=== PATIENT | female | born 1965 | race Caucasian/White ===

== ENCOUNTER 2017-01-03 20:26 | Inpatient (IN) | payer MEDICAID ==
[~2017-01-03] VITALS: Ht 165.1 cm; Wt 106.0 kg
[~2017-01-03 20:26] MED LIST: ALBU6.7H INH; ALBU8I INH; ALPR1TAB3 PO; FURO20 PO; LEVEMIR SQ; NOVOLOGSS SQ; OXYC30TA PO; POTA10IN2 PO; PROM1SUP12 PR; TIOT18I INH; ZITH250T PO; ZOLP10TA3 PO
[2017-01-03 20:34] VITALS: BP 103/61; PULSE 110; RESP 18; TEMP 99.9; O2SAT 87
[2017-01-03] MEDS ORDERED: LEVEMIR SQ (20:53)
[2017-01-03] MEDS ORDERED: OXYC60TA8 PO (20:53)
[2017-01-03] MEDS ORDERED: VENTAER INH (20:53)
[2017-01-03] MEDS ORDERED: OXYC30TA PO (20:53)
[2017-01-03] MEDS ORDERED: NOVO7030P2 SQ (20:53)
[2017-01-03] MEDS ORDERED: SPIRCAP INH (20:53)
[2017-01-03] MEDS ORDERED: ALPR1TAB3 PO (20:53)
[2017-01-03] MEDS ORDERED: SODIUM CHLOR 0.9% 1000 ML INJ 1,000 ML IV ONE (21:00)
--- NOTE | 2017-01-03 21:22 | PD ---
HPI Chief Complaint: Respiratory Symptoms Time Seen by Provider: 20:55 Travel History International Travel<30 days: No Contact w/Intl Traveler<30days: No Traveled to known affect area: No History of Present Illness HPI 51-year-old female states over the past day or so she's been feeling short of breath. She states can multiple treatments at home without significant relief. In the ambulance they gave her another treatment and steroids. She states that she recently got diagnosed with head and neck cancer and is working on getting surgery in [place] early next week. She states she is not started chemotherapy yet. She states that she has been having a lot of mucus and general ill feeling. She denies other complaints other than pain to her back that she takes pain medications at home for. In the ambulance she had a fever of 101. Patient denies any sick contacts. She feels worse when she moves around. She denies other modifying factors. PFSH Past Medical History Arthritis: Yes (KNEES) Asthma: Yes Blood Disorders: No Bipolar Disorder: Yes Anxiety: Yes Depression: Yes Heart Rhythm Problems: No Cancer: Yes (MOLAR , OVARIAN, COMPLETE HYSTERECTOMY) Cardiovascular Problems: Yes High Cholesterol: Yes Chemotherapy: Yes Chest Pain: No Congestive Heart Failure: No COPD: Yes Cerebrovascular Accident: No Diabetes: Yes Patient Takes Glucophage: No Diminished Hearing: No Endocrine: Yes Fibromyalgia: Yes Genitourinary: No Headaches: Yes Hypertension: Yes Immune Disorder: No Implanted Vascular Access Dvce: No Musculoskeletal: Yes (degenerative disc disease) Neurologic: Yes (NEUROPATHY IN LEGS) Psychiatric: Yes (BIPOLAR) Reproductive: No Respiratory: Yes (sarcoidosis) Migraines: No Myocardial Infarction: Yes ("SMALL HEART ATTACK IN 2006") Radiation Therapy: Yes Seizures: No Sleep Apnea: Yes Influenza Vaccination: Yes ?: Not LMP: 2006 : 1 Para: 1 Miscarriage: 0 : 0 Past Surgical History Abdominal Surgery: Yes (MOLAR PREGNACY, EXP. LAP) Appendectomy: Yes Cardiac Surgery: No Ear Surgery: No Endocrine Surgery: No Eye Surgery: No Genitourinary Surgery: No Gynecologic Surgery: Yes (HYSTERECTOMY) Hysterectomy: Yes Oral Surgery: No Thoracic Surgery: No Other Surgery: Yes (LUNG BIOPSY 2007) Family History Family Hypercholesterolemia: Yes Social History Alcohol Use: No Tobacco Use: Yes (1/2 PPD) Substance Use: No Allergies-Medications (Allergen,Severity, Reaction): Coded Allergies: Morphine (Verified Allergy, Severe, CAN'T BREATH, 08/01/14) Toradol (Verified Allergy, Intermediate, HIVES, 08/01/14) *MDRO Multi-Drug Resistant Organism (Verified Allergy, Unknown, 03/31/14) MRSA Reported Meds & Prescriptions Reported Meds & Active Scripts Active Reported Oxycontin (Oxycodone HCl) 60 Mg Tab 60 Mg PO Q12HR Spiriva Handihaler (Tiotropium Inh) 18 Mcg Cap 18 Mcg INH DAILY 1 capsule = 18 mcg Oxycodone (Oxycodone HCl) 30 Mg Tab 30 Mg PO 5 TIMES A DAY PRN Levemir Inj (Insulin Detemir) 1,000 unit/ 10 ML Vial 10 Units SQ HS Do not mix with any other Insulin. Novolin 70-30 Inj (Insulin Human Isoph/Insulin Regular) 1,000 Unit/10 Ml Vial Unknown Dose SQ Alprazolam 1 Mg Tab 1 Mg PO Q8H PRN Ventolin Hfa 18 GM Inh (Albuterol Sulfate) 90 Mcg/Act Aer Unknown Dose INH Q4- 6H PRN Review of Systems Except as stated in HPI: all other systems reviewed are Neg Physical Exam Narrative GENERAL: Well-nourished, well-developed patient. SKIN: Warm and dry. HEAD: Normocephalic and atraumatic. EYES: No injection or drainage. ENT: No nasal drainage noted. Mass noted to neck NECK: Supple, trachea midline. CARDIOVASCULAR: Regular rate and rhythm RESPIRATORY: Coarse bilaterally. No accessory muscle use. GASTROINTESTINAL: Abdomen soft, non-tender, nondistended. NEUROLOGICAL: Awake and alert. Moves extremities. Normal speech. Data Data Last Documented VS Vital Signs Date Time Temp Pulse Resp B/P Pulse Ox O2 Delivery O2 Flow Rate FiO2 01/03/17 22:40 86 Nasal Cannula 4.5 01/03/17 20:56 24 01/03/17 20:34 99.9 110 103/61 increased oxygen to sat 91 range in room with copd history and updated hospitalist Orders Electrocardiogram (01/03/17 20:53) Complete Blood Count With Diff (01/03/17 20:53) Comprehensive Metabolic Panel (01/03/17 20:53) Prothrombin Time / Inr (Pt) (01/03/17 20:53) Act Partial Throm Time (Ptt) (01/03/17 20:53) Lactic Acid Sepsis Protocol (01/03/17 20:53) Magnesium (Mg) (01/03/17 20:53) Phosphorus (Po4) (01/03/17 20:53) Urinalysis - C+S If Indicated (01/03/17 20:53) Influenzae A/B Antigen (01/03/17 20:53) Blood Culture (01/03/17 20:53) Chest, Single Ap (01/03/17 20:53) Ecg Monitoring (01/03/17 20:53) Iv Access Insert/Monitor (01/03/17 20:53) Oximetry (01/03/17 20:53) Oxygen Administration (01/03/17 20:53) Sodium Chlor 0.9% 1000 Ml Inj (Ns 1000 M (01/03/17 21:00) B-Type Natriuretic Peptide (01/03/17 21:02) Ckmb (Isoenzyme) Profile (01/03/17 21:02) Troponin I (01/03/17 21:02) Albuterol-Ipratropium Neb (Duoneb Neb) (01/03/17 22:00) Ct Pulmonary Angiogram (01/03/17 22:01) Sodium Chloride 0.9% Flush (Ns Flush) (01/03/17 22:15) Ceftriaxone Inj (Rocephin Inj) (01/03/17 22:15) Azithromycin Inj (Zithromax Inj) (01/03/17 22:15) Sodium Chlorid 0.9% 500 Ml Inj (Ns 500 M (01/03/17 22:45) Albuterol-Ipratropium Neb (Duoneb Neb) (01/03/17 22:45) Iohexol 350 Inj (Omnipaque 350 Inj) (01/03/17 23:02) Admit Order (Ed Use Only) (01/03/17 23:38) Labs Laboratory Tests Test 01/03/17 01/03/17 21:00 22:15 White Blood Count 19.1 TH/MM3 Red Blood Count 3.94 MIL/MM3 Hemoglobin 10.9 GM/DL Hematocrit 32.7 % Mean Corpuscular Volume 83.0 FL Mean Corpuscular Hemoglobin 27.8 PG Mean Corpuscular Hemoglobin 33.5 % Concent Red Cell Distribution Width 14.1 % Platelet Count 325 TH/MM3 Mean Platelet Volume 8.6 FL Neutrophils (%) (Auto) 81.7 % Lymphocytes (%) (Auto) 10.0 % Monocytes (%) (Auto) 7.1 % Eosinophils (%) (Auto) 0.7 % Basophils (%) (Auto) 0.5 % Neutrophils # (Auto) 15.6 TH/MM3 Lymphocytes # (Auto) 1.9 TH/MM3 Monocytes # (Auto) 1.4 TH/MM3 Eosinophils # (Auto) 0.1 TH/MM3 Basophils # (Auto) 0.1 TH/MM3 CBC Comment DIFF FINAL Differential Comment Prothrombin Time 11.4 SEC Prothromb Time International 1.0 RATIO Ratio Activated Partial 30.8 SEC Thromboplast Time Sodium Level 130 MEQ/L Potassium Level 3.9 MEQ/L Chloride Level 93 MEQ/L Carbon Dioxide Level 30.7 MEQ/L Anion Gap 6 MEQ/L Blood Urea Nitrogen 5 MG/DL Creatinine 0.60 MG/DL Estimat Glomerular Filtration 106 ML/MIN Rate Random Glucose 280 MG/DL Lactic Acid Level 1.1 mmol/L Calcium Level 8.6 MG/DL Phosphorus Level 2.6 MG/DL Magnesium Level 1.7 MG/DL Total Bilirubin 0.6 MG/DL Aspartate Amino Transf 11 U/L (AST/SGOT) Alanine Aminotransferase 20 U/L (ALT/SGPT) Alkaline Phosphatase 139 U/L Total Creatine Kinase 98 U/L Troponin I LESS THAN 0.02 NG/ML B-Type Natriuretic Peptide 32 PG/ML Total Protein 7.2 GM/DL Albumin 3.0 GM/DL Urine Color YELLOW Urine Turbidity CLEAR Urine pH 6.0 Urine Specific [place] 1.007 Urine Protein NEG mg/dL Urine Glucose (UA) 300 mg/dL Urine Ketones NEG mg/dL Urine Occult Blood NEG Urine Nitrite NEG Urine Bilirubin NEG Urine Urobilinogen LESS THAN 2.0 MG/DL Urine Leukocyte Esterase NEG Urine WBC 1 /hpf Urine Squamous Epithelial <1 /hpf Cells Urine Mucus FEW /lpf Microscopic Urinalysis Comment CATH-CULT NOT IND MDM Medical Decision Making Medical Screen Exam Complete: Yes Emergency Medical Condition: Yes Medical Record Reviewed: Yes (past history confirmed) Interpretation(s) CBC & BMP Diagram 01/03/17 21:00 Last [address] Angiography 01/03/17 2201 Signed Impressions: Service Date/Time: Tuesday, January 03, 2017 22:57 - CONCLUSION: 1. Patchy areas of atelectasis and minimal infiltrate without definite evidence for pulmonary embolism however the study is limited secondary to timing of the contrast bolus and significant respiratory motion artifact. 2. Six-month followup CT chest recommended to reassess nodular foci. Chau Marino MD Chest X-Ray 01/03/172052 Signed Impressions: Service Date/Time: Tuesday, January 03, 2017 21:12 - CONCLUSION: Very mild bibasilar atelectasis/infiltrate. Galindo Isaac MD Differential Diagnosis COPD, anemia, MT, pneumonia, PE, effusion.... Narrative Course Will check blood work, chest x-ray and if no etiology found will proceed with CT of chest ED workup shows elevated white count with mild infiltrate on CAT scan and chest x-ray sole dose with antibiotics for pneumonia coverage. Patient is requiring a significant amount of oxygen so she will need to be closely monitored in the intermediate care setting. She'll need continued treatment of her COPD additionally. Her lactate is normal and her blood pressure is stable, patient was updated Sepsis Criteria SIRS Criteria (2 or more): Heart rate over 90, RR > 20 or PaCO2 < 32, WBC > 35575, < 4000 or > 10% bands Sepsis Criteria (SIRS+source): Infect source susp/known Criteria Outcome: Meets sepsis criteria Physician Communication Physician Communication dr mccormick agrees to admit Diagnosis Primary Impression: Community acquired pneumonia Additional Impressions: COPD (chronic obstructive pulmonary disease) Qualified Code: J44.1 - Chronic obstructive pulmonary disease with acute exacerbation Sepsis Qualified Code: A41.9 - Sepsis, due to unspecified organism Admitting Information Admitting Physician Requests: Admit Jesenia Cohen MD Jan 03, 2017 21:22 Jesenia Cohen MD Jan 03, 2017 21:22
--- NOTE | 2017-01-03 21:50 | RADRPT ---
EXAM DATE/TIME: 01/03/2017 21:12 [facility] COMPARISON: No previous studies available for comparison. INDICATIONS : Short of breath. MEDICAL HISTORY : Cardiovascular disease. Chronic obstructive pulmonary disease. Diabetes mellitus type II. Head an d neck cancer. SURGICAL HISTORY : Heart stents ENCOUNTER: Initial ACUITY: 1 day PAIN SCORE: 5/10 LOCATION: Bilateral chest FINDINGS: Trace bibasilar atelectasis/infiltrate. No pleural effusion seen. No pneumothorax. Heart size stable, within normal limits. CONCLUSION: Very mild bibasilar atelectasis/infiltrate. Galindo Isaac MD on January 03, 2017 at 21:48 Board Certified Radiologist. This report was verified electronically.
[2017-01-03 21:54] LABS: AUTOMATED NEUTROPHIL # 15.6 TH/MM3 (1.8-7.7); BASOPHIL # 0.1 TH/MM3 (0-0.2); BASOPHIL % 0.5 % (0.0-2.0); EOSINOPHIL # 0.1 TH/MM3 (0-0.4); EOSINOPHIL % 0.7 % (0.0-4.0); HEMATOCRIT 32.7 % (35.0-46.0); HEMO FLAGS DIFF FINAL; LYMPHOCYTE # 1.9 TH/MM3 (1.0-4.8); MEAN CORPUSCULAR HEMOGLOBIN 27.8 PG (27.0-34.0); MEAN CORPUSCULAR HGB CONC 33.5 % (32.0-36.0); MONO % 7.1 % (0.0-8.0); NEUT % 81.7 % (16.0-70.0); PLATELET COUNT 325 TH/MM3 (150-450); RED BLOOD COUNT 3.94 MIL/MM3 (4.00-5.30); RED CELL DISTRIBUTION WIDTH 14.1 % (11.6-17.2); WHITE BLOOD COUNT 19.1 TH/MM3 (4.0-11.0)
[2017-01-03 22:04] LABS: APTT (PATIENT) 30.8 SEC (24.3-30.1); PROTHROMBIN TIME - PATIENT 11.4 SEC (9.8-11.6)
[2017-01-03 22:10] LABS: ANION GAP 6 MEQ/L (5-15); AST (GOT) 11 U/L (15-37); BICARBONATE 30.7 MEQ/L (21.0-32.0); BLOOD UREA NITROGEN 5 MG/DL (7-18); CHLORIDE 93 MEQ/L (98-107); GLOMERULAR FILTRATION RATE 106 ML/MIN (>89); MAGNESIUM 1.7 MG/DL (1.5-2.5); POTASSIUM 3.9 MEQ/L (3.5-5.1); SODIUM (NA) 130 MEQ/L (136-145)
[2017-01-03 22:11] LABS: ALT (GPT) 20 U/L (10-53)
[2017-01-03 22:14] LABS: ALKALINE PHOSPHATASE 139 U/L (45-117); TOTAL BILIRUBIN ADULT 0.6 MG/DL (0.2-1.0)
[2017-01-03] MEDS ORDERED: cefTRIAXone INJ 1,000 MG in SODIUM CHLORIDE 0.9% INJ 100 ML IV ONE (22:15)
[2017-01-03] MEDS ORDERED: SODIUM CHLORIDE 0.9% FLUSH 10 ML FLUSH IVF PRN (22:15)
[2017-01-03] MEDS ORDERED: AZITHROMYCIN INJ 500 MG in SODIUM CHLOR 0.9% 250 ML INJ 250 ML IV ONE (22:15)
[2017-01-03] MEDS: RESP: ALBUTEROL 2.5 MG/IPRATROPIUM 0.5 MG NEB (SCH) INH (22:16)
[2017-01-03 22:17] LABS: CREATINE KINASE 98 U/L (26-192)
[2017-01-03] MEDS ORDERED: RESP: ALBUTEROL 2.5 MG/IPRATROPIUM 0.5 MG NEB (SCH) NEB ONE (22:45)
[2017-01-03] MEDS ORDERED: SODIUM CHLORID 0.9% 500 ML INJ 500 ML IV ONE (22:45)
[2017-01-03] MEDS ORDERED: IOHEXOL 350 MG/ML 10 ML VIAL (for RAD DIAG) IV ONE (23:02)
[2017-01-03 23:04] LABS: BLOOD, URINE NEG (NEG); GLUCOSE,URINE 300 mg/dL (NEG); KETONE, URINE NEG (NEG); MUCUS URINE FEW /lpf (OCC); NITRITE,URINE NEG (NEG); SQUAMOUS EPITHELIAL CELL URINE <1 /hpf (0-5); URINE COLOR YELLOW (YELLW/STRAW)
[2017-01-03 23:07] LABS: COMMENT (UR) CATH-CULT NOT IND; CULTURE IF INDICATED CATH CULTURE NOT IND
--- NOTE | 2017-01-03 23:13 | RADRPT ---
EXAM DATE/TIME: 01/03/2017 22:57 [facility] COMPARISON: CT PULMONARY ANGIOGRAM, March 05, 2014, 0:18. INDICATIONS : Short of breath, evaluate for pulmonary embolism. IV CONTRAST: 74 cc Omnipaque 350 (iohexol) IV RADIATION DOSE: 23.18 CTDIvol (mGy) MEDICAL HISTORY : Cardiovascular disease. Hypertension. Chronic obstructive pulmonary disease.Diabetes SURGICAL HISTORY : Hysterectomy. ENCOUNTER: Initial ACUITY: 2 days PAIN SCALE: 4/10 LOCATION: chest TECHNIQUE: Volumetric scanning of the chest was performed using a pulmonary embolism protocol MIP images were re constructed. Using automated exposure control and adjustment of the mA and/or kV according to patien t size, radiation dose was kept as low as reasonably achievable to obtain optimal diagnostic quality images. DICOM format image data is available electronically for review and comparison. Follow-up recommendations for incidentally detected pulmonary nodules are based at a minimum on nodul e size and patient risk factors according to Fleischner Society Guidelines. FINDINGS: There is atelectasis within the right middle lobe and lingula linear scarring again seen. In the left lung base posterior medially a focal area of density is noted felt to be pharmaceutical specialty representative of atelectas is. There is respiratory motion artifact. Superior segment left lower lobe 3.9 mm nodule and 8.7 mm n odular focus superior segment left lower lobe likely an area of minimal atelectasis or infiltrate. Th e study is significantly limited with respect to timing of the contrast bolus which limits evaluation of the subsegmental and segmental pulmonary arterial branches. There are no filling defects within t he main pulmonary arteries to suggest pulmonary embolism proximally. Stable mildly prominent lymph no fareed in the mediastinum. At the left lung apex a nodular focus is identified measuring 1.2 cm likely s table area of scarring. CONCLUSION: 1. Patchy areas of atelectasis and minimal infiltrate without definite evidence for pulmonary embolis m however the study is limited secondary to timing of the contrast bolus and significant respiratory motion artifact. 2. Six-month followup CT chest recommended to reassess nodular foci. Chau Marino MD on January 03, 2017 at 23:08 Board Certified Radiologist. This report was verified electronically.
[2017-01-03] MEDS ORDERED: SENNOSIDES 8.6 MG TAB PO PRN (23:45)
[2017-01-03] MEDS ORDERED: LACTULOSE SYRUP 20 GM/30 ML CUP PO PRN (23:45)
[2017-01-03] MEDS ORDERED: ACETAMINOPHEN/HYDROcodone 325 MG/5 MG TAB PO PRN (23:45)
[2017-01-03] MEDS ORDERED: MAGNESIUM HYDROXIDE SUSP 30 ML CUP PO PRN (23:45)
[2017-01-03] MEDS ORDERED: SODIUM CHLORIDE 0.9% FLUSH 10 ML FLUSH IV FLUSH PRN (23:45)
[2017-01-03] MEDS ORDERED: GLUCAGON 1 MG/ML VIAL OTHER PRN (23:45)
[2017-01-03] MEDS ORDERED: Vancomycin Consult Pharmacy 1 EA OTHER SCH (23:45)
[2017-01-03] MEDS ORDERED: ONDANSETRON HCL 4 MG/2 ML VIAL IVP PRN (23:45)
[2017-01-03] MEDS ORDERED: BISACODYL 10 MG SUPP RECTAL PRN (23:45)
[2017-01-03] MEDS ORDERED: DEXTROSE 50% IN WATER 50 ML VIAL(D50) IV PRN (23:45)
[2017-01-03] MEDS ORDERED: ACETAMINOPHEN 325 MG TAB PO PRN (23:45)
--- NOTE | 2017-01-03 23:48 | HHI.HP ---
HPI Service [facility] Primary Care Physician Efrem Casey MD Admission Diagnosis copd exacerbation Diagnoses: (1) Sepsis Diagnosis: Principal (2) PNA (pneumonia) Diagnosis: Principal (3) COPD (chronic obstructive pulmonary disease) Diagnosis: Principal (4) Hypoxia Diagnosis: Principal (5) Head and neck cancer Diagnosis: Principal (6) DM (diabetes mellitus) Diagnosis: Principal (7) Tobacco abuse Diagnosis: Principal Travel History International Travel<30 Days: No Contact w/Intl Traveler <30 Da: No Traveled to Known Affected Are: No History of Present Illness This is a 51-year-old female with a PMH of Anxiety, Depression, Bipolar Disorder , HTN, DM, COPD, Head and Neck CA and Tobacco Abuse who was brought to the ER by EMS secondary to c/o SOB x1 day. Has been using home MDI/Neb without much relief. Upon EMS arrival, O2 sat 90% on 2L NC, s/p Solu-Medrol/DuoNeb en route. On arrival, BP 103/61, HR 110, O2 sat 87% on 2L NC, Temp 99.9. WBC 19.1. Chemistry essentially unremarkable. Lactic Acid normal. INR 1.0. UA negative. CXR with mild bibasilar atelectasis/infiltrate. CTA Pulm with patchy areas of atelectasis and infiltrate, no evidence of PE. S/p Rocephin/ Zithro in ER. Pt reports recent diagnosis of Head/Neck CA, has upcoming left neck mass resection scheduled for this Friday at [facility] w/ Dr. Armas. Review of Systems Except as stated in HPI: all other systems reviewed are Neg ROS: 14 point review of systems otherwise negative. Past Family Social History Past Medical History PMH: Anxiety, Depression, Bipolar Disorder, HTN, DM, COPD, Head and Neck CA and Tobacco Abuse Past Surgical History PAST SURGICAL HISTORY: Molar , exploratory Laparotomy, Appendectomy, Hysterectomy Allergies: Coded Allergies: Morphine (Verified Allergy, Severe, CAN'T BREATH, 08/01/14) Toradol (Verified Allergy, Intermediate, HIVES, 08/01/14) *MDRO Multi-Drug Resistant Organism (Verified Allergy, Unknown, 03/31/14) MRSA Family History PAST FAMILY HISTORY: Reviewed, positive for CAD. Social History PAST SOCIAL HISTORY: Negative for alcohol or drugs. Positive for tobacco, smokes 1/2ppd. Physical Exam Vital Signs Vital Signs Date Time Temp Pulse Resp B/P Pulse Ox O2 Delivery O2 Flow Rate FiO2 01/03/17 22:40 86 Nasal Cannula 4.5 01/03/17 20:57 90 Nasal Cannula 2 01/03/17 20:56 24 92 Nasal Cannula 2 01/03/17 20:34 99.9 110 18 103/61 87 Physical Exam PE: GENERAL: Middle-aged white female in no acute distress. Smells of tobacco. On NC. HEENT: PERRLA, EOMI. No scleral icterus or conjunctival pallor. No lid lag or facial droop. CARDIOVASCULAR: Regular rate and rhythm. No obvious murmurs to auscultation. No chest tenderness to palpation. RESPIRATORY: No obvious rhonchi, occasional wheezing. Clear to auscultation. Breath sounds equal bilaterally. GASTROINTESTINAL: Abdomen soft, non-tender, nondistended. BS normal. MUSCULOSKELETAL: Extremities without clubbing, cyanosis, or edema. No obvious deformities. NEUROLOGICAL: Awake, alert and oriented x4. No focal neurologic deficits. Moving both upper and lower extremities spontaneously. Laboratory Laboratory Tests Test 01/03/17 01/03/17 21:00 22:15 White Blood Count 19.1 Red Blood Count 3.94 Hemoglobin 10.9 Hematocrit 32.7 Mean Corpuscular Volume 83.0 Mean Corpuscular Hemoglobin 27.8 Mean Corpuscular Hemoglobin 33.5 Concent Red Cell Distribution Width 14.1 Platelet Count 325 Mean Platelet Volume 8.6 Neutrophils (%) (Auto) 81.7 Lymphocytes (%) (Auto) 10.0 Monocytes (%) (Auto) 7.1 Eosinophils (%) (Auto) 0.7 Basophils (%) (Auto) 0.5 Neutrophils # (Auto) 15.6 Lymphocytes # (Auto) 1.9 Monocytes # (Auto) 1.4 Eosinophils # (Auto) 0.1 Basophils # (Auto) 0.1 CBC Comment DIFF FINAL Differential Comment Prothrombin Time 11.4 Prothromb Time International 1.0 Ratio Activated Partial 30.8 Thromboplast Time Sodium Level 130 Potassium Level 3.9 Chloride Level 93 Carbon Dioxide Level 30.7 Anion Gap 6 Blood Urea Nitrogen 5 Creatinine 0.60 Estimat Glomerular Filtration 106 Rate Random Glucose 280 Lactic Acid Level 1.1 Calcium Level 8.6 Phosphorus Level 2.6 Magnesium Level 1.7 Total Bilirubin 0.6 Aspartate Amino Transf 11 (AST/SGOT) Alanine Aminotransferase 20 (ALT/SGPT) Alkaline Phosphatase 139 Total Creatine Kinase 98 Troponin I LESS THAN 0.02 B-Type Natriuretic Peptide 32 Total Protein 7.2 Albumin 3.0 Urine Color YELLOW Urine Turbidity CLEAR Urine pH 6.0 Urine Specific [place] 1.007 Urine Protein NEG Urine Glucose (UA) 300 Urine Ketones NEG Urine Occult Blood NEG Urine Nitrite NEG Urine Bilirubin NEG Urine Urobilinogen LESS THAN 2.0 Urine Leukocyte Esterase NEG Urine WBC 1 Urine Squamous Epithelial <1 Cells Urine Mucus FEW Microscopic Urinalysis Comment CATH-CULT NOT IND Date/Time Procedure Status Source Growth 01/03/17 21:35 Influenza Types A,B Antigen (VERÓNICA) - Final Complete Nasal Aspirate NEGATIVE FOR FLU A AND B ANTIGEN.... 01/03/17 21:05 Aerobic Blood Culture Received Blood Peripheral Pending 01/03/17 21:05 Anaerobic Blood Culture Received Blood Peripheral Pending Result Diagram: 01/03/17 2100 01/03/17 2100 Assessment and Plan Problem List: (1) Sepsis ICD Code: A41.9 Status: Acute (2) PNA (pneumonia) ICD Code: J18.9 Status: Acute (3) COPD (chronic obstructive pulmonary disease) ICD Code: J44.9 Status: Acute (4) Hypoxia ICD Code: R09.02 Status: Acute (5) Head and neck cancer ICD Code: C76.0 Status: Acute (6) DM (diabetes mellitus) ICD Code: E11.9 Status: Acute (7) Tobacco abuse ICD Code: Z72.0 Status: Acute Assessment and Plan A/P: 1. Sepsis: Temp 99.9, HR 130's, WBC 19, Source-PNA. CXR w/ bibasilar atelectasis/infiltrate, CTA Pulm w/ patchy areas of infiltrate, no PE, images reviewed by me. S/p Blood Cultures, Rocephin/Zithro in ER. Follow up cultures , continue w/ IV Abx, IVF for hydration. 2. PNA: CXR w/ bibasilar infiltrate, CTA Pulm w/ patchy infiltrates as above, continue w/ IV Abx, will cover w/ Vanc/Cefepime. 3. COPD: Chronic Respiratory Failure w/ Acute Exacerbation. +wheezing. S/p Solu-Medrol and DuoNeb w/ some improvement. Continue w/ Solu-Medrol, DuoNeb, Symbicort. 4. Hypoxia: Multifactorial-secondary to PNA/COPD. O2 sat 90% on 2L NC, + desaturation w/ ambulation to 83%, monitor O2, continue w/ NC as needed. 5. Head and Neck CA: s/p recent diagnosis of Head/Neck CA, scheduled for upcoming left neck mass resection on Friday at [facility]. Follow up as planned. 6. DM: Sliding scale w/ Accu-Cheks. Resume home Levemir. 7. Tobacco Abuse: Counselled. NicoDerm prn if needed. 8. DVT Prophylaxis: SCD/Teds. 9. Social work for d/c planning as needed. 10. Case discussed w/ ER physician at length. Physician Certification 2 Midnight Certification Type: Admission for Inpatient Services Order for Inpatient Services The services are ordered in accordance with Medicare regulations or non- Medicare payer requirements, as applicable. In the case of services not specified as inpatient-only, they are appropriately provided as inpatient services in accordance with the 2-midnight benchmark. Estimated LOS (days): 2 days is the estimated time the patient will need to remain in the hospital, assuming treatment plan goals are met and no additional complications. Post-Hospital Plan: Not yet determined Problem Qualifiers (1) Sepsis: Qualified Code: A41.9 - Sepsis, due to unspecified organism (2) COPD (chronic obstructive pulmonary disease): Qualified Code: J44.1 - Chronic obstructive pulmonary disease with acute exacerbation Lali Camacho MD Jan 03, 2017 23:48
[2017-01-03 23:50] VITALS: BP 101/59; PULSE 96; RESP 22; O2SAT 86
[2017-01-04] VITALS (12 sets, daily range): BP systolic 102–137; BP diastolic 56–73; PULSE 69–87; RESP 16–27; TEMP 98.4; O2SAT 81–94
[2017-01-04] MEDS: SODIUM CHLOR 0.9% 1000 ML INJ 1,000 ML IV SCH ×3 (00:47→21:39)
[2017-01-04] MEDS: HYDROmorphone HCL PF 1 MG/ML VIAL IV PRN ×3 (00:53→11:25)
[2017-01-04] MEDS ORDERED: VANCOMYCIN INJ 2,500 MG in SODIUM CHLORID 0.9% 500 ML INJ 500 ML IV ONE (01:00)
[2017-01-04] MEDS ORDERED: ACETAMINOPHEN 325 MG TAB PO ONE (02:15)
[2017-01-04 07:58] LABS: AUTOMATED NEUTROPHIL # 17.3 TH/MM3 (1.8-7.7); BASOPHIL % 0.2 % (0.0-2.0); HEMATOCRIT 31.4 % (35.0-46.0); HEMO FLAGS DIFF FINAL; LYMPH % 4.1 % (9.0-44.0); LYMPHOCYTE # 0.7 TH/MM3 (1.0-4.8); MEAN CELL VOLUME 82.8 FL (80.0-100.0); MEAN CORPUSCULAR HEMOGLOBIN 28.2 PG (27.0-34.0); MEAN CORPUSCULAR HGB CONC 34.1 % (32.0-36.0); MONO % 1.2 % (0.0-8.0); NEUT % 94.5 % (16.0-70.0); PLATELET COUNT 319 TH/MM3 (150-450); RED BLOOD COUNT 3.79 MIL/MM3 (4.00-5.30); RED CELL DISTRIBUTION WIDTH 14.7 % (11.6-17.2); WHITE BLOOD COUNT 18.3 TH/MM3 (4.0-11.0)
[2017-01-04 08:25] LABS: ALT (GPT) 21 U/L (10-53); ANION GAP 8 MEQ/L (5-15); AST (GOT) 18 U/L (15-37); BICARBONATE 27.8 MEQ/L (21.0-32.0); BLOOD UREA NITROGEN 8 MG/DL (7-18); CHLORIDE 98 MEQ/L (98-107); GLOMERULAR FILTRATION RATE 117 ML/MIN (>89); POTASSIUM 4.3 MEQ/L (3.5-5.1); SODIUM (NA) 134 MEQ/L (136-145)
[2017-01-04 08:27] LABS: ALKALINE PHOSPHATASE 161 U/L (45-117); TOTAL BILIRUBIN ADULT 0.4 MG/DL (0.2-1.0)
[2017-01-04] MEDS: INSULIN ASPART SUPPLEMENTAL SCALE SQ SCH ×4 (08:39→21:15)
[2017-01-04] MEDS: SODIUM CHLORIDE 0.9% FLUSH 10 ML FLUSH IV FLUSH SCH ×2 (09:00→20:23)
[2017-01-04] MEDS: oxyCODONE HCL 20 MG CONTROLLED RELEASE TAB PO SCH ×2 (09:00→23:44)
[2017-01-04] MEDS: TIOTROPIUM BROMIDE 18 MCG INH INH SCH (10:25)
[2017-01-04] MEDS: DOCUSATE SODIUM 50 MG/SENNA 8.6 MG TAB PO SCH ×2 (10:25→20:24)
--- NOTE | 2017-01-04 13:41 | EKG ---
Date Performed: 01/03/2017 Time Performed: 20:41:45 PTAGE: 51 years EKG: SINUS TACHYCARDIA Compared to previous tracing, sinus rate has increased ABNORMAL RHYTHM EC G PREVIOUS TRACING : 10/18/2015 05.07 DOCTOR: Kishor Carlson Interpretating Date/Time 01/04/2017 13:40:08
--- NOTE | 2017-01-04 13:54 | HHI.PR ---
Subjective Remarks Follow-up for pneumonia Patient feeling better, less short of breath, however she is becoming anxious. She still coughing, producing yellowish sputum. Afebrile. No urinary symptoms. Objective Vitals Vital Signs Date Time Temp Pulse Resp B/P Pulse Ox O2 Delivery O2 Flow Rate FiO2 01/04/17 11:00 75 16 108/59 94 Nasal Cannula 5 01/04/17 07:00 78 16 129/71 93 Nasal Cannula 5 01/04/17 05:57 75 22 102/56 92 Nasal Cannula 4.5 01/04/17 03:07 90 4.5 01/03/17 23:50 96 22 101/59 86 Nasal Cannula 4.5 01/03/17 22:40 86 Nasal Cannula 4.5 01/03/17 20:57 90 Nasal Cannula 2 01/03/17 20:56 24 92 Nasal Cannula 2 01/03/17 20:34 99.9 110 18 103/61 87 Result Diagram: 01/04/17 0640 01/04/[address] Angiography 01/03/172200 Signed Impressions: Service Date/Time: Tuesday, January 03, 2017 22:57 - CONCLUSION: 1. Patchy areas of atelectasis and minimal infiltrate without definite evidence for pulmonary embolism however the study is limited secondary to timing of the contrast bolus and significant respiratory motion artifact. 2. Six-month followup CT chest recommended to reassess nodular foci. Chau Marino MD Chest X-Ray 01/03/172052 Signed Impressions: Service Date/Time: Tuesday, January 03, 2017 21:12 - CONCLUSION: Very mild bibasilar atelectasis/infiltrate. Galindo Isaac MD Objective Remarks GENERAL: Middle-aged white female in no acute distress. Smells of tobacco. On NC. HEENT: PERRLA, EOMI. No scleral icterus or conjunctival pallor. No lid lag or facial droop. CARDIOVASCULAR: Regular rate and rhythm. No obvious murmurs to auscultation. No chest tenderness to palpation. RESPIRATORY: Diffuse mild wheezing. GASTROINTESTINAL: Abdomen soft, non-tender, nondistended. BS normal. MUSCULOSKELETAL: Extremities without clubbing, cyanosis, or edema. No obvious deformities. NEUROLOGICAL: Awake, alert and oriented x4. No focal neurologic deficits. A/P Problem List: (1) Sepsis ICD Code: A41.9 Status: Acute (2) PNA (pneumonia) ICD Code: J18.9 Status: Acute (3) COPD (chronic obstructive pulmonary disease) ICD Code: J44.9 Status: Acute (4) Hypoxia ICD Code: R09.02 Status: Acute (5) Head and neck cancer ICD Code: C76.0 Status: Acute (6) DM (diabetes mellitus) ICD Code: E11.9 Status: Acute (7) Tobacco abuse ICD Code: Z72.0 Status: Acute Assessment and Plan This is a 51-year-old female with history of COPD who presented to the hospital with shortness of breath Sepsis secondary to pneumonia-chest x-ray CT scan of the chest showed pneumonia , no PE. Status post blood cultures, continue azithromycin , vancomycin IV and ceftriaxone. Continue IVF. Check sputum culture Pulmonary nodule-would need a repeat CT scan of the chest in 6 months. Hypoxic respiratory failure secondary to COPD exacerbation-chronic respiratory failure, continue steroids and DuoNeb's. Continue Symbicort and oxygen support Head and neck cancer- s/p recent diagnosis of Head/Neck CA, scheduled for upcoming left neck mass resection on Friday at [place]. Follow up as planned. Try to discharge Friday. DM: Sliding scale w/ Accu-Cheks. Resume home Levemir. Tobacco Abuse: Counselled. NicoDerm prn if needed. DVT Prophylaxis: SCD/Teds. Discharge Planning Discharge Friday or earlier. She needs to follow-up on Friday in [place] for resection for head and neck cancer. Problem Qualifiers (1) Sepsis: Qualified Code: A41.9 - Sepsis, due to unspecified organism (2) COPD (chronic obstructive pulmonary disease): Qualified Code: J44.1 - Chronic obstructive pulmonary disease with acute exacerbation Ronn Lisa MD Jan 04, 2017 13:54
[2017-01-04] MEDS: methylPREDNISolone SOD SUCC 40 MG/1 ML VIAL IV PUSH SCH ×2 (14:15→20:23)
[2017-01-04] MEDS: ALPRAZolam 1 MG TAB PO PRN (14:15)
[2017-01-04] MEDS ORDERED: CHLORHEXIDINE GLUCONATE 2 % 1 PACK (2 CLOTHS)(extra cloths) TOPICAL PRN (18:15)
[2017-01-04] MEDS: VANCOMYCIN INJ 1,800 MG in SODIUM CHLORID 0.9% 500 ML INJ 500 ML IV SCH (20:23)
[2017-01-04] MEDS ORDERED: HYDROmorphone HCL PF 1 MG/ML VIAL IV PUSH ONE (21:00)
[2017-01-04] MEDS ORDERED: INSULIN DETEMIR 100 UNITS/ML VIAL SQ SCH (21:00)
[2017-01-05] VITALS (7 sets, daily range): BP systolic 108–113; BP diastolic 66–75; PULSE 61–91; RESP 15–35; TEMP 97.8–98.2; O2SAT 85–95
[2017-01-05] MEDS: RESP: ALBUTEROL 2.5 MG/IPRATROPIUM 0.5 MG NEB (PRN) NEB ×2 (00:02→05:05)
[2017-01-05] MEDS ORDERED: CHLORHEXIDINE GLUCONATE 2 % 1 PACK (2 CLOTHS)(taper/protocol) TOPICAL SCH (04:00)
[2017-01-05] MEDS: INSULIN ASPART SUPPLEMENTAL SCALE SQ SCH (06:22)
[2017-01-05] MEDS: ALPRAZolam 1 MG TAB PO PRN (07:52)
[2017-01-05] MEDS: VANCOMYCIN INJ 1,800 MG in SODIUM CHLORID 0.9% 500 ML INJ 500 ML IV SCH (07:52)
[2017-01-05] MEDS: TIOTROPIUM BROMIDE 18 MCG INH INH SCH (07:53)
[2017-01-05] MEDS: SODIUM CHLORIDE 0.9% FLUSH 10 ML FLUSH IV FLUSH SCH (07:53)
[2017-01-05] MEDS: methylPREDNISolone SOD SUCC 40 MG/1 ML VIAL IV PUSH SCH (07:53)
[2017-01-05] MEDS: oxyCODONE HCL 20 MG CONTROLLED RELEASE TAB PO SCH (08:05)
[2017-01-05] MEDS: DOCUSATE SODIUM 50 MG/SENNA 8.6 MG TAB PO SCH (08:05)
--- NOTE | 2017-01-05 12:57 | PD.AMA ---
Against Medical Advice Note Discharge Disposition: Against Medical Advice Pt Condition on Discharge: Fair AMA Statement Patient Suzanna Boyce has decided to leave the hospital against medical advice. This patient has the capacity to refuse care and understands the risks of leaving, including permanent disability and/or , and has had an opportunity to ask questions about her condition. She said she is happy with how she is being treated here in the hospital and believes that she is better but her mother wants her to leave AMA and go to [facility] and she would like to sandrita to her mother. The patient has been informed that she may return for care at any time, and follow up has been arranged/advised. Ronn Lisa MD Jan 05, 2017 12:57
[2017-01-05] MEDS ORDERED: RESP: ALBUTEROL 2.5 MG/IPRATROPIUM 0.5 MG NEB (SCH) NEB (14:00)
[2017-01-05] MEDS ORDERED: methylPREDNISolone SOD SUCC 40 MG/1 ML VIAL IV PUSH SCH (14:00)
--- NOTE | 2017-01-05 14:08 | HHI.PR ---
Subjective Remarks Follow-up for shortness of breath Shortness of breath is worsened, on 6 L of oxygen today, also anxious. Breath sounds are better though. Still coughing. Seen earlier today. Objective Vitals Vital Signs Date Time Temp Pulse Resp B/P Pulse Ox O2 Delivery O2 Flow Rate FiO2 01/05/17 09:05 20 01/05/17 07:46 90 Nasal Cannula 6.00 01/05/17 06:00 67 01/05/17 04:00 98.2 61 15 108/66 94 01/05/17 04:00 61 01/05/17 02:00 69 01/05/17 00:03 95 Simple Mask 6.00 01/05/17 00:00 97.8 91 35 113/75 85 01/05/17 00:00 91 01/04/17 22:00 69 01/04/17 21:51 20 01/04/17 20:00 80 01/04/17 20:00 98.4 80 25 118/73 93 01/04/17 19:00 79 23 114/62 92 01/04/17 18:00 87 24 137/68 90 01/04/17 17:00 75 22 113/68 81 01/04/17 16:00 69 18 111/62 93 01/04/17 15:08 78 24 116/62 93 I/O 01/04/17 01/04/17 01/04/17 01/05/17 01/05/17 01/05/17 07:00 15:00 23:00 07:00 15:00 23:00 Intake Total 1363 ml 720 ml Output Total 1000 ml 800 ml Balance 363 ml -80 ml Intake Oral 960 ml 360 ml IV Total 403 ml 360 ml Output Urine Total 1000 ml 800 ml # Voids 3 3 Result Diagram: 01/04/17 0640 01/05/17 0414 Objective Remarks GENERAL: Middle-aged white female in no acute distress. Smells of tobacco. On NC. HEENT: PERRLA, EOMI. No scleral icterus or conjunctival pallor. No lid lag or facial droop. CARDIOVASCULAR: Regular rate and rhythm. No obvious murmurs to auscultation. No chest tenderness to palpation. RESPIRATORY: Diffuse mild wheezing, similar as yesterday, no rhonchi, no crackles. GASTROINTESTINAL: Abdomen soft, non-tender, nondistended. BS normal. MUSCULOSKELETAL: Extremities without clubbing, cyanosis, or edema. No obvious deformities. NEUROLOGICAL: Awake, alert and oriented x4. No focal neurologic deficits. A/P Problem List: (1) Sepsis ICD Code: A41.9 Status: Acute (2) PNA (pneumonia) ICD Code: J18.9 Status: Acute (3) COPD (chronic obstructive pulmonary disease) ICD Code: J44.9 Status: Acute (4) Hypoxia ICD Code: R09.02 Status: Acute (5) Head and neck cancer ICD Code: C76.0 Status: Acute (6) DM (diabetes mellitus) ICD Code: E11.9 Status: Acute (7) Tobacco abuse ICD Code: Z72.0 Status: Acute Assessment and Plan This is a 51-year-old female with history of COPD who presented to the hospital with shortness of breath Sepsis secondary to pneumonia-chest x-ray CT scan of the chest showed pneumonia , no PE. Status post blood cultures, continue azithromycin , vancomycin IV and ceftriaxone. Stop IVF. Sputum culture pending. Check ABG. Start DuoNeb's [id number]. Pulmonary nodule-would need a repeat CT scan of the chest in 6 months. Hypoxic respiratory failure secondary to COPD exacerbation-chronic respiratory failure, increase steroids. Continue Symbicort and oxygen support Head and neck cancer- s/p recent diagnosis of Head/Neck CA, scheduled for upcoming left neck mass resection on Friday at [place]. Follow up as planned. Try to discharge Friday DM: Sliding scale w/ Accu-Cheks. Resume home Levemir. Tobacco Abuse: Counselled. NicoDerm prn if needed. Anxiety-increase Xanax. DVT Prophylaxis: SCD/Teds. Discharge Planning Discharge Fri/. She needs to follow-up on Friday in [place] for resection for head and neck cancer. Problem Qualifiers (1) Sepsis: Qualified Code: A41.9 - Sepsis, due to unspecified organism (2) COPD (chronic obstructive pulmonary disease): Qualified Code: J44.1 - Chronic obstructive pulmonary disease with acute exacerbation Ronn iLsa MD Jan 05, 2017 14:08
[2017-01-05] MEDS ORDERED: ALPRAZolam 1 MG TAB PO PRN (19:45)
[2017-01-05] MEDS ORDERED: PHARMACY ORDERED LAB ONE (19:45)
[2017-01-11] MEDS ORDERED: CEFEPIME INJ 1,000 MG in SODIUM CHLORIDE 0.9% INJ 100 ML IV SCH (09:00)
== END 2017-01-05 13:45 | disposition left against medical advice (07) | DRG 871 ==
LOC: NEPC 20:26 → NEDA 23:41 → NEDH 01-04 03:01 → HIME 01-04 13:30
PROVIDERS: ADMIT Family Medicine; ATTEND Family Medicine
DX: A41.9 Sepsis, unspecified organism (principal); J44.0 Chronic obstructive pulmonary disease with (acute) lower respiratory infection; J18.9 Pneumonia, unspecified organism; J96.21 Acute and chronic respiratory failure with hypoxia; J44.1 Chronic obstructive pulmonary disease with (acute) exacerbation; C76.0 Malignant neoplasm of head, face and neck; E11.9 Type 2 diabetes mellitus without complications; F17.210 Nicotine dependence, cigarettes, uncomplicated; F41.9 Anxiety disorder, unspecified; I10 Essential (primary) hypertension; F31.9 Bipolar disorder, unspecified; R91.1 Solitary pulmonary nodule
CPT/HCPCS: 71010; 71275; 80053; 81001; 82550; 82565; 82947; 82948; 83605; 83735; 83880; 84100; 84484; 85025; 85610; 85730; 87040; 87070; 87205; 87641; 87804; 93005; 94640; 94664; 96361; 96365; J0456; J0696; J1170; J1815; J2920; J3370; J7030; J7040; J7050; Q9967

== ENCOUNTER 2017-04-16 01:40 | Observation (INO) | payer MEDICAID ==
[2017-04-16] VITALS (8 sets, daily range): BP systolic 114–167; BP diastolic 66–90; PULSE 68–105; RESP 18–24; TEMP 98–98.7; O2SAT 91–98
[~2017-04-16] VITALS: Ht 160 cm; Wt 90.0 kg
[~2017-04-16 01:40] MED LIST changes: -ALBU6.7H INH; -ALBU8I INH; -FURO20 PO; +NOVO7030P2 SQ; -NOVOLOGSS SQ; +OXYC60TA8 PO; -POTA10IN2 PO; -PROM1SUP12 PR; +SPIRCAP INH; -TIOT18I INH; +VENTAER INH; -ZITH250T PO; -ZOLP10TA3 PO
--- NOTE | 2017-04-16 02:12 | PD ---
HPI Chief Complaint: Pain: Acute or Chronic Time Seen by Provider: 01:59 Travel History International Travel<30 days: No Contact w/Intl Traveler<30days: No Traveled to known affect area: No History of Present Illness HPI The patient is 52 year old female who presents to [facility] emergency department with a history of stage IV head and neck cancer status post neck dissection on January 29, 2017 who presents with a history of 2 days of left- sided headache, ear pain, jaw pain. She reports the pain as a throbbing sensation. She reports that on April 07 she had 18 teeth pulled. She denies having any increased swelling of her gums. The patient denies having any drainage in her mouth or nasal drainage. She reports that she is currently on amoxicillin for prevention of infection. She reports that she still has sutures in place. She has not had a follow-up appointment with the dentist who did the procedure. She reports that she is followed by [facility]. The patient reports that she had her teeth pulled in preparation for radiation therapy. Her oncologist is Dr. Welch . She reports that she is not a candidate for chemotherapy. She reports that yesterday she had fever with a MAXIMUM TEMPERATURE of 100.3. On review of systems otherwise, she denies having any worsening cough or congestion. She reports that she does have a baseline cough related to COPD. the patient reports having generalized weakness with fatigue and difficulty walking. She reports that she has not been able to eat any solids. She denies having any chest pain, worsening shortness of breath , abdominal pain, vomiting, urinary symptoms, or other neurologic symptoms. The patient reports that she has had diarrhea that began yesterday. She reports that she's had diarrhea proximate 6 times. She reports that the stool is orange to yellow in color. She denies having any blood or mucus in her stool. The patient reports having nausea. [facility] Past Medical History Narrative Medical The patient's past medical history is significant for stage IV head and neck cancer, bipolar disorder, hypertension, diabetes mellitus, COPD. Arthritis: Yes (KNEES) Asthma: Yes Blood Disorders: No Bipolar Disorder: Yes Anxiety: Yes Depression: Yes Heart Rhythm Problems: No Cancer: Yes (OVARIAN, HEAD, NECK) Cardiovascular Problems: Yes High Cholesterol: Yes Chemotherapy: Yes Chest Pain: No Congestive Heart Failure: No COPD: Yes Cerebrovascular Accident: No Diabetes: Yes Patient Takes Glucophage: No Diminished Hearing: No Endocrine: Yes Fibromyalgia: Yes Genitourinary: No Headaches: Yes Hypertension: Yes Immune Disorder: No Implanted Vascular Access Dvce: No Musculoskeletal: Yes (degenerative disc disease) Neurologic: Yes (NEUROPATHY IN LEGS) Psychiatric: Yes Reproductive: No Respiratory: Yes (sarcoidosis) Migraines: No Myocardial Infarction: Yes (90% BLOCKAGE LAD) Radiation Therapy: Yes Seizures: No Sleep Apnea: Yes ?: Not : 1 Para: 1 Miscarriage: 0 : 0 Past Surgical History Narrative Surgical The patient's past surgical history is significant for molar excision , exploratory laparotomy, appendectomy, hysterectomy, and exploratory resection and excision of head and neck cancer. Abdominal Surgery: Yes (MOLAR PREGNACY, EXP. LAP) Appendectomy: Yes Cardiac Surgery: No Coronary Stent: Yes (2014) Ear Surgery: No Endocrine Surgery: No Eye Surgery: No Genitourinary Surgery: No Gynecologic Surgery: Yes (HYSTERECTOMY) Hysterectomy: Yes Oral Surgery: No Thoracic Surgery: No Other Surgery: Yes (LUNG BIOPSY 2007, COMPLETE NECK DISSECTION 02/06) Family History Family Hypercholesterolemia: Yes Social History Alcohol Use: No Tobacco Use: Yes Substance Use: No Allergies-Medications (Allergen,Severity, Reaction): Coded Allergies: morphine (Unverified Allergy, Severe, CAN'T BREATH, 04/16/17) ketorolac (Unverified Allergy, Intermediate, HIVES, 04/16/17) *MDRO Multi-Drug Resistant Organism (Verified Adverse Reaction, Unknown, 04/16/17) MRSA Wound 01/05/17 Reported Meds & Prescriptions Reported Meds & Active Scripts Active Reported Plavix (Clopidogrel Bisulfate) 75 Mg Tab 75 Mg PO DAILY Potassium Chloride ER (Potassium Chloride) 10 Meq Cap 10 Meq PO DAILY Lasix (Furosemide) 20 Mg Tab 20 Mg PO DAILY Oxycontin (Oxycodone HCl) 60 Mg Tab 60 Mg PO Q12HR Spiriva Handihaler (Tiotropium Inh) 18 Mcg Cap 18 Mcg INH DAILY 1 capsule = 18 mcg Oxycodone (Oxycodone HCl) 30 Mg Tab 30 Mg PO 5 TIMES A DAY PRN Levemir Inj (Insulin Detemir) 1,000 unit/ 10 ML Vial 10 Units SQ HS Do not mix with any other Insulin. Novolin 70-30 Inj (Insulin Human Isoph/Insulin Regular) 1,000 Unit/10 Ml Vial Unknown Dose SQ Alprazolam 1 Mg Tab 1 Mg PO Q8H PRN Ventolin Hfa 18 GM Inh (Albuterol Sulfate) 90 Mcg/Act Aer Unknown Dose INH Q4- 6H PRN Review of Systems Except as stated in HPI: all other systems reviewed are Neg General / Constitutional: Positive: Fever Eyes: No: Visual changes HENT: Positive: Headaches, Neck Pain, No: Rhinorrhea, Neck Stiffness Cardiovascular: Positive: Dyspnea on exertion, No: Chest Pain or Discomfort Respiratory: Positive: Cough, Shortness of Breath, Wheezing Gastrointestinal: Positive: Nausea, Diarrhea, Changes in Bowel Habits, Loss of Appetite, No: Vomiting, Abdominal Pain, Indigestion Genitourinary: No: Dysuria Musculoskeletal: No: Pain Skin: No Rash Neurologic: Positive: Weakness, No: Focal Abnormalities, Change in Mentation, Slurred Speech, Sensory Disturbance Psychiatric: No: Depression Endocrine: No: Polydipsia Hematologic/Lymphatic: No: Easy Bruising Physical Exam Narrative General: The patient is a well-developed well-nourished female, uncomfortable appearing on examination related to her dental extractions. Head and Neck exam: Head is normocephalic atraumatic. Eyes: EOMI, pupils are equal round and reactive to light. Nose: Midline septum with pink mucous membranes Mouth: On examination of the patient's mouth she is noted to have along the mandible sutures from recent extractions. There is some swelling of the gums, however no abscess formation, no drainage noted. Moist mucus membranes. Posterior oropharynx is not erythematous. No tonsillar hypertrophy. Uvula midline. Airway patent. Neck: No palpable lymphadenopathy. No nuchal rigidity. No thyromegaly. Cardiovascular: Sinus tachycardia in the low 100 without murmurs, gallops, or rubs. No pulse deficits to the extremities and simultaneous auscultation and palpation of her radial artery Lungs: Clear to auscultation bilaterally. No wheezes, rhonchi, or rales. Abdomen: Soft, without tenderness to palpation in all 4 quadrants of the abdomen. No guarding, rebound, or rigidity. Normal bowel sounds are audible. No tenderness on palpation of McBurney's point. Extremities: No clubbing or cyanosis. The patient has 1+ nonpitting edema bilateral lower extremities. She reports that this is actually improved compared to previously. She reports that she does have a history of lymphedema. 2+ pulses in all 4 extremities. Back: No spinous process tenderness to palpation. Left-sided CVA tenderness on palpation. Neurologic Exam: Grossly nonfocal. Skin Exam: No rash noted. Intact skin that is warm and dry. Data Data Last Documented VS Vital Signs Date Time Temp Pulse Resp B/P (MAP) Pulse Ox O2 Delivery O2 Flow Rate FiO2 04/16/17 02:22 104 04/16/17 01:43 98.7 18 167/90 (115) 91 Orders Orders Electrocardiogram (04/16/17 02:00) Complete Blood Count With Diff (04/16/17 02:00) Comprehensive Metabolic Panel (04/16/17 02:00) Creatine Kinase (Cpk) (04/16/17 02:00) Ckmb (Isoenzyme) Profile (04/16/17 02:00) Troponin I (04/16/17 02:00) B-Type Natriuretic Peptide (04/16/17 02:00) Prothrombin Time / Inr (Pt) (04/16/17 02:00) Act Partial Throm Time (Ptt) (04/16/17 02:00) Blood Culture (04/16/17 02:00) Lipase (04/16/17 02:00) Urinalysis - C+S If Indicated (04/16/17 02:00) Magnesium (Mg) (04/16/17 02:00) Chest, Single Ap (04/16/17 02:00) Iv Access Insert/Monitor (04/16/17 02:00) Ecg Monitoring (04/16/17 02:00) Oximetry (04/16/17 02:00) Ed Urine Pregnancytest Poc (04/16/17 02:00) Lactic Acid Sepsis Protocol (04/16/17 02:00) Ct Brain W/O Iv Contrast(Rout) (04/16/17 02:49) Ct Facial Bones W Iv Contrast (04/16/17 ) Lorazepam Inj (Ativan Inj) (04/16/17 04:00) Iohexol 350 Inj (Omnipaque 350 Inj) (04/16/17 04:12) Admit Order (Ed Use Only) (04/16/17 04:32) Labs Laboratory Tests Test 04/16/17 02:30 White Blood Count 10.7 TH/MM3 Red Blood Count 5.02 MIL/MM3 Hemoglobin 13.2 GM/DL Hematocrit 39.8 % Mean Corpuscular Volume 79.2 FL Mean Corpuscular Hemoglobin 26.3 PG Mean Corpuscular Hemoglobin Concent 33.2 % Red Cell Distribution Width 15.0 % Platelet Count 367 TH/MM3 Mean Platelet Volume 8.1 FL Neutrophils (%) (Auto) 64.5 % Lymphocytes (%) (Auto) 24.4 % Monocytes (%) (Auto) 7.1 % Eosinophils (%) (Auto) 2.8 % Basophils (%) (Auto) 1.2 % Neutrophils # (Auto) 6.9 TH/MM3 Lymphocytes # (Auto) 2.6 TH/MM3 Monocytes # (Auto) 0.8 TH/MM3 Eosinophils # (Auto) 0.3 TH/MM3 Basophils # (Auto) 0.1 TH/MM3 CBC Comment DIFF FINAL Differential Comment Prothrombin Time 11.4 SEC Prothromb Time International Ratio 1.0 RATIO Activated Partial Thromboplast Time 27.5 SEC Blood Urea Nitrogen 7 MG/DL Creatinine 0.58 MG/DL Random Glucose 265 MG/DL Total Protein 7.1 GM/DL Albumin 3.4 GM/DL Calcium Level 8.4 MG/DL Magnesium Level 1.7 MG/DL Alkaline Phosphatase 112 U/L Aspartate Amino Transf (AST/SGOT) 8 U/L Alanine Aminotransferase (ALT/SGPT) 22 U/L Total Bilirubin 0.5 MG/DL Sodium Level 136 MEQ/L Potassium Level 3.7 MEQ/L Chloride Level 103 MEQ/L Carbon Dioxide Level 26.7 MEQ/L Anion Gap 6 MEQ/L Estimat Glomerular Filtration Rate 110 ML/MIN Lactic Acid Level 1.3 mmol/L Total Creatine Kinase 38 U/L Troponin I LESS THAN 0.02 NG/ML B-Type Natriuretic Peptide 12 PG/ML Lipase 72 U/L [facility] Medical Decision Making Medical Screen Exam Complete: Yes Emergency Medical Condition: Yes Medical Record Reviewed: Yes Interpretation(s) Last Impressions Head CT 04/16/17248 Signed Impressions: Service Date/Time: Sunday, April 16, 2017 04:05 - CONCLUSION: No acute intracranial disease. Judd Thomas MD Chest X-Ray 04/16/17 020 Signed Impressions: Service Date/Time: Sunday, April 16, 2017 02:05 - CONCLUSION: No acute disease. Judd Thomas MD Maxillofacial CT 04/16/17 0000 Signed Impressions: Service Date/Time: Sunday, April 16, 2017 04:05 - CONCLUSION: 1. No abscess or fluid collection. 2. Although teeth have been extracted most recently involving the right posterior mandible. No abscess or fluid collection. Judd Thomas MD Differential Diagnosis Dental abscess, versus gingival inflammation/infection status post dental extractions, versus sinusitis, versus osteomyelitis of the jaw, versus dehydration due to poor by mouth intake, versus C. difficile colitis, versus pyelonephritis Narrative Course During the course of the patients emergency department visit, the patients history, examination, and differential diagnosis were reviewed with the patient. The patient was placed on a quality assurance monitor body with oximetry and frequent blood pressure monitoring. The patient had IV access obtained and blood work sent for analysis. A chest x-ray was ordered. A CT scan of the head was ordered. A CT scan of the facial bones with IV contrast was ordered. The patient was initially provided normal saline 1 L IV fluid bolus, hydromorphone 0.5 mg IV, Zofran 4 mg IV. The patient reported having an anxiety and reports that she is on Xanax. She was agreeable to IV administration of Ativan 0.5 mg IV. The patients laboratory studies were reviewed and remarkable for a white count of 10.7, hemoglobin 13.2, platelets 367 with a normal differential, CMP remarkable for a glucose of 265, calcium 8.4, AST 8, CPK 38, troponin I less than 0.02, BNP 12, lipase 72, lactic acid 1.3, PT PTT within normal limits. Radiology studies were reviewed and remarkable for a chest x-ray that shows no acute cardiopulmonary disease, CT scan of the brain shows no acute intracranial abnormality, a CT scan of the facial bones that shows no abscess or fluid collection. The patients results were discussed with the patient, including the plan of care. I explained that further testing and/ or monitoring is indicated based on the patients history, examination, and/ or laboratory findings. Therefore, I recommended admission for additional evaluation. The patient expressed understanding and was agreeable with this plan. The patient was admitted to the hospital in stable condition and sent to a bed under the care of the [facility]. Sepsis Criteria SIRS Criteria (2 or more): Heart rate over 90 Physician Communication Physician Communication The patient's case was discussed with Dr. Driscoll who did agree to admit the patient for further evaluation and treatment at this time. Diagnosis Primary Impression: Generalized weakness Additional Impression: Dehydration Admitting Information Admitting Physician Requests: Observation Oksana Greenberg MD Apr 16, 2017 02:12
--- NOTE | 2017-04-16 02:23 | RADRPT ---
EXAM DATE/TIME: 04/16/2017 02:05 [facility] COMPARISON: CHEST SINGLE AP, January 03, 2017, 21:12. INDICATIONS : Shortness of breath. MEDICAL HISTORY : Diabetes mellitus type II. Cardiovascular disease. Chronic obstructive pulmonary disease. SURGICAL HISTORY : Heart stents. ENCOUNTER: Initial ACUITY: 1 day PAIN SCORE: 0/10 LOCATION: Bilateral chest FINDINGS: A single view of the chest demonstrates the lungs to be symmetrically aerated without evidence of mas s, infiltrate or effusion. The cardiomediastinal contours are unremarkable. Osseous structures are intact. CONCLUSION: No acute disease. Judd Thomas MD on April 16, 2017 at 2:22 Board Certified Radiologist. This report was verified electronically.
[2017-04-16] MEDS ORDERED: POTA10CA PO (02:26)
[2017-04-16] MEDS ORDERED: PLAV75TA29 PO (02:26)
[2017-04-16] MEDS ORDERED: FURO1TAB62 PO (02:26)
[2017-04-16 02:50] LABS: AUTOMATED NEUTROPHIL # 6.9 TH/MM3 (1.8-7.7); BASOPHIL # 0.1 TH/MM3 (0-0.2); BASOPHIL % 1.2 % (0.0-2.0); EOSINOPHIL # 0.3 TH/MM3 (0-0.4); EOSINOPHIL % 2.8 % (0.0-4.0); HEMATOCRIT 39.8 % (35.0-46.0); HEMOGLOBIN 13.2 GM/DL (11.6-15.3); LYMPH % 24.4 % (9.0-44.0); LYMPHOCYTE # 2.6 TH/MM3 (1.0-4.8); MEAN CELL VOLUME 79.2 FL (80.0-100.0); MEAN CORPUSCULAR HEMOGLOBIN 26.3 PG (27.0-34.0); MEAN CORPUSCULAR HGB CONC 33.2 % (32.0-36.0); MEAN PLATELET VOLUME 8.1 FL (7.0-11.0); MONO % 7.1 % (0.0-8.0); MONOCYTE # 0.8 TH/MM3 (0-0.9); NEUT % 64.5 % (16.0-70.0); PLATELET COUNT 367 TH/MM3 (150-450); RED BLOOD COUNT 5.02 MIL/MM3 (4.00-5.30); WHITE BLOOD COUNT 10.7 TH/MM3 (4.0-11.0)
[2017-04-16 02:59] LABS: PROTHROMBIN TIME - PATIENT 11.4 SEC (9.8-11.6)
[2017-04-16 03:05] LABS: ALBUMIN 3.4 GM/DL (3.4-5.0); AST (GOT) 8 U/L (15-37); BICARBONATE 26.7 MEQ/L (21.0-32.0); BLOOD UREA NITROGEN 7 MG/DL (7-18); CALCIUM 8.4 MG/DL (8.5-10.1); CHLORIDE 103 MEQ/L (98-107); CREATININE 0.58 MG/DL (0.50-1.00); GLOMERULAR FILTRATION RATE 110 ML/MIN (>89); GLUCOSE,RANDOM 265 MG/DL (74-106); LIPASE 72 U/L (73-393); MAGNESIUM 1.7 MG/DL (1.5-2.5); SODIUM (NA) 136 MEQ/L (136-145)
[2017-04-16 03:12] LABS: ALKALINE PHOSPHATASE 112 U/L (45-117); ALT (GPT) 22 U/L (10-53); TOTAL BILIRUBIN ADULT 0.5 MG/DL (0.2-1.0); TOTAL PROTEIN 7.1 GM/DL (6.4-8.2); TROPONIN I LESS THAN 0.02 NG/ML (0.02-0.05)
[2017-04-16] MEDS ORDERED: LORazepam 2 MG/ML VIAL IV PUSH ONE ×2 (04:00→23:30)
[2017-04-16] MEDS ORDERED: IOHEXOL 350 MG/ML 10 ML VIAL (for RAD DIAG) IVCONTRAST ONE (04:12)
--- NOTE | 2017-04-16 04:29 | RADRPT ---
EXAM DATE/TIME: 04/16/2017 04:05 [facility] COMPARISON: No previous studies available for comparison. INDICATIONS : Cephalgia. RADIATION DOSE: 36.70 CTDIvol (mGy) MEDICAL HISTORY : Hypertension. Chronic obstructive pulmonary disease. Carcinoma, ovarian.Diabetes. Carconima, neck. SURGICAL HISTORY : Hysterectomy. Neck dissection. ENCOUNTER: Initial ACUITY: 1 day PAIN SCALE: 0/10 LOCATION: cranial TECHNIQUE: Multiple contiguous axial images were obtained of the head. Using automated exposure control and adj ustment of the mA and/or kV according to patient size, radiation dose was kept as low as reasonably a chievable to obtain optimal diagnostic quality images. DICOM format image data is available electro nically for review and comparison. FINDINGS: CEREBRUM: The ventricles are normal for age. No evidence of midline shift, mass lesion, hemorrhage or acute in farction. No extra-axial fluid collections are seen. POSTERIOR FOSSA: The cerebellum and brainstem are intact. The 4th ventricle is midline. The cerebellopontine angle i s unremarkable. EXTRACRANIAL: The visualized portion of the orbits is intact. SKULL: The calvaria is intact. No evidence of skull fracture. CONCLUSION: No acute intracranial disease. Judd Thomas MD on April 16, 2017 at 4:27 Board Certified Radiologist. This report was verified electronically.
--- NOTE | 2017-04-16 04:32 | RADRPT ---
EXAM DATE/TIME: 04/16/2017 04:05 [facility] COMPARISON: No previous studies available for comparison. INDICATIONS : Jaw pain post tooth extractions. IV CONTRAST: 90 cc Omnipaque 350 (iohexol) IV RADIATION DOSE: 42.91 CTDIvol (mGy) MEDICAL HISTORY : Cardiovascular disease. Chronic obstructive pulmonary disease. Hypertension.Diabetes. Neck cancer. Ov elizabeth cancer. SURGICAL HISTORY : Neck dissection. Hysterectomy. Appendectomy. ENCOUNTER: Initial ACUITY: 1 day PAIN SCALE: 10/10 LOCATION: Facial. TECHNIQUE: Volumetric scanning of the facial bones was performed. Using automated exposure control and adjustme nt of the mA and/or kV according to patient size, radiation dose was kept as low as reasonably achiev able to obtain optimal diagnostic quality images. DICOM format image data is available electronicall y for review and comparison. FINDINGS: ORBITS: The orbital and infraorbital osseous structures are intact. The retroconal structures have a normal configuration. No radiopaque foreign bodies are seen. NASAL BONE: The nasal bone and maxillary spine are intact ZYGOMATIC ARCHES: Symmetric without evidence of fracture. SINUSES: The ethmoid and frontal sinuses are intact. Mucoperiosteal thickening of the maxillary sinuses and sc attered secretions within the ethmoid sinuses greater than the left. Mucous retention cyst within the floor the right maxillary sinus. NASAL CAVITY: The nasal septum is intact and midline. The lacrimal ducts are intact. SOFT TISSUES: No radiopaque foreign bodies seen. No soft-tissue swelling is seen. INTRACRANIAL: No intracranial air seen. CRIBIFORM PLATE: Grossly intact. All the teeth have been extracted most recently involving the right posterior mandible. No abscess or fluid collection. CONCLUSION: 1. No abscess or fluid collection. 2. Although teeth have been extracted most recently involving the right posterior mandible. No absces s or fluid collection. Judd Thomas MD on April 16, 2017 at 4:27 Board Certified Radiologist. This report was verified electronically.
[2017-04-16] MEDS ORDERED: HYDROmorphone HCL PF 0.5 MG/0.5 ML SYRINGE IV PUSH ONE (04:45)
[2017-04-16] MEDS ORDERED: SODIUM CHLOR 0.9% 1000 ML INJ 1,000 ML IV ONE (04:45)
[2017-04-16] MEDS ORDERED: ONDANSETRON HCL 4 MG/2 ML VIAL IV ONE (04:45)
[2017-04-16] MEDS ORDERED: SODIUM CHLORIDE 0.9% FLUSH 10 ML FLUSH IV FLUSH PRN (05:00)
[2017-04-16] MEDS ORDERED: NALOXONE HCL 0.4 MG/ML AMP IV PUSH PRN (05:00)
[2017-04-16] MEDS: SODIUM CHLOR 0.9% 1000 ML INJ 1,000 ML IV SCH ×3 (06:41→23:39)
[2017-04-16] MEDS ORDERED: HYDROmorphone HCL PF 0.5 MG/0.5 ML SYRINGE IV PUSH PRN ×2 (06:45→08:30)
[2017-04-16] MEDS: SODIUM CHLORIDE 0.9% FLUSH 10 ML FLUSH IV FLUSH SCH ×2 (07:58→21:14)
--- NOTE | 2017-04-16 08:24 | HHI.HP ---
HPI Service [facility] Primary Care Physician Non-Staff Admission Diagnosis generalized weakness, dehydration, h/o stage 4 head and neck CA Diagnoses: Chief Complaint: generalized weakness, jaw pain Travel History International Travel<30 Days: No Contact w/Intl Traveler <30 Da: No Traveled to Known Affected Are: No History of Present Illness 52 year-old female with a PMH of stage IV head and neck cancer status post neck dissection on January 29, 2017, Anxiety, Depression, Bipolar Disorder, HTN, DM2, CAD, COPD, and Tobacco Abuse who presents with a history of 2 days of left- sided headache, ear pain, jaw pain. She reports the pain as a throbbing sensation. She reports that on April 07 she had 18 teeth pulled. She denies having any increased swelling of her gums. The patient denies having any drainage in her mouth or nasal drainage. She reports that she is currently on amoxicillin for prevention of infection. She reports that she still has sutures in place. She has not had a follow-up appointment with the dentist who did the procedure. She reports that she is followed by [facility]. The patient reports that she had her teeth pulled in preparation for radiation therapy. Her oncologist is Dr. Welch . She reports that she is not a candidate for chemotherapy and she is on palliative care as well. She reports that yesterday she had fever with a MAXIMUM TEMPERATURE of 100.3. On review of systems otherwise, she denies having any worsening cough or congestion. She reports that she does have a baseline cough related to COPD. the patient reports having generalized weakness with fatigue and difficulty walking. She reports that she has not been able to eat any solids. She denies having any chest pain, worsening shortness of breath, abdominal pain, vomiting, urinary symptoms, or other neurologic symptoms. The patient reports that she has had diarrhea that began yesterday. She reports that she's had diarrhea proximate 6 times. She reports that the stool is orange to yellow in color. She denies having any blood or mucus in her stool. The patient reports having nausea. Review of Systems Except as stated in HPI: all other systems reviewed are Neg Past Family Social History Past Medical History Anxiety, Depression, Bipolar Disorder, HTN, DM, COPD, Head and Neck CA and Tobacco Abuse Past Surgical History Molar , exploratory Laparotomy, Appendectomy, Hysterectomy, head and neck surgery Reported Medications Reported Meds & Active Scripts Active Reported Plavix (Clopidogrel Bisulfate) 75 Mg Tab 75 Mg PO DAILY Potassium Chloride ER (Potassium Chloride) 10 Meq Cap 10 Meq PO DAILY Lasix (Furosemide) 20 Mg Tab 20 Mg PO DAILY Oxycontin (Oxycodone HCl) 60 Mg Tab 60 Mg PO Q12HR Spiriva Handihaler (Tiotropium Inh) 18 Mcg Cap 18 Mcg INH DAILY 1 capsule = 18 mcg Oxycodone (Oxycodone HCl) 30 Mg Tab 30 Mg PO 5 TIMES A DAY PRN Levemir Inj (Insulin Detemir) 1,000 unit/ 10 ML Vial 10 Units SQ HS Do not mix with any other Insulin. Novolin 70-30 Inj (Insulin Human Isoph/Insulin Regular) 1,000 Unit/10 Ml Vial Unknown Dose SQ Alprazolam 1 Mg Tab 1 Mg PO Q8H PRN Ventolin Hfa 18 GM Inh (Albuterol Sulfate) 90 Mcg/Act Aer Unknown Dose INH Q4- 6H PRN Allergies: Coded Allergies: morphine (Unverified Allergy, Severe, CAN'T BREATH, 04/16/17) ketorolac (Unverified Allergy, Intermediate, HIVES, 04/16/17) *MDRO Multi-Drug Resistant Organism (Verified Adverse Reaction, Unknown, 04/16/17) MRSA Wound 01/05/17 Family History CAD Social History Denies alcohol or drugs. Tobacco, smokes 1/2ppd. Physical Exam Vital Signs Vital Signs Date Time Temp Pulse Resp B/P (MAP) Pulse Ox O2 Delivery O2 Flow Rate FiO2 04/16/17 07:13 98.5 86 20 141/85 (103) 94 04/16/17 06:58 04/16/17 06:41 68 18 146/78 (100) 98 Nasal Cannula 2.00 04/16/17 02:22 104 04/16/17 01:43 98.7 105 18 167/90 (115) 91 Physical Exam GENERAL: This is a well-nourished, well-developed patient, in no apparent distress. SKIN: No rashes, ecchymoses or lesions. Cool and dry. HEAD: Atraumatic. Normocephalic. No temporal or scalp tenderness. EYES: Pupils equal round and reactive. Extraocular motions intact. No scleral icterus. No injection or drainage. ENT: Nose without bleeding, purulent drainage or septal hematoma. Throat without erythema, tonsillar hypertrophy or exudate. Uvula midline. Airway patent. NECK: POst surgical scar of the neck left side, healing well. Some edema and tenderness over the left mandibula. CARDIOVASCULAR: Regular rate and rhythm without murmurs, gallops, or rubs. RESPIRATORY: Decreased breath sounds, scattered expiratory wheezing. No rales or rhonchi. GASTROINTESTINAL: Abdomen soft, non-tender, nondistended. No hepato-splenomegaly , or palpable masses. No guarding. MUSCULOSKELETAL: Extremities without clubbing, cyanosis, or edema. No joint tenderness, effusion, or edema noted. No calf tenderness. Negative Homans sign bilaterally. NEUROLOGICAL: Awake and alert. Cranial nerves II through XII intact. Motor and sensory grossly within normal limits. Five out of 5 muscle strength in all muscle groups. Normal speech. Laboratory Laboratory Tests Test 04/16/17 02:30 White Blood Count 10.7 Red Blood Count 5.02 Hemoglobin 13.2 Hematocrit 39.8 Mean Corpuscular Volume 79.2 Mean Corpuscular Hemoglobin 26.3 Mean Corpuscular Hemoglobin Concent 33.2 Red Cell Distribution Width 15.0 Platelet Count 367 Mean Platelet Volume 8.1 Neutrophils (%) (Auto) 64.5 Lymphocytes (%) (Auto) 24.4 Monocytes (%) (Auto) 7.1 Eosinophils (%) (Auto) 2.8 Basophils (%) (Auto) 1.2 Neutrophils # (Auto) 6.9 Lymphocytes # (Auto) 2.6 Monocytes # (Auto) 0.8 Eosinophils # (Auto) 0.3 Basophils # (Auto) 0.1 CBC Comment DIFF FINAL Differential Comment Prothrombin Time 11.4 Prothromb Time International Ratio 1.0 Activated Partial Thromboplast Time 27.5 Blood Urea Nitrogen 7 Creatinine 0.58 Random Glucose 265 Total Protein 7.1 Albumin 3.4 Calcium Level 8.4 Magnesium Level 1.7 Alkaline Phosphatase 112 Aspartate Amino Transf (AST/SGOT) 8 Alanine Aminotransferase (ALT/SGPT) 22 Total Bilirubin 0.5 Sodium Level 136 Potassium Level 3.7 Chloride Level 103 Carbon Dioxide Level 26.7 Anion Gap 6 Estimat Glomerular Filtration Rate 110 Lactic Acid Level 1.3 Total Creatine Kinase 38 Troponin I LESS THAN 0.02 B-Type Natriuretic Peptide 12 Lipase 72 Date/Time Source Procedure Growth Status 04/16/17 02:35 Blood Peripheral Aerobic Blood Culture Pending Received 04/16/17 02:35 Blood Peripheral Anaerobic Blood Culture Pending Received Result Diagram: 04/16/17 0230 04/16/17 0230 Imaging Last Impressions Head CT 04/16/17 0249 Signed Impressions: Service Date/Time: Sunday, April 16, 2017 04:05 - CONCLUSION: No acute intracranial disease. Judd Thomas MD Chest X-Ray 04/16/17 0200 Signed Impressions: Service Date/Time: Sunday, April 16, 2017 02:05 - CONCLUSION: No acute disease. Judd Thomas MD Maxillofacial CT 04/16/17 0000 Signed Impressions: Service Date/Time: Sunday, April 16, 2017 04:05 - CONCLUSION: 1. No abscess or fluid collection. 2. Although teeth have been extracted most recently involving the right posterior mandible. No abscess or fluid collection. MD Ronald Gill VTE Risk Assessment Caprini VTE Risk Assessment: Mod/High Risk (score >= 2) Caprini Risk Assessment Model Point Value = 1 Point Value = 2 Point Value = 3 Point Value = 5 Age 41-60 Minor surgery BMI > 25 kg/m2 Swollen legs Varicose veins or History of unexplained or recurrent spontaneous Oral contraceptives or hormone replacement Sepsis (< 1 month) Serious lung disease, including pneumonia (< 1 month) Abnormal pulmonary function Acute myocardial infarction Congestive heart failure (< 1 month) History of inflammatory bowel disease Medical patient at bed rest Age 61-74 Arthroscopic surgery Major open surgery (> 45 min) Laparoscopic surgery (> 45 min) Malignancy Confined to bed (> 72 hours) Immobilizing plaster cast Central venous access Age >= 75 History of VTE Family history of VTE Factor V Leiden Prothrombin [id number] Lupus anticoagulant Anticardiolipin antibodies Elevated serum homocysteine Heparin-induced thrombocytopenia Other congenital or acquired thrombophilia Stroke (< 1 month) Elective arthroplasty Hip, pelvis, or leg fracture Acute spinal cord injury (< 1 month) Prophylaxis Regimen Total Risk Factor Score Risk Level Prophylaxis Regimen 0-1 Low Early ambulation 2 Moderate Order ONE of the following: *Sequential Compression Device (SCD) *Heparin 5000 units SQ BID 3-4 Higher Order ONE of the following medications: *Heparin 5000 units SQ TID *Enoxaparin/Lovenox 40 mg SQ daily (WT < 150 kg, CrCl > 30 mL/min) *Enoxaparin/Lovenox 30 mg SQ daily (WT < 150 kg, CrCl > 10-29 mL/min) *Enoxaparin/Lovenox 30 mg SQ BID (WT < 150 kg, CrCl > 30 mL/min) AND/OR *Sequential Compression Device (SCD) 5 or more Highest Order ONE of the following medications: *Heparin 5000 units SQ TID (Preferred with Epidurals) *Enoxaparin/Lovenox 40 mg SQ daily (WT < 150 kg, CrCl > 30 mL/min) *Enoxaparin/Lovenox 30 mg SQ daily (WT < 150 kg, CrCl > 10-29 mL/min) *Enoxaparin/Lovenox 30 mg SQ BID (WT < 150 kg, CrCl > 30 mL/min) AND *Sequential Compression Device (SCD) Assessment and Plan Assessment and Plan Generalized weakness. Left mandibular pain after recent tooth extraction. H/o neck Ca with resection . Pain meds per pain scale. Consult PT for eval COPD with exacerbation: Chronic Respiratory Failure w/ Acute Exacerbation. + wheezing. Start Solu-Medrol, DuoNeb, Symbicort. H/o Head and Neck CA: had left neck mass resection. Follow up as planned. Will have palliative radiation with Dr Burciaga, plan for Apr 23. Also follows with Dr Welch hem/onc as OP DM2: Sliding scale w/ Accu-Cheks. Resume home Levemir. Tobacco Abuse: Counselled. NicoDerm prn if needed. CAD s/p stent continue home meds. No chest pain DVT Prophylaxis: SCD/Teds. Case management for d/c planning as needed. Discussed Condition With patient, nurse Tiffanie Richards MD Apr 16, 2017 08:24
[2017-04-16] MEDS ORDERED: GLUCAGON 1 MG/ML VIAL OTHER PRN (08:45)
[2017-04-16] MEDS ORDERED: DEXTROSE 50% IN WATER 50 ML VIAL(D50) IV PUSH PRN (08:45)
[2017-04-16] MEDS: FUROSEMIDE 20 MG TAB PO SCH (10:04)
[2017-04-16] MEDS: CLOPIDOGREL 75 MG TAB PO SCH (10:04)
[2017-04-16] MEDS: POTASSIUM CHLORIDE 10 MEQ CAP PO SCH (10:04)
[2017-04-16] MEDS: HYDROmorphone HCL PF 0.5 MG/0.5 ML SYRINGE IV PUSH PRN ×3 (10:06→21:16)
[2017-04-16] MEDS: ALPRAZolam 1 MG TAB PO PRN ×2 (10:10→18:25)
[2017-04-16] MEDS: TIOTROPIUM BROMIDE 18 MCG INH INH SCH (10:34)
[2017-04-16] MEDS: INSULIN ASPART SUPPLEMENTAL SCALE SQ SCH ×3 (12:20→21:00)
[2017-04-16] MEDS ORDERED: INSULIN DETEMIR 100 UNITS/ML VIAL SQ SCH (21:00)
[2017-04-16] MEDS: oxyCODONE HCL 20 MG CONTROLLED RELEASE TAB PO SCH (21:14)
--- NOTE | 2017-04-16 21:20 | EKG ---
Date Performed: 04/16/2017 Time Performed: 02:19:11 PTAGE: 52 years EKG: Sinus rhythm POSSIBLE RIGHT VENTRICULAR CONDUCTION DELAY BORDERLINE ECG PREVIOUS TRACING : 01/03/2017 20.41 Compared to the previous tracing rate slower DOCTOR: Gulshan Peña Interpretating Date/Time 04/16/2017 21:19:01
[2017-04-17] VITALS: PULSE 71
[2017-04-17] MEDS: ALPRAZolam 1 MG TAB PO PRN ×2 (02:01→08:35)
[2017-04-17 03:46] VITALS: BP 107/74; PULSE 88; RESP 20; TEMP 98.1; O2SAT 96
[2017-04-17 04:00] VITALS: PULSE 83
[2017-04-17] MEDS: HYDROmorphone HCL PF 0.5 MG/0.5 ML SYRINGE IV PUSH PRN ×4 (05:33→16:50)
[2017-04-17 07:23] LABS: BASOPHIL # 0.1 TH/MM3 (0-0.2); BASOPHIL % 1.4 % (0.0-2.0); EOSINOPHIL # 0.4 TH/MM3 (0-0.4); EOSINOPHIL % 4.8 % (0.0-4.0); HEMATOCRIT 37.6 % (35.0-46.0); HEMOGLOBIN 12.4 GM/DL (11.6-15.3); LYMPH % 30.3 % (9.0-44.0); LYMPHOCYTE # 2.8 TH/MM3 (1.0-4.8); MEAN CELL VOLUME 80.9 FL (80.0-100.0); MEAN CORPUSCULAR HEMOGLOBIN 26.8 PG (27.0-34.0); MEAN CORPUSCULAR HGB CONC 33.1 % (32.0-36.0); MEAN PLATELET VOLUME 8.4 FL (7.0-11.0); MONO % 8.9 % (0.0-8.0); MONOCYTE # 0.8 TH/MM3 (0-0.9); NEUT % 54.6 % (16.0-70.0); PLATELET COUNT 303 TH/MM3 (150-450); RED BLOOD COUNT 4.64 MIL/MM3 (4.00-5.30); RED CELL DISTRIBUTION WIDTH 15.4 % (11.6-17.2); WHITE BLOOD COUNT 9.2 TH/MM3 (4.0-11.0)
[2017-04-17 07:43] LABS: BICARBONATE 27.2 MEQ/L (21.0-32.0); CALCIUM 8.6 MG/DL (8.5-10.1); CREATININE 0.53 MG/DL (0.50-1.00)
[2017-04-17] MEDS: INSULIN ASPART SUPPLEMENTAL SCALE SQ SCH ×3 (08:00→18:05)
[2017-04-17] MEDS: TIOTROPIUM BROMIDE 18 MCG INH INH SCH (08:13)
[2017-04-17] MEDS: SODIUM CHLORIDE 0.9% FLUSH 10 ML FLUSH IV FLUSH SCH (08:14)
[2017-04-17] MEDS: POTASSIUM CHLORIDE 10 MEQ CAP PO SCH (08:15)
[2017-04-17] MEDS: FUROSEMIDE 20 MG TAB PO SCH (08:15)
--- NOTE | 2017-04-17 08:15 | HHI.PR ---
Subjective Remarks Follow up for COPD exacerbation in a patient with a history of head and neck cancer. No fever, chills. Feels overall lethargic. Objective Vitals Vital Signs Date Time Temp Pulse Resp B/P (MAP) Pulse Ox O2 Delivery O2 Flow Rate FiO2 04/17/17 04:00 83 04/17/17 03:46 98.1 88 20 107/74 (85) 96 04/17/17 00:00 71 04/16/17 23:52 98.0 84 20 114/66 (82) 96 04/16/17 20:00 84 04/16/17 19:42 98.4 83 18 132/68 (89) 97 04/16/17 14:22 98.5 90 24 128/83 (98) 96 04/16/17 12:01 18 04/16/17 11:23 98.0 85 22 117/66 (83) 94 04/16/17 10:45 20 I/O 04/16/17 04/16/17 04/16/17 04/17/17 04/17/17 04/17/17 07:00 15:00 23:00 07:00 15:00 23:00 Intake Total 1000 ml 1000 ml 2131 ml Output Total 3 ml Balance 1000 ml 1000 ml 2128 ml Intake IV Total 1000 ml 1000 ml 2131 ml Output Urine Total 3 ml Result Diagram: 04/17/17 0630 04/17/17 0630 Imaging Last Impressions Head CT 04/16/17 0249 Signed Impressions: Service Date/Time: Sunday, April 16, 2017 04:05 - CONCLUSION: No acute intracranial disease. Judd Thomas MD Chest X-Ray 04/16/17 0200 Signed Impressions: Service Date/Time: Sunday, April 16, 2017 02:05 - CONCLUSION: No acute disease. Judd Thomas MD Maxillofacial CT 04/16/17 0000 Signed Impressions: Service Date/Time: Sunday, April 16, 2017 04:05 - CONCLUSION: 1. No abscess or fluid collection. 2. Although teeth have been extracted most recently involving the right posterior mandible. No abscess or fluid collection. Judd Thomas MD Objective Remarks GENERAL: AOX3, NAD. SKIN: Warm and dry. HEAD: Normocephalic. Left side of the face s/p head and neck surgery. No erythema, swelling. EYES: No scleral icterus. No injection or drainage. NECK: Supple, trachea midline. No JVD or lymphadenopathy. CARDIOVASCULAR: Regular rate and rhythm without murmurs, gallops, or rubs. RESPIRATORY: Moderate air entry, Minor wheezes. No accessory muscle use. GASTROINTESTINAL: Abdomen soft, non-tender, nondistended. MUSCULOSKELETAL: No cyanosis, or edema. BACK: Nontender without obvious deformity. No CVA tenderness. Procedures None. A/P Problem List: (1) COPD exacerbation ICD Code: J44.1 - Chronic obstructive pulmonary disease with (acute) exacerbation (2) Head and neck cancer ICD Code: C76.0 - Malignant neoplasm of head, face and neck Status: Acute Assessment and Plan Ms. Boyce is a 52-year-old female with a history of stage IV head and neck cancer who presented to the emergency department due to generalized weakness, shortness of breath, left-sided headache, ear pain and jaw pain. On April 07 she had 18 teeth pulled and since then she has been having pain. She continues to smoke and reports some cough as well as fever off 100.3. - Generalized weakness - History of head and neck cancer stage IV - Patient is being prepared for radiation therapy. She had 18 teeth pulled recently. - Patient is on a lot of opioid pain medications. We'll DC her home pain medications. - We'll continue acetaminophen when necessary, Percocet 10-325 every 6 hours when necessary, Dilaudid for breakthrough. - She appears to be somewhat lethargic and too much pain medication will only compound this problem. - Per patient's request we'll consult medical oncology. - COPD exacerbation - Patient is strongly advised to quit smoking. - We'll start DuoNeb treatments, supplemental oxygen as needed to keep O2 saturation above 90% - Start Symbicort - Start Levaquin 750 by mouth daily - Start Solu Medrol 40 mg IV every 6 hours - Diabetes mellitus - Continue Levemir 10 units daily at bedtime, sliding scale insulin. - We'll start pre-meal insulin with 5 units 3 times a day before meals. Full code. Gamaliel Lang DO Apr 17, 2017 8:15 am
[2017-04-17] MEDS: CLOPIDOGREL 75 MG TAB PO SCH (08:17)
[2017-04-17] MEDS: oxyCODONE HCL 20 MG CONTROLLED RELEASE TAB PO SCH (08:17)
[2017-04-17 08:19] VITALS: BP 129/84; PULSE 81; RESP 18; TEMP 98.5; O2SAT 95
[2017-04-17] MEDS ORDERED: INFLUENZA VIRUS VACCINE (QUADRIVALENT) 0.5 ML SYR IM ONE (10:00)
[2017-04-17] MEDS ORDERED: PNEUMOCOCCAL POLYVALENT INJ 25 MCG/0.5 ML SYR IM ONE (10:00)
[2017-04-17] MEDS ORDERED: oxyCODONE/ACETAMINOPHEN 10 MG/325 MG TAB PO PRN (12:30)
[2017-04-17] MEDS ORDERED: ACETAMINOPHEN 500 MG CPLT PO PRN (12:30)
[2017-04-17] MEDS: RESP: ALBUTEROL 2.5 MG/IPRATROPIUM 0.5 MG NEB (SCH) NEB ×2 (12:40→19:46)
[2017-04-17] MEDS: methylPREDNISolone SOD SUCC 40 MG/1 ML VIAL IV PUSH SCH ×2 (12:43→16:50)
[2017-04-17] MEDS ORDERED: LEVOFLOXACIN 750 MG TAB PO SCH (13:00)
[2017-04-17] MEDS ORDERED: ENOXAPARIN SODIUM 40 MG/0.4 ML SYRINGE SQ SCH (14:00)
[2017-04-17 16:45] VITALS: BP 154/69; PULSE 83; RESP 21; TEMP 98.8; O2SAT 92
[2017-04-17] MEDS ORDERED: INSULIN ASPART 1,000 UNITS/10 ML VIAL SQ SCH (17:00)
[2017-04-17 19:40] VITALS: O2SAT 92
[2017-04-17] MEDS ORDERED: BUDESONIDE-FORMOTEROL 160/4.5 MCG INHALER INH SCH (21:00)
--- NOTE | 2017-04-17 22:14 | PD.AMA ---
Against Medical Advice Note Discharge Disposition: Against Medical Advice Pt Condition on Discharge: Fair AMA Statement Patient Suzanna Boyce has decided to leave the hospital against medical advice. This patient has the capacity to refuse care and understands the risks of leaving, including permanent disability and/or , and has had an opportunity to ask questions about her condition. The patient has been informed that she may return for care at any time, and follow up has been arranged/ advised. Lore Osullivan Apr 17, 2017 22:14
== END 2017-04-17 20:36 | disposition left against medical advice (07) ==
LOC: NEPC 01:40 → NEDA 04:34 → NEPFCDU 07:09
PROVIDERS: ADMIT Hospitalist; ATTEND Hospitalist
DX: J44.1 Chronic obstructive pulmonary disease with (acute) exacerbation (principal); E86.0 Dehydration; R53.1 Weakness; E11.9 Type 2 diabetes mellitus without complications; C76.0 Malignant neoplasm of head, face and neck; E78.00 Pure hypercholesterolemia, unspecified; F31.9 Bipolar disorder, unspecified; F41.9 Anxiety disorder, unspecified; G47.30 Sleep apnea, unspecified; I10 Essential (primary) hypertension; D86.9 Sarcoidosis, unspecified; I25.10 Atherosclerotic heart disease of native coronary artery without angina pectoris; M79.7 Fibromyalgia; J96.20 Acute and chronic respiratory failure, unspecified whether with hypoxia or hypercapnia; Z95.5 Presence of coronary angioplasty implant and graft; Z79.4 Long term (current) use of insulin; F17.200 Nicotine dependence, unspecified, uncomplicated; Z79.899 Other long term (current) drug therapy; Z71.6 Tobacco abuse counseling; Z53.20 Procedure and treatment not carried out because of patient's decision for unspecified reasons; Z23 Encounter for immunization
CPT/HCPCS: 70450; 70487; 71010; 80048; 80053; 82550; 82948; 83605; 83690; 83735; 83880; 84484; 85025; 85610; 85730; 87040; 90686; 90732; 93005; 94664; 96361; 96372; 96374; 96375; 96376; 97161; 99285; G0378; G8987; G8988; J1170; J1650; J1815; J2060; J2405; J2920; J7030; Q9967; Q2038

== ENCOUNTER 2017-11-17 01:55 | Inpatient (IN) | payer MEDICAID ==
[2017-11-17] VITALS (33 sets, daily range): BP systolic 105–180; BP diastolic 72–124; PULSE 87–133; RESP 14–27; TEMP 98.1–103.1; O2SAT 94–100
[~2017-11-17] VITALS: Ht 160 cm; Wt 97.5 kg
[~2017-11-17 01:55] MED LIST changes: +FURO1TAB62 PO; +PLAV75TA29 PO; +POTA10CA PO
[2017-11-17] MEDS ORDERED: PROPOFOL 500 MG/50 ML INJ 50 ML ONE (01:59)
[2017-11-17] MEDS ORDERED: RESP: ALBUTEROL 2.5 MG/IPRATROPIUM 0.5 MG NEB (SCH) ONE ×2 (02:11→02:28)
[2017-11-17] MEDS ORDERED: SODIUM CHLOR 0.9% 1000 ML INJ 1,000 ML IV SCH (02:38)
[2017-11-17] MEDS ORDERED: SODIUM CHLORIDE 0.9% FLUSH 10 ML FLUSH IV FLUSH PRN ×5 (02:45→06:45)
[2017-11-17] MEDS ORDERED: PROPOFOL 1000 MG/100 ML INJ 100 ML IV PRN ×2 (03:00→03:45)
--- NOTE | 2017-11-17 03:04 | RADRPT ---
EXAM DATE: 11/17/2017 2:59 AM EDT AGE/SEX: 52 years / Female INDICATIONS: Intubation and orogastric tube placement on a unresponsive patient post cardiac arrest. CLINICAL DATA: This is the patient's initial encounter. Patient reports that signs and symptoms have been present for 1 day and indicates a pain score of Nonresponsive. MEDICAL/SURGICAL HISTORY: Diabetes mellitus type II. Cardiovascular disease. Chronic obstruct elle pulmonary disease. Coronary artery stent. COMPARISON: [facility] [place], CHEST SINGLE AP, 04/16/2017. . FINDINGS: Right middle lobe opacity is present possible consolidation not adequately characterized. NG tube is present with tip in the stomach. ET tube is present within approximately 2 to 3 cm above the lily. Heart and mediastinum have not changed. CONCLUSION: Possible right middle lobe consolidation. Electronically signed by: Brandee Joshua MD 11/17/2017 3:03 AM EDT
[2017-11-17 03:12] LABS: BASOPHIL # 0.1 TH/MM3 (0-0.2); BASOPHIL % 0.5 % (0.0-2.0); EOSINOPHIL # 0.6 TH/MM3 (0-0.4); EOSINOPHIL % 3.8 % (0.0-4.0); HEMATOCRIT 41.1 % (35.0-46.0); HEMOGLOBIN 13.2 GM/DL (11.6-15.3); LYMPH % 14.2 % (9.0-44.0); LYMPHOCYTE # 2.3 TH/MM3 (1.0-4.8); MEAN CELL VOLUME 84.1 FL (80.0-100.0); MEAN CORPUSCULAR HEMOGLOBIN 27.1 PG (27.0-34.0); MEAN CORPUSCULAR HGB CONC 32.2 % (32.0-36.0); MONO % 2.4 % (0.0-8.0); MONOCYTE # 0.4 TH/MM3 (0-0.9); NEUT % 79.1 % (16.0-70.0); PLATELET COUNT 418 TH/MM3 (150-450); RED BLOOD COUNT 4.89 MIL/MM3 (4.00-5.30); RED CELL DISTRIBUTION WIDTH 16.4 % (11.6-17.2); WHITE BLOOD COUNT 16.5 TH/MM3 (4.0-11.0)
[2017-11-17 03:16] LABS: BACTERIA, URINE RARE /hpf; BILIRUBIN, URINE NEG (NEG); BLOOD, URINE SMALL (NEG); GLUCOSE,URINE 300 mg/dL (NEG); HYALINE CAST, URINE 2 /lpf (RARE); KETONE, URINE NEG (NEG); NITRITE,URINE NEG (NEG); SQUAMOUS EPITHELIAL CELL URINE 4 /hpf (0-5); URINE COLOR LIGHT-YELLOW (YELLW/STRAW); URINE LEUKOCYTE ESTERASE NEG (NEG)
[2017-11-17 03:24] LABS: PROTHROMBIN TIME - PATIENT 10.6 SEC (9.8-11.6)
[2017-11-17] MEDS ORDERED: ALPRAZolam 1 MG TAB PO PRN (03:30)
[2017-11-17 03:34] LABS: ALBUMIN 2.9 GM/DL (3.4-5.0); ALT (GPT) 163 U/L (10-53); AST (GOT) 298 U/L (15-37); BICARBONATE 29.7 MEQ/L (21.0-32.0); BLOOD UREA NITROGEN 11 MG/DL (7-18); CALCIUM 7.7 MG/DL (8.5-10.1); CHLORIDE 96 MEQ/L (98-107); CREATININE 1.01 MG/DL (0.50-1.00); GLOMERULAR FILTRATION RATE 58 ML/MIN (>89); GLUCOSE,RANDOM 286 MG/DL (74-106); SODIUM (NA) 137 MEQ/L (136-145)
[2017-11-17 03:38] LABS: ALKALINE PHOSPHATASE 167 U/L (45-117); TOTAL BILIRUBIN ADULT 0.3 MG/DL (0.2-1.0); TOTAL PROTEIN 6.9 GM/DL (6.4-8.2); TROPONIN I 0.03 NG/ML (0.02-0.05)
[2017-11-17 03:40] LABS: ACETAMINOPHEN LESS THAN 2.0 MCG/ML (10.0-30.0); LACTIC ACID SEPSIS PROTOCOL 4.8 mmol/L (0.4-2.0)
[2017-11-17] MEDS ORDERED: LACTULOSE SYRUP 20 GM/30 ML CUP PO PRN (03:45)
[2017-11-17] MEDS ORDERED: MAGNESIUM HYDROXIDE SUSP 30 ML CUP PO PRN (03:45)
[2017-11-17] MEDS ORDERED: POTASSIUM CHLOR 20 MEQ PREMIX 100 ML IV PRN ×2 (03:45)
[2017-11-17] MEDS ORDERED: POTASSIUM CHLORIDE 25 MEQ EFFERVESCENT TAB PO PRN ×2 (03:45→18:00)
[2017-11-17] MEDS ORDERED: MAGNESIUM SULFATE INJ 2 GM in SODIUM CHLORIDE 0.9% INJ 96 ML IV PRN (03:45)
[2017-11-17] MEDS ORDERED: SENNOSIDES 8.6 MG TAB PO PRN (03:45)
[2017-11-17] MEDS ORDERED: POTASSIUM PHOSPHATE INJ 30 MMOL in SODIUM CHLOR 0.9% 250 ML INJ 250 ML IV PRN (03:45)
[2017-11-17] MEDS ORDERED: NITROGLYCERIN IV PRN (03:45)
[2017-11-17] MEDS ORDERED: MEPERIDINE HCL 25 MG/ML VIAL IV PUSH PRN (03:45)
[2017-11-17] MEDS ORDERED: POTASSIUM PHOSPHATE MONOBASIC 500 MG TAB PO PRN (03:45)
[2017-11-17] MEDS ORDERED: LORazepam 2 MG/ML VIAL IV PUSH PRN ×3 (03:45→06:45)
[2017-11-17] MEDS ORDERED: POTASSIUM CHLOR 40 MEQ PREMIX 100 ML IV PRN (03:45)
[2017-11-17] MEDS ORDERED: MAGNESIUM SULFATE INJ 4 GM in SODIUM CHLOR 0.9% 250 ML INJ 242 ML IV PRN (03:45)
[2017-11-17] MEDS ORDERED: ARTIFICIAL TEARS OPTH OINT 3.5 APPLIC/3.5 GM TUBO EACH EYE PRN (03:45)
[2017-11-17] MEDS ORDERED: SODIUM CHLOR 0.9% IV PRN (03:45)
[2017-11-17] MEDS ORDERED: ACETAMINOPHEN 325 MG TAB PO PRN (03:45)
[2017-11-17] MEDS ORDERED: MAGNESIUM SULFATE INJ 4 GM in SODIUM CHLORIDE 0.9% INJ 92 ML IV PRN (03:45)
[2017-11-17] MEDS ORDERED: BISACODYL 10 MG SUPP RECTAL PRN ×2 (03:45→07:00)
[2017-11-17] MEDS ORDERED: CHLORHEXIDINE GLUCONATE 2 % 1 PACK (2 CLOTHS) TOP PRN ×2 (03:45)
[2017-11-17] MEDS ORDERED: SODIUM PHOSPHATE INJ 30 MMOL in SODIUM CHLOR 0.9% 250 ML INJ 240 ML IV PRN (03:45)
[2017-11-17] MEDS ORDERED: NURSING INFORMATION XX SCH ×2 (03:45)
[2017-11-17] MEDS ORDERED: RESP: ALBUTEROL 2.5 MG/IPRATROPIUM 0.5 MG NEB (PRN) INH (03:45)
[2017-11-17] MEDS ORDERED: busPIRone HCL 5 MG TAB NG PRN (03:45)
[2017-11-17] MEDS ORDERED: POTASSIUM PHOSPHATE MONOBASIC 500 MG TAB PO/TUBE PRN (03:45)
[2017-11-17] MEDS ORDERED: MAGNESIUM OXIDE 400 MG TAB PO PRN (03:45)
[2017-11-17] MEDS ORDERED: CHLORHEXIDINE GLUCONATE 2 % 1 PACK (2 CLOTHS) TOP SCH (04:00)
[2017-11-17] MEDS ORDERED: DEXTROSE 50% IN WATER 50 ML VIAL(D50) IV PUSH PRN ×2 (04:00→10:45)
[2017-11-17] MEDS ORDERED: GLUCAGON 1 MG/ML VIAL OTHER PRN (04:00)
[2017-11-17] MEDS ORDERED: RESP: ALBUTEROL 2.5 MG/IPRATROPIUM 0.5 MG NEB (SCH) INH (04:00)
--- NOTE | 2017-11-17 04:01 | HHI.HP ---
HPI Service Critical Care Medicine Primary Care Physician Unknown Admission Diagnosis post cardiac arrest w/ rosc; neck ca; copd Diagnosis: Travel History International Travel<30 Days: No Contact w/Intl Traveler <30 Da: No Traveled to Known Affected Are: No History of Present Illness 52-year-old unfortunate female with past medical history of head and neck cancer recently treated with radiation awaiting some surgical procedure, was found by family in prone position on the floor cyanotic. She was last seen normal 30 minutes prior to the event. When the EMS arrived no CPR was in progress, the patient was cyanotic and pulseless. They have intubated the patient and after 3 cycles of CPR, epinephrine injections, sodium bicarbonate, she regained spontaneous circulation. No other information is obtainable due to patient's medical condition. Review of Systems ROS Unable to obtain patient is comatose and intubated Past Family Social History Allergies: Coded Allergies: morphine (Unverified Allergy, Severe, CAN'T BREATH, 11/17/17) ketorolac (Unverified Allergy, Intermediate, HIVES, 11/17/17) Past Medical History Anxiety, Depression, Bipolar Disorder, HTN, DM, COPD, Head and Neck CA and Tobacco Abuse Past Surgical History Molar , exploratory Laparotomy, Appendectomy, Hysterectomy, head and neck surgery Reported Medications Reported Meds & Active Scripts Active Reported Plavix (Clopidogrel Bisulfate) 75 Mg Tab 75 Mg PO DAILY Potassium Chloride ER (Potassium Chloride) 10 Meq Cap 10 Meq PO DAILY Lasix (Furosemide) 20 Mg Tab 20 Mg PO DAILY Oxycontin (Oxycodone HCl) 60 Mg Tab 60 Mg PO Q12HR Spiriva Handihaler (Tiotropium Inh) 18 Mcg Cap 18 Mcg INH DAILY 1 capsule = 18 mcg Oxycodone (Oxycodone HCl) 30 Mg Tab 30 Mg PO 5 TIMES A DAY PRN Levemir Inj (Insulin Detemir) 1,000 unit/ 10 ML Vial 10 Units SQ HS Do not mix with any other Insulin. Novolin 70-30 Inj (Insulin Human Isoph/Insulin Regular) 1,000 Unit/10 Ml Vial Unknown Dose SQ Alprazolam 1 Mg Tab 1 Mg PO Q8H PRN Ventolin Hfa 18 GM Inh (Albuterol Sulfate) 90 Mcg/Act Aer Unknown Dose INH Q4- 6H PRN Active Ordered Medications Current Medications Medications (Trade) Dose Ordered Sig/Suzanna Route PRN Reason Start Time Stop Time Status Last Admin Dose Admin Sodium Chloride (NS Flush) 2 ml UNSCH PRN IV FLUSH FLUSH AFTER USING IV ACCESS 11/17/17 02:45 Propofol 100 ml @ 0 mls/hr TITRATE PRN IV SEDATION 11/17/17 03:00 Alprazolam (Xanax) 1 mg Q8H PRN PO ANXIETY 11/17/17 03:30 Clopidogrel Bisulfate (Plavix) 75 mg DAILY PO 11/17/17 09:00 Tiotropium [place] (Spiriva Inh) 18 mcg DAILY INH 11/17/17 09:00 Family History CAD Social History No history of previous alcohol or drugs. Tobacco, smokes 1/2ppd. Physical Exam Vital Signs Vital Signs Date Time Temp Pulse Resp B/P (MAP) Pulse Ox O2 Delivery O2 Flow Rate FiO2 11/17/17 03:07 89 14 158/84 (108) 100 Ventilator 100 11/17/17 02:28 106 14 155/77 (103) 100 Ventilator 100 11/17/17 02:25 100 100 11/17/17 02:23 109 14 180/89 (119) 100 Ventilator 100 11/17/17 02:22 100 11/17/17 02:11 87 14 100 Ventilator 100 11/17/17 02:08 98.1 87 18 161/124 (136) 100 11/17/17 02:05 100 100 Physical Exam GENERAL: Well-nourished, well-developed patient. Unresponsive and intubated SKIN: Warm and dry. HEAD: Normocephalic. Pupils 6 mm fixed bilaterally EYES: No scleral icterus. No injection or drainage. NECK: Supple, trachea midline. No JVD or lymphadenopathy. CARDIOVASCULAR: Regular rate and rhythm without murmurs, gallops, or rubs. RESPIRATORY: Breath sounds equal bilaterally. No accessory muscle use. GASTROINTESTINAL: Abdomen soft, non-tender, nondistended. MUSCULOSKELETAL: No cyanosis, or edema. BACK: Nontender without obvious deformity. NEURO EXAM: GCS: 3T, pupils fixed unresponsive 6 mm bilaterally, strong cough and gag reflexes. No motor response in all 4 extremities to pain stimuli. Laboratory Laboratory Tests Test 11/17/17 02:00 11/17/17 02:55 11/17/17 03:40 Blood Gas Puncture Site RT FEMORAL LT RADIAL Blood Gas Patient Temperature 98.6 98.6 Blood Gas HCO3 28 27 Blood Gas Base Excess -2.7 0.3 Blood Gas Oxygen Saturation 90 96 Arterial Blood pH 7.01 7.24 Arterial Blood Partial Pressure CO2 116 65 Arterial Blood Partial Pressure O2 109 374 Arterial Blood Oxygen Content 16.0 20.2 Arterial Blood Carboxyhemoglobin 4.4 2.7 Arterial Blood Methemoglobin 0.6 0.8 Blood Gas Hemoglobin 12.6 14.3 Oxygen Delivery Device AMBU VENTILATOR Blood Gas Liter Flow 15 Blood Gas Inspired Oxygen 100 100 White Blood Count 16.5 Red Blood Count 4.89 Hemoglobin 13.2 Hematocrit 41.1 Mean Corpuscular Volume 84.1 Mean Corpuscular Hemoglobin 27.1 Mean Corpuscular Hemoglobin Concent 32.2 Red Cell Distribution Width 16.4 Platelet Count 418 Mean Platelet Volume 8.0 Neutrophils (%) (Auto) 79.1 Lymphocytes (%) (Auto) 14.2 Monocytes (%) (Auto) 2.4 Eosinophils (%) (Auto) 3.8 Basophils (%) (Auto) 0.5 Neutrophils # (Auto) 13.0 Lymphocytes # (Auto) 2.3 Monocytes # (Auto) 0.4 Eosinophils # (Auto) 0.6 Basophils # (Auto) 0.1 CBC Comment DIFF FINAL Differential Comment Prothrombin Time 10.6 Prothromb Time International Ratio 1.0 Activated Partial Thromboplast Time 25.1 Urine Color LIGHT-YELLOW Urine Turbidity HAZY Urine pH 7.[address] 1.009 Urine Protein 300 Urine Glucose (UA) 300 Urine Ketones NEG Urine Occult Blood SMALL Urine Nitrite NEG Urine Bilirubin NEG Urine Urobilinogen LESS THAN 2.0 Urine Leukocyte Esterase NEG Urine RBC 4 Urine WBC 4 Urine Squamous Epithelial Cells 4 Urine Bacteria RARE Urine Hyaline Casts 2 Microscopic Urinalysis Comment CATH-CULTURE IND Blood Urea Nitrogen 11 Creatinine 1.01 Random Glucose 286 Total Protein 6.9 Albumin 2.9 Calcium Level 7.7 Alkaline Phosphatase 167 Aspartate Amino Transf (AST/SGOT) 298 Alanine Aminotransferase (ALT/SGPT) 163 Total Bilirubin 0.3 Sodium Level 137 Potassium Level 5.7 Chloride Level 96 Carbon Dioxide Level 29.7 Anion Gap 11 Estimat Glomerular Filtration Rate 58 Lactic Acid Level 4.8 Total Creatine Kinase 131 Troponin I 0.03 Salicylates Level 2.0 Urine Opiates Screen NEG Acetaminophen Level LESS THAN 2.0 Urine Barbiturates Screen NEG Urine Amphetamines Screen NEG Urine Benzodiazepines Screen POS Urine Cocaine Screen NEG Urine Cannabinoids Screen NEG Ethyl Alcohol Level LESS THAN 3 Blood Gas Ventilator Setting PC/AC Date/Time Source Procedure Growth Status 11/17/17 02:55 Blood Peripheral Aerobic Blood Culture Pending Received 11/17/17 02:55 Blood Peripheral Anaerobic Blood Culture Pending Received 11/17/17 02:55 Urine Catheterized Urine Urine Culture Pending Received Result Diagram: 11/17/17 0255 11/17/17 0255 Imaging Last 24 hours Impressions Chest X-Ray 11/17/17 0238 Signed Impressions: CONCLUSION: Possible right middle lobe consolidation. Caprini VTE Risk Assessment Caprini VTE Risk Assessment: Mod/High Risk (score >= 2) Caprini Risk Assessment Model Point Value = 1 Point Value = 2 Point Value = 3 Point Value = 5 Age 41-60 Minor surgery BMI > 25 kg/m2 Swollen legs Varicose veins or History of unexplained or recurrent spontaneous Oral contraceptives or hormone replacement Sepsis (< 1 month) Serious lung disease, including pneumonia (< 1 month) Abnormal pulmonary function Acute myocardial infarction Congestive heart failure (< 1 month) History of inflammatory bowel disease Medical patient at bed rest Age 61-74 Arthroscopic surgery Major open surgery (> 45 min) Laparoscopic surgery (> 45 min) Malignancy Confined to bed (> 72 hours) Immobilizing plaster cast Central venous access Age >= 75 History of VTE Family history of VTE Factor V Leiden Prothrombin [id number] Lupus anticoagulant Anticardiolipin antibodies Elevated serum homocysteine Heparin-induced thrombocytopenia Other congenital or acquired thrombophilia Stroke (< 1 month) Elective arthroplasty Hip, pelvis, or leg fracture Acute spinal cord injury (< 1 month) Prophylaxis Regimen Total Risk Factor Score Risk Level Prophylaxis Regimen 0-1 Low Early ambulation 2 Moderate Order ONE of the following: *Sequential Compression Device (SCD) *Heparin 5000 units SQ BID 3-4 Higher Order ONE of the following medications: *Heparin 5000 units SQ TID *Enoxaparin/Lovenox 40 mg SQ daily (WT < 150 kg, CrCl > 30 mL/min) *Enoxaparin/Lovenox 30 mg SQ daily (WT < 150 kg, CrCl > 10-29 mL/min) *Enoxaparin/Lovenox 30 mg SQ BID (WT < 150 kg, CrCl > 30 mL/min) AND/OR *Sequential Compression Device (SCD) 5 or more Highest Order ONE of the following medications: *Heparin 5000 units SQ TID (Preferred with Epidurals) *Enoxaparin/Lovenox 40 mg SQ daily (WT < 150 kg, CrCl > 30 mL/min) *Enoxaparin/Lovenox 30 mg SQ daily (WT < 150 kg, CrCl > 10-29 mL/min) *Enoxaparin/Lovenox 30 mg SQ BID (WT < 150 kg, CrCl > 30 mL/min) AND *Sequential Compression Device (SCD) Assessment and Plan Assessment and Plan Respiratory failure -Intubated for airway protection -No weaning until neurologically improve -Underlying COPD -Tobacco use disorder -DuoNeb scheduled and as needed -IV steroid Cardiac arrest -Postarrest hypothermia protocol -CT pulmonary angiogram to rule out pulmonary embolism -Series of troponins and EKGs to rule out acute coronary syndrome -2D echo Encephalopathy -Due to above -Hypothermia protocol -CT head pending -EEG Anxiety/ Depression -Lorazepam as needed History of head and neck cancer -Oncology consultation if neurologically improving Diabetes mellitus -Insulin sliding scale DVT GI prophylaxis -Tim's and SCDs -Subcu heparin -Pepcid Critical Care: The total critical care time was 35 minutes. Time to perform other separately billable procedures was not included in the critical care time. Freddie Contreras MD November 17, 2017 4:01 am
[2017-11-17 05:40] LABS: TROPONIN I 0.11 NG/ML (0.02-0.05)
[2017-11-17] MEDS: SODIUM CHLOR 0.9% 1000 ML INJ 1,000 ML IV SCH ×3 (05:44→22:30)
[2017-11-17] MEDS: HEPARIN SODIUM - SQ 10,000 UNITS/ML VIAL SQ SCH ×3 (05:46→20:53)
[2017-11-17 05:50] LABS: MAGNESIUM 2.1 MG/DL (1.5-2.5); PHOSPHORUS 8.7 MG/DL (2.5-4.9)
--- NOTE | 2017-11-17 06:15 | RADRPT ---
EXAM DATE: 11/17/2017 6:09 AM EDT AGE/SEX: 52 years / Female INDICATIONS: Found unresponsive. CLINICAL DATA: This is the patient's initial encounter. Patient reports that signs and symptoms have been present for 1 day and indicates a pain score of Nonresponsive. MEDICAL/SURGICAL HISTORY: Cardiovascular disease. Diabetes mellitus type II. Chronic obstructive pulmonary disease. Ovarian cancer Neck cancer Coronary artery stent. Appendectomy. Hysterectomy. RADIATION DOSE: 60.34 CTDI (mGy) COMPARISON: [facility] [place] BRAIN [place]/O CONTRAST, 04/16/2017. . TECHNIQUE: CT of the head without contrast. Using automated exposure control and adjustment of the mA and/or kV according to patient size, radiation dose was kept as low as reasonably achievable to ob tain optimal diagnostic quality images. FINDINGS: There is no evidence for intracranial hemorrhage, mass effect, mass lesions, edema, or extra-axial fl uid collections. The visualized bony structures appear intact. The ventricles are normal size for t he patient's age. There are no signs of acute infarction for technique. There is opacification of t he right maxillary sinus chronic in nature. CONCLUSION: Unremarkable study except for right maxillary sinus chronic sinusitis. Electronically signed by: Brandee Joshua MD 11/17/2017 6:14 AM EDT
[2017-11-17] MEDS ORDERED: IOHEXOL 350 MG/ML 10 ML VIAL (for RAD DIAG) IVCONTRAST ONE (06:17)
--- NOTE | 2017-11-17 06:21 | RADRPT ---
EXAM DATE: 11/17/2017 6:10 AM EDT AGE/SEX: 52 years / Female INDICATIONS: Found unresponsive. CLINICAL DATA: This is the patient's initial encounter. Patient reports that signs and symptoms have been present for 1 day and indicates a pain score of Nonresponsive. MEDICAL/SURGICAL HISTORY: Cardiovascular disease. Chronic obstructive pulmonary disease. Diabetes mellitus type II. Ovarian cancer Neck cancer Coronary artery stent. Appendectomy. Hysterectomy. RADIATION DOSE: 23.38 CTDI (mGy) COMPARISON: [facility] – [place], [place] PULMONARY ANGIOGRAM, 01/03/2017. . TECHNIQUE: Volumetric scanning was performed using a multi-row detector CT scanner during bolus infu baldo of 80 ml Omnipaque 350 (iohexol) nonionic water-soluble contrast as a single exam dose. The lee a was post processed with a variety of visualization algorithms including full volume maximum intensi ty projection and sliding thin slab reformation. Using automated exposure control and adjustment of the mA and/or kV according to patient size, radiation dose was kept as low as reasonably achievable t o obtain optimal diagnostic quality images. FINDINGS: There is no evidence for PE. Dense airspace consolidation is present in right middle lobe worse since the prior examination and there are bilateral parenchymal process in both lungs some of which appear nodular in bilateral upper lobes and lower lobes as well. The appearance has progressed since the prior examination. There are small lymph nodes within the med iastinum not significantly changed. CONCLUSION: 1. Worsening parenchymal changes in the lungs may represent inflammatory change and possibly pneumon ia without evidence for PE. The appearance is however nonspecific. Electronically signed by: Brandee Joshua MD 11/17/2017 6:19 AM EDT
[2017-11-17] MEDS ORDERED: MIDAZOLAM HCL 5 MG/ML VIAL (1 ML) ONE (06:32)
--- NOTE | 2017-11-17 06:32 | RADRPT ---
EXAM DATE: 11/17/2017 6:16 AM EDT AGE/SEX: 52 years / Female INDICATIONS: Found unresponsive. CLINICAL DATA: This is the patient's initial encounter. Patient reports that signs and symptoms have been present for 1 day and indicates a pain score of Nonresponsive. MEDICAL/SURGICAL HISTORY: Cardiovascular disease. Diabetes mellitus type II. Chronic obstruct elle pulmonary disease. Ovarian cancer Neck cancer Coronary artery stent. Appendectomy. Hysterect racheal. RADIATION DOSE: 21.67 CTDI (mGy) COMPARISON: No prior exams available for comparison. TECHNIQUE: Contiguous axial images were obtained using helical multirow detector technique. The vol umetric data was post-processed with multiplanar reconstruction in oblique axial, sagittal, and coron al planes. Using automated exposure control and adjustment of the mA and/or kV according to patient s ize, radiation dose was kept as low as reasonably achievable to obtain optimal diagnostic quality cathryn ges. FINDINGS: No significant subluxation or soft tissue swelling is seen. No definite fracture is identified for t echnique. C2-C3: No appreciable compromise to the thecal sac, exiting nerve roots are seen. The neural foramin a are patent bilaterally. No appreciable thecal sac stenosis is seen. C3-C4: No appreciable compromise to the thecal sac, exiting nerve roots are seen. The neural foramin a are patent bilaterally. No appreciable thecal sac stenosis is seen. C4-C5: No appreciable compromise to the thecal sac, exiting nerve roots are seen. The neural foramin a are patent bilaterally. No appreciable thecal sac stenosis is seen. C5-C6: No appreciable compromise to the thecal sac, exiting nerve roots are seen. The neural foramin a are patent bilaterally. No appreciable thecal sac stenosis is seen. C6-C7: No appreciable compromise to the thecal sac, exiting nerve roots are seen. The neural foramin a are patent bilaterally. No appreciable thecal sac stenosis is seen. C7-T1: No appreciable compromise to the thecal sac, exiting nerve roots are seen. The neural foramin a are patent bilaterally. No appreciable thecal sac stenosis is seen. CONCLUSION: Unremarkable study. Electronically signed by: Brandee Joshua MD 11/17/2017 6:31 AM EDT
[2017-11-17] MEDS ORDERED: Mix all IV Meds in NS IV SCH (06:45)
[2017-11-17] MEDS ORDERED: MIDAZOLAM 100 MG/100 ML INJ 100 ML IV PRN (06:45)
[2017-11-17 06:58] LABS: AUTOMATED NEUTROPHIL # 22.2 TH/MM3 (1.8-7.7); BASOPHIL % 0.1 % (0.0-2.0); EOSINOPHIL # 0.2 TH/MM3 (0-0.4); EOSINOPHIL % 0.7 % (0.0-4.0); HEMATOCRIT 42.3 % (35.0-46.0); HEMOGLOBIN 13.2 GM/DL (11.6-15.3); LYMPH % 2.3 % (9.0-44.0); LYMPHOCYTE # 0.6 TH/MM3 (1.0-4.8); MEAN CELL VOLUME 84.2 FL (80.0-100.0); MEAN CORPUSCULAR HEMOGLOBIN 26.4 PG (27.0-34.0); MEAN CORPUSCULAR HGB CONC 31.3 % (32.0-36.0); MEAN PLATELET VOLUME 8.4 FL (7.0-11.0); MONO % 5.9 % (0.0-8.0); MONOCYTE # 1.4 TH/MM3 (0-0.9); PLATELET COUNT 477 TH/MM3 (150-450); RED BLOOD COUNT 5.03 MIL/MM3 (4.00-5.30); RED CELL DISTRIBUTION WIDTH 16.5 % (11.6-17.2); WHITE BLOOD COUNT 24.3 TH/MM3 (4.0-11.0)
[2017-11-17] MEDS: CISATRACURIUM 100 MG/NS 250 ML IV PRN ×6 (06:58→21:59)
[2017-11-17] MEDS ORDERED: ONDANSETRON ODT 4 MG TAB PRN (07:00)
[2017-11-17] MEDS ORDERED: HYDROmorphone HCL PF 2 MG/ML VIAL IV PUSH PRN (07:00)
[2017-11-17] MEDS ORDERED: MIDAZOLAM HCL 2 MG/2 ML VIAL IV PUSH PRN (07:00)
[2017-11-17] MEDS ORDERED: RESP: ALBUTEROL 2.5 MG/IPRATROPIUM 0.5 MG NEB (PRN) NEB (07:00)
[2017-11-17] MEDS ORDERED: SENNOSIDES SYRUP 8.8 MG/5 ML CUP PRN (07:00)
[2017-11-17 07:10] LABS: INTERNATIONAL NORMALIZED RATIO 1.1 RATIO; PROTHROMBIN TIME - PATIENT 11.2 SEC (9.8-11.6)
[2017-11-17] MEDS: NS 1000 ML IV SCH ×2 (07:15→08:40)
--- NOTE | 2017-11-17 07:20 | PD ---
HPI Chief Complaint: Cardiac Complaint Time Seen by Provider: 02:38 Travel History International Travel<30 days: No Contact w/Intl Traveler<30days: No Traveled to known affect area: No History of Present Illness HPI 52-year-old female presents to the emergency department from home by EMS transport after cardiac arrest. Patient reportedly was found prone and cyanotic. Patient was found approximately 30 minutes from last known normal. Patient had no bystander CPR or resuscitative measures in progress upon EMS arrival. Patient was found to be in asystole. Resuscitative measures were immediately initiated ACLS protocol followed patient was resuscitated with CPR advanced airway intubation received epinephrine 3 rounds and 1 amp of bicarb for management of asystole. According to paramedics upon their arrival to the emergency department bay they managed to administer 2 mg of Narcan and patient demonstrated return of spontaneous circulation. Patient arrives to the emergency department with palpable pulse no spontaneous respirations and hypertensive blood pressure. Patient has endotracheal tube in place and prior to transfer from EMS stretcher to ED stretcher breath sounds were confirmed bilaterally. Patient was transferred from EMS stretcher to ED stretcher and ongoing Ross procedure and interventions initiated. Patient with history of COPD. No other history available per paramedics. Patient's blood sugar was 140. Patient was found to be in sinus rhythm. No known prior illness. Family members not present. Paramedics report the was at home with patient. PFSH Past Medical History Narrative Medical Review of medical record patient unresponsive:: arthritis asthma bipolar disorder dyslipidemia head neck cancer chemotherapy radiation therapy surgical interventions COPD diabetes fibromyalgia hypertension peripheral neuropathy [place] cardiac stent tobacco use; nursing notes reviewed Medical History: Unable to Obtain Arthritis: Yes (KNEES) Asthma: Yes Blood Disorders: No Bipolar Disorder: Yes Anxiety: Yes Depression: Yes Heart Rhythm Problems: No Cancer: Yes (OVARIAN, HEAD, NECK) Cardiovascular Problems: Yes (LAD 90% BLOCKED, STENT PLACED) High Cholesterol: Yes Chemotherapy: Yes Chest Pain: No Congestive Heart Failure: No COPD: Yes Cerebrovascular Accident: No Diabetes: Yes Patient Takes Glucophage: No (unknown) Diminished Hearing: No Endocrine: Yes Fibromyalgia: Yes Genitourinary: No Headaches: Yes Hypertension: Yes Immune Disorder: No Implanted Vascular Access Dvce: No Musculoskeletal: Yes (degenerative disc disease) Neurologic: Yes (NEUROPATHY IN LEGS) Psychiatric: Yes Reproductive: No Respiratory: Yes (sarcoidosis) Migraines: No Myocardial Infarction: Yes (90% BLOCKAGE LAD) Radiation Therapy: Yes Seizures: No Sleep Apnea: Yes Thyroid Disease: No Tetanus Vaccination: Unknown Influenza Vaccination: No ?: Unknown : 1 Para: 1 Miscarriage: 0 : 0 Past Surgical History Surgical History: Unable to Obtain Abdominal Surgery: Yes (MOLAR PREGNACY, EXP. LAP) Appendectomy: Yes Cardiac Surgery: No Coronary Stent: Yes (2014) Ear Surgery: No Endocrine Surgery: No Eye Surgery: No Genitourinary Surgery: No Gynecologic Surgery: Yes (HYSTERECTOMY) Hysterectomy: Yes Oral Surgery: No Thoracic Surgery: No Other Surgery: Yes (LUNG BIOPSY 2007, COMPLETE NECK DISSECTION 02/06) Family History Family Hypercholesterolemia: Yes Social History Alcohol Use: No Tobacco Use: Yes Substance Use: No Allergies-Medications (Allergen,Severity, Reaction): Coded Allergies: morphine (Unverified Allergy, Severe, CAN'T BREATH, 11/17/17) ketorolac (Unverified Allergy, Intermediate, HIVES, 11/17/17) Reported Meds & Prescriptions Reported Meds & Active Scripts Active Reported Plavix (Clopidogrel Bisulfate) 75 Mg Tab 75 Mg PO DAILY Potassium Chloride ER (Potassium Chloride) 10 Meq Cap 10 Meq PO DAILY Lasix (Furosemide) 20 Mg Tab 20 Mg PO DAILY Oxycontin (Oxycodone HCl) 60 Mg Tab 60 Mg PO Q12HR Spiriva Handihaler (Tiotropium Inh) 18 Mcg Cap 18 Mcg INH DAILY 1 capsule = 18 mcg Oxycodone (Oxycodone HCl) 30 Mg Tab 30 Mg PO 5 TIMES A DAY PRN Levemir Inj (Insulin Detemir) 1,000 unit/ 10 ML Vial 10 Units SQ HS Do not mix with any other Insulin. Novolin 70-30 Inj (Insulin Human Isoph/Insulin Regular) 1,000 Unit/10 Ml Vial Unknown Dose SQ Alprazolam 1 Mg Tab 1 Mg PO Q8H PRN Ventolin Hfa 18 GM Inh (Albuterol Sulfate) 90 Mcg/Act Aer Unknown Dose INH Q4- 6H PRN Review of Systems ROS Limitations: Clinical Condition, Intubated, Unresponsive Physical Exam Narrative GENERAL: Well-developed obese female GCS 3 intubated with ambu assisted ventilation SKIN: Warm and dry. HEAD: Normocephalic. Atraumatic. EYES: No scleral icterus. No injection or drainage. Bilateral pupils round and equal dilated fixed not responsive to light. NECK: Supple, trachea midline. No JVD or lymphadenopathy. Left jaw and neck well healed scar noted CARDIOVASCULAR: Increased regular rate and rhythm without murmurs, gallops, or rubs. RESPIRATORY: Breath sounds equal bilaterally with ambu assisted ventilations. No accessory muscle use. GASTROINTESTINAL: Abdomen soft, non-tender, nondistended. MUSCULOSKELETAL: No cyanosis, or edema. Data Data Last Documented VS Vital Signs Date Time Temp Pulse Resp B/P (MAP) Pulse Ox O2 Delivery O2 Flow Rate FiO2 11/17/17 02:28 106 14 155/77 (103) 100 Ventilator 100 11/17/17 02:08 98.1 Orders Orders Propofol 500 Mg/50 Ml Inj (Diprivan 500 (11/17/17 01:59) Albuterol-Ipratropium Neb (Duoneb Neb) (11/17/17 02:11) Albuterol-Ipratropium Neb (Duoneb Neb) (11/17/17 02:28) Electrocardiogram (11/17/17 02:38) Complete Blood Count With Diff (11/17/17 02:38) Comprehensive Metabolic Panel (11/17/17 02:38) Creatine Kinase (Cpk) (11/17/17 02:38) Prothrombin Time / Inr (Pt) (11/17/17 02:38) Act Partial Throm Time (Ptt) (11/17/17 02:38) Troponin I (11/17/17 02:38) Urinalysis - C+S If Indicated (11/17/17 02:38) Lactic Acid Sepsis Protocol (11/17/17 02:38) Arterial Blood Gas (Abg) (11/17/17 02:38) Blood Culture (11/17/17 02:38) Chest, Single Ap (11/17/17 02:38) Blood Glucose (11/17/17 02:38) Ecg Monitoring (11/17/17 02:38) Iv Access Insert/Monitor (11/17/17 02:38) Oximetry (11/17/17 02:38) Sodium Chloride 0.9% Flush (Ns Flush) (11/17/17 02:45) Sodium Chlor 0.9% 1000 Ml Inj (Ns 1000 M (11/17/17 02:38) Drug Screen, Random Urine (11/17/17 02:38) Alcohol (Ethanol) (11/17/17 02:38) Tylenol (Acetaminophen) (11/17/17 02:38) Salicylates (Aspirin) (11/17/17 02:38) Resp Ventilation- Volume (11/17/17 ) Propofol 1000 Mg/100 Ml Inj (Diprivan 10 (11/17/17 03:00) Admit Order (Ed Use Only) (11/17/17 ) [employer] Attendant / Telemetry MADELINE.Q8H (11/17/17 02:59) Diet Npo (11/17/17 Breakfast) Activity Oob With Assistance (11/17/17 02:59) Notify Dr: Other (11/17/17 02:59) Labs Laboratory Tests Test 11/17/17 02:00 11/17/17 02:55 Blood Gas Puncture Site RT FEMORAL Blood Gas Patient Temperature 98.6 Blood Gas HCO3 28 mmol/L Blood Gas Base Excess -2.7 mmol/L Blood Gas Oxygen Saturation 90 % Arterial Blood pH 7.01 Arterial Blood Partial Pressure CO2 116 mmHg Arterial Blood Partial Pressure O2 109 mmHG Arterial Blood Oxygen Content 16.0 Vol % Arterial Blood Carboxyhemoglobin 4.4 % Arterial Blood Methemoglobin 0.6 % Blood Gas Hemoglobin 12.6 G/DL Oxygen Delivery Device AMBU Blood Gas Liter Flow 15 L/M Blood Gas Inspired Oxygen 100 % White Blood Count 16.5 TH/MM3 Red Blood Count 4.89 MIL/MM3 Hemoglobin 13.2 GM/DL Hematocrit 41.1 % Mean Corpuscular Volume 84.1 FL Mean Corpuscular Hemoglobin 27.1 PG Mean Corpuscular Hemoglobin Concent 32.2 % Red Cell Distribution Width 16.4 % Platelet Count 418 TH/MM3 Mean Platelet Volume 8.0 FL Neutrophils (%) (Auto) 79.1 % Lymphocytes (%) (Auto) 14.2 % Monocytes (%) (Auto) 2.4 % Eosinophils (%) (Auto) 3.8 % Basophils (%) (Auto) 0.5 % Neutrophils # (Auto) 13.0 TH/MM3 Lymphocytes # (Auto) 2.3 TH/MM3 Monocytes # (Auto) 0.4 TH/MM3 Eosinophils # (Auto) 0.6 TH/MM3 Basophils # (Auto) 0.1 TH/MM3 CBC Comment DIFF FINAL Differential Comment Prothrombin Time 10.6 SEC Prothromb Time International Ratio 1.0 RATIO Activated Partial Thromboplast Time 25.1 SEC Urine Color LIGHT-YELLOW Urine Turbidity HAZY Urine pH 7.0 Urine Specific [place] 1.009 Urine Protein 300 mg/dL Urine Glucose (UA) 300 mg/dL Urine Ketones NEG mg/dL Urine Occult Blood SMALL Urine Nitrite NEG Urine Bilirubin NEG Urine Urobilinogen LESS THAN 2.0 MG/DL Urine Leukocyte Esterase NEG Urine RBC 4 /hpf Urine WBC 4 /hpf Urine Squamous Epithelial Cells 4 /hpf Urine Bacteria RARE /hpf Urine Hyaline Casts 2 /lpf Microscopic Urinalysis Comment CATH-CULTURE IND Blood Urea Nitrogen 11 MG/DL Creatinine 1.01 MG/DL Random Glucose 286 MG/DL Total Protein 6.9 GM/DL Albumin 2.9 GM/DL Calcium Level 7.7 MG/DL Alkaline Phosphatase 167 U/L Aspartate Amino Transf (AST/SGOT) 298 U/L Alanine Aminotransferase (ALT/SGPT) 163 U/L Total Bilirubin 0.3 MG/DL Sodium Level 137 MEQ/L Potassium Level 5.7 MEQ/L Chloride Level 96 MEQ/L Carbon Dioxide Level 29.7 MEQ/L Anion Gap 11 MEQ/L Estimat Glomerular Filtration Rate 58 ML/MIN Lactic Acid Level 4.8 mmol/L Total Creatine Kinase 131 U/L Troponin I 0.03 NG/ML Salicylates Level 2.0 MG/DL Urine Opiates Screen NEG Acetaminophen Level LESS THAN 2.0 MCG/ML Urine Barbiturates Screen NEG Urine Amphetamines Screen NEG Urine Benzodiazepines Screen POS Urine Cocaine Screen NEG Urine Cannabinoids Screen NEG Ethyl Alcohol Level LESS THAN 3 MG/DL MDM Medical Decision Making Medical Screen Exam Complete: Yes Emergency Medical Condition: Yes Medical Record Reviewed: Yes Interpretation(s) EKG sinus rhythm no acute ST elevation or injury pattern change noted Last Impressions Chest X-Ray 11/17/17 0238 Signed Impressions: CONCLUSION: Possible right middle lobe consolidation. Head CT 11/17/17 0000 Signed Impressions: CONCLUSION: Unremarkable study except for right maxillary sinus chronic sinusi tis. Cervical Spine CT 11/17/17 0000 Signed Impressions: CONCLUSION: Unremarkable study. CT Angiography 11/17/17 0000 Signed Impressions: CONCLUSION: 1. Worsening parenchymal changes in the lungs may represent inflammatory simmons e and possibly pneumonia without evidence for PE. The appearance is however non specific. CBC & BMP Diagram 11/17/17 02:55 Total Protein 6.9, Albumin 2.9 L, Calcium Level 7.7 L, Alkaline Phosphatase 167 H, Aspartate Amino Transf (AST/SGOT) 298 H, Alanine Aminotransferase (ALT/SGPT) 163 H, Total Bilirubin 0.3 Vital Signs Date Time Temp Pulse Resp B/P (MAP) Pulse Ox O2 Delivery O2 Flow Rate FiO2 11/17/17 02:28 106 14 155/77 (103) 100 Ventilator 100 11/17/17 02:25 100 100 11/17/17 02:23 109 14 180/89 (119) 100 Ventilator 100 11/17/17 02:22 100 11/17/17 02:11 87 14 100 Ventilator 100 11/17/17 02:08 98.1 87 18 161/124 (136) 100 11/17/17 02:05 100 100 Differential Diagnosis Cardiopulmonary arrest, accidental versus intentional overdose, respiratory failure respiratory arrest/exacerbation COPD, PE, myocardial infarction, arrhythmia, sepsis Narrative Course Patient was accepted from EMS transferred from EMS stretcher to ED stretcher with ongoing resuscitative measures; patient given right external jugular performed by me and right femoral central line placed by me. Patient had brief period of hypotension and again lost pulse was treated for PEA with compressions and 1 amp of epinephrine with successful resuscitation and return of spontaneous circulation. Patient case was discussed with physicians and surgeons for admission. Patient had a cervical collar applied and she was found prone. Unknown for cervical spine injury. Review of medical records identifies patient has had neck cancer with excision chemotherapy and radiation therapy has refused further radiation therapy per medical record Patient has prior history of pulmonary embolism and unknown ongoing anticoagulation Patient discussed with physicians and surgeons and is aware of recommendation for CT brain noncontrast, CT cervical spine noncontrast and CT pulmonary angiogram. These imaging studies have been entered by physicians and surgeons who is here to see the patient. ABG shows respiratory acidosis patient did receive 2 amps of bicarb 1 dose during initial resuscitative process and hyperventilated briefly postresuscitation in the emergency department. PH 7.1 PCO2 115 PO2 109 Chest x-ray shows evidence of good placement of the endotracheal tube and possible right middle lobe infiltrate blood cultures and lactic acid collected Lactic acid 4.8 post cardiac arrest; troponin I 0.03, not elevated EKG sinus rhythm with no acute ST elevation or injury pattern change noted Patient's care assumed by physicians and surgeons at bedside; plans to initiate cold cool on this patient as she is found to have of a good gag reflex Patient's has arrived and reports patient has cancer is scheduled to have some type of surgical procedure in November is not receiving any further radiation therapy does not know if she is on chemotherapy he reports she takes multiple medications he does not know the names of these medications and does not have them with him. He said that she has been using her inhaler excessively recently and went to her doctor complaining of shortness of breath. He denies knowing any other available medical history other than as far as he knows she does not have an advanced directive. Critical Care Narrative Aggregate critical care time was 35 minutes. Time to perform other separately billable procedures was not included in the critical care time. My time did not include minutes spent treating any other patients simultaneously or on activities that did not directly contribute to the patient's treatment. The services I provided to this patient were to treat and/or prevent clinically significant deterioration that could result in: Myocardial infarction pulmonary embolism central cord syndrome I provided critical care services requiring my management, as noted below: Chart data review, documentation time, medication orders and management, vital sign assessments/reviewing monitor data, ordering and reviewing lab tests, ordering and interpreting/reviewing x-rays and diagnostic studies, care of the patient and discussion of the patient with the admitting physicians. Procedures Procedure Narrative CENTRAL VENOUS LINE: The site was prepped with Betadine and sterilely draped. It was infiltrated with 1% lidocaine plain. The deep vein was cannulated using normal Seldinger technique. A triple lumen central line was placed in the right femoral vein site and secured with simple interrupted suture. The site was sterilely dressed. The patient tolerated the procedure well. Physician Communication Physician Communication discussed with DR Contreras --will admit Diagnosis Primary Impression: Cardiopulmonary arrest with successful resuscitation Additional Impressions: COPD (chronic obstructive pulmonary disease) Head and neck cancer Admitting Information Admitting Physician Requests: Admit Ignacia Hong MD November 17, 2017 07:20
--- NOTE | 2017-11-17 07:33 | HHI.CCPN ---
Subjective Remarks/Hospital Course 52-year-old unfortunate female with past medical history of head and neck cancer recently treated with radiation awaiting some surgical procedure, was found by family in prone position on the floor cyanotic. She was last seen normal 30 minutes prior to the event. When the EMS arrived no CPR was in progress, the patient was cyanotic and pulseless. They have intubated the patient and after 3 cycles of CPR, epinephrine injections, sodium bicarbonate, she regained spontaneous circulation. No other information is obtainable due to patient's medical condition. Subjective: 11/17: [place] 06[place] [facility] [place] pupils fixed and dilated , overbreathing the vent currently patient has positive gag reflex. Hypothermic protocol instituted. Currently hemodynamically stable no vasopressors required. Objective Vital Signs Date Time Temp Pulse Resp B/P (MAP) Pulse Ox O2 Delivery O2 Flow Rate FiO2 11/17/17 05:47 11/17/17 05:30 100 100 11/17/17 05:05 130 26 Ventilator 11/17/17 02:08 98.1 Result Diagram: 11/17/17 0255 11/17/17 0255 Other Results Laboratory Tests Test 11/17/17 02:00 11/17/17 03:40 Blood Gas Puncture Site RT FEMORAL LT RADIAL Blood Gas Patient Temperature 98.6 98.6 Blood Gas HCO3 28 mmol/L (22-26) 27 mmol/L (22-26) Blood Gas Base Excess -2.7 mmol/L (-2-2) 0.3 mmol/L (-2-2) Blood Gas Oxygen Saturation 90 % (90-100) 96 % (90-100) Arterial Blood pH 7.01 (7.380-7.420) 7.24 (7.380-7.420) Arterial Blood Partial Pressure CO2 116 mmHg (38-42) 65 mmHg (38-42) Arterial Blood Partial Pressure O2 109 mmHG (61-120) 374 mmHG (61-120) Arterial Blood Oxygen Content 16.0 Vol % (12.0-20.0) 20.2 Vol % (12.0-20.0) Arterial Blood Carboxyhemoglobin 4.4 % (0-4) 2.7 % (0-4) Arterial Blood Methemoglobin 0.6 % (0-2) 0.8 % (0-2) Blood Gas Hemoglobin 12.6 G/DL (12.0-16.0) 14.3 G/DL (12.0-16.0) Oxygen Delivery Device AMBU VENTILATOR Blood Gas Liter Flow 15 L/M Blood Gas Inspired Oxygen 100 % 100 % Blood Gas Ventilator Setting PC/AC Imaging Last 24 hours Impressions Chest X-Ray 11/17/17 0236 Signed Impressions: CONCLUSION: Possible right middle lobe consolidation. Objective Remarks GENERAL: This is a well-nourished, well-developed obese . Unresponsive and intubated SKIN: Warm and dry. HEAD: Normocephalic. Pupils 6 mm fixed bilaterally. No pupillary reactivity EYES: No scleral icterus. No injection or drainage. NECK: Supple, trachea midline. No JVD or lymphadenopathy. CARDIOVASCULAR: Regular rate and rhythm without murmurs, gallops, or rubs. RESPIRATORY: Breath sounds equal bilaterally. No accessory muscle use. Clear to auscultation bilaterally GASTROINTESTINAL: Abdomen soft, non-tender, nondistended, obese. MUSCULOSKELETAL: No cyanosis, or edema. BACK: Nontender without obvious deformity. NEURO EXAM: GCS: 3T, pupils fixed unresponsive 6 mm bilaterally, strong cough and gag reflexes. No motor response in all 4 extremities to pain stimuli. A/P Problem List: (1) Cardiac arrest ICD Code: I46.9 - Cardiac arrest, cause unspecified (2) Tobacco dependence ICD Code: F17.200 - Tobacco dependence Status: Acute (3) Hypoxia ICD Code: R09.02 - Hypoxemia Status: Acute Assessment and Plan Plan by systems: Neurologic: Metabolic encephalopathy Possible anoxic encephalopathy Anxiety/ Depression H/O head and neck cancer Lorazepam as needed -11/17 hypothermia protocol -11/17 CT head -negative -11/17 CT cervical spine-no cord compression. [place] collar intact. -EEG post rewarming -Neurological consult post rewarming -Versed and fentanyl infusions for ventilator synchrony along with Nimbex infusion - consider Lorazepam as needed , post rewarming -Consult oncology, if neurologically improving -Obtain cortisol level Respiratory: Acute hypoxemic respiratory arrest COPD Tobacco use disorder Probable pneumonia right middle lobe -Maintain O2 sat greater than 92% -Currently on pressure control ventilation, FiO2 60% -Repeat ABG - 11/17 Intubated for airway protection -No weaning until neurologically improve -DuoNeb scheduled and as needed -IV steroid -Antibiotics see below Cardiovascular: Cardiac arrest -Postarrest hypothermia protocol -CT pulmonary angiogram to rule out pulmonary embolism -Series of troponins and EKGs to rule out acute coronary syndrome -Obtain 2D echo Renal: Maintain temp sensing [place] -- Strict I/Os FEN/GI: -Maintain n.p.o. -NG tube to LIWS -Bowel regimen -Famotidine GI prophylaxis -Zofran for nausea Heme/ID: -Obtain blood urine sputum culture -Begin empiric antibiotic -Monitor CBC Endocrine: Diabetes mellitus -Glucose monitoring per ICU protocol -Sliding-scale insulin low dose regimen -Obtain TSH -- SSI Prophylaxis: GI Prophylaxis Famotidine BID DVT Prophylaxis -- SCDs -- Heparin BID Lines: Central line right femoral( 11/17), cooling catheter left femoral (11/17), peripheral IVs 2 Dispo: Obtain palliative care consult to define goals of care my billing statement This patient remains critically ill with one or more organ systems which are or may become a threat to life. I have spent in excess of 39 minutes discontinuously in the care and management of this patient. This time is exclusive of procedures, and includes, but is not limited to, evaluation of the patient, review of the medical record, discussions with family, consultants, nursing staff, or respiratory therapy, and documentation in the medical record. Physician Daisy Verdugo MD November 17, 2017 07:33
[2017-11-17] MEDS: CHLORHEXIDINE 0.12% (ORAL KIT) 15 ML CUP SCH ×2 (08:00→20:55)
[2017-11-17] MEDS ORDERED: INSULIN NovoLIN REGULAR SUPPLEMENTAL SCALE SQ SCH (08:00)
[2017-11-17] MEDS ORDERED: CHLORHEXIDINE 0.12% (ORAL KIT) 15 ML CUP MT SCH (08:00)
--- NOTE | 2017-11-17 08:01 | EKG ---
Date Performed: 11/17/2017 Time Performed: 01:57:53 PTAGE: 52 years EKG: SINUS TACHYCARDIA POSSIBLE RIGHT VENTRICULAR CONDUCTION DELAY ABNORMAL RHYTHM ECG PREVIOUS TRACING : 04/16/2017 02.19 Compared to previous tracing, heart rate has increased. DOCTOR: Lonny Coleman Interpretating Date/Time 11/17/2017 07:59:32
[2017-11-17 08:24] LABS: BICARBONATE 31.6 MEQ/L (21.0-32.0); CALCIUM 8.3 MG/DL (8.5-10.1); CREATININE 1.25 MG/DL (0.50-1.00); TROPONIN I 0.29 NG/ML (0.02-0.05)
[2017-11-17] MEDS: PIPERACIL-TAZO 4.5 GM PREMIX 100 ML IV SCH ×3 (08:33→20:53)
[2017-11-17] MEDS: AZITHROMYCIN INJ 500 MG in SODIUM CHLOR 0.9% 250 ML INJ 250 ML IV SCH (08:34)
[2017-11-17] MEDS: FAMOTIDINE 20 MG/2 ML VIAL IV PUSH SCH ×2 (08:35→20:53)
[2017-11-17] MEDS: PANTOPRAZOLE SODIUM 40 MG VIAL IV PUSH SCH (08:36)
[2017-11-17] MEDS: CLOPIDOGREL 75 MG TAB PO SCH (08:36)
[2017-11-17] MEDS: DOCUSATE SODIUM 50 MG/SENNA 8.6 MG TAB PO SCH ×2 (08:36→22:16)
[2017-11-17] MEDS: TIOTROPIUM BROMIDE 18 MCG INH INH SCH (08:37)
[2017-11-17] MEDS: SODIUM CHLORIDE 0.9% FLUSH 10 ML FLUSH IV FLUSH SCH ×2 (08:37→20:56)
[2017-11-17] MEDS: DOCUSATE SODIUM 100 MG CAP SCH ×2 (08:43→21:25)
[2017-11-17] MEDS: FENTANYL DRIP IV PRN (08:56)
[2017-11-17] MEDS ORDERED: SODIUM CHLORIDE 0.9% FLUSH 10 ML FLUSH IV FLUSH SCH (09:00)
[2017-11-17] MEDS: MIDAZOLAM 50 MG/NS 50 ML DRIP Premix IV PRN (09:16)
[2017-11-17] MEDS: RESP: ALBUTEROL 2.5 MG/IPRATROPIUM 0.5 MG NEB (SCH) NEB ×3 (10:00→19:43)
[2017-11-17] MEDS ORDERED: MISC INFORMATION OTHER ONE (10:45)
[2017-11-17] MEDS ORDERED: INSULIN REGULAR (IV INFUSION) 100 UNITS in SODIUM CHLORIDE 0.9% INJ 99 ML IV PRN (10:45)
--- NOTE | 2017-11-17 11:13 | EKG ---
Date Performed: 11/17/2017 Time Performed: 09:26:02 PTAGE: 52 years EKG: SINUS TACHYCARDIA LOW QRS VOLTAGE IN PRECORDIAL LEADS ABNORMAL RHYTHM ECG PREVIOUS TRACING : 11/17/2017 01.57 No significant change from previous tracing noted. DOCTOR: Lonny Coleman Interpretating Date/Time 11/17/2017 11:13:10
[2017-11-17] MEDS: methylPREDNISolone SOD SUCC 40 MG/1 ML VIAL IV PUSH SCH ×2 (12:43→18:36)
[2017-11-17 13:57] LABS: ALBUMIN 2.6 GM/DL (3.4-5.0); ALKALINE PHOSPHATASE 149 U/L (45-117); ALT (GPT) 142 U/L (10-53); AST (GOT) 186 U/L (15-37); BICARBONATE 25.4 MEQ/L (21.0-32.0); BLOOD UREA NITROGEN 24 MG/DL (7-18); CALCIUM 7.6 MG/DL (8.5-10.1); CHLORIDE 100 MEQ/L (98-107); CREATININE 1.76 MG/DL (0.50-1.00); GLOMERULAR FILTRATION RATE 31 ML/MIN (>89); GLUCOSE,RANDOM 390 MG/DL (74-106); MAGNESIUM 1.9 MG/DL (1.5-2.5); SODIUM (NA) 138 MEQ/L (136-145); TOTAL BILIRUBIN ADULT 0.5 MG/DL (0.2-1.0); TOTAL PROTEIN 6.4 GM/DL (6.4-8.2)
[2017-11-17 14:00] LABS: TROPONIN I 0.62 NG/ML (0.02-0.05)
[2017-11-17] MEDS ORDERED: GELATIN 12 MM/7 MM FOAM ONE (16:00)
[2017-11-17] MEDS ORDERED: INSULIN REGULAR 100 UNITS/100 ML NS ALGORITHM 2 IV PRN ×2 (16:00)
--- NOTE | 2017-11-17 17:02 | PD.CONS ---
Consult Service Palliative Care . Consult Requested By Dr. Connelly . Primary Care Physician Unknown . Reason for Consultation a. To assist with evaluation and management of symptoms including: dyspnea, pain, encephalopathy. b. To assist medical decision maker(s) with: better understanding of current medical conditions; weighing benefits/burdens of medical treatment options; making medical treatment decisions. . HPI History of Present Illness Ms. Boyce is a 52 year old female with past medical history of severe anxiety disorder, HTN, COPD, pulmonary emboli, CAD with stenting, type II diabetes, sarcoidosis and arthritis. No history of ovarian cancer, pathology was benign. Patient was diagnosed with left submandibular cancer status surgical resection by Dr. Yang on 01/29/17 with 11 of 51 lymph nodes positive with recommendation for radiation within 6 weeks of surgery, she did not follow up until 3 months later. However, patient only completed 8 of 35 planned radiation treatments due to high anxiety levels and declined completion of therapy. She was lost to follow up until August 2017, when she was found to have a nodule in the submandibular area concerning for recurrent disease. PET/CT, with questionable recurrence. I see no additional oncology follow up since September 2017. Patient presented to [facility] on 11/17/17 after she was found by family prone and cyanotic, was reportedly seen normal 30 minutes prior. Upon EMS arrival no CPR was in progress, the patient was cyanotic and pulseless. EMS initiated CPR and intubated patient. After 3 cycles of CPR, epinephrine and sodium bicarb she regained spontaneous circulation. Patient remains in ICU. Hypothermia protocol initiated. On Versed, Nimbex and Fentanyl. Patient with fixed and dilated pupils, positive gag reflex and breathing over the vent. Hemodynamically stable, not requiring pressor support. Palliative care was consulted to assist with clarification of treatment goals. . Function/Cognitive Trajectory Uncertain. Awaiting family meeting for further clarification. . Review of Systems ROS Limitations: Intubated, Unresponsive (sedated and parlyzed on vent. Unable to obtain ROS. No family present. ) Past Family Social History Coded Allergies: morphine (Unverified Allergy, Severe, CAN'T BREATH, 11/17/17) ketorolac (Unverified Allergy, Intermediate, HIVES, 11/17/17) Past Medical History Anxiety Depression Bipolar Disorder Hypertension Type II diabetes COPD Pulmonary embolus Head and Neck CA s/p surgery and radiation treatments Sarcoidosis (02/2008 [facility]) Asthma CAD s/p LAD stent No history of Ovarian Cancer - pathology was benign Tobacco Abuse . Past Surgical History Appendectomy Lung Biopsy - sarcoidosis Colonoscopy Total abdominal hysterectomy/ bilateral salpingo oophorectomy Molar Hernia repair Resection left submandibular cancer . Reported Medications Reported Meds & Active Scripts Active Reported Plavix (Clopidogrel Bisulfate) 75 Mg Tab 75 Mg PO DAILY Potassium Chloride ER (Potassium Chloride) 10 Meq Cap 10 Meq PO DAILY Lasix (Furosemide) 20 Mg Tab 20 Mg PO DAILY Oxycontin (Oxycodone HCl) 60 Mg Tab 60 Mg PO Q12HR Spiriva Handihaler (Tiotropium Inh) 18 Mcg Cap 18 Mcg INH DAILY 1 capsule = 18 mcg Oxycodone (Oxycodone HCl) 30 Mg Tab 30 Mg PO 5 TIMES A DAY PRN Levemir Inj (Insulin Detemir) 1,000 unit/ 10 ML Vial 10 Units SQ HS Do not mix with any other Insulin. Novolin 70-30 Inj (Insulin Human Isoph/Insulin Regular) 1,000 Unit/10 Ml Vial Unknown Dose SQ Alprazolam 1 Mg Tab 1 Mg PO Q8H PRN Ventolin Hfa 18 GM Inh (Albuterol Sulfate) 90 Mcg/Act Aer Unknown Dose INH Q4- 6H PRN . Current Medications Medications (Trade) Dose Ordered Sig/Suzanna Route Start Time Stop Time Status Last Admin (Xanax) 1 mg Q8H PRN PO 11/17/17 03:30 (Plavix) 75 mg DAILY PO 11/17/17 09:00 11/17/17 08:36 (Spiriva Inh) 18 mcg DAILY INH 11/17/17 09:00 Sodium Chloride 1,000 ml @ 84 mls/hr [id number] IV 11/17/17 03:43 11/17/17 08:40 (Tylenol) 650 mg Q6H PRN PO 11/17/17 03:45 (Pepcid Inj) 20 mg Q12HR IV PUSH 11/17/17 09:00 11/17/17 08:35 (Heparin Inj) 5,000 units Q8H SQ 11/17/17 05:00 11/17/17 12:43 (Renetta-Colace) 1 tab BID PO 11/17/17 09:00 11/17/17 08:36 (Milk Of Magnesia Liq) 30 ml Q12H PRN PO 11/17/17 03:45 (Lactulose Liq) 30 ml DAILY PRN PO 11/17/17 03:45 (Demerol Inj) 25 mg Q2H PRN IV PUSH 11/17/17 03:45 Magnesium Sulfate 4 gm/Sodium Chloride 250 ml @ 62.5 mls/hr Q4H PRN IV 11/17/17 03:45 (Buspar) 15 mg BID PRN NG 11/17/17 03:45 (NS Flush) 2 ml BID IV FLUSH 11/17/17 09:00 11/17/17 08:37 Miscellaneous Information 0 ml @ 0 mls/hr UNSCH IV 11/17/17 03:45 Nitroglycerin 50 mg/Sodium Chloride 250 ml @ 1.5 mls/hr TITRATE PRN IV 11/17/17 03:45 ([facility] Nursing Information) 1 [id number] XX 11/17/17 03:45 (Chlorhexidine 2% Cloth) 3 pack Taper DAILY@04 TOP 11/17/17 04:00 11/13/18 03:59 (Chlorhexidine 2% Cloth) 3 pack UNSCH PRN TOP 11/17/17 03:45 Potassium Chloride 100 ml @ 50 mls/hr Q2H PRN IV 11/17/17 03:45 Potassium Chloride 100 ml @ 50 mls/hr Q2H PRN IV 11/17/17 03:45 (K-Lyte Cl Eff) 50 meq UNSCH PRN PO 11/17/17 03:45 Potassium Chloride 100 ml @ 25 mls/hr UNSCH PRN IV 11/17/17 03:45 Potassium Chloride 100 ml @ 50 mls/hr Q2H PRN IV 11/17/17 03:45 Magnesium Sulfate 4 gm/Sodium Chloride 100 ml @ 50 mls/hr UNSCH PRN IV 11/17/17 03:45 (Mag-Ox) 800 mg UNSCH PRN PO 11/17/17 03:45 Magnesium Sulfate 2 gm/Sodium Chloride 100 ml @ 50 mls/hr UNSCH PRN IV 11/17/17 03:45 (K-Phos) 2,000 mg Q4H PRN PO 11/17/17 03:45 Sodium Phosphate 30 mmol/Sodium Chloride 250 ml @ 42 mls/hr UNSCH PRN IV 11/17/17 03:45 (K-Phos) 2,000 mg UNSCH PRN PO/TUBE 11/17/17 03:45 Potassium Phosphate 30 mmol/ Sodium Chloride 260 ml @ 42 mls/hr UNSCH PRN IV 11/17/17 03:45 (Glucagon Inj) 1 mg UNSCH PRN OTHER 11/17/17 04:00 (SoluMEDROL INJ) 40 mg Q6HR IV PUSH 11/17/17 06:00 11/17/17 12:43 (Ativan Inj) 1 mg Q1H PRN IV PUSH 11/17/17 06:45 Fentanyl Citrate 250 ml @ 5 mls/hr TITRATE PRN IV 11/17/17 06:45 11/17/17 08:56 Miscellaneous Information ml @ 0 mls/hr UNSCH IV 11/17/17 06:45 (NS Flush) 2 ml UNSCH PRN IV FLUSH 11/17/17 06:45 (NS Flush) 2 ml UNSCH PRN IV FLUSH 11/17/17 06:45 (Lacrilube Opht Oint) 1 applic Q4H PRN EACH EYE 11/17/17 06:45 Cisatracurium Besylate 100 mg/ Sodium Chloride 250 ml @ 49.5 mls/hr TITRATE PRN IV 11/17/17 06:45 11/17/17 14:10 Norepinephrine Bitartrate 4 mg/ Sodium Chloride 250 ml @ 7.5 mls/hr Q24H PRN IV 11/17/17 06:45 (Dilaudid Pf Inj) 1 mg Q4H PRN IV PUSH 11/17/17 07:00 (Protonix Inj) 40 mg DAILY IV PUSH 11/17/17 09:00 11/17/17 08:36 (Versed Inj) 2 mg Q1H PRN IV PUSH 11/17/17 07:00 (Colace) 100 mg BID .XX 11/17/17 09:00 11/17/17 08:43 (Senna Liq) 17.6 mg DAILY PRN .XX 11/17/17 07:00 (Dulcolax Supp) 10 mg DAILY PRN RECTAL 11/17/17 07:00 (Peridex 0.12% Liq) 15 ml BID@08,20 .XX 11/17/17 08:00 11/17/17 08:00 (Zofran Odt) 4 mg Q6H PRN .XX 11/17/17 07:00 (Duoneb Neb) 1 ampule Q6HR NEB NEB 11/17/17 10:00 11/17/17 15:13 (Duoneb Neb) 1 ampule Q4HR NEB PRN NEB 11/17/17 07:00 Piperacillin Sod/ Tazobactam Sod 100 ml @ 200 mls/hr Q6H IV 11/17/17 08:00 11/17/17 13:21 Azithromycin 500 mg/Sodium Chloride 250 ml @ 250 mls/hr Q24H IV 11/17/17 09:00 11/17/17 08:34 Midazolam HCl 50 ml @ 2 mls/hr TITRATE PRN IV 11/17/17 09:00 11/17/17 09:16 (D50w (Vial) Inj) 50 ml UNSCH PRN IV PUSH 11/17/17 10:45 Insulin Human Regular 100 units/ Sodium Chloride 100 ml @ 1 mls/hr TITRATE PRN IV 11/17/17 16:00 Family History Father , had hepatitis. Mother alive. 2 brothers, 2 sisters and 1 son, alive and well. . Substance Use Tobacco: Smoked 1 PPD for > 32 years. Alcohol: None. Prescription med abuse: Had prescribed Oxycontin/ oxycodone and alprazolam, no abuse known. Illicits: None known. . Psychosocial History . 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 Has 1 son, Emmanuel Boyce. Mother alive. Has 2 brothers and 2 sisters. . Spiritual/Cultural Factors None. . Living Will: Never completed Health Care Surrogate: Never completed Durable Power of [employer] Fabric[employer] Technician: Never completed Health Care Surrogate(s): Patient is not capacitated to make her own healthcare decisions, will not likely regain capacity. No known written advanced directives. , 1 adult son. Mother alive. 2 brother and 2 sisters. according to [place] statutes , healthcare proxy decision making falls to her only son, Emmanuel Boyce - he is considering whether or not he wants to serve in this role. Will speak again 11/18. . Documented care wishes: No known written advanced directives. . Today's verbally stated goals: Patient is not capacitated to make her own healthcare decisions, will not likely regain capacity. . Family/friends goals: Attempting to clarify legal health care proxy decision maker, family would like speak more about this after I reviewed [place] statutes. . Ethical and Legal Issues Patient is not capacitated to make her own healthcare decisions, will not likely regain capacity. No known written advanced directives. , 1 adult son. Mother alive. 2 brother and 2 sisters. according to [place] statutes , healthcare proxy decision making falls to her only son, Emmanuel Boyce - he is considering whether or not he wants to serve in this role. Will speak again 11/18. . Physical Exam Vital Signs Date Time Temp Pulse Resp B/P (MAP) Pulse Ox O2 Delivery O2 Flow Rate FiO2 11/17/17 15:13 100 60 11/17/17 13:00 91.8 95 25 100 143/85 (104) 11/17/17 12:00 91.8 96 25 143/95 (111) 100 139/92 (108) 11/17/17 11:00 91.8 96 25 100 137/84 (101) 11/17/17 10:30 18 11/17/17 10:20 100 60 11/17/17 10:00 93.9 96 25 124/84 (97) 100 122/78 (93) 11/17/17 09:58 94.1 97 25 125/87 (100) 100 122/76 (91) 11/17/17 09:00 98.4 109 25 98 121/77 (92) 11/17/17 08:00 102.6 120 25 98 122/77 (92) 11/17/17 07:37 95 60 11/17/17 07:32 103.5 128 25 133/81 (98) 94 11/17/17 06:30 133 11/17/17 06:30 103.1 133 27 143/96 (112) 94 11/17/17 05:47 11/17/17 05:30 100 100 11/17/17 05:05 130 26 144/73 (96) 100 Ventilator 60 11/17/17 04:15 100 60 11/17/17 03:07 89 14 158/84 (108) 100 Ventilator 100 11/17/17 02:28 106 14 155/77 (103) 100 Ventilator 100 11/17/17 02:25 100 100 11/17/17 02:23 109 14 180/89 (119) 100 Ventilator 100 11/17/17 02:22 100 11/17/17 02:11 87 14 100 Ventilator 100 11/17/17 02:08 98.1 87 18 161/124 (136) 100 11/17/17 02:05 100 100 11/17/17 11/18/17 19:00 07:00 Intake Total 1808 ml Output Total 1100 ml Balance 708 ml Intake IV Total 1808 ml Output Urine Total 1100 ml Exam CONSTITUTIONAL/GENERAL: This is an adequately nourished patient, appears older than reported. Unresponsive. TUBES/LINES/DRAINS: ETT, OG, Delta collar, bilateral soft wrist restraints, Zapata catheter, left femoral hypothermia catheter, right femoral central line, PIVs. SKIN: No jaundice, rashes, or lesions. Ecchymoses on upper extremities. No wounds seen anteriorly. Skin cool. HEAD: Atraumatic. Normocephalic. EYES: Pupils fixed and dilated 6 mm. ENT: Unable to assess hearing. Nose without bleeding or purulent drainage. Difficult to visualize oral cavity due to ETT/OG tubes. NECK: Delta collar in place CARDIOVASCULAR: Regular rate and rhythm without murmurs, gallops, or rubs. RESPIRATORY/CHEST: Symmetric, unlabored respirations. Diminished breath sounds bilaterally. GASTROINTESTINAL: Old well-healed midline abdominal incision noted. Abdomen soft, nondistended. Protuberant. GENITOURINARY: Without palpable bladder distension. Zapata catheter in place. MUSCULOSKELETAL: Extremities without clubbing, cyanosis, or edema. No mottling or clubbing. LYMPHATICS: Not examined. NEUROLOGICAL: Sedated and paralyzed. PSYCHIATRIC: Sedated. . Diagnostic Tests Laboratory Laboratory Tests Test 11/17/17 02:00 11/17/17 02:55 11/17/17 03:40 11/17/17 04:25 Blood Gas Puncture Site RT FEMORAL LT RADIAL Blood Gas Patient Temperature 98.6 98.6 Blood Gas HCO3 28 mmol/L (22-26) 27 mmol/L (22-26) Blood Gas Base Excess -2.7 mmol/L (-2-2) 0.3 mmol/L (-2-2) Blood Gas Oxygen Saturation 90 % (90-100) 96 % (90-100) Arterial Blood pH 7.01 (7.380-7.420) 7.24 (7.380-7.420) Arterial Blood Partial Pressure CO2 116 mmHg (38-42) 65 mmHg (38-42) Arterial Blood Partial Pressure O2 109 mmHG (61-120) 374 mmHG (61-120) Arterial Blood Oxygen Content 16.0 Vol % (12.0-20.0) 20.2 Vol % (12.0-20.0) Arterial Blood Carboxyhemoglobin 4.4 % (0-4) 2.7 % (0-4) Arterial Blood Methemoglobin 0.6 % (0-2) 0.8 % (0-2) Blood Gas Hemoglobin 12.6 G/DL (12.0-16.0) 14.3 G/DL (12.0-16.0) Oxygen Delivery Device AMBU VENTILATOR Blood Gas Liter Flow 15 L/M Blood Gas Inspired Oxygen 100 % 100 % White Blood Count 16.5 TH/MM3 (4.0-11.0) Red Blood Count 4.89 MIL/MM3 (4.00-5.30) Hemoglobin 13.2 GM/DL (11.6-15.3) Hematocrit 41.1 % (35.0-46.0) Mean Corpuscular Volume 84.1 FL (80.0-100.0) Mean Corpuscular Hemoglobin 27.1 PG (27.0-34.0) Mean Corpuscular Hemoglobin Concent 32.2 % (32.0-36.0) Red Cell Distribution Width 16.4 % (11.6-17.2) Platelet Count 418 TH/MM3 (150-450) Mean Platelet Volume 8.0 FL (7.0-11.0) Neutrophils (%) (Auto) 79.1 % (16.0-70.0) Lymphocytes (%) (Auto) 14.2 % (9.0-44.0) Monocytes (%) (Auto) 2.4 % (0.0-8.0) Eosinophils (%) (Auto) 3.8 % (0.0-4.0) Basophils (%) (Auto) 0.5 % (0.0-2.0) Neutrophils # (Auto) 13.0 TH/MM3 (1.8-7.7) Lymphocytes # (Auto) 2.3 TH/MM3 (1.0-4.8) Monocytes # (Auto) 0.4 TH/MM3 (0-0.9) Eosinophils # (Auto) 0.6 TH/MM3 (0-0.4) Basophils # (Auto) 0.1 TH/MM3 (0-0.2) CBC Comment DIFF FINAL Differential Comment Prothrombin Time 10.6 SEC (9.8-11.6) Prothromb Time International Ratio 1.0 RATIO Activated Partial Thromboplast Time 25.1 SEC (24.3-30.1) Urine Color LIGHT-YELLOW (YELLW/STRAW) Urine Turbidity HAZY (CLEAR) Urine pH 7.0 (5.0-8.5) Urine Specific [place] 1.009 (1.002-1.035) Urine Protein 300 mg/dL (NEG-TRACE) Urine Glucose (UA) 300 mg/dL (NEG) Urine Ketones NEG mg/dL (NEG) Urine Occult Blood SMALL (NEG) Urine Nitrite NEG (NEG) Urine Bilirubin NEG (NEG) Urine Urobilinogen LESS THAN 2.0 MG/DL (LESS Urine Leukocyte Esterase NEG (NEG) Urine RBC 4 /hpf (0-3) Urine WBC 4 /hpf (0-5) Urine Squamous Epithelial Cells 4 /hpf (0-5) Urine Bacteria RARE /hpf (NONE) Urine Hyaline Casts 2 /lpf (RARE) Microscopic Urinalysis Comment CATH-CULTURE IND Blood Urea Nitrogen 11 MG/DL (7-18) Creatinine 1.01 MG/DL (0.50-1.00) Random Glucose 286 MG/DL (74-106) Total Protein 6.9 GM/DL (6.4-8.2) Albumin 2.9 GM/DL (3.4-5.0) Calcium Level 7.7 MG/DL (8.5-10.1) Alkaline Phosphatase 167 U/L (45-117) Aspartate Amino Transf (AST/SGOT) 298 U/L (15-37) Alanine Aminotransferase (ALT/SGPT) 163 U/L (10-53) Total Bilirubin 0.3 MG/DL (0.2-1.0) Sodium Level 137 MEQ/L (136-145) Potassium Level 5.7 MEQ/L (3.5-5.1) Chloride Level 96 MEQ/L (98-107) Carbon Dioxide Level 29.7 MEQ/L (21.0-32.0) Anion Gap 11 MEQ/L (5-15) Estimat Glomerular Filtration Rate 58 ML/MIN (>89) Lactic Acid Level 4.8 mmol/L (0.4-2.0) Total Creatine Kinase 131 U/L (26-192) Troponin I 0.03 NG/ML (0.02-0.05) 0.11 NG/ML (0.02-0.05) Salicylates Level 2.0 MG/DL (2.8-20.0) Urine Opiates Screen NEG (NEG) Acetaminophen Level LESS THAN 2.0 MCG/ML Urine Barbiturates Screen NEG (NEG) Urine Amphetamines Screen NEG (NEG) Urine Benzodiazepines Screen POS (NEG) Urine Cocaine Screen NEG (NEG) Urine Cannabinoids Screen NEG (NEG) Ethyl Alcohol Level LESS THAN 3 MG/DL (0-5) Blood Gas Ventilator Setting PC/AC Phosphorus Level 8.7 MG/DL (2.5-4.9) Magnesium Level 2.1 MG/DL (1.5-2.5) Test 11/17/17 05:30 11/17/17 06:20 11/17/17 08:15 11/17/17 12:50 Lactic Acid Level 2.8 mmol/L (0.4-2.0) 4.1 mmol/L (0.4-2.0) White Blood Count 24.3 TH/MM3 (4.0-11.0) Red Blood Count 5.03 MIL/MM3 (4.00-5.30) Hemoglobin 13.2 GM/DL (11.6-15.3) Hematocrit 42.3 % (35.0-46.0) Mean Corpuscular Volume 84.2 FL (80.0-100.0) Mean Corpuscular Hemoglobin 26.4 PG (27.0-34.0) Mean Corpuscular Hemoglobin Concent 31.3 % (32.0-36.0) Red Cell Distribution Width 16.5 % (11.6-17.2) Platelet Count 477 TH/MM3 (150-450) Mean Platelet Volume 8.4 FL (7.0-11.0) Neutrophils (%) (Auto) 91.0 % (16.0-70.0) Lymphocytes (%) (Auto) 2.3 % (9.0-44.0) Monocytes (%) (Auto) 5.9 % (0.0-8.0) Eosinophils (%) (Auto) 0.7 % (0.0-4.0) Basophils (%) (Auto) 0.1 % (0.0-2.0) Neutrophils # (Auto) 22.2 TH/MM3 (1.8-7.7) Lymphocytes # (Auto) 0.6 TH/MM3 (1.0-4.8) Monocytes # (Auto) 1.4 TH/MM3 (0-0.9) Eosinophils # (Auto) 0.2 TH/MM3 (0-0.4) Basophils # (Auto) 0.0 TH/MM3 (0-0.2) CBC Comment DIFF FINAL Differential Comment Prothrombin Time 11.2 SEC (9.8-11.6) Prothromb Time International Ratio 1.1 RATIO Activated Partial Thromboplast Time 25.8 SEC (24.3-30.1) Nasal Screen MRSA (PCR) MRSA NOT DETECTED (NOT Blood Urea Nitrogen 19 MG/DL (7-18) Creatinine 1.25 MG/DL (0.50-1.00) Random Glucose 473 MG/DL (74-106) Calcium Level 8.3 MG/DL (8.5-10.1) Alkaline Phosphatase 189 U/L (45-117) Sodium Level 133 MEQ/L (136-145) Potassium Level 6.4 MEQ/L (3.5-5.1) Chloride Level 92 MEQ/L (98-107) Carbon Dioxide Level 31.6 MEQ/L (21.0-32.0) Anion Gap 9 MEQ/L (5-15) Estimat Glomerular Filtration Rate 45 ML/MIN (>89) Phosphorus Level 7.7 MG/DL (2.5-4.9) Magnesium Level 2.0 MG/DL (1.5-2.5) Troponin I 0.29 NG/ML (0.02-0.05) Random Cortisol 43.3 MCG/DL Blood Gas Puncture Site JAMISON Blood Gas Patient Temperature 98.6 Blood Gas HCO3 24 mmol/L (22-26) Blood Gas Base Excess -0.3 mmol/L (-2-2) Blood Gas Oxygen Saturation 97 % (90-100) Arterial Blood pH 7.42 (7.380-7.420) Arterial Blood Partial Pressure CO2 37 mmHg (38-42) Arterial Blood Partial Pressure O2 154 mmHg (61-120) Arterial Blood Oxygen Content 19.3 Vol % (12.0-20.0) Arterial Blood Carboxyhemoglobin 0.7 % (0-4) Arterial Blood Methemoglobin 1.2 % (0-2) Blood Gas Hemoglobin 14.0 G/DL (12.0-16.0) Oxygen Delivery Device VENT Blood Gas Ventilator Setting 25/5 PEEP/ IT1/60% Blood Gas Inspired Oxygen 60 % Test 11/17/17 13:00 11/17/17 14:45 Blood Urea Nitrogen 24 MG/DL (7-18) Creatinine 1.76 MG/DL (0.50-1.00) Random Glucose 390 MG/DL (74-106) Total Protein 6.4 GM/DL (6.4-8.2) Albumin 2.6 GM/DL (3.4-5.0) Calcium Level 7.6 MG/DL (8.5-10.1) Magnesium Level 1.9 MG/DL (1.5-2.5) Alkaline Phosphatase 149 U/L (45-117) Aspartate Amino Transf (AST/SGOT) 186 U/L (15-37) Alanine Aminotransferase (ALT/SGPT) 142 U/L (10-53) Total Bilirubin 0.5 MG/DL (0.2-1.0) Sodium Level 138 MEQ/L (136-145) Potassium Level 3.2 MEQ/L (3.5-5.1) Chloride Level 100 MEQ/L (98-107) Carbon Dioxide Level 25.4 MEQ/L (21.0-32.0) Anion Gap 13 MEQ/L (5-15) Estimat Glomerular Filtration Rate 31 ML/MIN (>89) Total Creatine Kinase 160 U/L (26-192) Creatine Kinase MB 8.9 NG/ML (0.5-3.6) Troponin I 0.62 NG/ML (0.02-0.05) Thyroid Stimulating Hormone 3rd Gen 1.740 uIU/ML (0.358-3.740) Lactic Acid Level 5.8 mmol/L (0.4-2.0) Result Diagram: 11/17/17 0620 11/17/17 1300 Microbiology Microbiology Date/Time Source Procedure Growth Status 11/17/17 08:15 Blood Peripheral Aerobic Blood Culture Pending Received 11/17/17 08:15 Blood Peripheral Anaerobic Blood Culture Pending Received 11/17/17 08:15 Blood Peripheral Aerobic Blood Culture Pending Received 11/17/17 08:15 Blood Peripheral Anaerobic Blood Culture Pending Received 11/17/17 02:55 Blood Peripheral Aerobic Blood Culture Pending Received 11/17/17 02:55 Blood Peripheral Anaerobic Blood Culture Pending Received 11/17/17 02:50 Blood Peripheral Aerobic Blood Culture Pending Received 11/17/17 02:50 Blood Peripheral Anaerobic Blood Culture Pending Received 11/17/17 06:23 Sputum Endotracheal Gram Stain - Final Resulted 11/17/17 06:23 Sputum Endotracheal Sputum Culture Pending Resulted 11/17/17 02:55 Urine Catheterized Urine Urine Culture Pending Received Imaging Last Impressions Chest X-Ray 11/17/17 0238 Signed Impressions: CONCLUSION: Possible right middle lobe consolidation. Head CT 11/17/17 0000 Signed Impressions: CONCLUSION: Unremarkable study except for right maxillary sinus chronic sinusi tis. Cervical Spine CT 11/17/17 0000 Signed Impressions: CONCLUSION: Unremarkable study. CT Angiography 11/17/17 0000 Signed Impressions: CONCLUSION: 1. Worsening parenchymal changes in the lungs may represent inflammatory simmons e and possibly pneumonia without evidence for PE. The appearance is however non specific. . Procedures * 11/17/17- CPR/intubation/right femoral central line and left femoral cooling catheter placed. . Patient/Family Conference Present at Family Conference: Spoke with Emmanuel davis and brotherAgustín via telephone. . Family Conference Time (mins): 25 Family Conference Location: Telephone Issues Discussed: * Palliative care role, purpose, approach * Additional medical, psychosocial, and spiritual history * Patients general health, functional status, and cognitive changes in the months leading up to the current hospitalization * Patient/family understanding of the current medical problems * Patient/family understanding of prognosis * Patients goals of care as best understood from advance directives and/or conversations and/or values * Current medical treatment options and benefits/burdens of those options * Likely scenarios comparing ongoing aggressive care with a transition to comfort measures only * Questions answered to the best of my ability * Palliative care contact information provided Spoke with Emmanuel davis via phone. He is not certain if he wishes to serve as health care proxy decision maker. Emmanuel Davis and brotherAgustín want to speak before deciding if Emmanuel wants to serve as HCP. Reviewed [place] statutes and hierarchy. We agreed to speak again 11/18/17. Medical update provided questions answered. Very appreciative of time spent. . Assessment and Plan Disease Oriented Problem List: (1) Lactic acidosis (2) Anoxic encephalopathy (3) Head and neck cancer (4) COPD (chronic obstructive pulmonary disease) (5) Hypoxia (6) Tobacco dependence (7) Cardiac arrest (8) COPD exacerbation (9) PNA (pneumonia) (10) DM (diabetes mellitus) Symptom Scale: (1) Anxiety 0-10 Scale: Unable to quantify Comment: Long history of severe anxiety disorder (2) Encephalopathy 0-10 Scale: Unable to quantify Comment: Likely anoxic encephalopathy, currently sedated (3) Dyspnea 0-10 Scale: Unable to quantify Comment: Remains intubated on mechanical ventilation (4) Pain 0-10 Scale: Unable to quantify Comment: On Nimbex, fentanyl and Versed, unlikely patient is having pain at this time. Will monitor. Pertinent Non-Medical Issues Psychosocial: . Has 1 adult son. Mother is still living. 2 brothers and 2 sisters. Spiritual: None. Legal: Patient is not capacitated to make her own healthcare decisions, will not likely regain capacity. No known written advanced directives. , 1 adult son. Mother alive. 2 brother and 2 sisters. according to [place] statutes , healthcare proxy decision making falls to her only son, Emmanuel Boyce - he is considering whether or not he wants to serve in this role. Will speak again 11/18. Ethical issues impacting care: No known concerns at this time. . Important Contacts * Emmanuel Boyce, son/HCP: [phone] * Agustín Lea, brother: [phone] . Prognosis Ms. Boyce is a 52-year-old female with multiple medical problems, who presented after an unwitnessed cardiac arrest. She was seen normal 30 minutes prior to being found down pulseless and cyanotic. Patient remains critically ill in ICU undergoing hypothermia protocol, pupils fixed and dilated, overall prognosis appears poor for meaningful recovery if we do not see any significant neurologic improvement. . Code Status: Full Code Plan * Patient is not capacitated to make her own healthcare decisions, will not likely regain capacity. No known written advanced directives. , 1 adult son. Mother alive. 2 brother and 2 sisters. according to [place] statutes , healthcare proxy decision making falls to her only son, Emmanuel Boyce - he is considering whether or not he wants to serve in this role. Will speak again 11/18. * FULL CODE * Discussed with Dr. Connelly and nursing staff. * Goals remain aggressive including FULL CODE by default at this time as we try to clarify legal health care proxy decision maker. Son, Emmanuel Boyce and family discussing who will be willing to serve as health care proxy after review of statutes. * SYMPTOMS: Pain: due to cardiac arrest and tubes, lines. Sedated and paralyzed. Dyspnea: on mech vent. Encephalopathy: fixed and dilated pupils. * Palliative care number provided. * Positive care will continue to follow throughout hospital course to assist with symptom management and clarification of medical treatment goals as needed. . Thank you for the opportunity to participate in the care of Ms. Boyce. Attestation To help prompt me to consider important information that might be impacting today's encounter and assessment, information from prior notes written by myself or my colleagues may have been "brought forward" into today's note. My signature on this note, however, is an attestation that I personally performed the exam, history, and/or decision-making noted today, and, unless otherwise indicated, the interactions with patient, family, and staff as well as the review of records all occurred today. I also attest that the listed assessment and stated plan reflect my best clinical judgment today based on the combination of historical information, prior notes, and today's exam/ interactions. When time spent is documented, it refers only to time spent today by the signer, or if indicated, combined time spent today by collaborating physician/nurse practitioner. Saundra Kingston November 17, 2017 17:02
[2017-11-17 17:17] LABS: BICARBONATE 26.7 MEQ/L (21.0-32.0); CALCIUM 7.9 MG/DL (8.5-10.1); CREATININE 1.59 MG/DL (0.50-1.00)
[2017-11-17] MEDS ORDERED: ICU - POTASSIUM CHLORIDE/AQUEOUS SOLN 20 MEQ/100 ML IVPB IV PRN (18:00)
[2017-11-17] MEDS ORDERED: ICU - POTASSIUM PHOSPHATE 30 MMOL/NS 250 ML IV PRN ×2 (18:00)
[2017-11-17] MEDS ORDERED: ICU - MAGNESIUM SULFATE 2 GM/NS 100 ML IV PRN ×2 (18:00)
[2017-11-17] MEDS ORDERED: ICU - MAGNESIUM OXIDE 400 MG TAB PO PRN (18:00)
[2017-11-17] MEDS ORDERED: ICU - POTASSIUM PHOSPHATE MONOBASIC 500 MG TAB PO PRN (18:00)
[2017-11-17] MEDS ORDERED: ICU - SODIUM PHOSPHATE 30 MMOL/NS 250 ML IV PRN ×2 (18:00)
[2017-11-17] MEDS ORDERED: ICU - CALL ORDERING PHYSICIAN PRN (18:00)
[2017-11-17] MEDS ORDERED: ICU - D/C ICU ELECTROLYTE ORDERS PRN (18:00)
[2017-11-17] MEDS ORDERED: ICU - MAGNESIUM SULFATE 4 GM/NS 100 ML IV PRN ×2 (18:00)
[2017-11-17] MEDS: CHLORHEXIDINE GLUCONATE 2 % 1 PACK (2 CLOTHS) TOP SCH (18:37)
[2017-11-17] MEDS: POTASSIUM CHLOR 40 MEQ PREMIX 100 ML IV PRN ×2 (20:02→21:59)
[2017-11-18] VITALS (29 sets, daily range): BP systolic 92–161; BP diastolic 59–101; PULSE 87–112; RESP 19–25; O2SAT 93–100
[2017-11-18] MEDS: MIDAZOLAM 50 MG/NS 50 ML DRIP Premix IV PRN (00:08)
[2017-11-18] MEDS: methylPREDNISolone SOD SUCC 40 MG/1 ML VIAL IV PUSH SCH ×4 (00:08→20:10)
[2017-11-18] MEDS: PIPERACIL-TAZO 4.5 GM PREMIX 100 ML IV SCH ×4 (01:18→20:06)
[2017-11-18 02:34] LABS: AUTOMATED NEUTROPHIL # 25.8 TH/MM3 (1.8-7.7); BASOPHIL % 0.1 % (0.0-2.0); HEMATOCRIT 45.6 % (35.0-46.0); HEMOGLOBIN 15.4 GM/DL (11.6-15.3); LYMPH % 1.3 % (9.0-44.0); LYMPHOCYTE # 0.4 TH/MM3 (1.0-4.8); MEAN CORPUSCULAR HEMOGLOBIN 27.4 PG (27.0-34.0); MEAN CORPUSCULAR HGB CONC 33.8 % (32.0-36.0); MEAN PLATELET VOLUME 8.2 FL (7.0-11.0); MONO % 1.6 % (0.0-8.0); MONOCYTE # 0.4 TH/MM3 (0-0.9); PLATELET COUNT 346 TH/MM3 (150-450); RED BLOOD COUNT 5.62 MIL/MM3 (4.00-5.30); RED CELL DISTRIBUTION WIDTH 16.2 % (11.6-17.2); WHITE BLOOD COUNT 26.6 TH/MM3 (4.0-11.0)
[2017-11-18 02:48] LABS: ALBUMIN 2.2 GM/DL (3.4-5.0); ALKALINE PHOSPHATASE 124 U/L (45-117); ALT (GPT) 117 U/L (10-53); AST (GOT) 122 U/L (15-37); BICARBONATE 25.8 MEQ/L (21.0-32.0); BLOOD UREA NITROGEN 24 MG/DL (7-18); CALCIUM 7.8 MG/DL (8.5-10.1); CHLORIDE 108 MEQ/L (98-107); GLOMERULAR FILTRATION RATE 48 ML/MIN (>89); GLUCOSE,RANDOM 230 MG/DL (74-106); MAGNESIUM 1.8 MG/DL (1.5-2.5); PHOSPHORUS 1.9 MG/DL (2.5-4.9); SODIUM (NA) 143 MEQ/L (136-145); TOTAL BILIRUBIN ADULT 0.7 MG/DL (0.2-1.0); TOTAL PROTEIN 6.4 GM/DL (6.4-8.2)
[2017-11-18 02:50] LABS: INTERNATIONAL NORMALIZED RATIO 1.1 RATIO; PROTHROMBIN TIME - PATIENT 11.4 SEC (9.8-11.6)
[2017-11-18] MEDS: RESP: ALBUTEROL 2.5 MG/IPRATROPIUM 0.5 MG NEB (SCH) NEB ×4 (03:26→19:33)
[2017-11-18] MEDS: POTASSIUM CHLOR 40 MEQ PREMIX 100 ML IV PRN (03:42)
[2017-11-18] MEDS: CHLORHEXIDINE GLUCONATE 2 % 1 PACK (2 CLOTHS) TOP SCH (03:43)
[2017-11-18] MEDS ORDERED: INSULIN REGULAR 100 UNITS/100 ML NS ALGORITHM 3 IV PRN ×2 (03:45)
[2017-11-18] MEDS ORDERED: DEXTROSE 50% IN WATER 50 ML VIAL(D50) IV PUSH PRN (03:45)
[2017-11-18] MEDS: ARTIFICIAL TEARS OPTH OINT 3.5 APPLIC/3.5 GM TUBO EACH EYE PRN ×2 (04:11→16:05)
[2017-11-18] MEDS: CISATRACURIUM 100 MG/NS 250 ML IV PRN ×6 (05:16→20:06)
[2017-11-18] MEDS: HEPARIN SODIUM - SQ 10,000 UNITS/ML VIAL SQ SCH ×3 (05:17→20:07)
[2017-11-18] MEDS: AZITHROMYCIN INJ 500 MG in SODIUM CHLOR 0.9% 250 ML INJ 250 ML IV SCH (08:26)
[2017-11-18] MEDS: DOCUSATE SODIUM 100 MG CAP SCH (08:26)
[2017-11-18] MEDS: CLOPIDOGREL 75 MG TAB PO SCH (08:26)
[2017-11-18] MEDS: TIOTROPIUM BROMIDE 18 MCG INH INH SCH (08:27)
[2017-11-18] MEDS: CHLORHEXIDINE 0.12% (ORAL KIT) 15 ML CUP SCH ×2 (08:27→20:08)
[2017-11-18] MEDS: FAMOTIDINE 20 MG/2 ML VIAL IV PUSH SCH ×2 (08:28→20:07)
[2017-11-18] MEDS: SODIUM CHLORIDE 0.9% FLUSH 10 ML FLUSH IV FLUSH SCH ×2 (08:28→20:07)
[2017-11-18] MEDS: PANTOPRAZOLE SODIUM 40 MG VIAL IV PUSH SCH (08:28)
[2017-11-18] MEDS: DOCUSATE SODIUM 50 MG/SENNA 8.6 MG TAB PO SCH ×2 (09:00→21:19)
[2017-11-18] MEDS: NOREPINEPHRINE 4 MG/250 ML NS IV PRN ×2 (09:37)
[2017-11-18] MEDS: FENTANYL DRIP IV PRN (09:51)
[2017-11-18] MEDS: SODIUM CHLOR 0.9% 1000 ML INJ 1,000 ML IV SCH (10:57)
[2017-11-18] MEDS ORDERED: SENNOSIDES SYRUP 8.8 MG/5 ML CUP OG-TUBE PRN (11:45)
--- NOTE | 2017-11-18 13:55 | HHI.CCPN ---
Subjective Remarks/Hospital Course 52-year-old unfortunate female with past medical history of head and neck cancer recently treated with radiation awaiting some surgical procedure, was found by family in prone position on the floor cyanotic. She was last seen normal 30 minutes prior to the event. When the EMS arrived no CPR was in progress, the patient was cyanotic and pulseless. They have intubated the patient and after 3 cycles of CPR, epinephrine injections, sodium bicarbonate, she regained spontaneous circulation. No other information is obtainable due to patient's medical condition. Subjective: 11/17: Patient arrives 06, to [facility] [place]. Patient evaluated pupils fixed and dilated , overbreathing the vent currently patient has positive gag reflex. Hypothermic protocol instituted. Currently hemodynamically stable no vasopressors required. 11/18:Rewarming initiated at 1100am. EEG and neurology consult pending. Lactate cleared. This a.m. patient required Levophed infusion to maintain MAP greater than 65. The patient was noted to be hyperglycemic yesterday afternoon requiring initiation of insulin infusion currently at 5 units/hour. Objective Vital Signs Date Time Temp Pulse Resp B/P (MAP) Pulse Ox O2 Delivery O2 Flow Rate FiO2 11/18/17 13:00 92.5 98 25 161/90 (113) 97 11/18/17 12:00 45 11/17/17 05:05 Ventilator Intake and Output 11/18/17 11/18/17 11/19/17 08:00 16:00 00:00 Intake Total 1587 ml 1099.5 ml Output Total 1415 ml 260 ml Balance 172 ml 839.5 ml Result Diagram: 11/18/17 0205 11/18/17 0205 Other Results Laboratory Tests Test 11/18/17 07:20 Blood Gas Puncture Site ART LINE Blood Gas Patient Temperature 98.6 Blood Gas HCO3 22 mmol/L (22-26) Blood Gas Base Excess -1.5 mmol/L (-2-2) Blood Gas Oxygen Saturation 94 % (90-100) Arterial Blood pH 7.44 (7.380-7.420) Arterial Blood Partial Pressure CO2 33 mmHg (38-42) Arterial Blood Partial Pressure O2 86 mmHg (61-120) Arterial Blood Oxygen Content 20.5 Vol % (12.0-20.0) Arterial Blood Carboxyhemoglobin 0.6 % (0-4) Arterial Blood Methemoglobin 1.3 % (0-2) Blood Gas Hemoglobin 15.5 G/DL (12.0-16.0) Oxygen Delivery Device VENTILATOR Blood Gas Ventilator Setting PRVC25/500/0.9/+5 Blood Gas Inspired Oxygen 50 % Imaging Last 24 hours Impressions Chest X-Ray 11/17/17 0238 Signed Impressions: CONCLUSION: Possible right middle lobe consolidation. Objective Remarks GENERAL: This is a well-nourished, well-developed obese . Unresponsive and intubated SKIN: Warm and dry. HEAD: Normocephalic. Pupils 6 mm fixed bilaterally. No pupillary reactivity EYES: No scleral icterus. No injection or drainage. NECK: Supple, trachea midline. No JVD or lymphadenopathy. CARDIOVASCULAR: Regular rate and rhythm without murmurs, gallops, or rubs. RESPIRATORY: Breath sounds equal bilaterally. No accessory muscle use. Clear to auscultation bilaterally GASTROINTESTINAL: Abdomen soft, non-tender, nondistended, obese. MUSCULOSKELETAL: No cyanosis, or edema. Dorsalis pedal pulses nonpalpable, biphasic Doppler signals BACK: Nontender without obvious deformity. NEURO EXAM: GCS: 3T, pupils fixed unresponsive 6 mm bilaterally, strong cough and gag reflexes. No motor response in all 4 extremities to pain stimuli. A/P Problem List: (1) Cardiac arrest ICD Code: I46.9 - Cardiac arrest, cause unspecified (2) Tobacco dependence ICD Code: F17.200 - Tobacco dependence Status: Acute (3) Hypoxia ICD Code: R09.02 - Hypoxemia Status: Acute Assessment and Plan Plan by systems: Neurologic: Metabolic encephalopathy Possible anoxic encephalopathy Anxiety/ Depression H/O head and neck cancer -11/17 hypothermia protocol, gradual to be completed at 11 AM -11/17 CT head -negative -11/17 CT cervical spine-no cord compression. Wagoner collar intact. -EEG post rewarming, rewarming at 11 AM -Neurological consult post rewarming -Versed and fentanyl infusions for ventilator synchrony along with Nimbex infusion - consider Lorazepam as needed , post rewarming -Consult oncology, if neurologically improving -Cortisol , TSH WNL -Plan for repeat CT brain post rewarming Respiratory: Acute hypoxemic respiratory arrest COPD Tobacco use disorder Probable pneumonia right middle lobe -Maintain O2 sat greater than 92% -Currently on pressure control ventilation, FiO2 60% -Repeat ABG - 11/17 Intubated for airway protection -No weaning until neurologically improve -DuoNeb scheduled and as needed -IV steroid -Antibiotics see below Cardiovascular: Cardiac arrest -Postarrest hypothermia protocol -CT pulmonary angiogram to rule out pulmonary embolism -Series of troponins and EKGs to rule out acute coronary syndrome -Obtain 2D echo Renal: Maintain temp sensing [place] -- Strict I/Os FEN/GI: -Maintain n.p.o. -NG tube to LIWS -Bowel regimen -Famotidine GI prophylaxis -Zofran for nausea Heme/ID: -Obtain blood urine sputum culture -Begin empiric antibiotic -Monitor CBC Endocrine: Diabetes mellitus -Glucose monitoring per ICU protocol -Sliding-scale insulin low dose regimen -TSH- WNL -- SSI Prophylaxis: GI Prophylaxis Famotidine BID DVT Prophylaxis -- SCDs -- Heparin 5000 BID Lines: Central line right femoral( 11/17), cooling catheter left femoral (11/17), peripheral IVs 2 Dispo: Palliative care consult to define goals of care my billing statement This patient remains critically ill with one or more organ systems which are or may become a threat to life. I have spent in excess of 33 minutes discontinuously in the care and management of this patient. This time is exclusive of procedures, and includes, but is not limited to, evaluation of the patient, review of the medical record, discussions with family, consultants, nursing staff, or respiratory therapy, and documentation in the medical record. Physician Daisy Verdugo MD November 18, 2017 13:55
--- NOTE | 2017-11-18 14:20 | MG ---
cc: Dee Pitt MD EEG NUMBER [id number] REFERRING PHYSICIAN: Dr. Contreras. INDICATION: Room 500 intubated, Versed 2 mg, fentanyl 100 mcg, cisatracurium 2.5 mcg. Hyperventilation omitted. Photic done. Stimuli not given due to paralytic. This is a 52-year-old patient post-cardiac arrest, found prone and cyanotic 30 minutes from last seen normal. CPR given by EMS. The patient has a history of heart disease, heart stents, chronic obstructive pulmonary disease, blockage 90% of the LAD, diabetic, bipolar disorder, depression, ovarian neck and head cancer noted. Chemo and radiation. Currently on Plavix, Protonix, azithromycin, Versed, fentanyl, Solu-Medrol, insulin. DESCRIPTION OF RECORD: Overall background is severely attenuated with occasional bursts of activity. It looks like there is a burst suppressed pattern. Photic stimulation does not change the background. Again, there is a suppressed pattern, again with bursts of activity. IMPRESSION: Abnormal EEG due to what looks to be a burst suppression pattern. The patient is on Versed as well as fentanyl. Can be seen with drugs, as well as with possible encephalopathy due to anoxia/hypoxia. Clinical correlation. Dee Pitt MD DF/TL , 02:05 PM , 02:19 PM
[2017-11-18 14:56] LABS: BICARBONATE 21.9 MEQ/L (21.0-32.0); CALCIUM 7.7 MG/DL (8.5-10.1); CREATININE 1.03 MG/DL (0.50-1.00); MAGNESIUM 1.8 MG/DL (1.5-2.5)
--- NOTE | 2017-11-18 15:01 | MB ---
cc: Gerson Hensley MD, PhD DATE: 11/18/2017 REASON FOR CONSULTATION: Anoxic encephalopathy, status post cardiac arrest. HISTORY OF PRESENT ILLNESS: Ms. Boyce is a 52-year-old female who has a history of head and neck cancer. She was found by her family cyanotic and unresponsive, was seen normal about 30 minutes prior to this event. EMS arrived, she was cyanotic and pulseless, has been intubated, had CPR, epinephrine injection, sodium bicarbonate and regained spontaneous circulation. She has not had any tonic-clonic activity. PAST MEDICAL HISTORY: No history of head and neck cancer, appendectomy, hysterectomy, depression, bipolar disorder. ALLERGIES: 1. MORPHINE. 2. KETOROLAC. MEDICATIONS AT HOME: 1. Plavix. 2. Potassium. 3. Lasix. 4. OxyContin. 5. Spiriva. 6. Oxycodone. 7. Levemir. 8. NovoLog 9. Alprazolam. 10. Ventolin. NEUROLOGIC EXAMINATION: VITAL SIGNS: Blood pressure is 161/90, pulse is 98, respiratory rate is 25, temperature 97.1 degrees. HIGHER CORTICAL FUNCTION: She is sedated, nonresponsive. CRANIAL NERVES: The pupils are 3 mm, symmetric and nonreactive to light. Extraocular movements are absent to doll's eyes maneuver. ____ spinal reflexes are absent. Corneal reflexes are absent. There is no gag. MOTOR EXAM: There is no posturing, no withdrawal to painful stimulation. Reflexes 1+ symmetric. IMAGING STUDIES: CT of the head is unremarkable. CT cervical spine unremarkable. CTA of the chest, no sign of PE. LABORATORY DATA: The white count 26,600; hemoglobin 15.4; hematocrit 45.6%; platelet count 346,000. Sodium is 143, potassium 3.4, chloride 108, CO2 is 25.8. The BUN is 24, creatinine 1.2, GFR is 48, glucose 230. Tox screen positive for benzodiazepines. Salicylate level of 2. IMPRESSION: Severe anoxic encephalopathy. RECOMMENDATION: We will review the EEG. The patient is currently under hypothermic protocol. We will follow her exam at the present time; however, prognosis appears poor, given the absence of significant brainstem reflexes. Consider cerebral blood flow study. Gerson Hensley MD, PhD [place] , 02:40 PM , 03:00 PM
[2017-11-18 15:03] LABS: PHOSPHORUS 4.7 MG/DL (2.5-4.9)
--- NOTE | 2017-11-18 15:50 | HHI.HCPN ---
Reason for visit a. To assist with evaluation and management of symptoms including: dyspnea, pain, encephalopathy. b. To assist medical decision maker(s) with: better understanding of current medical conditions; weighing benefits/burdens of medical treatment options; making medical treatment decisions. . Subjective/Interval History Pt seen today to follow up on comfort, goals with decision makers. Has remained in ICU. Briefly required pressors Levophed for a few hours earlier today for hypotension though this has since resolved. Rewarming started today at 11 AM, temp now 92.5. Neurology consulted. EEG completed earlier today burst suppression pattern noted may be drug effects, encephalopathy, anoxia/hypoxia. repeat EEG planned for post warming completion. CT brain also ordered for post rewarming, 11/19. Blood cultures no growth. Sputum with heavy growth normal respiratory garfield. + Leukocytosis 26.6. Lactic acid normalized 2.0. Patient seen in room primary nurse at bedside. Nurse indicates no family has been in today. She is on fentanyl 100 mics, Versed 2 mg an hour, as well as neuromuscular blockade. Rewarming in process. Not currently on pressors, blood pressure 110s / 50s-60s via arterial line. Nonresponsive to exam. Pupils nonreactive. following exam call to son Mr Emmanuel Boyce . Family/friend interactions Following exam call to kalayn Boyce. Review with him his discussion with Justino FIGUEROA yesterday, review with him patient current condition, rewarming status, clinical assessments/diagnostic planned once normothermia has been achieved. He appears to have reasonable understanding and recall of his conversation with silvia FIGUEROA yesterday. He expresses understanding that rewarming will need to continue before we have confirmative assessments of prognosis going forward. Review with him decision-maker status as he was going to be discussing further with family yesterday--indicates he does wish to serve as healthcare proxy, though he will remain in communication with patient siblings to support him in this decision-making. Gently review with him possible prognosis given concern for amount of time down and undergoing CPR, discussed concern that she may have sustained significant brain injury. Review with him resuscitation status, CPR going forward. Explore that further cardiac events and resuscitation would worsen prognosis. He indicates he will discuss resuscitation status further with his family, no decisions made at this time. Gently explore with him that possible patient could have vegetative prognosis and that options going forward would be to continue artificial/aggressive measures, with the alternative being de-escalation and transition to comfort focus measures only. He requests I call his uncle, patient brother Agustín and update him as well. I did call Agustín, voicemail was left with my contact information. I have also provided Emmanuel with my contact information. ---[id number] later received a phone call back from brother Agustín. Provided him with update of current clinical condition, assessment, rewarming and process, additional pending assessments and diagnostics post warming. Review prognostication may be more informed in the next day once normothermia has been achieved. Review preliminary assessments and possible prognosis as per neurology and other physicians involved. He expresses he will remain in close communication with patient's son Emmanuel. He expresses that the patient would not want to live or be kept alive artificially if in a vegetative or nonfunctional state. He also indicates that she would want to be a DNR at this point. I advised that shavonne is serving as the proxy and that Emmanuel had earlier indicated that he would talk about CODE STATUS further with Agustín. Advised that Agustín can advise shavonne to let us know to make her a DNR. . Advance Directives Living Will: Never completed Health Care Surrogate: Never completed Durable Power of [employer] Assembler: Never completed Advance Directive Specifics Health Care Surrogate(s): Patient is not capacitated to make her own healthcare decisions, will not likely regain capacity. No known written advanced directives. , 1 adult son. Mother alive. 2 brother and 2 sisters. according to [place] statutes , healthcare proxy decision making falls to her only son, Emmanuel Boyce - he is considering whether or not he wants to serve in this role. Will speak again 11/18. . Documented care wishes: No known written advanced directives. . Objective Vital Signs Date Time Temp Pulse Resp B/P (MAP) Pulse Ox O2 Delivery O2 Flow Rate FiO2 11/18/17 13:00 92.5 98 25 161/90 (113) 97 11/18/17 12:00 92.1 96 25 127/84 (98) 96 116/72 (87) 11/18/17 12:00 45 11/18/17 11:00 91.6 93 25 124/91 (102) 96 125/78 (94) 11/18/17 10:36 97 45 11/18/17 10:00 91.4 87 25 117/85 (96) 96 113/74 (87) 11/18/17 09:37 90 79/51 11/18/17 09:00 91.4 92 25 95/67 (76) 96 92/59 (70) 11/18/17 08:00 50 11/18/17 08:00 91.4 95 25 116/87 (97) 98 114/72 (86) 11/18/17 07:14 99 50 11/18/17 07:00 91.6 95 25 128/80 (96) 100 11/18/17 06:00 91.6 95 25 133/91 (105) 100 132/82 (99) 11/18/17 06:00 95 133/91 (105) 132/82 (99) 11/18/17 06:00 95 11/18/17 05:00 91.6 95 25 131/81 (98) 100 11/18/17 04:00 60 11/18/17 04:00 96 11/18/17 04:00 91.6 96 25 121/88 (99) 100 116/75 (89) 11/18/17 03:26 99 60 11/18/17 03:00 91.6 94 25 133/82 (99) 100 11/18/17 02:00 91.6 92 25 118/82 (94) 99 112/73 (86) 11/18/17 02:00 92 11/18/17 01:00 91.8 96 25 142/85 (104) 100 11/18/17 00:00 91.8 96 25 151/101 (118) 100 150/89 (109) 11/18/17 00:00 95 151/101 (118) 147/86 (106) 11/18/17 00:00 96 11/18/17 00:00 60 11/17/17 23:59 100 60 11/17/17 23:00 91.8 95 25 147/86 (106) 100 11/17/17 22:00 92 11/17/17 22:00 91.6 92 25 134/92 (106) 100 131/79 (96) 11/17/17 21:00 91.8 94 25 135/81 (99) 100 11/17/17 20:00 60 11/17/17 20:00 93 11/17/17 20:00 91.8 93 25 138/90 (106) 100 123/80 (94) 11/17/17 19:43 100 60 11/17/17 19:00 91.9 91 25 138/82 (100) 100 11/17/17 18:00 93 11/17/17 18:00 91.8 93 25 143/95 (111) 100 143/83 (103) 11/17/17 17:00 91.8 93 25 100 141/83 (102) 11/17/17 16:00 91.6 92 25 132/91 (105) 100 131/80 (97) 11/17/17 16:00 92 11/17/17 16:00 60 11/17/17 15:13 100 60 11/17/17 15:00 91.6 92 25 100 138/81 (100) Intake & Output 11/18/17 11/18/17 07:00 19:00 Intake Total 2284 ml 1099.5 ml Output Total 2625 ml 385 ml Balance -341 ml 714.5 ml Intake IV Total 2284 ml 1099.5 ml Output Urine Total 2325 ml 385 ml Gastric Drainage Total 300 ml Physical Exam CONSTITUTIONAL/GENERAL: This is an adequately nourished patient, appears older than reported. Sedated, nonresponsive on mechanical vent TUBES/LINES/DRAINS: ETT, OG, Harrison collar, bilateral soft wrist restraints, Zapata catheter, left femoral hypothermia catheter, right femoral central line, PIVs. SCDs SKIN: No jaundice, rashes, or lesions. No wounds seen anteriorly. Skin cool/ dry. HEAD: Atraumatic. Normocephalic.+ Facial edema. EYES: Pupils 4 mm nonreactive to light/ no eye opening. + Facial/slight scleral edema. ENT: Unable to assess hearing. Nose without bleeding or purulent drainage. Difficult to visualize oral cavity due to ETT/OG tubes. NECK: Harrison collar in place CARDIOVASCULAR: Regular rate and rhythm no murmur.+ Generalized edema to extremities RESPIRATORY/CHEST: Symmetric, unlabored respirations via ET tube mechanical vent spont breathing noted over vent rate. Clear though diminished breath sounds bilaterally. GASTROINTESTINAL: Old well-healed midline abdominal incision noted. Abdomen soft, round/obese, nondistended. Bowel sounds intermittent. OG tube clamped GENITOURINARY: Without palpable bladder distension. Zapata catheter in place. Clear yellow urine. MUSCULOSKELETAL: Extremities without clubbing, cyanosis. + Trace general peripheral edema. No mottling or clubbing. NEUROLOGICAL: Sedated and paralyzed. Limited assessment/Non-responsive to exam PSYCHIATRIC: Sedated-unable to assess . Diagnostic Tests Laboratory Laboratory Tests Test 11/17/17 02:00 11/17/17 02:55 11/17/17 03:40 11/17/17 04:25 Blood Gas Puncture Site RT FEMORAL LT RADIAL Blood Gas Patient Temperature 98.6 98.6 Blood Gas HCO3 28 mmol/L (22-26) 27 mmol/L (22-26) Blood Gas Base Excess -2.7 mmol/L (-2-2) 0.3 mmol/L (-2-2) Blood Gas Oxygen Saturation 90 % (90-100) 96 % (90-100) Arterial Blood pH 7.01 (7.380-7.420) 7.24 (7.380-7.420) Arterial Blood Partial Pressure CO2 116 mmHg (38-42) 65 mmHg (38-42) Arterial Blood Partial Pressure O2 109 mmHG (61-120) 374 mmHG (61-120) Arterial Blood Oxygen Content 16.0 Vol % (12.0-20.0) 20.2 Vol % (12.0-20.0) Arterial Blood Carboxyhemoglobin 4.4 % (0-4) 2.7 % (0-4) Arterial Blood Methemoglobin 0.6 % (0-2) 0.8 % (0-2) Blood Gas Hemoglobin 12.6 G/DL (12.0-16.0) 14.3 G/DL (12.0-16.0) Oxygen Delivery Device AMBU VENTILATOR Blood Gas Liter Flow 15 L/M Blood Gas Inspired Oxygen 100 % 100 % White Blood Count 16.5 TH/MM3 (4.0-11.0) Red Blood Count 4.89 MIL/MM3 (4.00-5.30) Hemoglobin 13.2 GM/DL (11.6-15.3) Hematocrit 41.1 % (35.0-46.0) Mean Corpuscular Volume 84.1 FL (80.0-100.0) Mean Corpuscular Hemoglobin 27.1 PG (27.0-34.0) Mean Corpuscular Hemoglobin Concent 32.2 % (32.0-36.0) Red Cell Distribution Width 16.4 % (11.6-17.2) Platelet Count 418 TH/MM3 (150-450) Mean Platelet Volume 8.0 FL (7.0-11.0) Neutrophils (%) (Auto) 79.1 % (16.0-70.0) Lymphocytes (%) (Auto) 14.2 % (9.0-44.0) Monocytes (%) (Auto) 2.4 % (0.0-8.0) Eosinophils (%) (Auto) 3.8 % (0.0-4.0) Basophils (%) (Auto) 0.5 % (0.0-2.0) Neutrophils # (Auto) 13.0 TH/MM3 (1.8-7.7) Lymphocytes # (Auto) 2.3 TH/MM3 (1.0-4.8) Monocytes # (Auto) 0.4 TH/MM3 (0-0.9) Eosinophils # (Auto) 0.6 TH/MM3 (0-0.4) Basophils # (Auto) 0.1 TH/MM3 (0-0.2) CBC Comment DIFF FINAL Differential Comment Prothrombin Time 10.6 SEC (9.8-11.6) Prothromb Time International Ratio 1.0 RATIO Activated Partial Thromboplast Time 25.1 SEC (24.3-30.1) Urine Color LIGHT-YELLOW (YELLW/STRAW) Urine Turbidity HAZY (CLEAR) Urine pH 7.0 (5.0-8.5) Urine Specific [place] 1.009 (1.002-1.035) Urine Protein 300 mg/dL (NEG-TRACE) Urine Glucose (UA) 300 mg/dL (NEG) Urine Ketones NEG mg/dL (NEG) Urine Occult Blood SMALL (NEG) Urine Nitrite NEG (NEG) Urine Bilirubin NEG (NEG) Urine Urobilinogen LESS THAN 2.0 MG/DL (LESS Urine Leukocyte Esterase NEG (NEG) Urine RBC 4 /hpf (0-3) Urine WBC 4 /hpf (0-5) Urine Squamous Epithelial Cells 4 /hpf (0-5) Urine Bacteria RARE /hpf (NONE) Urine Hyaline Casts 2 /lpf (RARE) Microscopic Urinalysis Comment CATH-CULTURE IND Blood Urea Nitrogen 11 MG/DL (7-18) Creatinine 1.01 MG/DL (0.50-1.00) Random Glucose 286 MG/DL (74-106) Total Protein 6.9 GM/DL (6.4-8.2) Albumin 2.9 GM/DL (3.4-5.0) Calcium Level 7.7 MG/DL (8.5-10.1) Alkaline Phosphatase 167 U/L (45-117) Aspartate Amino Transf (AST/SGOT) 298 U/L (15-37) Alanine Aminotransferase (ALT/SGPT) 163 U/L (10-53) Total Bilirubin 0.3 MG/DL (0.2-1.0) Sodium Level 137 MEQ/L (136-145) Potassium Level 5.7 MEQ/L (3.5-5.1) Chloride Level 96 MEQ/L (98-107) Carbon Dioxide Level 29.7 MEQ/L (21.0-32.0) Anion Gap 11 MEQ/L (5-15) Estimat Glomerular Filtration Rate 58 ML/MIN (>89) Lactic Acid Level 4.8 mmol/L (0.4-2.0) Total Creatine Kinase 131 U/L (26-192) Troponin I 0.03 NG/ML (0.02-0.05) 0.11 NG/ML (0.02-0.05) Salicylates Level 2.0 MG/DL (2.8-20.0) Urine Opiates Screen NEG (NEG) Acetaminophen Level LESS THAN 2.0 MCG/ML Urine Barbiturates Screen NEG (NEG) Urine Amphetamines Screen NEG (NEG) Urine Benzodiazepines Screen POS (NEG) Urine Cocaine Screen NEG (NEG) Urine Cannabinoids Screen NEG (NEG) Ethyl Alcohol Level LESS THAN 3 MG/DL (0-5) Blood Gas Ventilator Setting PC/AC Phosphorus Level 8.7 MG/DL (2.5-4.9) Magnesium Level 2.1 MG/DL (1.5-2.5) Test 11/17/17 05:30 11/17/17 06:20 11/17/17 08:15 11/17/17 12:50 Lactic Acid Level 2.8 mmol/L (0.4-2.0) 4.1 mmol/L (0.4-2.0) White Blood Count 24.3 TH/MM3 (4.0-11.0) Red Blood Count 5.03 MIL/MM3 (4.00-5.30) Hemoglobin 13.2 GM/DL (11.6-15.3) Hematocrit 42.3 % (35.0-46.0) Mean Corpuscular Volume 84.2 FL (80.0-100.0) Mean Corpuscular Hemoglobin 26.4 PG (27.0-34.0) Mean Corpuscular Hemoglobin Concent 31.3 % (32.0-36.0) Red Cell Distribution Width 16.5 % (11.6-17.2) Platelet Count 477 TH/MM3 (150-450) Mean Platelet Volume 8.4 FL (7.0-11.0) Neutrophils (%) (Auto) 91.0 % (16.0-70.0) Lymphocytes (%) (Auto) 2.3 % (9.0-44.0) Monocytes (%) (Auto) 5.9 % (0.0-8.0) Eosinophils (%) (Auto) 0.7 % (0.0-4.0) Basophils (%) (Auto) 0.1 % (0.0-2.0) Neutrophils # (Auto) 22.2 TH/MM3 (1.8-7.7) Lymphocytes # (Auto) 0.6 TH/MM3 (1.0-4.8) Monocytes # (Auto) 1.4 TH/MM3 (0-0.9) Eosinophils # (Auto) 0.2 TH/MM3 (0-0.4) Basophils # (Auto) 0.0 TH/MM3 (0-0.2) CBC Comment DIFF FINAL Differential Comment Prothrombin Time 11.2 SEC (9.8-11.6) Prothromb Time International Ratio 1.1 RATIO Activated Partial Thromboplast Time 25.8 SEC (24.3-30.1) Nasal Screen MRSA (PCR) MRSA NOT DETECTED (NOT Blood Urea Nitrogen 19 MG/DL (7-18) Creatinine 1.25 MG/DL (0.50-1.00) Random Glucose 473 MG/DL (74-106) Calcium Level 8.3 MG/DL (8.5-10.1) Alkaline Phosphatase 189 U/L (45-117) Sodium Level 133 MEQ/L (136-145) Potassium Level 6.4 MEQ/L (3.5-5.1) Chloride Level 92 MEQ/L (98-107) Carbon Dioxide Level 31.6 MEQ/L (21.0-32.0) Anion Gap 9 MEQ/L (5-15) Estimat Glomerular Filtration Rate 45 ML/MIN (>89) Phosphorus Level 7.7 MG/DL (2.5-4.9) Magnesium Level 2.0 MG/DL (1.5-2.5) Troponin I 0.29 NG/ML (0.02-0.05) Random Cortisol 43.3 MCG/DL Blood Gas Puncture Site JAMISON Blood Gas Patient Temperature 98.6 Blood Gas HCO3 24 mmol/L (22-26) Blood Gas Base Excess -0.3 mmol/L (-2-2) Blood Gas Oxygen Saturation 97 % (90-100) Arterial Blood pH 7.42 (7.380-7.420) Arterial Blood Partial Pressure CO2 37 mmHg (38-42) Arterial Blood Partial Pressure O2 154 mmHg (61-120) Arterial Blood Oxygen Content 19.3 Vol % (12.0-20.0) Arterial Blood Carboxyhemoglobin 0.7 % (0-4) Arterial Blood Methemoglobin 1.2 % (0-2) Blood Gas Hemoglobin 14.0 G/DL (12.0-16.0) Oxygen Delivery Device VENT Blood Gas Ventilator Setting 25/5 PEEP/ IT1/60% Blood Gas Inspired Oxygen 60 % Test 11/17/17 13:00 11/17/17 14:45 11/17/17 16:15 11/18/17 02:05 Blood Urea Nitrogen 24 MG/DL (7-18) 24 MG/DL (7-18) 24 MG/DL (7-18) Creatinine 1.76 MG/DL (0.50-1.00) 1.59 MG/DL (0.50-1.00) 1.20 MG/DL (0.50-1.00) Random Glucose 390 MG/DL (74-106) 250 MG/DL (74-106) 230 MG/DL (74-106) Total Protein 6.4 GM/DL (6.4-8.2) 6.4 GM/DL (6.4-8.2) Albumin 2.6 GM/DL (3.4-5.0) 2.2 GM/DL (3.4-5.0) Calcium Level 7.6 MG/DL (8.5-10.1) 7.9 MG/DL (8.5-10.1) 7.8 MG/DL (8.5-10.1) Magnesium Level 1.9 MG/DL (1.5-2.5) 1.8 MG/DL (1.5-2.5) Alkaline Phosphatase 149 U/L (45-117) 124 U/L (45-117) Aspartate Amino Transf (AST/SGOT) 186 U/L (15-37) 122 U/L (15-37) Alanine Aminotransferase (ALT/SGPT) 142 U/L (10-53) 117 U/L (10-53) Total Bilirubin 0.5 MG/DL (0.2-1.0) 0.7 MG/DL (0.2-1.0) Sodium Level 138 MEQ/L (136-145) 142 MEQ/L (136-145) 143 MEQ/L (136-145) Potassium Level 3.2 MEQ/L (3.5-5.1) 2.8 MEQ/L (3.5-5.1) 3.4 MEQ/L (3.5-5.1) Chloride Level 100 MEQ/L (98-107) 102 MEQ/L (98-107) 108 MEQ/L (98-107) Carbon Dioxide Level 25.4 MEQ/L (21.0-32.0) 26.7 MEQ/L (21.0-32.0) 25.8 MEQ/L (21.0-32.0) Anion Gap 13 MEQ/L (5-15) 13 MEQ/L (5-15) 9 MEQ/L (5-15) Estimat Glomerular Filtration Rate 31 ML/MIN (>89) 34 ML/MIN (>89) 48 ML/MIN (>89) Total Creatine Kinase 160 U/L (26-192) Creatine Kinase MB 8.9 NG/ML (0.5-3.6) Troponin I 0.62 NG/ML (0.02-0.05) Thyroid Stimulating Hormone 3rd Gen 1.740 uIU/ML (0.358-3.740) Lactic Acid Level 5.8 mmol/L (0.4-2.0) 2.0 mmol/L (0.4-2.0) White Blood Count 26.6 TH/MM3 (4.0-11.0) Red Blood Count 5.62 MIL/MM3 (4.00-5.30) Hemoglobin 15.4 GM/DL (11.6-15.3) Hematocrit 45.6 % (35.0-46.0) Mean Corpuscular Volume 81.0 FL (80.0-100.0) Mean Corpuscular Hemoglobin 27.4 PG (27.0-34.0) Mean Corpuscular Hemoglobin Concent 33.8 % (32.0-36.0) Red Cell Distribution Width 16.2 % (11.6-17.2) Platelet Count 346 TH/MM3 (150-450) Mean Platelet Volume 8.2 FL (7.0-11.0) Neutrophils (%) (Auto) 97.0 % (16.0-70.0) Lymphocytes (%) (Auto) 1.3 % (9.0-44.0) Monocytes (%) (Auto) 1.6 % (0.0-8.0) Eosinophils (%) (Auto) 0.0 % (0.0-4.0) Basophils (%) (Auto) 0.1 % (0.0-2.0) Neutrophils # (Auto) 25.8 TH/MM3 (1.8-7.7) Lymphocytes # (Auto) 0.4 TH/MM3 (1.0-4.8) Monocytes # (Auto) 0.4 TH/MM3 (0-0.9) Eosinophils # (Auto) 0.0 TH/MM3 (0-0.4) Basophils # (Auto) 0.0 TH/MM3 (0-0.2) CBC Comment DIFF FINAL Differential Comment Prothrombin Time 11.4 SEC (9.8-11.6) Prothromb Time International Ratio 1.1 RATIO Activated Partial Thromboplast Time 28.5 SEC (24.3-30.1) Phosphorus Level 1.9 MG/DL (2.5-4.9) Test 11/18/17 07:20 11/18/17 13:45 Blood Gas Puncture Site ART LINE Blood Gas Patient Temperature 98.6 Blood Gas HCO3 22 mmol/L (22-26) Blood Gas Base Excess -1.5 mmol/L (-2-2) Blood Gas Oxygen Saturation 94 % (90-100) Arterial Blood pH 7.44 (7.380-7.420) Arterial Blood Partial Pressure CO2 33 mmHg (38-42) Arterial Blood Partial Pressure O2 86 mmHg (61-120) Arterial Blood Oxygen Content 20.5 Vol % (12.0-20.0) Arterial Blood Carboxyhemoglobin 0.6 % (0-4) Arterial Blood Methemoglobin 1.3 % (0-2) Blood Gas Hemoglobin 15.5 G/DL (12.0-16.0) Oxygen Delivery Device VENTILATOR Blood Gas Ventilator Setting PRVC25/500/0.9/+5 Blood Gas Inspired Oxygen 50 % Blood Urea Nitrogen 23 MG/DL (7-18) Creatinine 1.03 MG/DL (0.50-1.00) Random Glucose 165 MG/DL (74-106) Calcium Level 7.7 MG/DL (8.5-10.1) Magnesium Level 1.8 MG/DL (1.5-2.5) Sodium Level 145 MEQ/L (136-145) Potassium Level 3.7 MEQ/L (3.5-5.1) Chloride Level 112 MEQ/L (98-107) Carbon Dioxide Level 21.9 MEQ/L (21.0-32.0) Anion Gap 11 MEQ/L (5-15) Estimat Glomerular Filtration Rate 57 ML/MIN (>89) Result Diagram: 11/18/17 0205 11/18/17 1345 Microbiology Microbiology Date/Time Source Procedure Growth Status 11/18/17 02:15 Blood Line Aerobic Blood Culture Pending Received 11/18/17 02:15 Blood Line Anaerobic Blood Culture Pending Received 11/17/17 08:15 Blood Peripheral Aerobic Blood Culture - Preliminary NO GROWTH IN 1 DAY Resulted 11/17/17 08:15 Blood Peripheral Anaerobic Blood Culture - Preliminary NO GROWTH IN 1 DAY Resulted 11/17/17 08:15 Blood Peripheral Aerobic Blood Culture - Preliminary NO GROWTH IN 1 DAY Resulted 11/17/17 08:15 Blood Peripheral Anaerobic Blood Culture - Preliminary NO GROWTH IN 1 DAY Resulted 11/17/17 02:55 Blood Peripheral Aerobic Blood Culture - Preliminary NO GROWTH IN 1 DAY Resulted 11/17/17 02:55 Blood Peripheral Anaerobic Blood Culture - Preliminary NO GROWTH IN 1 DAY Resulted 11/17/17 02:50 Blood Peripheral Aerobic Blood Culture - Preliminary NO GROWTH IN 1 DAY Resulted 11/17/17 02:50 Blood Peripheral Anaerobic Blood Culture - Preliminary NO GROWTH IN 1 DAY Resulted 11/17/17 06:23 Sputum Endotracheal Gram Stain - Final Resulted 11/17/17 06:23 Sputum Endotracheal Sputum Culture - Preliminary HEAVY GROWTH NORMAL RESPIRATORY GARFIELD... Resulted 11/17/17 02:55 Urine Catheterized Urine Urine Culture - Preliminary NO GROWTH IN 24 HOURS. Resulted Imaging Last Impressions Chest X-Ray 11/17/17 0238 Signed Impressions: CONCLUSION: Possible right middle lobe consolidation. Head CT 11/17/17 0000 Signed Impressions: CONCLUSION: Unremarkable study except for right maxillary sinus chronic sinusi tis. Cervical Spine CT 11/17/17 0000 Signed Impressions: CONCLUSION: Unremarkable study. CT Angiography 11/17/17 0000 Signed Impressions: CONCLUSION: 1. Worsening parenchymal changes in the lungs may represent inflammatory simmons e and possibly pneumonia without evidence for PE. The appearance is however non specific. Procedures * 11/17/17- CPR/intubation/right femoral central line and left femoral cooling catheter placed. . Assessment and Plan Disease Oriented Problem List: (1) Lactic acidosis (2) Anoxic encephalopathy (3) Head and neck cancer (4) COPD (chronic obstructive pulmonary disease) (5) Hypoxia (6) Tobacco dependence (7) Cardiac arrest (8) COPD exacerbation (9) PNA (pneumonia) (10) DM (diabetes mellitus) Symptom Scale: (1) Anxiety 0-10 Scale: Unable to quantify Comment: Long history of severe anxiety disorder (2) Encephalopathy 0-10 Scale: Unable to quantify Comment: Likely anoxic encephalopathy, currently sedated (3) Dyspnea 0-10 Scale: Unable to quantify Comment: Remains intubated on mechanical ventilation (4) Pain 0-10 Scale: Unable to quantify Comment: On Nimbex, fentanyl and Versed, unlikely patient is having pain at this time. Will monitor. Pertinent Non-Medical Issues Psychosocial: . Has 1 adult son. Mother is still living. 2 brothers and 2 sisters. Spiritual: None. Legal: Patient is not capacitated to make her own healthcare decisions, will not likely regain capacity. No known written advanced directives. , 1 adult son. Mother alive. 2 brother and 2 sisters. according to [place] statutes , healthcare proxy decision making falls to her only son, Emmanuel Boyce - he is considering whether or not he wants to serve in this role. Will speak again 11/18. Ethical issues impacting care: No known concerns at this time. . Important Contacts * Emmanuel Boyce, son/HCP: [phone] * Agustín Lea, brother: [phone] . Prognosis Ms. Boyce is a 52-year-old female with multiple medical problems, who presented after an unwitnessed cardiac arrest. She was seen normal 30 minutes prior to being found down pulseless and cyanotic. Patient remains critically ill in ICU undergoing hypothermia protocol, pupils fixed and dilated, overall prognosis appears poor for meaningful recovery if we do not see any significant neurologic improvement. . Code Status: Full Code Plan * Patient is not capacitated to make her own healthcare decisions, will not likely regain capacity. No known written advanced directives. , 1 adult son. Mother alive. 2 brother and 2 sisters. according to [place] statutes , healthcare proxy decision making falls to her only son, Emmanuel Boyce -he has indicated he does wish to serve as proxy decision maker. He will also be involving patient's siblings to support him with decision-making. * FULL CODE * Goals remain aggressive including FULL CODE by default . Son, Emmanuel Boyce and proxy by default will discuss CODE STATUS further with family members supporting him with decision-making. No further decisions made regarding goals going forward pending additional assessments/diagnostics/prognosis post rewarming. * SYMPTOMS: ==Pain: due to cardiac arrest/cpr and tubes, lines. Sedated and paralyzed, also on fentanyl == Dyspnea: on mech vent. On sedatives, neuromuscular blockade. Not expected to protect airway for medical extubation. == Encephalopathy: fixed and dilated pupils. EEG with burst suppression, repeat pending for post rewarming. * Palliative care contact information provided * Palliative care will continue to follow during hospital course as condition evolves, to assist patient/decision-maker with understanding of medical conditions, weighing benefits/burdens of treatment options, for clarification of goals of treatment. Additionally will assist with any symptoms of palliative concern . Time Spent Total Floor Time (mins): 35 (Chart review, clinical exam, discussion with primary nurse, discussion with son/proxy) Collaborating MD Comments To help prompt me to consider important information that might be impacting today's encounter and assessment, information from prior notes written by myself or my colleagues may have been "brought forward" into today's note. My signature on this note, however, is an attestation that I personally performed the exam, history, and/or decision-making noted today, and, unless otherwise indicated, the interactions with patient, family, and staff as well as the review of records all occurred today. I also attest that the listed assessment and stated plan reflect my best clinical judgment today based on the combination of historical information, prior notes, and today's exam/ interactions. When time spent is documented, it refers only to time spent today by the signer, or if indicated, combined time spent today by collaborating physician/nurse practitioner. iKm Vincent November 18, 2017 15:50
[2017-11-18] MEDS: DOCUSATE SODIUM 100 MG CAP OG-TUBE SCH (21:18)
[2017-11-18 22:38] LABS: BICARBONATE 24.5 MEQ/L (21.0-32.0); CALCIUM 7.3 MG/DL (8.5-10.1); CREATININE 1.07 MG/DL (0.50-1.00); MAGNESIUM 1.7 MG/DL (1.5-2.5)
[2017-11-18 22:51] LABS: CALCIUM-PROTEIN CORRECTED 7.9 MG/DL (8.5-10.1)
[2017-11-19] VITALS (29 sets, daily range): BP systolic 79–154; BP diastolic 45–86; PULSE 76–113; RESP 11–25; TEMP 99; O2SAT 91–100
[2017-11-19] MEDS: SODIUM CHLOR 0.9% 1000 ML INJ 1,000 ML IV SCH ×2 (00:21→13:08)
[2017-11-19] MEDS: methylPREDNISolone SOD SUCC 40 MG/1 ML VIAL IV PUSH SCH ×4 (00:21→18:14)
[2017-11-19] MEDS ORDERED: MIDAZOLAM HCL 5 MG/ML VIAL (1 ML) ONE (00:59)
[2017-11-19] MEDS ORDERED: MIDAZOLAM HCL 5 MG/ML VIAL (1 ML) IV SCH (01:00)
[2017-11-19] MEDS: PIPERACIL-TAZO 4.5 GM PREMIX 100 ML IV SCH ×4 (01:04→19:51)
[2017-11-19] MEDS: PROPOFOL 1000 MG/100 ML INJ 100 ML IV PRN ×2 (02:12→07:03)
[2017-11-19] MEDS: CHLORHEXIDINE GLUCONATE 2 % 1 PACK (2 CLOTHS) TOP SCH (04:00)
--- NOTE | 2017-11-19 04:10 | RADRPT ---
EXAM DATE: 11/19/2017 4:06 AM EDT AGE/SEX: 52 years / Female INDICATIONS: Short of breath. CLINICAL DATA: This is the patient's subsequent encounter. Patient reports that signs and symptoms h ave been present for 3 days and indicates a pain score of 0/10. MEDICAL/SURGICAL HISTORY: . Diabetes mellitus type II. Cardiovascular disease. Chronic obstruct elle pulmonary disease. Coronary artery stent. COMPARISON: [facility] [place], CHEST SINGLE AP, 11/17/2017. . FINDINGS: There is no appreciable pleural effusion for technique. Heart and mediastinum are unrem arkable. ET tube and NG tube have not changed. Previously seen right middle lobe opacity has resolved and there may be slight atelectasis in left lung base. CONCLUSION: Previously seen right middle lobe opacity has resolved and mild atelectasis may present l eft lung base. Electronically signed by: Brandee Joshua MD 11/19/2017 4:09 AM EDT
[2017-11-19 05:00] LABS: HEMATOCRIT 43.1 % (35.0-46.0); HEMOGLOBIN 14.2 GM/DL (11.6-15.3); MEAN CORPUSCULAR HEMOGLOBIN 26.7 PG (27.0-34.0); MEAN PLATELET VOLUME 8.4 FL (7.0-11.0); PLATELET COUNT 433 TH/MM3 (150-450); RED BLOOD COUNT 5.33 MIL/MM3 (4.00-5.30); RED CELL DISTRIBUTION WIDTH 16.7 % (11.6-17.2); WHITE BLOOD COUNT 36.5 TH/MM3 (4.0-11.0)
[2017-11-19] MEDS: RESP: ALBUTEROL 2.5 MG/IPRATROPIUM 0.5 MG NEB (SCH) NEB ×4 (05:13→20:08)
[2017-11-19] MEDS: MIDAZOLAM 50 MG/NS 50 ML DRIP Premix IV PRN (05:20)
[2017-11-19] MEDS: HEPARIN SODIUM - SQ 10,000 UNITS/ML VIAL SQ SCH ×2 (05:27→13:08)
[2017-11-19] MEDS: FENTANYL DRIP IV PRN (05:46)
[2017-11-19 05:53] LABS: BICARBONATE 22.9 MEQ/L (21.0-32.0); CALCIUM 7.4 MG/DL (8.5-10.1); CALCIUM-PROTEIN CORRECTED 7.9 MG/DL (8.5-10.1); CREATININE 1.21 MG/DL (0.50-1.00); MAGNESIUM 1.7 MG/DL (1.5-2.5); PHOSPHORUS 5.1 MG/DL (2.5-4.9); TOTAL BILIRUBIN ADULT 0.4 MG/DL (0.2-1.0); TOTAL PROTEIN 6.2 GM/DL (6.4-8.2)
[2017-11-19] MEDS: TIOTROPIUM BROMIDE 18 MCG INH INH SCH (09:00)
[2017-11-19] MEDS: FAMOTIDINE 20 MG/2 ML VIAL IV PUSH SCH ×2 (09:00→19:51)
[2017-11-19 09:07] LABS: BANDS 18 % (0-6); LYMPHOCYTES 5 % (9-44); MONOCYTES 2 % (0-8); NEUTROPHIL # MANUAL DIFF 33.9 TH/MM3 (1.8-7.7); POLYS (SEG NEUTROPHILS) 75 % (16-70)
[2017-11-19] MEDS ORDERED: VASOPRESSIN INJ 40 UNITS in DEXTROSE 5% IN WATER 100ML INJ 98 ML IV SCH ×2 (09:21)
[2017-11-19] MEDS: DOCUSATE SODIUM 100 MG CAP OG-TUBE SCH ×2 (09:23→19:51)
[2017-11-19] MEDS: DOCUSATE SODIUM 50 MG/SENNA 8.6 MG TAB PO SCH ×2 (09:23→19:51)
[2017-11-19] MEDS: CLOPIDOGREL 75 MG TAB PO SCH (09:23)
[2017-11-19] MEDS: AZITHROMYCIN INJ 500 MG in SODIUM CHLOR 0.9% 250 ML INJ 250 ML IV SCH (09:24)
[2017-11-19] MEDS: PANTOPRAZOLE SODIUM 40 MG VIAL IV PUSH SCH (09:24)
[2017-11-19] MEDS: CHLORHEXIDINE 0.12% (ORAL KIT) 15 ML CUP SCH ×2 (09:25→19:52)
[2017-11-19] MEDS: SODIUM CHLORIDE 0.9% FLUSH 10 ML FLUSH IV FLUSH SCH ×2 (09:26→19:51)
[2017-11-19] MEDS ORDERED: TERBUTALINE INJ 1 MG/ML AMP SQ PRN (09:30)
[2017-11-19] MEDS ORDERED: PHENYLEPHRINE INJ 80 MG in DEXTROSE 5% IN WATE 500 ML INJ 492 ML IV PRN ×2 (09:30)
[2017-11-19] MEDS ORDERED: PHENYLEPHRINE INJ 80 MG in SODIUM CHLORID 0.9% 500 ML INJ 492 ML IV PRN (09:45)
[2017-11-19] MEDS: VASOPRESSIN INJ 40 UNITS in SODIUM CHLORIDE 0.9% INJ 98 ML IV SCH (09:45)
--- NOTE | 2017-11-19 09:53 | HHI.CCPN ---
Subjective Remarks/Hospital Course 52-year-old unfortunate female with past medical history of head and neck cancer recently treated with radiation awaiting some surgical procedure, was found by family in prone position on the floor cyanotic. She was last seen normal 30 minutes prior to the event. When the EMS arrived no CPR was in progress, the patient was cyanotic and pulseless. They have intubated the patient and after 3 cycles of CPR, epinephrine injections, sodium bicarbonate, she regained spontaneous circulation. No other information is obtainable due to patient's medical condition. Subjective: 11/17: Patient arrives 604, to [facility]. Patient evaluated pupils fixed and dilated , overbreathing the vent currently patient has positive gag reflex. Hypothermic protocol instituted. Currently hemodynamically stable no vasopressors required. 11/18:Rewarming initiated at 1100am. EEG and neurology consult pending. Lactate cleared. This a.m. patient required Levophed infusion to maintain MAP greater than 65. The patient was noted to be hyperglycemic yesterday afternoon requiring initiation of insulin infusion currently at 5 units/hour. 11/19: Patient rewarmed yesterday. Significant myoclonus during the night, patient was placed on propofol infusion. This a.m. EEG pending patient significantly hypotensive currently on norepinephrine ,vasopressin phenylephrine added. CT brain pending. Plan for cerebral blood flow study, patient overbreathing the vent. No change in neuro status. 1500-I was contacted by radiology extensive subarachnoid hemorrhage, with concomitant cerebral edema. Formal report pending. I contacted Dr. Tovar to provide him history and recent radiology report. I do not feel the patient is a surgical candidate. The patient has a very poor prognosis given no brainstem reflexes, and circumstances surrounding her cardiac arrest found down 30 minutes before initiation of CPR. The patient has an alternate CODE STATUS discussed with palliative care team, possible comfort care measures/ withdrawal on Friday, will await neurosurgery and neurology recommendations. Discussed with Dr. Hensley diffuse SAH thought to be secondary to anoxic brain injury. Objective Vital Signs Date Time Temp Pulse Resp B/P (MAP) Pulse Ox O2 Delivery O2 Flow Rate FiO2 11/19/17 07:24 93 45 11/19/17 06:00 97.3 104 25 108/64 (79) 11/17/17 05:05 Ventilator Intake and Output 11/19/17 11/19/17 11/20/17 08:00 16:00 00:00 Intake Total 1541 ml Output Total 555 ml Balance 986 ml Result Diagram: 11/19/17 0445 11/19/17 0445 Other Results Microbiology Date/Time Source Procedure Growth Status 11/17/17 02:55 Urine Catheterized Urine Urine Culture - Final NO GROWTH IN 48 HOURS. Complete Laboratory Tests Test 11/19/17 08:55 Blood Gas Puncture Site ART LINE Blood Gas Patient Temperature 98.6 Blood Gas HCO3 20 mmol/L (22-26) Blood Gas Base Excess -3.8 mmol/L (-2-2) Blood Gas Oxygen Saturation 92 % (90-100) Arterial Blood pH 7.42 (7.380-7.420) Arterial Blood Partial Pressure CO2 31 mmHg (38-42) Arterial Blood Partial Pressure O2 78 mmHg (61-120) Arterial Blood Oxygen Content 17.6 Vol % (12.0-20.0) Arterial Blood Carboxyhemoglobin 0.5 % (0-4) Arterial Blood Methemoglobin 1.6 % (0-2) Blood Gas Hemoglobin 13.6 G/DL (12.0-16.0) Oxygen Delivery Device VENTILATOR Blood Gas Ventilator Setting PRVC25/500/0.9/+5 Blood Gas Inspired Oxygen 55 % Imaging Last Impressions Chest X-Ray 11/19/17 0600 Signed Impressions: CONCLUSION: Previously seen right middle lobe opacity has resolved and mild ate lectasis may present left lung base. Head CT 11/17/17 0000 Signed Impressions: CONCLUSION: Unremarkable study except for right maxillary sinus chronic sinusi tis. Cervical Spine CT 11/17/17 0000 Signed Impressions: CONCLUSION: Unremarkable study. CT Angiography 11/17/17 0000 Signed Impressions: CONCLUSION: 1. Worsening parenchymal changes in the lungs may represent inflammatory simmons e and possibly pneumonia without evidence for PE. The appearance is however non specific. Last 24 hours Impressions Chest X-Ray 11/17/17 0238 Signed Impressions: CONCLUSION: Possible right middle lobe consolidation. Objective Remarks GENERAL: This is a well-nourished, well-developed obese . Unresponsive and intubated SKIN: Warm and dry. HEAD: Normocephalic. Pupils 6 mm fixed bilaterally. No pupillary reactivity EYES: No scleral icterus. No injection or drainage. NECK: Supple, trachea midline. No JVD or lymphadenopathy. CARDIOVASCULAR: Regular rate and rhythm without murmurs, gallops, or rubs. RESPIRATORY: Breath sounds equal bilaterally. No accessory muscle use. Clear to auscultation bilaterally GASTROINTESTINAL: Abdomen soft, non-tender, nondistended, obese. MUSCULOSKELETAL: No cyanosis, or edema. Dorsalis pedal pulses nonpalpable, biphasic Doppler signals BACK: Nontender without obvious deformity. NEURO EXAM: GCS: 3T, pupils fixed unresponsive 6 mm bilaterally, no cough, corneal, lid or gag reflexes. No motor response in all 4 extremities to pain stimuli. A/P Problem List: (1) Cardiac arrest ICD Code: I46.9 - Cardiac arrest, cause unspecified (2) Tobacco dependence ICD Code: F17.200 - Tobacco dependence Status: Acute (3) Hypoxia ICD Code: R09.02 - Hypoxemia Status: Acute Assessment and Plan Plan by systems: Neurologic: Metabolic encephalopathy Possible anoxic encephalopathy Anxiety/ Depression H/O head and neck cancer -11/18-we will thermia protocol complete -11/17 CT head -negative -11/17 CT cervical spine-no cord compression. [place] collar intact. -F/U EEG -Neurology following -11/19 versed and fentanyl infusions discontinued -Consult oncology, if neurologically improving -Cortisol , TSH WNL -F/U CT br Respiratory: Acute hypoxemic respiratory arrest COPD Tobacco use disorder Probable pneumonia right middle lobe -Maintain O2 sat greater than 92% -Currently on pressure control ventilation, FiO2 60% -Repeat ABG - 11/17 Intubated for airway protection -No weaning until neurologically improve -DuoNeb scheduled and as needed -11/19 chest x-ray right middle lobe opacity clear -IV steroid -Antibiotics see below Cardiovascular: Cardiac arrest Cardiogenic shock -11/17 Postarrest hypothermia protocol -CT pulmonary angiogram to rule out pulmonary embolism -Series of troponins and EKGs to rule out acute coronary syndrome -Obtain 2D echo -Phenylephrine and Levophed and norepinephrine added to maintain MAP >65 Renal: Maintain temp sensing [place] -- Strict I/Os FEN/GI: -Maintain n.p.o. -NG tube to LIWS -Bowel regimen -Famotidine GI prophylaxis -Zofran for nausea Heme/ID: Persistent leukocytosis -Obtain blood urine sputum culture -Begin empiric antibiotic -Monitor CBC Endocrine: Diabetes mellitus -Glucose monitoring per ICU protocol -Sliding-scale insulin low dose regimen -TSH- WNL -- SSI Prophylaxis: GI Prophylaxis Famotidine BID DVT Prophylaxis -- SCDs -- Heparin 5000 BID Lines: Central line right femoral( 11/17), cooling catheter left femoral (11/17), peripheral IVs 2 Dispo: Palliative care consult to define goals of care. Prognosis is poor patient has probable anoxic encephalopathy. my billing statement This patient remains critically ill with one or more organ systems which are or may become a threat to life. I have spent in excess of 31 minutes discontinuously in the care and management of this patient. This time is exclusive of procedures, and includes, but is not limited to, evaluation of the patient, review of the medical record, discussions with family, consultants, nursing staff, or respiratory therapy, and documentation in the medical record. Physician Daisy Verdugo MD November 19, 2017 09:53
[2017-11-19] MEDS ORDERED: PNEUMOCOCCAL POLYVALENT INJ 25 MCG/0.5 ML SYR IM ONE (10:00)
[2017-11-19] MEDS ORDERED: INFLUENZA VIRUS VACCINE (QUADRIVALENT) 0.5 ML SYR IM ONE (10:00)
[2017-11-19] MEDS ORDERED: GLUCAGON 1 MG/ML VIAL OTHER PRN (12:45)
[2017-11-19] MEDS ORDERED: DEXTROSE 50% IN WATER 50 ML VIAL(D50) IV PUSH PRN (12:45)
[2017-11-19] MEDS: NOREPINEPHRINE 4 MG/250 ML NS IV PRN ×2 (13:10)
--- NOTE | 2017-11-19 14:40 | HHI.HCPN ---
Reason for visit a. To assist with evaluation and management of symptoms including: dyspnea, pain, encephalopathy. b. To assist medical decision maker(s) with: better understanding of current medical conditions; weighing benefits/burdens of medical treatment options; making medical treatment decisions. . Subjective/Interval History Pt seen today to follow up on comfort, goals with decision makers. Rewarming completed. possible myoclonus activity overnight. +overbreathing vent at times, though otherwise non responsive. + ongoing hypotension requiring multiple pressors: norepinephrine, vasopressin, phenylephrine. +rising leukocytosis, WBC 36.5 today. BC no growth to date. CXR= Previously seen right middle lobe opacity has resolved and mild atelectasis may present left lung base. Nursing reports occasional decorticate type posturing noted to stimuli though otherwise no response is seen. Patient seen in room primary nurse at bedside, preparing for transport to CT scan. She does not withdraw or respond to pain stimuli for me. No pupillary response noted. No signs of distress. Nurse reports significant other and earlier today otherwise no visitors. following exam call to son Mr Emmanuel Boyce pt son and proxy decision maker. After that also call to patient brother Agustín per son's request. . Family/friend interactions Call to ryan Benitez provided update on current assessment, conditions, treatments in place, CT pending, review that overall prognosis for meaningful neurologic recovery still appears poor based on current assessment findings. Reviewed and in the coming days if she continues to not demonstrate significant neurological improvement assessments will continue to indicate likely vegetative prognosis. Review with him options for continued treatment and likely requirement for tracheostomy and PEG and long-term intermediate placement versus de-escalation and transition to comfort focus. Emmanuel expresses that in the past he is discussed with his mother and that she is indicated that if she were ever dependent on another for toileting eating bathing etc. and could not make her needs known she would not want to live dependent on others. He voices that he would not continue measures if she does not experience significant improvement in the coming days. He expresses he and patient's brother his uncle know this very well and will not proceed with things against his mother's wishes. Review with her resuscitation status what benefits/burdens of CPR he elects alternate code to continue with intubation only but otherwise no cardiac resuscitation should she sustained another cardiac event. He indicates he would like to give it another few days to monitor for any signs of neurologic improvement but otherwise within like to discuss further de- escalation and transition to comfort if no improvement in the coming days. He continues to work very closely with patient's brother in all decision-making. He requests I call him to provide him with this update as well as this uncle is assisting him with decision-making. Following this call to patient brother Agustín again discussed the above noted. He is in agreement with son Emmanuel affirms patient should be DNR based on her known wishes. He feels they should give it until Friday to monitor for signs of improvement but otherwise patient would not want to be prolonged on artificial measures without significant neurological improvement. He feels they would likely want to transition to comfort focus Friday or over the weekend. . Advance Directives Living Will: Never completed Health Care Surrogate: Never completed Durable Power of Migrant Leader: Never completed Advance Directive Specifics Health Care Surrogate(s): Patient is not capacitated to make her own healthcare decisions, will not likely regain capacity. No known written advanced directives. , 1 adult son. Mother alive. 2 brother and 2 sisters. according to [place] statutes , healthcare proxy decision making falls to her only son, Emmanuel Boyce - he is considering whether or not he wants to serve in this role. Will speak again 11/18. . Documented care wishes: No known written advanced directives. . Objective Vital Signs Date Time Temp Pulse Resp B/P (MAP) Pulse Ox O2 Delivery O2 Flow Rate FiO2 11/19/17 13:10 93 128/71 11/19/17 11:31 97 55 11/19/17 11:00 99.7 97 25 130/74 (92) 97 11/19/17 10:00 98.8 100 21 113/68 (83) 95 11/19/17 09:45 97 70/49 11/19/17 09:45 97 70/41 11/19/17 09:00 98.1 76 25 104/55 (71) 95 11/19/17 08:30 86 73/42 11/19/17 08:27 98.1 90 25 88/54 (65) 91 79/45 (56) 11/19/17 08:00 97.9 101 25 100/61 (74) 92 91/54 (66) 11/19/17 07:24 93 45 5/30/18 07:00 97.5 100 25 98/58 (71) 92 11/19/17 06:00 97.3 104 25 108/64 (79) 94 11/19/17 06:00 104 11/19/17 06:00 104 111/71 (84) 108/64 (79) 11/19/17 05:13 93 45 11/19/17 05:00 97.7 104 25 102/60 (74) 92 11/19/17 04:00 45 11/19/17 04:00 98.8 108 25 111/76 (88) 93 95/60 (72) 11/19/17 04:00 108 11/19/17 03:00 98.6 110 25 108/61 (77) 93 11/19/17 02:00 109 11/19/17 02:00 98.2 109 25 125/69 (87) 93 11/19/17 01:00 97.7 112 25 139/77 (97) 94 11/19/17 00:15 96 45 11/19/17 00:00 97.2 113 25 132/86 (101) 96 148/80 (102) 11/19/17 00:00 111 11/19/17 00:00 45 11/18/17 23:00 96.6 112 25 135/75 (95) 96 11/18/17 22:00 96.3 111 25 123/70 (87) 95 11/18/17 22:00 111 11/18/17 21:00 95.7 109 25 115/65 (82) 95 11/18/17 20:00 95.4 109 25 117/73 (88) 95 112/66 (81) 11/18/17 20:00 109 11/18/17 20:00 45 11/18/17 19:33 94 45 11/18/17 19:00 95.0 107 25 126/73 (90) 94 11/18/17 18:00 94.5 106 25 138/77 (97) 93 11/18/17 18:00 106 133/76 (95) 132/82 (99) 11/18/17 17:00 94.1 104 25 129/74 (92) 93 11/18/17 16:00 40 11/18/17 16:00 93.6 101 19 124/83 (97) 95 119/71 (87) 11/18/17 15:05 98 40 11/18/17 15:00 93.2 97 25 112/67 (82) 96 Intake & Output 11/19/17 11/19/17 07:00 19:00 Intake Total 1690 ml 28 ml Output Total 830 ml Balance 860 ml 28 ml Intake IV Total 1690 ml 28 ml Output Urine Total 730 ml Gastric Drainage Total 100 ml Physical Exam CONSTITUTIONAL/GENERAL: This is an adequately nourished patient, appears older than reported. Sedated, nonresponsive on mechanical vent TUBES/LINES/DRAINS: ETT, OG, [place] collar, bilateral soft wrist restraints, Zapata catheter, right femoral central line, PIVs. SCDs SKIN: No jaundice, rashes, or lesions. No wounds seen anteriorly. Skin cool/ dry. HEAD: Atraumatic. Normocephalic.+ Facial edema. EYES: Pupils 4 mm nonreactive to light/ no eye opening. + Facial/slight scleral edema. ENT: Unable to assess hearing. Nose without bleeding or purulent drainage. Difficult to visualize oral cavity due to ETT/OG tubes. CARDIOVASCULAR: Regular rate and rhythm no murmur.+ Generalized edema to extremities RESPIRATORY/CHEST: Symmetric, unlabored respirations via ET tube mechanical vent spont breathing noted over vent rate. Clear though diminished breath sounds bilaterally. GASTROINTESTINAL: Old well-healed midline abdominal incision noted. Abdomen soft, round/obese, nondistended. Bowel sounds intermittent. OG tube clamped GENITOURINARY: Without palpable bladder distension. Zapata catheter in place. Clear yellow urine. MUSCULOSKELETAL: Extremities without clubbing, cyanosis. + Trace general peripheral edema. No mottling or clubbing. NEUROLOGICAL: Sedated. Limited assessment/Non-responsive to exam PSYCHIATRIC: Sedated-unable to assess . Diagnostic Tests Laboratory Laboratory Tests Test 11/17/17 02:00 11/17/17 02:55 11/17/17 03:40 11/17/17 04:25 Blood Gas Puncture Site RT FEMORAL LT RADIAL Blood Gas Patient Temperature 98.6 98.6 Blood Gas HCO3 28 mmol/L (22-26) 27 mmol/L (22-26) Blood Gas Base Excess -2.7 mmol/L (-2-2) 0.3 mmol/L (-2-2) Blood Gas Oxygen Saturation 90 % (90-100) 96 % (90-100) Arterial Blood pH 7.01 (7.380-7.420) 7.24 (7.380-7.420) Arterial Blood Partial Pressure CO2 116 mmHg (38-42) 65 mmHg (38-42) Arterial Blood Partial Pressure O2 109 mmHG (61-120) 374 mmHG (61-120) Arterial Blood Oxygen Content 16.0 Vol % (12.0-20.0) 20.2 Vol % (12.0-20.0) Arterial Blood Carboxyhemoglobin 4.4 % (0-4) 2.7 % (0-4) Arterial Blood Methemoglobin 0.6 % (0-2) 0.8 % (0-2) Blood Gas Hemoglobin 12.6 G/DL (12.0-16.0) 14.3 G/DL (12.0-16.0) Oxygen Delivery Device AMBU VENTILATOR Blood Gas Liter Flow 15 L/M Blood Gas Inspired Oxygen 100 % 100 % White Blood Count 16.5 TH/MM3 (4.0-11.0) Red Blood Count 4.89 MIL/MM3 (4.00-5.30) Hemoglobin 13.2 GM/DL (11.6-15.3) Hematocrit 41.1 % (35.0-46.0) Mean Corpuscular Volume 84.1 FL (80.0-100.0) Mean Corpuscular Hemoglobin 27.1 PG (27.0-34.0) Mean Corpuscular Hemoglobin Concent 32.2 % (32.0-36.0) Red Cell Distribution Width 16.4 % (11.6-17.2) Platelet Count 418 TH/MM3 (150-450) Mean Platelet Volume 8.0 FL (7.0-11.0) Neutrophils (%) (Auto) 79.1 % (16.0-70.0) Lymphocytes (%) (Auto) 14.2 % (9.0-44.0) Monocytes (%) (Auto) 2.4 % (0.0-8.0) Eosinophils (%) (Auto) 3.8 % (0.0-4.0) Basophils (%) (Auto) 0.5 % (0.0-2.0) Neutrophils # (Auto) 13.0 TH/MM3 (1.8-7.7) Lymphocytes # (Auto) 2.3 TH/MM3 (1.0-4.8) Monocytes # (Auto) 0.4 TH/MM3 (0-0.9) Eosinophils # (Auto) 0.6 TH/MM3 (0-0.4) Basophils # (Auto) 0.1 TH/MM3 (0-0.2) CBC Comment DIFF FINAL Differential Comment Prothrombin Time 10.6 SEC (9.8-11.6) Prothromb Time International Ratio 1.0 RATIO Activated Partial Thromboplast Time 25.1 SEC (24.3-30.1) Urine Color LIGHT-YELLOW (YELLW/STRAW) Urine Turbidity HAZY (CLEAR) Urine pH 7.0 (5.0-8.5) Urine Specific [place] 1.009 (1.002-1.035) Urine Protein 300 mg/dL (NEG-TRACE) Urine Glucose (UA) 300 mg/dL (NEG) Urine Ketones NEG mg/dL (NEG) Urine Occult Blood SMALL (NEG) Urine Nitrite NEG (NEG) Urine Bilirubin NEG (NEG) Urine Urobilinogen LESS THAN 2.0 MG/DL (LESS Urine Leukocyte Esterase NEG (NEG) Urine RBC 4 /hpf (0-3) Urine WBC 4 /hpf (0-5) Urine Squamous Epithelial Cells 4 /hpf (0-5) Urine Bacteria RARE /hpf (NONE) Urine Hyaline Casts 2 /lpf (RARE) Microscopic Urinalysis Comment CATH-CULTURE IND Blood Urea Nitrogen 11 MG/DL (7-18) Creatinine 1.01 MG/DL (0.50-1.00) Random Glucose 286 MG/DL (74-106) Total Protein 6.9 GM/DL (6.4-8.2) Albumin 2.9 GM/DL (3.4-5.0) Calcium Level 7.7 MG/DL (8.5-10.1) Alkaline Phosphatase 167 U/L (45-117) Aspartate Amino Transf (AST/SGOT) 298 U/L (15-37) Alanine Aminotransferase (ALT/SGPT) 163 U/L (10-53) Total Bilirubin 0.3 MG/DL (0.2-1.0) Sodium Level 137 MEQ/L (136-145) Potassium Level 5.7 MEQ/L (3.5-5.1) Chloride Level 96 MEQ/L (98-107) Carbon Dioxide Level 29.7 MEQ/L (21.0-32.0) Anion Gap 11 MEQ/L (5-15) Estimat Glomerular Filtration Rate 58 ML/MIN (>89) Lactic Acid Level 4.8 mmol/L (0.4-2.0) Total Creatine Kinase 131 U/L (26-192) Troponin I 0.03 NG/ML (0.02-0.05) 0.11 NG/ML (0.02-0.05) Salicylates Level 2.0 MG/DL (2.8-20.0) Urine Opiates Screen NEG (NEG) Acetaminophen Level LESS THAN 2.0 MCG/ML Urine Barbiturates Screen NEG (NEG) Urine Amphetamines Screen NEG (NEG) Urine Benzodiazepines Screen POS (NEG) Urine Cocaine Screen NEG (NEG) Urine Cannabinoids Screen NEG (NEG) Ethyl Alcohol Level LESS THAN 3 MG/DL (0-5) Blood Gas Ventilator Setting PC/AC Phosphorus Level 8.7 MG/DL (2.5-4.9) Magnesium Level 2.1 MG/DL (1.5-2.5) Test 11/17/17 05:30 11/17/17 06:20 11/17/17 08:15 11/17/17 12:50 Lactic Acid Level 2.8 mmol/L (0.4-2.0) 4.1 mmol/L (0.4-2.0) White Blood Count 24.3 TH/MM3 (4.0-11.0) Red Blood Count 5.03 MIL/MM3 (4.00-5.30) Hemoglobin 13.2 GM/DL (11.6-15.3) Hematocrit 42.3 % (35.0-46.0) Mean Corpuscular Volume 84.2 FL (80.0-100.0) Mean Corpuscular Hemoglobin 26.4 PG (27.0-34.0) Mean Corpuscular Hemoglobin Concent 31.3 % (32.0-36.0) Red Cell Distribution Width 16.5 % (11.6-17.2) Platelet Count 477 TH/MM3 (150-450) Mean Platelet Volume 8.4 FL (7.0-11.0) Neutrophils (%) (Auto) 91.0 % (16.0-70.0) Lymphocytes (%) (Auto) 2.3 % (9.0-44.0) Monocytes (%) (Auto) 5.9 % (0.0-8.0) Eosinophils (%) (Auto) 0.7 % (0.0-4.0) Basophils (%) (Auto) 0.1 % (0.0-2.0) Neutrophils # (Auto) 22.2 TH/MM3 (1.8-7.7) Lymphocytes # (Auto) 0.6 TH/MM3 (1.0-4.8) Monocytes # (Auto) 1.4 TH/MM3 (0-0.9) Eosinophils # (Auto) 0.2 TH/MM3 (0-0.4) Basophils # (Auto) 0.0 TH/MM3 (0-0.2) CBC Comment DIFF FINAL Differential Comment Prothrombin Time 11.2 SEC (9.8-11.6) Prothromb Time International Ratio 1.1 RATIO Activated Partial Thromboplast Time 25.8 SEC (24.3-30.1) Nasal Screen MRSA (PCR) MRSA NOT DETECTED (NOT Blood Urea Nitrogen 19 MG/DL (7-18) Creatinine 1.25 MG/DL (0.50-1.00) Random Glucose 473 MG/DL (74-106) Calcium Level 8.3 MG/DL (8.5-10.1) Alkaline Phosphatase 189 U/L (45-117) Sodium Level 133 MEQ/L (136-145) Potassium Level 6.4 MEQ/L (3.5-5.1) Chloride Level 92 MEQ/L (98-107) Carbon Dioxide Level 31.6 MEQ/L (21.0-32.0) Anion Gap 9 MEQ/L (5-15) Estimat Glomerular Filtration Rate 45 ML/MIN (>89) Phosphorus Level 7.7 MG/DL (2.5-4.9) Magnesium Level 2.0 MG/DL (1.5-2.5) Troponin I 0.29 NG/ML (0.02-0.05) Random Cortisol 43.3 MCG/DL Blood Gas Puncture Site JAMISON Blood Gas Patient Temperature 98.6 Blood Gas HCO3 24 mmol/L (22-26) Blood Gas Base Excess -0.3 mmol/L (-2-2) Blood Gas Oxygen Saturation 97 % (90-100) Arterial Blood pH 7.42 (7.380-7.420) Arterial Blood Partial Pressure CO2 37 mmHg (38-42) Arterial Blood Partial Pressure O2 154 mmHg (61-120) Arterial Blood Oxygen Content 19.3 Vol % (12.0-20.0) Arterial Blood Carboxyhemoglobin 0.7 % (0-4) Arterial Blood Methemoglobin 1.2 % (0-2) Blood Gas Hemoglobin 14.0 G/DL (12.0-16.0) Oxygen Delivery Device VENT Blood Gas Ventilator Setting 25/5 PEEP/ IT1/60% Blood Gas Inspired Oxygen 60 % Test 11/17/17 13:00 11/17/17 14:45 11/17/17 16:15 11/18/17 02:05 Blood Urea Nitrogen 24 MG/DL (7-18) 24 MG/DL (7-18) 24 MG/DL (7-18) Creatinine 1.76 MG/DL (0.50-1.00) 1.59 MG/DL (0.50-1.00) 1.20 MG/DL (0.50-1.00) Random Glucose 390 MG/DL (74-106) 250 MG/DL (74-106) 230 MG/DL (74-106) Total Protein 6.4 GM/DL (6.4-8.2) 6.4 GM/DL (6.4-8.2) Albumin 2.6 GM/DL (3.4-5.0) 2.2 GM/DL (3.4-5.0) Calcium Level 7.6 MG/DL (8.5-10.1) 7.9 MG/DL (8.5-10.1) 7.8 MG/DL (8.5-10.1) Magnesium Level 1.9 MG/DL (1.5-2.5) 1.8 MG/DL (1.5-2.5) Alkaline Phosphatase 149 U/L (45-117) 124 U/L (45-117) Aspartate Amino Transf (AST/SGOT) 186 U/L (15-37) 122 U/L (15-37) Alanine Aminotransferase (ALT/SGPT) 142 U/L (10-53) 117 U/L (10-53) Total Bilirubin 0.5 MG/DL (0.2-1.0) 0.7 MG/DL (0.2-1.0) Sodium Level 138 MEQ/L (136-145) 142 MEQ/L (136-145) 143 MEQ/L (136-145) Potassium Level 3.2 MEQ/L (3.5-5.1) 2.8 MEQ/L (3.5-5.1) 3.4 MEQ/L (3.5-5.1) Chloride Level 100 MEQ/L (98-107) 102 MEQ/L (98-107) 108 MEQ/L (98-107) Carbon Dioxide Level 25.4 MEQ/L (21.0-32.0) 26.7 MEQ/L (21.0-32.0) 25.8 MEQ/L (21.0-32.0) Anion Gap 13 MEQ/L (5-15) 13 MEQ/L (5-15) 9 MEQ/L (5-15) Estimat Glomerular Filtration Rate 31 ML/MIN (>89) 34 ML/MIN (>89) 48 ML/MIN (>89) Total Creatine Kinase 160 U/L (26-192) Creatine Kinase MB 8.9 NG/ML (0.5-3.6) Troponin I 0.62 NG/ML (0.02-0.05) Thyroid Stimulating Hormone 3rd Gen 1.740 uIU/ML (0.358-3.740) Lactic Acid Level 5.8 mmol/L (0.4-2.0) 2.0 mmol/L (0.4-2.0) White Blood Count 26.6 TH/MM3 (4.0-11.0) Red Blood Count 5.62 MIL/MM3 (4.00-5.30) Hemoglobin 15.4 GM/DL (11.6-15.3) Hematocrit 45.6 % (35.0-46.0) Mean Corpuscular Volume 81.0 FL (80.0-100.0) Mean Corpuscular Hemoglobin 27.4 PG (27.0-34.0) Mean Corpuscular Hemoglobin Concent 33.8 % (32.0-36.0) Red Cell Distribution Width 16.2 % (11.6-17.2) Platelet Count 346 TH/MM3 (150-450) Mean Platelet Volume 8.2 FL (7.0-11.0) Neutrophils (%) (Auto) 97.0 % (16.0-70.0) Lymphocytes (%) (Auto) 1.3 % (9.0-44.0) Monocytes (%) (Auto) 1.6 % (0.0-8.0) Eosinophils (%) (Auto) 0.0 % (0.0-4.0) Basophils (%) (Auto) 0.1 % (0.0-2.0) Neutrophils # (Auto) 25.8 TH/MM3 (1.8-7.7) Lymphocytes # (Auto) 0.4 TH/MM3 (1.0-4.8) Monocytes # (Auto) 0.4 TH/MM3 (0-0.9) Eosinophils # (Auto) 0.0 TH/MM3 (0-0.4) Basophils # (Auto) 0.0 TH/MM3 (0-0.2) CBC Comment DIFF FINAL Differential Comment Prothrombin Time 11.4 SEC (9.8-11.6) Prothromb Time International Ratio 1.1 RATIO Activated Partial Thromboplast Time 28.5 SEC (24.3-30.1) Phosphorus Level 1.9 MG/DL (2.5-4.9) Test 11/18/17 07:20 11/18/17 13:45 11/18/17 21:50 11/19/17 04:45 Blood Gas Puncture Site ART LINE Blood Gas Patient Temperature 98.6 Blood Gas HCO3 22 mmol/L (22-26) Blood Gas Base Excess -1.5 mmol/L (-2-2) Blood Gas Oxygen Saturation 94 % (90-100) Arterial Blood pH 7.44 (7.380-7.420) Arterial Blood Partial Pressure CO2 33 mmHg (38-42) Arterial Blood Partial Pressure O2 86 mmHg (61-120) Arterial Blood Oxygen Content 20.5 Vol % (12.0-20.0) Arterial Blood Carboxyhemoglobin 0.6 % (0-4) Arterial Blood Methemoglobin 1.3 % (0-2) Blood Gas Hemoglobin 15.5 G/DL (12.0-16.0) Oxygen Delivery Device VENTILATOR Blood Gas Ventilator Setting PRVC25/500/0.9/+5 Blood Gas Inspired Oxygen 50 % Blood Urea Nitrogen 23 MG/DL (7-18) 25 MG/DL (7-18) 24 MG/DL (7-18) Creatinine 1.03 MG/DL (0.50-1.00) 1.07 MG/DL (0.50-1.00) 1.21 MG/DL (0.50-1.00) Random Glucose 165 MG/DL (74-106) 163 MG/DL (74-106) 121 MG/DL (74-106) Calcium Level 7.7 MG/DL (8.5-10.1) 7.3 MG/DL (8.5-10.1) 7.4 MG/DL (8.5-10.1) Phosphorus Level 4.7 MG/DL (2.5-4.9) 5.1 MG/DL (2.5-4.9) Magnesium Level 1.8 MG/DL (1.5-2.5) 1.7 MG/DL (1.5-2.5) 1.7 MG/DL (1.5-2.5) Sodium Level 145 MEQ/L (136-145) 148 MEQ/L (136-145) 147 MEQ/L (136-145) Potassium Level 3.7 MEQ/L (3.5-5.1) 4.1 MEQ/L (3.5-5.1) 4.3 MEQ/L (3.5-5.1) Chloride Level 112 MEQ/L (98-107) 112 MEQ/L (98-107) 115 MEQ/L (98-107) Carbon Dioxide Level 21.9 MEQ/L (21.0-32.0) 24.5 MEQ/L (21.0-32.0) 22.9 MEQ/L (21.0-32.0) Anion Gap 11 MEQ/L (5-15) 12 MEQ/L (5-15) 9 MEQ/L (5-15) Estimat Glomerular Filtration Rate 57 ML/MIN (>89) 54 ML/MIN (>89) 47 ML/MIN (>89) Total Protein 6.0 GM/DL (6.4-8.2) 6.2 GM/DL (6.4-8.2) Protein Corrected Calcium 7.9 MG/DL (8.5-10.1) 7.9 MG/DL (8.5-10.1) White Blood Count 36.5 TH/MM3 (4.0-11.0) Red Blood Count 5.33 MIL/MM3 (4.00-5.30) Hemoglobin 14.2 GM/DL (11.6-15.3) Hematocrit 43.1 % (35.0-46.0) Mean Corpuscular Volume 81.0 FL (80.0-100.0) Mean Corpuscular Hemoglobin 26.7 PG (27.0-34.0) Mean Corpuscular Hemoglobin Concent 33.0 % (32.0-36.0) Red Cell Distribution Width 16.7 % (11.6-17.2) Platelet Count 433 TH/MM3 (150-450) Mean Platelet Volume 8.4 FL (7.0-11.0) CBC Comment AUTO DIFF Differential Total Cells Counted 100 Neutrophils % (Manual) 75 % (16-70) Band Neutrophils % 18 % (0-6) Lymphocytes % 5 % (9-44) Monocytes % 2 % (0-8) Neutrophils # (Manual) 33.9 TH/MM3 (1.8-7.7) Differential Comment FINAL DIFF MANUAL Platelet Estimate NORMAL (NORMAL) Platelet Morphology Comment ENLARGED (NORMAL) Red Cell Morphology Comment NORMAL (NORMAL) Albumin 2.0 GM/DL (3.4-5.0) Alkaline Phosphatase 99 U/L (45-117) Aspartate Amino Transf (AST/SGOT) 113 U/L (15-37) Alanine Aminotransferase (ALT/SGPT) 88 U/L (10-53) Total Bilirubin 0.4 MG/DL (0.2-1.0) Lactic Acid Level 1.3 mmol/L (0.4-2.0) Test 11/19/17 08:55 Blood Gas Puncture Site ART LINE Blood Gas Patient Temperature 98.6 Blood Gas HCO3 20 mmol/L (22-26) Blood Gas Base Excess -3.8 mmol/L (-2-2) Blood Gas Oxygen Saturation 92 % (90-100) Arterial Blood pH 7.42 (7.380-7.420) Arterial Blood Partial Pressure CO2 31 mmHg (38-42) Arterial Blood Partial Pressure O2 78 mmHg (61-120) Arterial Blood Oxygen Content 17.6 Vol % (12.0-20.0) Arterial Blood Carboxyhemoglobin 0.5 % (0-4) Arterial Blood Methemoglobin 1.6 % (0-2) Blood Gas Hemoglobin 13.6 G/DL (12.0-16.0) Oxygen Delivery Device VENTILATOR Blood Gas Ventilator Setting PRVC25/500/0.9/+5 Blood Gas Inspired Oxygen 55 % Result Diagram: 11/19/17 0445 11/19/17 0445 Microbiology Microbiology Date/Time Source Procedure Growth Status 11/18/17 02:15 Blood Line Aerobic Blood Culture - Preliminary NO GROWTH IN 1 DAY Resulted 11/18/17 02:15 Blood Line Anaerobic Blood Culture - Preliminary NO GROWTH IN 1 DAY Resulted 11/17/17 08:15 Blood Peripheral Aerobic Blood Culture - Preliminary NO GROWTH IN 2 DAYS Resulted 11/17/17 08:15 Blood Peripheral Anaerobic Blood Culture - Preliminary NO GROWTH IN 2 DAYS Resulted 11/17/17 08:15 Blood Peripheral Aerobic Blood Culture - Preliminary NO GROWTH IN 2 DAYS Resulted 11/17/17 08:15 Blood Peripheral Anaerobic Blood Culture - Preliminary NO GROWTH IN 2 DAYS Resulted 11/17/17 02:55 Blood Peripheral Aerobic Blood Culture - Preliminary NO GROWTH IN 2 DAYS Resulted 11/17/17 02:55 Blood Peripheral Anaerobic Blood Culture - Preliminary NO GROWTH IN 2 DAYS Resulted 11/17/17 02:50 Blood Peripheral Aerobic Blood Culture - Preliminary NO GROWTH IN 2 DAYS Resulted 11/17/17 02:50 Blood Peripheral Anaerobic Blood Culture - Preliminary NO GROWTH IN 2 DAYS Resulted 11/17/17 06:23 Sputum Endotracheal Gram Stain - Final Resulted 11/17/17 06:23 Sputum Culture - Preliminary Staphylococcus Aureus Resulted 11/17/17 02:55 Urine Catheterized Urine Urine Culture - Final NO GROWTH IN 48 HOURS. Complete Imaging Last Impressions Chest X-Ray 11/19/17 0600 Signed Impressions: CONCLUSION: Previously seen right middle lobe opacity has resolved and mild ate lectasis may present left lung base. Head CT 11/17/17 0000 Signed Impressions: CONCLUSION: Unremarkable study except for right maxillary sinus chronic sinusi tis. Cervical Spine CT 11/17/17 0000 Signed Impressions: CONCLUSION: Unremarkable study. CT Angiography 11/17/17 0000 Signed Impressions: CONCLUSION: 1. Worsening parenchymal changes in the lungs may represent inflammatory simmons e and possibly pneumonia without evidence for PE. The appearance is however non specific. Procedures * 11/17/17- CPR/intubation/right femoral central line and left femoral cooling catheter placed. . Assessment and Plan Disease Oriented Problem List: (1) Lactic acidosis (2) Anoxic encephalopathy (3) Head and neck cancer (4) COPD (chronic obstructive pulmonary disease) (5) Hypoxia (6) Tobacco dependence (7) Cardiac arrest (8) COPD exacerbation (9) PNA (pneumonia) (10) DM (diabetes mellitus) Symptom Scale: (1) Anxiety 0-10 Scale: Unable to quantify Comment: Long history of severe anxiety disorder (2) Encephalopathy 0-10 Scale: Unable to quantify Comment: Likely anoxic encephalopathy, currently sedated (3) Dyspnea 0-10 Scale: Unable to quantify Comment: Remains intubated on mechanical ventilation (4) Pain 0-10 Scale: Unable to quantify Comment: fentanyl and Versed, unlikely patient is having pain at this time. Will monitor. Pertinent Non-Medical Issues Psychosocial: . Has 1 adult son. Mother is still living. 2 brothers and 2 sisters. Spiritual: None. Legal: Patient is not capacitated to make her own healthcare decisions, will not likely regain capacity. No known written advanced directives. , 1 adult son. Mother alive. 2 brother and 2 sisters. according to [place] statutes , healthcare proxy decision making falls to her only son, Emmanuel Boyce - he is considering whether or not he wants to serve in this role. Will speak again 11/18. Ethical issues impacting care: No known concerns at this time. . Important Contacts * Emmanuel Boyce, son/HCP: [phone] * Agustín Lea, brother: [phone] . Prognosis Ms. Boyce is a 52-year-old female with multiple medical problems, who presented after an unwitnessed cardiac arrest. She was seen normal 30 minutes prior to being found down pulseless and cyanotic. Patient remains critically ill in ICU undergoing hypothermia protocol, pupils fixed and dilated, overall prognosis appears poor for meaningful recovery if we do not see any significant neurologic improvement. . Code Status: Full Code Plan * Patient is not capacitated to make her own healthcare decisions, will not likely regain capacity. No known written advanced directives. , 1 adult son. Mother alive. 2 brother and 2 sisters. according to [place] statutes , healthcare proxy decision making falls to her only son, Emmanuel Boyce -he has indicated he does wish to serve as proxy decision maker. He will also be involving patient's siblings to support him with decision-making. * Alternate code--intubation only * Goals remain aggressive short of resuscitation. Ryan Benitez has indicated that patient would not want to continue artificial measures if not able to make significant neurological improvement. He will likely want to transition to comfort focus/compassionate withdrawal of artificial measures if patient does not demonstrate signs of neurologic improvement. He will likely want to wait until the end of the week to monitor for any signs of neurologic improvement. He continues to work closely with patient brother Agustín supporting him with decision-making for this patient. * SYMPTOMS: ==Pain: due to cardiac arrest/cpr and tubes, lines. Sedated, no signs of pain == Dyspnea: on mech vent. On sedatives, prev. neuromuscular blockade. Not expected to protect airway for medical extubation.+ occasional overbreathing on mech vent == Encephalopathy: fixed and dilated pupils. EEG with burst suppression, repeat pending for post rewarming, plan for repeat CT brain today. * Palliative care contact information provided * Palliative care will continue to follow during hospital course as condition evolves, to assist patient/decision-maker with understanding of medical conditions, weighing benefits/burdens of treatment options, for clarification of goals of treatment. Additionally will assist with any symptoms of palliative concern . Time Spent Total Floor Time (mins): 30 (Chart review, PE, discussion with nurse, discussion with family members/proxy) Attestation To help prompt me to consider important information that might be impacting today's encounter and assessment, information from prior notes written by myself or my colleagues may have been "brought forward" into today's note. My signature on this note, however, is an attestation that I personally performed the exam, history, and/or decision-making noted today, and, unless otherwise indicated, the interactions with patient, family, and staff as well as the review of records all occurred today. I also attest that the listed assessment and stated plan reflect my best clinical judgment today based on the combination of historical information, prior notes, and today's exam/ interactions. When time spent is documented, it refers only to time spent today by the signer, or if indicated, combined time spent today by collaborating physician/nurse practitioner. Kim Vincent November 19, 2017 14:40
--- NOTE | 2017-11-19 14:45 | ECHRPT ---
Indication: Coronary atherosclerosis CONCLUSIONS Mildly dilated left ventricle. Wall thickness is normal. The left ventricular systolic function is low normal with an estimated ejection fraction in the rang e of 50- 55%. Trace mitral valve regurgitation. Aortic valve sclerosis is present. There is trace to mild tricuspid valve regurgitation. BP: / HR: Rhythm: MEASUREMENTS (Male / Female) Normal Values Technical Quality: 2D ECHO LV Diastolic Diameter PLAX 5.2 cm 4.2 - 5.9 / 3.9 - 5.3 cm LV Systolic Diameter PLAX 3.9 cm IVS Diastolic Thickness 1.2 cm 0.6 - 1.0 / 0.6 - 0.9 cm LVPW Diastolic Thickness 0.6 cm 0.6 - 1.0 / 0.6 - 0.9 cm LV Relative Wall Thickness 0.3 RV Internal Dim ED PLAX 1.7 cm LA Systolic Diameter LX 3.9 cm 3.0 - 4.0 / 2.7 - 3.8 cm M-MODE Aortic Root Diameter MM 2.8 cm AV Cusp Separation MM 1.6 cm DOPPLER MR Peak Velocity 515.0 cm/s MR Peak Gradient 106.1 mmHg Mitral E Point Velocity 85.8 cm/s Mitral A Point Velocity 135.0 cm/s Mitral E to A Ratio 0.6 TR Peak Velocity 278.5 cm/s TR Peak Gradient 31.0 mmHg Right Atrial Pressure 10.0 mmHg Pulmonary Artery Systolic Pressu 41.0 mmHg Right Ventricular Systolic Press 41.0 mmHg FINDINGS LEFT VENTRICLE Mildly dilated left ventricle. Wall thickness is normal. The left ventricular systolic function is low normal with an estimated ejection fraction in the rang e of 50- 55%. RIGHT VENTRICLE Normal right ventricular size and systolic function. LEFT ATRIUM The left atrial size is normal. RIGHT ATRIUM The right atrial size is normal. ATRIAL SEPTUM Normal atrial septal thickness without atrial level shunting by limited color doppler interrogation. AORTA The aortic root and proximal ascending aorta are normal in size on limited imaging. MITRAL VALVE Trace mitral valve regurgitation. AORTIC VALVE Aortic valve sclerosis is present. TRICUSPID VALVE There is trace to mild tricuspid valve regurgitation. PULMONARY VALVE No pulmonary valve regurgitation or stenosis. VESSELS The inferior vena cava is normal in size. PERICARDIUM No pericardial effusion. Evan Marie MD, FACC, [facility] (Electronically Signed) Final Date:19 Nov 2017 14:43
--- NOTE | 2017-11-19 14:57 | RADRPT ---
EXAM DATE: 11/19/2017 2:17 PM EDT AGE/SEX: 52 years / Female INDICATIONS: Altered mental status status post cardiac arrest. CLINICAL DATA: This is the patient's subsequent encounter. Patient reports that signs and symptoms h ave been present for 2 days and indicates a pain score of Nonresponsive. MEDICAL/SURGICAL HISTORY: Carcinoma, ovarian. Cardiovascular disease. Chronic obstructive pulmona ry disease. None. RADIATION DOSE: 39.97 CTDI (mGy) COMPARISON: [facility] [place], CT BRAIN W/O CONTRAST, 11/17/2017. . TECHNIQUE: CT of the head without contrast. Using automated exposure control and adjustment of the mA and/or kV according to patient size, radiation dose was kept as low as reasonably achievable to ob tain optimal diagnostic quality images. FINDINGS: There is new extensive subarachnoid hemorrhage greatest along the suprasellar cisterns. There is new hydrocephalus with dilatation of the lateral ventricles bilaterally including occipital horns. There is diffuse cerebral edema noted with effacement of the sulci bilaterally. The bony structures are int act. There is mucosal thickening in the ethmoidal air cells. There is a small air-fluid level in the visualized portion of the left maxillary sinus. CONCLUSION: 1. New extensive bilateral subarachnoid hemorrhage and diffuse cerebral edema. 2. Hydrocephalus. 3. Findings were called to Dr. Connelly at 14:54 Electronically signed by: Amadeo Cade MD 11/19/2017 2:55 PM EDT
--- NOTE | 2017-11-19 15:24 | PD.CONS ---
HPI Service Neurosurgery Consult Requested By Dr Johnson Reason for Consult [facility] Primary Care Physician Unknown History of Present Illness This is a 52-year-old female who has a history of head and neck cancer. She was found by her family cyanotic and unresponsive, was seen normal about 30 minutes prior to this event. EMS arrived, No seizure activity reported. No tongue bitting. No incontinence of stool or urine. she was cyanotic and pulseless, has been intubated, had CPR, epinephrine injection, sodium bicarbonate and regained spontaneous circulation. Again, she has not had any tonic-clonic activity Review of Systems Bot possible ROS Limitations: Clinical Condition, Intubated, Altered Mental Status, Unresponsive Past Family Social History Allergies: Coded Allergies: morphine (Unverified Allergy, Severe, CAN'T BREATH, 11/17/17) ketorolac (Unverified Allergy, Intermediate, HIVES, 11/17/17) Past Medical History Anxiety, Depression, Bipolar Disorder, HTN, DM, COPD, Head and Neck CA Past Surgical History Molar , exploratory Laparotomy, Appendectomy, Hysterectomy, head and neck surgery Reported Medications Plavix (Clopidogrel Bisulfate) 75 Mg Tab 75 Mg PO DAILY Potassium Chloride ER (Potassium Chloride) 10 Meq Cap 10 Meq PO DAILY Lasix (Furosemide) 20 Mg Tab 20 Mg PO DAILY Oxycontin (Oxycodone HCl) 60 Mg Tab 60 Mg PO Q12HR Spiriva Handihaler (Tiotropium Inh) 18 Mcg Cap 18 Mcg INH DAILY 1 capsule = 18 mcg Oxycodone (Oxycodone HCl) 30 Mg Tab 30 Mg PO 5 TIMES A DAY PRN Levemir Inj (Insulin Detemir) 1,000 unit/ 10 ML Vial 10 Units SQ HS Do not mix with any other Insulin. Novolin 70-30 Inj (Insulin Human Isoph/Insulin Regular) 1,000 Unit/10 Ml Vial Unknown Dose SQ Alprazolam 1 Mg Tab 1 Mg PO Q8H PRN Ventolin Hfa 18 GM Inh (Albuterol Sulfate) 90 Mcg/Act Aer Unknown Dose INH Q4- 6H PRN Active Ordered Medications Medications (Trade) Dose Ordered Sig/Suzanna Route PRN Reason Start Time Stop Time Status Last Admin Dose Admin Sodium Chloride (NS Flush) 2 ml UNSCH PRN IV FLUSH FLUSH AFTER USING IV ACCESS 11/17/17 02:45 Propofol 100 ml @ 0 mls/hr TITRATE PRN IV SEDATION 11/17/17 03:00 Alprazolam (Xanax) 1 mg Q8H PRN PO ANXIETY 11/17/17 03:30 Clopidogrel Bisulfate (Plavix) 75 mg DAILY PO 11/17/17 09:00 Tiotropium [place] (Spiriva Inh) 18 mcg DAILY INH 11/17/17 09:00 Family History CAD Social History No history of previous alcohol or drug use. Tobacco, smokes 1/2ppd. Physical Exam Vital Signs Vital Signs Date Time Temp Pulse Resp B/P (MAP) Pulse Ox O2 Delivery O2 Flow Rate FiO2 11/19/17 14:00 100 100 11/19/17 13:10 93 128/71 11/19/17 11:31 97 55 11/19/17 11:00 99.7 97 25 130/74 (92) 97 11/19/17 10:00 98.8 100 21 113/68 (83) 95 11/19/17 09:45 97 70/49 11/19/17 09:45 97 70/41 11/19/17 09:00 98.1 76 25 104/55 (71) 95 11/19/17 08:30 86 73/42 11/19/17 08:27 98.1 90 25 88/54 (65) 91 79/45 (56) 11/19/17 08:00 97.9 101 25 100/61 (74) 92 91/54 (66) 11/19/17 07:24 93 45 11/19/17 07:00 97.5 100 25 98/58 (71) 92 11/19/17 06:00 97.3 104 25 108/64 (79) 94 11/19/17 06:00 104 11/19/17 06:00 104 111/71 (84) 108/64 (79) 11/19/17 05:13 93 45 11/19/17 05:00 97.7 104 25 102/60 (74) 92 11/19/17 04:00 45 11/19/17 04:00 98.8 108 25 111/76 (88) 93 95/60 (72) 11/19/17 04:00 108 11/19/17 03:00 98.6 110 25 108/61 (77) 93 11/19/17 02:00 109 11/19/17 02:00 98.2 109 25 125/69 (87) 93 11/19/17 01:00 97.7 112 25 139/77 (97) 94 11/19/17 00:15 96 45 11/19/17 00:00 97.2 113 25 132/86 (101) 96 148/80 (102) 11/19/17 00:00 111 11/19/17 00:00 45 11/18/17 23:00 96.6 112 25 135/75 (95) 96 11/18/17 22:00 96.3 111 25 123/70 (87) 95 11/18/17 22:00 111 11/18/17 21:00 95.7 109 25 115/65 (82) 95 11/18/17 20:00 95.4 109 25 117/73 (88) 95 112/66 (81) 11/18/17 20:00 109 11/18/17 20:00 45 11/18/17 19:33 94 45 11/18/17 19:00 95.0 107 25 126/73 (90) 94 11/18/17 18:00 94.5 106 25 138/77 (97) 93 11/18/17 18:00 106 133/76 (95) 132/82 (99) 11/18/17 17:00 94.1 104 25 129/74 (92) 93 11/18/17 16:00 40 11/18/17 16:00 93.6 101 19 124/83 (97) 95 119/71 (87) Physical Exam The patient is intubated GCS 3 Cranial Nerves: Pupils equal, dilated and fixed, non reactive to light. Eyes appear non conjugated. There was no nystagmus, no papilledema. Face musculature appeared symmetrical at rest. Face sensation, olfaction, visual taylor, and hearing cannot be adequately assessed due to his neurological condition. The patient has no corneal reflex. She has no gag reflex. The sternocleidomastoid and trapezius are symmetrical. Cervical Spine: His neck is soft, supple, without nuchal rigidity. Motor: No response to pain Sensory: On examination there is no response to painful stimuli Cerebellar: Examination cannot be adequately assessed due to the patient's neurological condition. Lungs clear Heart regular rhythm and rate Skin warm and dry Laboratory Laboratory Tests Test 11/18/17 21:50 11/19/17 04:45 11/19/17 08:55 Blood Urea Nitrogen 25 24 Creatinine 1.07 1.21 Random Glucose 163 121 Total Protein 6.0 6.2 Calcium Level 7.3 7.4 Magnesium Level 1.7 1.7 Sodium Level 148 147 Potassium Level 4.1 4.3 Chloride Level 112 115 Carbon Dioxide Level 24.5 22.9 Anion Gap 12 9 Estimat Glomerular Filtration Rate 54 47 Protein Corrected Calcium 7.9 7.9 White Blood Count 36.5 Red Blood Count 5.33 Hemoglobin 14.2 Hematocrit 43.1 Mean Corpuscular Volume 81.0 Mean Corpuscular Hemoglobin 26.7 Mean Corpuscular Hemoglobin Concent 33.0 Red Cell Distribution Width 16.7 Platelet Count 433 Mean Platelet Volume 8.4 CBC Comment AUTO DIFF Differential Total Cells Counted 100 Neutrophils % (Manual) 75 Band Neutrophils % 18 Lymphocytes % 5 Monocytes % 2 Neutrophils # (Manual) 33.9 Differential Comment FINAL DIFF MANUAL Platelet Estimate NORMAL Platelet Morphology Comment ENLARGED Red Cell Morphology Comment NORMAL Albumin 2.0 Phosphorus Level 5.1 Alkaline Phosphatase 99 Aspartate Amino Transf (AST/SGOT) 113 Alanine Aminotransferase (ALT/SGPT) 88 Total Bilirubin 0.4 Lactic Acid Level 1.3 Blood Gas Puncture Site ART LINE Blood Gas Patient Temperature 98.6 Blood Gas HCO3 20 Blood Gas Base Excess -3.8 Blood Gas Oxygen Saturation 92 Arterial Blood pH 7.42 Arterial Blood Partial Pressure CO2 31 Arterial Blood Partial Pressure O2 78 Arterial Blood Oxygen Content 17.6 Arterial Blood Carboxyhemoglobin 0.5 Arterial Blood Methemoglobin 1.6 Blood Gas Hemoglobin 13.6 Oxygen Delivery Device VENTILATOR Blood Gas Ventilator Setting PRVC25/500/0.9/+5 Blood Gas Inspired Oxygen 55 Date/Time Source Procedure Growth Status 11/18/17 02:15 Blood Line Aerobic Blood Culture - Preliminary NO GROWTH IN 1 DAY Resulted 11/18/17 02:15 Blood Line Anaerobic Blood Culture - Preliminary NO GROWTH IN 1 DAY Resulted 11/17/17 06:23 Sputum Endotracheal Gram Stain - Final Resulted 11/17/17 06:23 Sputum Culture - Preliminary Staphylococcus Aureus Resulted 11/17/17 02:55 Urine Catheterized Urine Urine Culture - Final NO GROWTH IN 48 HOURS. Complete Result Diagram: 11/19/1744411/19/17444 Attending Statement I revieqwed her radiological studies Last [address] 11/19/17599 Signed Impressions: CONCLUSION: 1. New extensive bilateral subarachnoid hemorrhage and diffuse cerebral edema. 2. Hydrocephalus. 3. Findings were called to Dr. Connelly at 14:54 Chest X-Ray 11/19/17599 Signed Impressions: CONCLUSION: Previously seen right middle lobe opacity has resolved and mild ate lectasis may present left lung base. Post cardiad arrest anoxic encephalopathy. There are no brainstem reflexes. Progresion to raindeath certain. Discussed with Dr Gerson Hensley This patient is not a surgical candidate. I recommend a paliative care consultation Pulmonary.. Continue aggressive pulmonary toilette, nasotracheal suction, and breathing treatments with nebulizers. Nutrition. NPO Renal. monitor closely urine output, BUN and creatinine Endocrine. Monitor serial Acu checks and SSI as needed in detail ID monitor for signs of infection Protonix for stress ulcer prophylaxis Tim rivero and SCD's for DVT prophylaxis Fernandez Tovar MD November 19, 2017 15:24
[2017-11-19] MEDS: INSULIN ASPART SUPPLEMENTAL SCALE SQ SCH ×2 (16:04→20:47)
--- NOTE | 2017-11-19 17:18 | MG ---
cc: Dee Pitt MD ELECTROENCEPHALOGRAM NUMBER: [id number]. REFERRING PHYSICIAN: Dr. Connelly referring in room 500. INDICATIONS AND CONDITION: Intubated, versed at 3 mg, fentanyl 50 micrograms, turned off at 9:00 a.m. Hyperventilation was not done. Photic was unresponsive, but shaking throughout most of the EEG. She was a rewarm from code cool. Repeat EEG now that the patient is rewarmed. History of neuropathy in legs, headaches, COPD, LAD 90% blockage, heart disease, cancer. MEDICATIONS: None listed. DESCRIPTION OF RECORD: The background is severely attenuated, 1 Hz background. There is some artifact with the EKG portion. Right arm shaking is noted, however, and posturing. However, this does not correlate with any epileptiform features. A lot of artifact during the shaking portion. It is all muscle artifact. During the shaking portion, the overall background is severely suppressed, nearly flat. Photic stimulation did not elicit any posterior driving response. IMPRESSION: Abnormal EEG due to severely suppressed background, without any epileptiform features. The shaking in the right arm does not correlate with any epileptic activity. Background suppressed likely due to what appears to be diffuse cerebral dysfunction such as anoxia can be considered. Clinical correlation. MD RAPHAEL Angela/ORION , 04:56 PM , 05:16 PM
--- NOTE | 2017-11-19 19:44 | HHI.PR ---
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 Prognosis very poor. I discussed her case in detail with her family including poor prognosis Diagnosis/Plan: Subjective Subjective Comments No acute events reported Active Medications Current Medications Medications (Trade) Dose Ordered Sig/Suzanna Route Start Time Stop Time Status Last Admin (Xanax) 1 mg Q8H PRN PO 11/17/17 03:30 (Spiriva Inh) 18 mcg DAILY INH 11/17/17 09:00 Sodium Chloride 1,000 ml @ 42 mls/hr [id number] IV 11/17/17 03:43 11/19/17 13:08 (Tylenol) 650 mg Q6H PRN PO 11/17/17 03:45 (Pepcid Inj) 20 mg Q12HR IV PUSH 11/17/17 09:00 11/18/17 20:07 (Renetta-Colace) 1 tab BID PO 11/17/17 09:00 11/19/17 09:23 (Milk Of Magnesia Liq) 30 ml Q12H PRN PO 11/17/17 03:45 (Lactulose Liq) 30 ml DAILY PRN PO 11/17/17 03:45 (Demerol Inj) 25 mg Q2H PRN IV PUSH 11/17/17 03:45 Magnesium Sulfate 4 gm/Sodium Chloride 250 ml @ 62.5 mls/hr Q4H PRN IV 11/17/17 03:45 (Buspar) 15 mg BID PRN NG 11/17/17 03:45 (NS Flush) 2 ml BID IV FLUSH 11/17/17 09:00 11/19/17 09:26 Miscellaneous Information 0 ml @ 0 mls/hr UNSCH IV 11/17/17 03:45 Nitroglycerin 50 mg/Sodium Chloride 250 ml @ 1.5 mls/hr TITRATE PRN IV 11/17/17 03:45 ([facility] [place] Nursing Information) 1 Q361D XX 11/17/17 03:45 (Chlorhexidine 2% Cloth) 3 pack Taper DAILY@04 TOP 11/17/17 04:00 11/13/18 03:59 11/19/17 04:00 (Chlorhexidine 2% Cloth) 3 pack UNSCH PRN TOP 11/17/17 03:45 (Glucagon Inj) 1 mg UNSCH PRN OTHER 11/17/17 04:00 (SoluMEDROL INJ) 40 mg Q6HR IV PUSH 11/17/17 06:00 11/19/17 18:14 (Ativan Inj) 1 mg Q1H PRN IV PUSH 11/17/17 06:45 Fentanyl Citrate 250 ml @ 5 mls/hr TITRATE PRN IV 11/17/17 06:45 11/19/17 05:46 Miscellaneous Information ml @ 0 mls/hr UNSCH IV 11/17/17 06:45 (NS Flush) 2 ml UNSCH PRN IV FLUSH 11/17/17 06:45 (NS Flush) 2 ml UNSCH PRN IV FLUSH 11/17/17 06:45 (Lacrilube Opht Oint) 1 applic Q4H PRN EACH EYE 11/17/17 06:45 11/18/17 16:05 Norepinephrine Bitartrate 4 mg/ Sodium Chloride 250 ml @ 7.5 mls/hr Q24H PRN IV 11/17/17 06:45 11/19/17 13:10 (Protonix Inj) 40 mg DAILY IV PUSH 11/17/17 09:00 11/19/17 09:24 (Versed Inj) 2 mg Q1H PRN IV PUSH 11/17/17 07:00 (Dulcolax Supp) 10 mg DAILY PRN RECTAL 11/17/17 07:00 (Peridex 0.12% Liq) 15 ml BID@08,20 .XX 11/17/17 08:00 11/19/17 09:25 (Zofran Odt) 4 mg Q6H PRN .XX 11/17/17 07:00 (Duoneb Neb) 1 ampule Q6HR NEB NEB 11/17/17 10:00 11/19/17 16:11 (Duoneb Neb) 1 ampule Q4HR NEB PRN NEB 11/17/17 07:00 Piperacillin Sod/ Tazobactam Sod 100 ml @ 200 mls/hr Q6H IV 11/17/17 08:00 11/19/17 13:08 Azithromycin 500 mg/Sodium Chloride 250 ml @ 250 mls/hr Q24H IV 11/17/17 09:00 11/19/17 09:24 Midazolam HCl 50 ml @ 2 mls/hr TITRATE PRN IV 11/17/17 09:00 11/19/17 05:20 ([facility] [place] Nursing Information) D/C ICU ELECTROLYTE ORDERS... UNSCH PRN .XX 11/17/17 18:00 ([facility] [place] Nursing Information) ICU - CALL ORDERING PHYSIC... UNSCH PRN .XX 11/17/17 18:00 Potassium Chloride 100 ml @ 25 mls/hr UNSCH PRN IV 11/17/17 18:00 (K-Lyte Cl Eff) 50 meq UNSCH PRN PO 11/17/17 18:00 Potassium Chloride 100 ml @ 50 mls/hr UNSCH PRN IV 11/17/17 18:00 Magnesium Sulfate 4 gm/Sodium Chloride 108 ml @ 54 mls/hr UNSCH PRN IV 11/17/17 18:00 Magnesium Sulfate 2 gm/Sodium Chloride 104 ml @ 52 mls/hr UNSCH PRN IV 11/17/17 18:00 (Mag-Ox) 800 mg UNSCH PRN PO 11/17/17 18:00 Sodium Phosphate 30 mmol/Sodium Chloride 260 ml @ 43.333 mls/ hr UNSCH PRN IV 11/17/17 18:00 11/18/17 03:42 (K-Phos) 2,000 mg UNSCH PRN PO 11/17/17 18:00 Potassium Phosphate 30 mmol/ Sodium Chloride 260 ml @ 43.333 mls/ hr UNSCH PRN IV 11/17/17 18:00 (D50w (Vial) Inj) 50 ml UNSCH PRN IV PUSH 11/18/17 03:45 (Colace) 100 mg BID OG-TUBE 11/18/17 21:00 11/19/17 09:23 (Senna Liq) 17.6 mg DAILY PRN OG-TUBE 11/18/17 11:45 Propofol 100 ml @ 2.763 mls/ hr TITRATE PRN IV 11/19/17 02:00 11/19/17 07:03 (Brethine Inj) 1 mg UNSCH PRN SQ 11/19/17 09:30 Vasopressin 40 units/Sodium Chloride 100 ml @ 6 mls/hr [id number] IV 11/19/17 09:45 11/19/17 09:45 Phenylephrine HCl 80 mg/Sodium Chloride 500 ml @ 15 mls/hr TITRATE PRN IV 11/19/17 09:45 11/19/17 09:45 (NovoLOG SUPPLEMENTAL SCALE) 1 ACHS SLIDING SCALE SQ 11/19/17 17:00 11/19/17 16:04 (D50w (Vial) Inj) 50 ml UNSCH PRN IV PUSH 11/19/17 12:45 (Glucagon Inj) 1 mg UNSCH PRN OTHER 11/19/17 12:45 Allergies Allergies Coded Allergies morphine (Unverified Allergy, Severe, CAN'T BREATH, 11/17/17) ketorolac (Unverified Allergy, Intermediate, HIVES, 11/17/17) Exam I&O / VS 11/19/17 11/19/17 11/20/17 15:00 23:00 07:00 Intake Total 378 ml 1665 ml Output Total 750 ml Balance 378 ml 915 ml Intake IV Total 378 ml 1665 ml Output Urine Total 550 ml Gastric Drainage Total 200 ml # Bowel Movements 0 Vital Signs Date Time Temp Pulse Resp B/P (MAP) Pulse Ox O2 Delivery O2 Flow Rate FiO2 11/19/17 18:39 55 11/19/17 18:00 99.7 92 12 154/85 (108) 97 11/19/17 18:00 92 154/85 (108) 11/19/17 18:00 92 154/85 11/19/17 18:00 92 154/85 11/19/17 17:00 99.9 92 25 134/76 (95) 96 11/19/17 17:00 92 134/76 11/19/17 16:09 96 55 11/19/17 16:00 99.9 91 25 132/76 (94) 96 11/19/17 15:00 99.9 93 25 123/72 (89) 96 11/19/17 14:00 100.2 96 11 129/69 (89) 98 11/19/17 14:00 100 100 11/19/17 13:10 93 128/71 11/19/17 13:00 100.0 93 25 129/72 (91) 96 11/19/17 12:00 99.9 96 25 154/85 (108) 96 141/78 (99) 11/19/17 12:00 55 11/19/17 11:31 97 55 11/19/17 11:00 99.7 97 25 130/74 (92) 97 11/19/17 10:00 98.8 100 21 113/68 (83) 95 11/19/17 09:45 97 70/49 11/19/17 09:45 97 70/41 11/19/17 09:00 98.1 76 25 104/55 (71) 95 11/19/17 08:30 86 73/42 11/19/17 08:27 98.1 90 25 88/54 (65) 91 79/45 (56) 11/19/17 08:00 45 11/19/17 08:00 97.9 101 25 100/61 (74) 92 91/54 (66) 11/19/17 07:24 93 45 11/19/17 07:00 97.5 100 25 98/58 (71) 92 11/19/17 06:00 97.3 104 25 108/64 (79) 94 11/19/17 06:00 104 11/19/17 06:00 104 111/71 (84) 108/64 (79) 11/19/17 05:13 93 45 11/19/17 05:00 97.7 104 25 102/60 (74) 92 11/19/17 04:00 45 11/19/17 04:00 98.8 108 25 111/76 (88) 93 95/60 (72) 11/19/17 04:00 108 11/19/17 03:00 98.6 110 25 108/61 (77) 93 11/19/17 02:00 109 11/19/17 02:00 98.2 109 25 125/69 (87) 93 11/19/17 01:00 97.7 112 25 139/77 (97) 94 11/19/17 00:15 96 45 11/19/17 00:00 97.2 113 25 132/86 (101) 96 148/80 (102) 11/19/17 00:00 111 11/19/17 00:00 45 11/18/17 23:00 96.6 112 25 135/75 (95) 96 11/18/17 22:00 96.3 111 25 123/70 (87) 95 11/18/17 22:00 111 11/18/17 21:00 95.7 109 25 115/65 (82) 95 11/18/17 20:00 95.4 109 25 117/73 (88) 95 112/66 (81) 11/18/17 20:00 109 11/18/17 20:00 45 Exam Comments nonresponsive to stimuli pupils 3 mm nonreactive No eom to occulocephalics motor--no spontaneous movement Objective Radiology Results CT brain--diffuse subarachnoid hemorrhage and hydrocephalus Micro and Labs Laboratory Tests Test 11/18/17 21:50 11/19/17 04:45 11/19/17 08:55 Blood Urea Nitrogen 25 24 Creatinine 1.07 1.21 Random Glucose 163 121 Total Protein 6.0 6.2 Calcium Level 7.3 7.4 Magnesium Level 1.7 1.7 Sodium Level 148 147 Potassium Level 4.1 4.3 Chloride Level 112 115 Carbon Dioxide Level 24.5 22.9 Anion Gap 12 9 Estimat Glomerular Filtration Rate 54 47 Protein Corrected Calcium 7.9 7.9 White Blood Count 36.5 Red Blood Count 5.33 Hemoglobin 14.2 Hematocrit 43.1 Mean Corpuscular Volume 81.0 Mean Corpuscular Hemoglobin 26.7 Mean Corpuscular Hemoglobin Concent 33.0 Red Cell Distribution Width 16.7 Platelet Count 433 Mean Platelet Volume 8.4 CBC Comment AUTO DIFF Differential Total Cells Counted 100 Neutrophils % (Manual) 75 Band Neutrophils % 18 Lymphocytes % 5 Monocytes % 2 Neutrophils # (Manual) 33.9 Differential Comment FINAL DIFF MANUAL Platelet Estimate NORMAL Platelet Morphology Comment ENLARGED Red Cell Morphology Comment NORMAL Albumin 2.0 Phosphorus Level 5.1 Alkaline Phosphatase 99 Aspartate Amino Transf (AST/SGOT) 113 Alanine Aminotransferase (ALT/SGPT) 88 Total Bilirubin 0.4 Lactic Acid Level 1.3 Blood Gas Puncture Site ART LINE Blood Gas Patient Temperature 98.6 Blood Gas HCO3 20 Blood Gas Base Excess -3.8 Blood Gas Oxygen Saturation 92 Arterial Blood pH 7.42 Arterial Blood Partial Pressure CO2 31 Arterial Blood Partial Pressure O2 78 Arterial Blood Oxygen Content 17.6 Arterial Blood Carboxyhemoglobin 0.5 Arterial Blood Methemoglobin 1.6 Blood Gas Hemoglobin 13.6 Oxygen Delivery Device VENTILATOR Blood Gas Ventilator Setting PRVC25/500/0.9/+5 Blood Gas Inspired Oxygen 55 Date/Time Source Procedure Growth Status 11/18/17 02:15 Blood Line Aerobic Blood Culture - Preliminary NO GROWTH IN 1 DAY Resulted 11/18/17 02:15 Blood Line Anaerobic Blood Culture - Preliminary NO GROWTH IN 1 DAY Resulted 11/17/17 06:23 Sputum Endotracheal Gram Stain - Final Resulted 11/17/17 06:23 Sputum Culture - Preliminary Staphylococcus Aureus Resulted 11/17/17 02:55 Urine Catheterized Urine Urine Culture - Final NO GROWTH IN 48 HOURS. Complete Diagnostic Tests EEG---very slow activity with reduced amplitude. No epileptiform features. Gerson Hensley MD PhD November 19, 2017 19:44
[2017-11-20] VITALS (24 sets, daily range): BP systolic 83–179; BP diastolic 46–93; PULSE 77–101; RESP 25; TEMP 99.5; O2SAT 88–95
[2017-11-20] MEDS: VASOPRESSIN INJ 40 UNITS in SODIUM CHLORIDE 0.9% INJ 98 ML IV SCH (00:33)
[2017-11-20] MEDS: methylPREDNISolone SOD SUCC 40 MG/1 ML VIAL IV PUSH SCH ×5 (00:33→22:12)
[2017-11-20] MEDS: PIPERACIL-TAZO 4.5 GM PREMIX 100 ML IV SCH ×4 (02:53→22:10)
[2017-11-20] MEDS: RESP: ALBUTEROL 2.5 MG/IPRATROPIUM 0.5 MG NEB (SCH) NEB ×4 (03:07→21:52)
[2017-11-20] MEDS: NOREPINEPHRINE 4 MG/250 ML NS IV PRN ×2 (03:18)
[2017-11-20] MEDS: CHLORHEXIDINE GLUCONATE 2 % 1 PACK (2 CLOTHS) TOP SCH (04:00)
[2017-11-20 04:25] LABS: AUTOMATED NEUTROPHIL # 22.3 TH/MM3 (1.8-7.7); BASOPHIL # 0.1 TH/MM3 (0-0.2); BASOPHIL % 0.4 % (0.0-2.0); HEMATOCRIT 37.7 % (35.0-46.0); HEMOGLOBIN 12.1 GM/DL (11.6-15.3); LYMPH % 2.7 % (9.0-44.0); LYMPHOCYTE # 0.6 TH/MM3 (1.0-4.8); MEAN CELL VOLUME 82.8 FL (80.0-100.0); MEAN CORPUSCULAR HEMOGLOBIN 26.6 PG (27.0-34.0); MEAN CORPUSCULAR HGB CONC 32.2 % (32.0-36.0); MEAN PLATELET VOLUME 8.8 FL (7.0-11.0); MONOCYTE # 0.7 TH/MM3 (0-0.9); NEUT % 93.9 % (16.0-70.0); PLATELET COUNT 343 TH/MM3 (150-450); RED BLOOD COUNT 4.55 MIL/MM3 (4.00-5.30); RED CELL DISTRIBUTION WIDTH 17.1 % (11.6-17.2); WHITE BLOOD COUNT 23.7 TH/MM3 (4.0-11.0)
[2017-11-20 04:52] LABS: CALCIUM 7.3 MG/DL (8.5-10.1); CALCIUM-PROTEIN CORRECTED 7.9 MG/DL (8.5-10.1); CREATININE 1.29 MG/DL (0.50-1.00); PHOSPHORUS 4.1 MG/DL (2.5-4.9); TOTAL BILIRUBIN ADULT 0.4 MG/DL (0.2-1.0); TOTAL PROTEIN 5.9 GM/DL (6.4-8.2)
--- NOTE | 2017-11-20 06:43 | RADRPT ---
EXAM DATE: 11/20/2017 6:07 AM EDT AGE/SEX: 52 years / Female INDICATIONS: Shortness of breath, possible pulmonary disease. CLINICAL DATA: This is the patient's subsequent encounter. Patient reports that signs and symptoms h ave been present for 4 - 6 days and indicates a pain score of Nonresponsive. MEDICAL/SURGICAL HISTORY: Diabetes mellitus type II. Cardiovascular disease. Chronic obstruct elle pulmonary disease. Coronary artery stent. COMPARISON: [facility] [place], CHEST SINGLE AP, 11/19/2017. . FINDINGS: There is left lung base opacity not present previously may represent consolidation. There is of the e xamination has not changed. CONCLUSION: Interval development left lung base consolidation. Electronically signed by: Brandee Joshua MD 11/20/2017 6:42 AM EDT
[2017-11-20] MEDS: INSULIN ASPART SUPPLEMENTAL SCALE SQ SCH ×4 (08:00→22:11)
[2017-11-20] MEDS: CHLORHEXIDINE 0.12% (ORAL KIT) 15 ML CUP SCH ×2 (08:08→22:10)
[2017-11-20] MEDS: PANTOPRAZOLE SODIUM 40 MG VIAL IV PUSH SCH (08:09)
[2017-11-20] MEDS: AZITHROMYCIN INJ 500 MG in SODIUM CHLOR 0.9% 250 ML INJ 250 ML IV SCH (08:10)
[2017-11-20] MEDS: FAMOTIDINE 20 MG/2 ML VIAL IV PUSH SCH ×2 (08:10→22:11)
[2017-11-20] MEDS: DOCUSATE SODIUM 100 MG CAP OG-TUBE SCH ×2 (08:10→22:11)
[2017-11-20] MEDS: DOCUSATE SODIUM 50 MG/SENNA 8.6 MG TAB PO SCH ×2 (08:10→22:11)
[2017-11-20] MEDS: SODIUM CHLORIDE 0.9% FLUSH 10 ML FLUSH IV FLUSH SCH ×2 (08:11→22:10)
[2017-11-20] MEDS: TIOTROPIUM BROMIDE 18 MCG INH INH SCH (08:12)
[2017-11-20] MEDS: SODIUM CHLOR 0.9% 1000 ML INJ 1,000 ML IV SCH (11:54)
[2017-11-20] MEDS: FENTANYL DRIP IV PRN (12:52)
--- NOTE | 2017-11-20 13:10 | HHI.HCPN ---
Reason for visit a. To assist with evaluation and management of symptoms including: dyspnea, pain, encephalopathy. b. To assist medical decision maker(s) with: better understanding of current medical conditions; weighing benefits/burdens of medical treatment options; making medical treatment decisions. . Subjective/Interval History Pt seen today to follow up on comfort, goals with decision makers. s/p repeat CT brain yesterday = New extensive bilateral subarachnoid hemorrhage and diffuse cerebral edema. Hydrocephalus. Neurosurgery was consulted, no neurosurgical indication. Neurology still following, poor prognosis noted. Patient with hemodynamic fluctuations initially with hypotension had been on pressors, today with some hypertension requiring cessation of pressors. WBC 23.7. Sputum culture 11/17-positive staph aureus. Blood cultures negative 3 days. BUN creatinine elevated though stable 36/1.29. CXR with left lung base consolidation. No changes in neurological assessment reported, remains nonresponsive. Seen in room no visitors present. Nonresponsive to exam. No pupillary response. No response to pain stimuli. following exam call to son Mr Emmanuel Boyce pt son and proxy decision maker. After that also call to patient brother Agustín per son's request. . Family/friend interactions Updated son on current condition, assessment, recent diagnostics, recent neurosurgical consultation, as well as neurosurgery and neurology's prognostication. Son expresses that the patient is "already gone ". He feels that she was probably "last with them "on Friday before the out of hospital arrest event occurred. He indicates he is struggling to process, but does not want his mother to suffer. He will likely want to remove artificial life support and other measures however needs to talk further with his mothers brother. For now he wishes to continue DNR status and no further escalation of artificial measures including no addition of pressors etc. he indicates he will talk further with his uncle/patient brother and they will make further decisions regarding possibility of when they may withdrawal artificial measures. Following this phone call call to patient brother Agustín updated him on current clinical assessment, condition, recent diagnostics including recent neurosurgical consultation and neurosurgery/neurology prognostication. He endorses similar area as patient's son and that the patient has "already left". He tells me that they want her to remain a DNR, and requests no other artificial things be done to her that would further prolong things, he expresses that they should remove all the machines and allow her to be comfortable and natural. However he and son Emmanuel Boyce will discuss further regarding when they may proceed with withdrawal of life support and transition to comfort focus. He does think additional family members may wish to say their goodbyes in the next day, possible could be later tonight or tomorrow. He and Emmanuel will call me or nursing when further decisions made. Advance Directives Living Will: Never completed Health Care Surrogate: Never completed Durable Power of Punch Finisher: Never completed Advance Directive Specifics Health Care Surrogate(s): Patient is not capacitated to make her own healthcare decisions, will not likely regain capacity. No known written advanced directives. , 1 adult son. Mother alive. 2 brother and 2 sisters. according to [place] statutes , healthcare proxy decision making falls to her only son, Emmanuel Boyce - he is considering whether or not he wants to serve in this role. Will speak again 11/18. . Documented care wishes: No known written advanced directives. . Objective Vital Signs Date Time Temp Pulse Resp B/P (MAP) Pulse Ox O2 Delivery O2 Flow Rate FiO2 11/20/17 12:00 101 11/20/17 12:00 99.5 101 25 143/79 (100) 95 11/20/17 11:02 94 50 11/20/17 11:00 99.1 94 25 179/93 (121) 95 11/20/17 10:00 86 11/20/17 10:00 99.1 86 25 134/74 (94) 95 11/20/17 09:00 99.1 87 25 133/75 (94) 95 11/20/17 08:35 95 50 11/20/17 08:00 50 11/20/17 08:00 99.1 85 25 146/79 (101) 95 11/20/17 08:00 85 11/20/17 07:00 99.1 86 25 141/77 (98) 95 11/20/17 06:00 87 11/20/17 06:00 99.1 88 25 143/78 (99) 95 11/20/17 05:00 99.1 90 25 157/84 (108) 95 11/20/17 05:00 94 157/84 11/20/17 04:00 99.5 90 25 141/84 (103) 95 11/20/17 04:00 90 11/20/17 04:00 55 11/20/17 04:00 94 141/84 11/20/17 03:18 87 124/85 11/20/17 03:03 94 50 11/20/17 02:00 90 11/20/17 00:33 87 130/85 11/20/17 00:00 55 11/20/17 00:00 99.5 89 25 128/77 (94) 95 11/20/17 00:00 87 11/19/17 23:08 95 50 11/19/17 22:50 94 147/87 11/19/17 22:00 90 11/19/17 20:02 96 50 11/19/17 20:00 55 11/19/17 20:00 91 11/19/17 20:00 99.0 91 25 144/85 (104) 97 11/19/17 18:39 55 11/19/17 18:00 99.7 92 12 154/85 (108) 97 11/19/17 18:00 92 154/85 (108) 11/19/17 18:00 92 154/85 11/19/17 18:00 92 154/85 11/19/17 17:00 99.9 92 25 134/76 (95) 96 11/19/17 17:00 92 134/76 11/19/17 16:09 96 55 11/19/17 16:00 99.9 91 25 132/76 (94) 96 11/19/17 15:00 99.9 93 25 123/72 (89) 96 11/19/17 14:00 100.2 96 11 129/69 (89) 98 11/19/17 14:00 100 100 11/19/17 13:10 93 128/71 11/19/17 13:00 100.0 93 25 129/72 (91) 96 Intake & Output 11/20/17 11/20/17 07:00 19:00 Intake Total 1273 ml 559 ml Output Total 650 ml Balance 623 ml 559 ml Intake IV Total 1273 ml 559 ml Output Urine Total 600 ml Gastric Drainage Total 50 ml # Bowel Movements 0 Physical Exam CONSTITUTIONAL/GENERAL: This is an adequately nourished patient, appears older than reported. Sedated, nonresponsive on mechanical vent TUBES/LINES/DRAINS: ETT, OG, Piatt collar, bilateral soft wrist restraints, Zapata catheter, right femoral central line, PIVs. SCDs SKIN: No jaundice, rashes, or lesions. No wounds seen anteriorly. Skin warm/dry HEAD: Atraumatic. Normocephalic.+ Facial edema. EYES: Pupils 4 mm nonreactive to light/ no eye opening. + Facial/slight scleral edema. ENT: Unable to assess hearing. Nose without bleeding or purulent drainage. Difficult to visualize oral cavity due to ETT/OG tubes. CARDIOVASCULAR: Regular rate and rhythm no murmur.+ Generalized edema to extremities. + Some hypotension BP in the 90s via bedside monitor. RESPIRATORY/CHEST: Symmetric, unlabored respirations via ET tube mechanical vent . no spont breathing noted over vent rate. Coarse rhonchi scattered. GASTROINTESTINAL: Old well-healed midline abdominal incision noted. Abdomen soft, round/obese, nondistended. Bowel sounds intermittent. OG tube clamped GENITOURINARY: Without palpable bladder distension. Zapata catheter in place. Clear yellow urine. MUSCULOSKELETAL: Extremities without clubbing, cyanosis. + Trace general peripheral edema. No mottling or clubbing. NEUROLOGICAL: Sedated. Limited assessment/ Non-responsive to exam--pupils nonreactive. No response to pain stimuli. PSYCHIATRIC: Sedated-unable to assess; no apparent anxiety/distress . Diagnostic Tests Laboratory Laboratory Tests Test 11/17/17 13:00 11/17/17 14:45 11/17/17 16:15 11/18/17 02:05 Blood Urea Nitrogen 24 MG/DL (7-18) 24 MG/DL (7-18) 24 MG/DL (7-18) Creatinine 1.76 MG/DL (0.50-1.00) 1.59 MG/DL (0.50-1.00) 1.20 MG/DL (0.50-1.00) Random Glucose 390 MG/DL (74-106) 250 MG/DL (74-106) 230 MG/DL (74-106) Total Protein 6.4 GM/DL (6.4-8.2) 6.4 GM/DL (6.4-8.2) Albumin 2.6 GM/DL (3.4-5.0) 2.2 GM/DL (3.4-5.0) Calcium Level 7.6 MG/DL (8.5-10.1) 7.9 MG/DL (8.5-10.1) 7.8 MG/DL (8.5-10.1) Magnesium Level 1.9 MG/DL (1.5-2.5) 1.8 MG/DL (1.5-2.5) Alkaline Phosphatase 149 U/L (45-117) 124 U/L (45-117) Aspartate Amino Transf (AST/SGOT) 186 U/L (15-37) 122 U/L (15-37) Alanine Aminotransferase (ALT/SGPT) 142 U/L (10-53) 117 U/L (10-53) Total Bilirubin 0.5 MG/DL (0.2-1.0) 0.7 MG/DL (0.2-1.0) Sodium Level 138 MEQ/L (136-145) 142 MEQ/L (136-145) 143 MEQ/L (136-145) Potassium Level 3.2 MEQ/L (3.5-5.1) 2.8 MEQ/L (3.5-5.1) 3.4 MEQ/L (3.5-5.1) Chloride Level 100 MEQ/L (98-107) 102 MEQ/L (98-107) 108 MEQ/L (98-107) Carbon Dioxide Level 25.4 MEQ/L (21.0-32.0) 26.7 MEQ/L (21.0-32.0) 25.8 MEQ/L (21.0-32.0) Anion Gap 13 MEQ/L (5-15) 13 MEQ/L (5-15) 9 MEQ/L (5-15) Estimat Glomerular Filtration Rate 31 ML/MIN (>89) 34 ML/MIN (>89) 48 ML/MIN (>89) Total Creatine Kinase 160 U/L (26-192) Creatine Kinase MB 8.9 NG/ML (0.5-3.6) Troponin I 0.62 NG/ML (0.02-0.05) Thyroid Stimulating Hormone 3rd Gen 1.740 uIU/ML (0.358-3.740) Lactic Acid Level 5.8 mmol/L (0.4-2.0) 2.0 mmol/L (0.4-2.0) White Blood Count 26.6 TH/MM3 (4.0-11.0) Red Blood Count 5.62 MIL/MM3 (4.00-5.30) Hemoglobin 15.4 GM/DL (11.6-15.3) Hematocrit 45.6 % (35.0-46.0) Mean Corpuscular Volume 81.0 FL (80.0-100.0) Mean Corpuscular Hemoglobin 27.4 PG (27.0-34.0) Mean Corpuscular Hemoglobin Concent 33.8 % (32.0-36.0) Red Cell Distribution Width 16.2 % (11.6-17.2) Platelet Count 346 TH/MM3 (150-450) Mean Platelet Volume 8.2 FL (7.0-11.0) Neutrophils (%) (Auto) 97.0 % (16.0-70.0) Lymphocytes (%) (Auto) 1.3 % (9.0-44.0) Monocytes (%) (Auto) 1.6 % (0.0-8.0) Eosinophils (%) (Auto) 0.0 % (0.0-4.0) Basophils (%) (Auto) 0.1 % (0.0-2.0) Neutrophils # (Auto) 25.8 TH/MM3 (1.8-7.7) Lymphocytes # (Auto) 0.4 TH/MM3 (1.0-4.8) Monocytes # (Auto) 0.4 TH/MM3 (0-0.9) Eosinophils # (Auto) 0.0 TH/MM3 (0-0.4) Basophils # (Auto) 0.0 TH/MM3 (0-0.2) CBC Comment DIFF FINAL Differential Comment Prothrombin Time 11.4 SEC (9.8-11.6) Prothromb Time International Ratio 1.1 RATIO Activated Partial Thromboplast Time 28.5 SEC (24.3-30.1) Phosphorus Level 1.9 MG/DL (2.5-4.9) Test 11/18/17 07:20 11/18/17 13:45 11/18/17 21:50 11/19/17 04:45 Blood Gas Puncture Site ART LINE Blood Gas Patient Temperature 98.6 Blood Gas HCO3 22 mmol/L (22-26) Blood Gas Base Excess -1.5 mmol/L (-2-2) Blood Gas Oxygen Saturation 94 % (90-100) Arterial Blood pH 7.44 (7.380-7.420) Arterial Blood Partial Pressure CO2 33 mmHg (38-42) Arterial Blood Partial Pressure O2 86 mmHg (61-120) Arterial Blood Oxygen Content 20.5 Vol % (12.0-20.0) Arterial Blood Carboxyhemoglobin 0.6 % (0-4) Arterial Blood Methemoglobin 1.3 % (0-2) Blood Gas Hemoglobin 15.5 G/DL (12.0-16.0) Oxygen Delivery Device VENTILATOR Blood Gas Ventilator Setting PRVC25/500/0.9/+5 Blood Gas Inspired Oxygen 50 % Blood Urea Nitrogen 23 MG/DL (7-18) 25 MG/DL (7-18) 24 MG/DL (7-18) Creatinine 1.03 MG/DL (0.50-1.00) 1.07 MG/DL (0.50-1.00) 1.21 MG/DL (0.50-1.00) Random Glucose 165 MG/DL (74-106) 163 MG/DL (74-106) 121 MG/DL (74-106) Calcium Level 7.7 MG/DL (8.5-10.1) 7.3 MG/DL (8.5-10.1) 7.4 MG/DL (8.5-10.1) Phosphorus Level 4.7 MG/DL (2.5-4.9) 5.1 MG/DL (2.5-4.9) Magnesium Level 1.8 MG/DL (1.5-2.5) 1.7 MG/DL (1.5-2.5) 1.7 MG/DL (1.5-2.5) Sodium Level 145 MEQ/L (136-145) 148 MEQ/L (136-145) 147 MEQ/L (136-145) Potassium Level 3.7 MEQ/L (3.5-5.1) 4.1 MEQ/L (3.5-5.1) 4.3 MEQ/L (3.5-5.1) Chloride Level 112 MEQ/L (98-107) 112 MEQ/L (98-107) 115 MEQ/L (98-107) Carbon Dioxide Level 21.9 MEQ/L (21.0-32.0) 24.5 MEQ/L (21.0-32.0) 22.9 MEQ/L (21.0-32.0) Anion Gap 11 MEQ/L (5-15) 12 MEQ/L (5-15) 9 MEQ/L (5-15) Estimat Glomerular Filtration Rate 57 ML/MIN (>89) 54 ML/MIN (>89) 47 ML/MIN (>89) Total Protein 6.0 GM/DL (6.4-8.2) 6.2 GM/DL (6.4-8.2) Protein Corrected Calcium 7.9 MG/DL (8.5-10.1) 7.9 MG/DL (8.5-10.1) White Blood Count 36.5 TH/MM3 (4.0-11.0) Red Blood Count 5.33 MIL/MM3 (4.00-5.30) Hemoglobin 14.2 GM/DL (11.6-15.3) Hematocrit 43.1 % (35.0-46.0) Mean Corpuscular Volume 81.0 FL (80.0-100.0) Mean Corpuscular Hemoglobin 26.7 PG (27.0-34.0) Mean Corpuscular Hemoglobin Concent 33.0 % (32.0-36.0) Red Cell Distribution Width 16.7 % (11.6-17.2) Platelet Count 433 TH/MM3 (150-450) Mean Platelet Volume 8.4 FL (7.0-11.0) CBC Comment AUTO DIFF Differential Total Cells Counted 100 Neutrophils % (Manual) 75 % (16-70) Band Neutrophils % 18 % (0-6) Lymphocytes % 5 % (9-44) Monocytes % 2 % (0-8) Neutrophils # (Manual) 33.9 TH/MM3 (1.8-7.7) Differential Comment FINAL DIFF MANUAL Platelet Estimate NORMAL (NORMAL) Platelet Morphology Comment ENLARGED (NORMAL) Red Cell Morphology Comment NORMAL (NORMAL) Albumin 2.0 GM/DL (3.4-5.0) Alkaline Phosphatase 99 U/L (45-117) Aspartate Amino Transf (AST/SGOT) 113 U/L (15-37) Alanine Aminotransferase (ALT/SGPT) 88 U/L (10-53) Total Bilirubin 0.4 MG/DL (0.2-1.0) Lactic Acid Level 1.3 mmol/L (0.4-2.0) Test 11/19/17 08:55 11/20/17 04:10 11/20/17 04:50 Blood Gas Puncture Site ART LINE ART LINE Blood Gas Patient Temperature 98.6 98.6 Blood Gas HCO3 20 mmol/L (22-26) 15 mmol/L (22-26) Blood Gas Base Excess -3.8 mmol/L (-2-2) -9.2 mmol/L (-2-2) Blood Gas Oxygen Saturation 92 % (90-100) 94 % (90-100) Arterial Blood pH 7.42 (7.380-7.420) 7.38 (7.380-7.420) Arterial Blood Partial Pressure CO2 31 mmHg (38-42) 26 mmHg (38-42) Arterial Blood Partial Pressure O2 78 mmHg (61-120) 89 mmHg (61-120) Arterial Blood Oxygen Content 17.6 Vol % (12.0-20.0) 18.2 Vol % (12.0-20.0) Arterial Blood Carboxyhemoglobin 0.5 % (0-4) 0.6 % (0-4) Arterial Blood Methemoglobin 1.6 % (0-2) 1.7 % (0-2) Blood Gas Hemoglobin 13.6 G/DL (12.0-16.0) 13.8 G/DL (12.0-16.0) Oxygen Delivery Device VENTILATOR VENTILATOR Blood Gas Ventilator Setting PRVC25/500/0.9/+5 25/500/IT0.9/5PEEP Blood Gas Inspired Oxygen 55 % 50 % White Blood Count 23.7 TH/MM3 (4.0-11.0) Red Blood Count 4.55 MIL/MM3 (4.00-5.30) Hemoglobin 12.1 GM/DL (11.6-15.3) Hematocrit 37.7 % (35.0-46.0) Mean Corpuscular Volume 82.8 FL (80.0-100.0) Mean Corpuscular Hemoglobin 26.6 PG (27.0-34.0) Mean Corpuscular Hemoglobin Concent 32.2 % (32.0-36.0) Red Cell Distribution Width 17.1 % (11.6-17.2) Platelet Count 343 TH/MM3 (150-450) Mean Platelet Volume 8.8 FL (7.0-11.0) Neutrophils (%) (Auto) 93.9 % (16.0-70.0) Lymphocytes (%) (Auto) 2.7 % (9.0-44.0) Monocytes (%) (Auto) 3.0 % (0.0-8.0) Eosinophils (%) (Auto) 0.0 % (0.0-4.0) Basophils (%) (Auto) 0.4 % (0.0-2.0) Neutrophils # (Auto) 22.3 TH/MM3 (1.8-7.7) Lymphocytes # (Auto) 0.6 TH/MM3 (1.0-4.8) Monocytes # (Auto) 0.7 TH/MM3 (0-0.9) Eosinophils # (Auto) 0.0 TH/MM3 (0-0.4) Basophils # (Auto) 0.1 TH/MM3 (0-0.2) CBC Comment DIFF FINAL Differential Comment Blood Urea Nitrogen 36 MG/DL (7-18) Creatinine 1.29 MG/DL (0.50-1.00) Random Glucose 317 MG/DL (74-106) Total Protein 5.9 GM/DL (6.4-8.2) Albumin 2.0 GM/DL (3.4-5.0) Calcium Level 7.3 MG/DL (8.5-10.1) Phosphorus Level 4.1 MG/DL (2.5-4.9) Magnesium Level 2.0 MG/DL (1.5-2.5) Alkaline Phosphatase 86 U/L (45-117) Aspartate Amino Transf (AST/SGOT) 43 U/L (15-37) Alanine Aminotransferase (ALT/SGPT) 65 U/L (10-53) Total Bilirubin 0.4 MG/DL (0.2-1.0) Sodium Level 148 MEQ/L (136-145) Potassium Level 4.2 MEQ/L (3.5-5.1) Chloride Level 117 MEQ/L (98-107) Carbon Dioxide Level 16.0 MEQ/L (21.0-32.0) Anion Gap 15 MEQ/L (5-15) Estimat Glomerular Filtration Rate 44 ML/MIN (>89) Protein Corrected Calcium 7.9 MG/DL (8.5-10.1) Result Diagram: 11/20/17 04111/20/17 0410 Microbiology Microbiology Date/Time Source Procedure Growth Status 11/18/17 02:15 Blood Line Aerobic Blood Culture - Preliminary NO GROWTH IN 2 DAYS Resulted 11/18/17 02:15 Blood Line Anaerobic Blood Culture - Preliminary NO GROWTH IN 2 DAYS Resulted Imaging Last Impressions Chest X-Ray 11/20/17 0600 Signed Impressions: CONCLUSION: Interval development left lung base consolidation. Head CT 11/19/17 0600 Signed Impressions: CONCLUSION: 1. New extensive bilateral subarachnoid hemorrhage and diffuse cerebral edema. 2. Hydrocephalus. 3. Findings were called to Dr. Connelly at 14:[address] 11/17/17 0000 Signed Impressions: CONCLUSION: Unremarkable study. CT Angiography 11/17/17 0000 Signed Impressions: CONCLUSION: 1. Worsening parenchymal changes in the lungs may represent inflammatory simmons e and possibly pneumonia without evidence for PE. The appearance is however non specific. Procedures * 11/17/17- CPR/intubation/right femoral central line and left femoral cooling catheter placed. . Assessment and Plan Disease Oriented Problem List: (1) Lactic acidosis (2) Anoxic encephalopathy (3) Head and neck cancer (4) COPD (chronic obstructive pulmonary disease) (5) Hypoxia (6) Tobacco dependence (7) Cardiac arrest (8) COPD exacerbation (9) PNA (pneumonia) (10) DM (diabetes mellitus) Symptom Scale: (1) Anxiety 0-10 Scale: Unable to quantify Comment: Long history of severe anxiety disorder (2) Encephalopathy 0-10 Scale: Unable to quantify Comment: Likely anoxic encephalopathy, currently sedated (3) Dyspnea 0-10 Scale: Unable to quantify Comment: Remains intubated on mechanical ventilation (4) Pain 0-10 Scale: Unable to quantify Comment: fentanyl and Versed, unlikely patient is having pain at this time. Will monitor. Pertinent Non-Medical Issues Psychosocial: . Has 1 adult son. Mother is still living. 2 brothers and 2 sisters. Spiritual: None. Legal: Patient is not capacitated to make her own healthcare decisions, will not likely regain capacity. No known written advanced directives. , 1 adult son. Mother alive. 2 brother and 2 sisters. according to [place] statutes , healthcare proxy decision making falls to her only son, Emmanuel Boyce - he is considering whether or not he wants to serve in this role. Will speak again 11/18. Ethical issues impacting care: No known concerns at this time. . Important Contacts * Emmanuel Boyce, son/HCP: [phone] * Agustín Lea, brother: [phone] . Prognosis Ms. Boyce is a 52-year-old female with multiple medical problems, who presented after an unwitnessed cardiac arrest. She was seen normal 30 minutes prior to being found down pulseless and cyanotic. Patient remains critically ill in ICU undergoing hypothermia protocol, pupils fixed and dilated, overall prognosis appears poor for meaningful recovery if we do not see any significant neurologic improvement. . Code Status: Full Code Plan * Patient is not capacitated to make her own healthcare decisions, will not likely regain capacity. No known written advanced directives. , 1 adult son. Mother alive. 2 brother and 2 sisters. according to [place] statutes , healthcare proxy decision making falls to her only son, Emmanuel Boyce -he has indicated he does wish to serve as proxy decision maker. He will also be involving patient's siblings to support him with decision-making. * Alternate code--intubation only * Goals remain aggressive short of resuscitation. Ryan Benitez has indicated that patient would not want to continue artificial measures if not able to make significant neurological improvement. Son Emmanuel has been involving patient brother Agustín in all decision-making. Due to clinical changes 11/20, son and brother will likely want to transition to comfort focus and withdrawal artificial measures however they are not certain if this will happen later today or tomorrow. In the meantime they want no further escalation of treatment no addition of pressors etc. they are hopeful to wait to withdrawal until additional family is able to see her. Exhibits B, C placed in chart. * SYMPTOMS: ==Pain: due to cardiac arrest/cpr and tubes, lines. Sedated, no signs of pain , given the extent of brain injury unlikely she is experiencing pain or discomfort == Dyspnea: on mech vent. On sedatives, prev. neuromuscular blockade. Not expected to protect airway for medical extubation == Encephalopathy: fixed and dilated pupils. Repeat CT brain with new subarachnoid hemorrhage, hydrocephalus. No neurosurgical options per neurosurgery. Poor prognosis per neuro. * Palliative care contact information provided * Palliative care will continue to follow during hospital course as condition evolves, to assist patient/decision-maker with understanding of medical conditions, weighing benefits/burdens of treatment options, for clarification of goals of treatment. Additionally will assist with any symptoms of palliative concern . Time Spent Total Floor Time (mins): 45 (PE, chart review, discussion with nursing, discussion with critical care, multiple discussions with family) Attestation To help prompt me to consider important information that might be impacting today's encounter and assessment, information from prior notes written by myself or my colleagues may have been "brought forward" into today's note. My signature on this note, however, is an attestation that I personally performed the exam, history, and/or decision-making noted today, and, unless otherwise indicated, the interactions with patient, family, and staff as well as the review of records all occurred today. I also attest that the listed assessment and stated plan reflect my best clinical judgment today based on the combination of historical information, prior notes, and today's exam/ interactions. When time spent is documented, it refers only to time spent today by the signer, or if indicated, combined time spent today by collaborating physician/nurse practitioner. Kim Vincent November 20, 2017 13:10
--- NOTE | 2017-11-20 13:21 | HHI.CCPN ---
Subjective Remarks/Hospital Course 52-year-old unfortunate female with past medical history of head and neck cancer recently treated with radiation awaiting some surgical procedure, was found by family in prone position on the floor cyanotic. She was last seen normal 30 minutes prior to the event. When the EMS arrived no CPR was in progress, the patient was cyanotic and pulseless. They have intubated the patient and after 3 cycles of CPR, epinephrine injections, sodium bicarbonate, she regained spontaneous circulation. No other information is obtainable due to patient's medical condition. Subjective: 11/17: Patient arrives 604, to [facility] [place]. Patient evaluated pupils fixed and dilated , overbreathing the vent currently patient has positive gag reflex. Hypothermic protocol instituted. Currently hemodynamically stable no vasopressors required. 11/18:Rewarming initiated at 1100am. EEG and neurology consult pending. Lactate cleared. This a.m. patient required Levophed infusion to maintain MAP greater than 65. The patient was noted to be hyperglycemic yesterday afternoon requiring initiation of insulin infusion currently at 5 units/hour. 11/19: Patient rewarmed yesterday. Significant myoclonus during the night, patient was placed on propofol infusion. This a.m. EEG pending patient significantly hypotensive currently on norepinephrine ,vasopressin phenylephrine added. CT brain pending. Plan for cerebral blood flow study, patient overbreathing the vent. No change in neuro status. 1500-I was contacted by radiology extensive subarachnoid hemorrhage, with concomitant cerebral edema. Formal report pending. I contacted Dr. Tovar to provide him history and recent radiology report. I do not feel the patient is a surgical candidate. The patient has a very poor prognosis given no brainstem reflexes, and circumstances surrounding her cardiac arrest found down 30 minutes before initiation of CPR. The patient has an alternate CODE STATUS discussed with palliative care team, possible comfort care measures/ withdrawal on Friday, will await neurosurgery and neurology recommendations. Discussed with Dr. Hensley diffuse SAH thought to be secondary to anoxic brain injury. 11/20: Patient now hypertensive vasopressors have been discontinued . Discussion with palliative care teamcenter solution architect ,Shaista Melisa after updating team family on the patient's medical status, no escalation of care no vasopressor support plan for possible comfort care measures/ withdrawal within the next 24 hours. Patient remains encephalopathic. Objective Vital Signs Date Time Temp Pulse Resp B/P (MAP) Pulse Ox O2 Delivery O2 Flow Rate FiO2 11/20/17 12:00 101 11/20/17 12:00 99.5 25 143/79 (100) 95 11/20/17 12:00 50 11/17/17 05:05 Ventilator Intake and Output 11/20/17 11/20/17 11/21/17 08:00 16:00 00:00 Intake Total 1173 ml 559 ml Output Total 650 ml Balance 523 ml 559 ml Result Diagram: 11/20/17 0410 11/20/17 0410 Other Results Laboratory Tests Test 11/20/17 04:50 Blood Gas Puncture Site ART LINE Blood Gas Patient Temperature 98.6 Blood Gas HCO3 15 mmol/L (22-26) Blood Gas Base Excess -9.2 mmol/L (-2-2) Blood Gas Oxygen Saturation 94 % (90-100) Arterial Blood pH 7.38 (7.380-7.420) Arterial Blood Partial Pressure CO2 26 mmHg (38-42) Arterial Blood Partial Pressure O2 89 mmHg (61-120) Arterial Blood Oxygen Content 18.2 Vol % (12.0-20.0) Arterial Blood Carboxyhemoglobin 0.6 % (0-4) Arterial Blood Methemoglobin 1.7 % (0-2) Blood Gas Hemoglobin 13.8 G/DL (12.0-16.0) Oxygen Delivery Device VENTILATOR Blood Gas Ventilator Setting 25/500/IT0.9/5PEEP Blood Gas Inspired Oxygen 50 % Imaging Last Impressions Chest X-Ray 11/20/17599 Signed Impressions: CONCLUSION: Interval development left lung base consolidation. Head CT 11/19/17599 Signed Impressions: CONCLUSION: 1. New extensive bilateral subarachnoid hemorrhage and diffuse cerebral edema. 2. Hydrocephalus. 3. Findings were called to Dr. Connelly at 14:[address] 11/17/17 Signed Impressions: CONCLUSION: Unremarkable study. CT Angiography 11/17/17 Signed Impressions: CONCLUSION: 1. Worsening parenchymal changes in the lungs may represent inflammatory simmons e and possibly pneumonia without evidence for PE. The appearance is however non specific. Last Impressions Chest X-Ray 11/19/17599 Signed Impressions: CONCLUSION: Previously seen right middle lobe opacity has resolved and mild ate lectasis may present left lung base. Head CT 11/17/17 Signed Impressions: CONCLUSION: Unremarkable study except for right maxillary sinus chronic sinusi tis. Cervical Spine CT 11/17/17 0000 Signed Impressions: CONCLUSION: Unremarkable study. CT Angiography 11/17/17 0000 Signed Impressions: CONCLUSION: 1. Worsening parenchymal changes in the lungs may represent inflammatory simmons e and possibly pneumonia without evidence for PE. The appearance is however non specific. Last 24 hours Impressions Chest X-Ray 11/17/17 0238 Signed Impressions: CONCLUSION: Possible right middle lobe consolidation. Objective Remarks GENERAL: This is a well-nourished, well-developed obese . Unresponsive and intubated SKIN: Warm and dry. HEAD: Normocephalic. Pupils 6 mm fixed bilaterally. No pupillary reactivity EYES: No scleral icterus. No injection or drainage. NECK: Supple, trachea midline. No JVD or lymphadenopathy. CARDIOVASCULAR: Regular rate and rhythm without murmurs, gallops, or rubs. RESPIRATORY: Breath sounds equal bilaterally. No accessory muscle use. Clear to auscultation bilaterally GASTROINTESTINAL: Abdomen soft, non-tender, nondistended, obese. MUSCULOSKELETAL: No cyanosis, or edema. Dorsalis pedal pulses nonpalpable, biphasic Doppler signals BACK: Nontender without obvious deformity. NEURO EXAM: GCS: 3T, pupils fixed unresponsive 6 mm bilaterally, no cough, corneal, lid or gag reflexes. No motor response in all 4 extremities to pain stimuli. A/P Problem List: (1) Cardiac arrest ICD Code: I46.9 - Cardiac arrest, cause unspecified (2) Tobacco dependence ICD Code: F17.200 - Tobacco dependence Status: Acute (3) Hypoxia ICD Code: R09.02 - Hypoxemia Status: Acute Assessment and Plan Plan by systems: Neurologic: Cerebral edema Subarachnoid hemorrhage Anoxic encephalopathy Anxiety/ Depression H/O head and neck cancer -11/18-we will hypothermia protocol complete -11/17 CT head -negative -11/17 CT cervical spine-no cord compression. [place] collar intact. -F/U EEG -Neurology following -11/19 versed and fentanyl infusions discontinued -Consult oncology, if neurologically improving -Cortisol , TSH WNL -11/19 CT -1. New extensive bilateral subarachnoid hemorrhage and diffuse cerebral edema. Hydrocephalus. Respiratory: Acute hypoxemic respiratory arrest COPD Tobacco use disorder Probable pneumonia right middle lobe -Maintain O2 sat greater than 92% -Currently on pressure control ventilation, FiO2 60% -Repeat ABG - 11/17 Intubated for airway protection -No weaning until neurologically improve -DuoNeb scheduled and as needed -11/19 chest x-ray right middle lobe opacity clear -IV steroid -Antibiotics see below Cardiovascular: Cardiac arrest Cardiogenic shock -11/17 Postarrest hypothermia protocol -Series of troponins and EKGs to rule out acute coronary syndrome -11/19 2D echo- EF 50-55%. Mildly dilated LV. Mild TR, trace MR -11/19 Phenylephrine and Levophed and norepinephrine discontinued per family request no escalation of care Renal: Maintain temp sensing [place] -- Strict I/Os FEN/GI: -Maintain n.p.o. -NG tube to LIWS -Bowel regimen -Famotidine GI prophylaxis -Zofran for nausea Heme/ID: Persistent leukocytosis -F/U blood urine sputum culture -Continue empiric antibiotic -Monitor CBC Endocrine: Diabetes mellitus -Glucose monitoring per ICU protocol -Sliding-scale insulin low dose regimen -TSH- WNL -- SSI Prophylaxis: GI Prophylaxis Famotidine BID DVT Prophylaxis -- SCDs Lines: Central line right femoral( 11/17), cooling catheter left femoral (11/17), peripheral IVs 2 Dispo: Palliative care consult to define goals of care. Prognosis is poor patient has probable anoxic encephalopathy. my billing statement This patient remains critically ill with one or more organ systems which are or may become a threat to life. I have spent in excess of 30 minutes discontinuously in the care and management of this patient. This time is exclusive of procedures, and includes, but is not limited to, evaluation of the patient, review of the medical record, discussions with family, consultants, nursing staff, or respiratory therapy, and documentation in the medical record. Family updated on patient's medical condition patient no longer on vasopressors secondary to hypertension after long discussion per palliative care team Ms. Vincent, family requests no escalation of care no reinitiation of vasopressor support if needed. Plan for withdrawal/comfort care measures within the next 24 hours Physician Daisy Verdugo MD November 20, 2017 13:20
[2017-11-21] VITALS (17 sets, daily range): BP systolic 78–140; BP diastolic 39–77; PULSE 78–90; RESP 25; O2SAT 89–94
[2017-11-21] MEDS: PIPERACIL-TAZO 4.5 GM PREMIX 100 ML IV SCH ×4 (02:40→21:07)
[2017-11-21] MEDS: CHLORHEXIDINE GLUCONATE 2 % 1 PACK (2 CLOTHS) TOP SCH (02:47)
[2017-11-21] MEDS: RESP: ALBUTEROL 2.5 MG/IPRATROPIUM 0.5 MG NEB (SCH) NEB ×2 (04:28→07:33)
[2017-11-21] MEDS: methylPREDNISolone SOD SUCC 40 MG/1 ML VIAL IV PUSH SCH ×3 (04:49→17:29)
[2017-11-21 05:18] LABS: HEMATOCRIT 35.7 % (35.0-46.0); HEMOGLOBIN 11.7 GM/DL (11.6-15.3); MEAN CELL VOLUME 81.7 FL (80.0-100.0); MEAN CORPUSCULAR HEMOGLOBIN 26.8 PG (27.0-34.0); MEAN CORPUSCULAR HGB CONC 32.8 % (32.0-36.0); MEAN PLATELET VOLUME 8.7 FL (7.0-11.0); PLATELET COUNT 281 TH/MM3 (150-450); RED BLOOD COUNT 4.37 MIL/MM3 (4.00-5.30); RED CELL DISTRIBUTION WIDTH 17.3 % (11.6-17.2); WHITE BLOOD COUNT 18.9 TH/MM3 (4.0-11.0)
[2017-11-21 05:57] LABS: BICARBONATE 20.4 MEQ/L (21.0-32.0); CALCIUM 8.1 MG/DL (8.5-10.1); CREATININE 1.19 MG/DL (0.50-1.00); MAGNESIUM 2.4 MG/DL (1.5-2.5); PHOSPHORUS 2.7 MG/DL (2.5-4.9)
--- NOTE | 2017-11-21 06:00 | RADRPT ---
EXAM DATE: 11/21/2017 5:13 AM EDT AGE/SEX: 52 years / Female INDICATIONS: Shortness of breath. CLINICAL DATA: This is the patient's subsequent encounter. Patient reports that signs and symptoms h ave been present for 1 week and indicates a pain score of Nonresponsive. MEDICAL/SURGICAL HISTORY: . Diabetes mellitus type II. Cardiovascular disease. Chronic obstruct elle pulmonary disease. Coronary artery stent. COMPARISON: [facility] [place], CHEST SINGLE AP, 11/20/2017. . FINDINGS: Endotracheal tube and nasogastric tube in good position. Dense consolidation left lung base similar t o November 20. No significant effusion. No pneumothorax. CONCLUSION: Stable ET tube and NG tube with dense consolidation left lung base. Catheter also overlies inferior v beth cava. Electronically signed by: Sam Dyer MD 11/21/2017 5:59 AM EDT
[2017-11-21] MEDS: ICU - POTASSIUM CHLORIDE/AQUEOUS SOLN 40 MEQ/100 ML IVPB IV PRN ×3 (06:35→21:08)
[2017-11-21] MEDS: CHLORHEXIDINE 0.12% (ORAL KIT) 15 ML CUP SCH ×2 (08:00→21:07)
[2017-11-21] MEDS: INSULIN ASPART SUPPLEMENTAL SCALE SQ SCH ×4 (08:00→21:08)
[2017-11-21] MEDS: AZITHROMYCIN INJ 500 MG in SODIUM CHLOR 0.9% 250 ML INJ 250 ML IV SCH (08:27)
[2017-11-21] MEDS: PANTOPRAZOLE SODIUM 40 MG VIAL IV PUSH SCH (08:28)
[2017-11-21] MEDS: FAMOTIDINE 20 MG/2 ML VIAL IV PUSH SCH ×2 (08:29→21:08)
[2017-11-21] MEDS: DOCUSATE SODIUM 100 MG CAP OG-TUBE SCH ×2 (08:29→21:08)
[2017-11-21] MEDS: DOCUSATE SODIUM 50 MG/SENNA 8.6 MG TAB PO SCH ×2 (08:29→21:08)
[2017-11-21] MEDS: TIOTROPIUM BROMIDE 18 MCG INH INH SCH (08:30)
[2017-11-21] MEDS: SODIUM CHLORIDE 0.9% FLUSH 10 ML FLUSH IV FLUSH SCH ×2 (08:30→21:08)
--- NOTE | 2017-11-21 10:50 | HHI.HCPN ---
Reason for visit a. To assist with evaluation and management of symptoms including: dyspnea, pain, encephalopathy. b. To assist medical decision maker(s) with: better understanding of current medical conditions; weighing benefits/burdens of medical treatment options; making medical treatment decisions. . Subjective/Interval History Pt seen today to follow up on comfort, goals with decision makers, possible compassionate withdrawal of life support today. s/p repeat CT brain 11/19 = New extensive bilateral subarachnoid hemorrhage and diffuse cerebral edema. Hydrocephalus. Neurosurgery was consulted, no neurosurgical indication. Neurology still following, poor prognosis noted. No changes in neurological assessment reported, remains nonresponsive. + leukocytosis, 18.9, downtrending. BUN 36/ creatinine 1.19. BP continues to fluctuate, some hypotension in the 80s systolic. Seen in room no visitors present. Nonresponsive to exam. No pupillary response. No response to pain stimuli.No overbreathing on vent over mech vent rate. following exam call to son Mr Emmanuel Boyce pt son and proxy decision maker. VM left with my contact information. After that also call to patient brother Agustín per son's request-- updated Agustín on current condition/assessment. he indicates the family, Emmanuel has decided to proceed with withdrawal of life support, comfort only. They are awaiting additional family to arrive in town today to say Good bye to pt, so anticipate likely withdrawal tomorrow Friday11/22/17. Anticipatory guidance provided. He indicates neither he nor Emmanuel will be here, they wish to remember pt before her acute illness. Other family members may be present. Advise that Emmanuel will need to sign exhibit either via fax or scan/ email. Agustín shares that Emmanuel worked very late last night and is probably why he has not answered call, he will update him. . Advance Directives Living Will: Never completed Health Care Surrogate: Never completed Durable Power of Robotics Technologist: Never completed Advance Directive Specifics Health Care Surrogate(s): Patient is not capacitated to make her own healthcare decisions, will not likely regain capacity. No known written advanced directives. , 1 adult son. Mother alive. 2 brother and 2 sisters. according to [place] statutes , healthcare proxy decision making falls to her only son, Emmanuel Boyce - he is considering whether or not he wants to serve in this role. Will speak again 11/18. . Documented care wishes: No known written advanced directives. . Objective Vital Signs Date Time Temp Pulse Resp B/P (MAP) Pulse Ox O2 Delivery O2 Flow Rate FiO2 11/21/17 10:00 84 11/21/17 08:00 85 11/21/17 08:00 50 11/21/17 08:00 97.5 85 25 88/53 (65) 93 95/47 (63) 11/21/17 07:33 94 50 11/21/17 06:00 85 11/21/17 06:00 86 107/61 (76) 117/60 (79) 11/21/17 04:30 91 50 11/21/17 04:00 83 11/21/17 04:00 97.5 82 25 135/77 (96) 91 140/72 (94) 11/21/17 04:00 50 11/21/17 02:00 83 11/21/17 00:36 90 50 11/21/17 00:00 50 11/21/17 00:00 79 11/21/17 00:00 99.1 78 25 115/63 (80) 89 129/68 (88) 11/20/17 22:00 78 11/20/17 20:00 50 11/20/17 20:00 99.9 77 25 93/53 (66) 90 103/56 (72) 11/20/17 20:00 77 11/20/17 19:36 90 50 11/20/17 18:00 99.7 78 25 87/54 (65) 88 95/51 (66) 11/20/17 18:00 78 11/20/17 18:00 78 87/54 (65) 11/20/17 17:00 99.7 79 25 87/52 (64) 88 91/49 (63) 11/20/17 16:00 50 11/20/17 16:00 99.7 80 25 83/49 (60) 89 88/47 (61) 11/20/17 16:00 80 11/20/17 15:11 90 50 11/20/17 15:00 99.7 80 25 83/49 (60) 90 86/47 (60) 11/20/17 14:00 99.7 82 25 83/46 (58) 91 11/20/17 14:00 82 5/31/18 13:00 99.5 90 25 87/50 (62) 94 11/20/17 12:00 101 11/20/17 12:00 99.5 101 25 143/79 (100) 95 11/20/17 12:00 50 11/20/17 11:02 94 50 11/20/17 11:00 99.1 94 25 179/93 (121) 95 Intake & Output 11/21/17 11/21/17 07:00 19:00 Intake Total 200 ml 250 ml Output Total 850 ml Balance -650 ml 250 ml Intake IV Total 200 ml 250 ml Output Urine Total 850 ml Gastric Drainage Total 0 ml # Bowel Movements 0 Physical Exam CONSTITUTIONAL/GENERAL: This is an adequately nourished patient, appears older than reported. Sedated, nonresponsive on mechanical vent TUBES/LINES/DRAINS: ETT, OG, [place] collar, bilateral soft wrist restraints, Zapata catheter, right femoral central line, PIVs. SCDs SKIN: No jaundice, rashes, or lesions. No wounds seen anteriorly. Skin warm/dry HEAD: Atraumatic. Normocephalic.+ Facial edema. EYES: Pupils 4 mm nonreactive to light/ no eye opening. + Facial/slight scleral edema. ENT: Unable to assess hearing. Nose without bleeding or purulent drainage. Difficult to visualize oral cavity due to ETT/OG tubes. CARDIOVASCULAR: Regular rate and rhythm no murmur.+ Generalized edema to extremities. + Some hypotension BP in the 80s-90s via bedside monitor. RESPIRATORY/CHEST: Symmetric, unlabored respirations via ET tube mechanical vent . no spont breathing noted over vent rate. Coarse rhonchi scattered. GASTROINTESTINAL: Old well-healed midline abdominal incision noted. Abdomen soft, round/obese, nondistended. Bowel sounds intermittent. OG tube clamped GENITOURINARY: Without palpable bladder distension. Zapata catheter in place. Clear yellow urine. MUSCULOSKELETAL: Extremities without clubbing, cyanosis. + Trace general peripheral edema. No mottling or clubbing. NEUROLOGICAL: Sedated. Limited assessment/ Non-responsive to exam--pupils nonreactive. No response to pain stimuli. No overbreathing observed on vent PSYCHIATRIC: Sedated-unable to assess; no apparent anxiety/distress . Diagnostic Tests Laboratory Laboratory Tests Test 11/18/17 13:45 11/18/17 21:50 11/19/17 04:45 11/19/17 08:55 Blood Urea Nitrogen 23 MG/DL (7-18) 25 MG/DL (7-18) 24 MG/DL (7-18) Creatinine 1.03 MG/DL (0.50-1.00) 1.07 MG/DL (0.50-1.00) 1.21 MG/DL (0.50-1.00) Random Glucose 165 MG/DL (74-106) 163 MG/DL (74-106) 121 MG/DL (74-106) Calcium Level 7.7 MG/DL (8.5-10.1) 7.3 MG/DL (8.5-10.1) 7.4 MG/DL (8.5-10.1) Phosphorus Level 4.7 MG/DL (2.5-4.9) 5.1 MG/DL (2.5-4.9) Magnesium Level 1.8 MG/DL (1.5-2.5) 1.7 MG/DL (1.5-2.5) 1.7 MG/DL (1.5-2.5) Sodium Level 145 MEQ/L (136-145) 148 MEQ/L (136-145) 147 MEQ/L (136-145) Potassium Level 3.7 MEQ/L (3.5-5.1) 4.1 MEQ/L (3.5-5.1) 4.3 MEQ/L (3.5-5.1) Chloride Level 112 MEQ/L (98-107) 112 MEQ/L (98-107) 115 MEQ/L (98-107) Carbon Dioxide Level 21.9 MEQ/L (21.0-32.0) 24.5 MEQ/L (21.0-32.0) 22.9 MEQ/L (21.0-32.0) Anion Gap 11 MEQ/L (5-15) 12 MEQ/L (5-15) 9 MEQ/L (5-15) Estimat Glomerular Filtration Rate 57 ML/MIN (>89) 54 ML/MIN (>89) 47 ML/MIN (>89) Total Protein 6.0 GM/DL (6.4-8.2) 6.2 GM/DL (6.4-8.2) Protein Corrected Calcium 7.9 MG/DL (8.5-10.1) 7.9 MG/DL (8.5-10.1) White Blood Count 36.5 TH/MM3 (4.0-11.0) Red Blood Count 5.33 MIL/MM3 (4.00-5.30) Hemoglobin 14.2 GM/DL (11.6-15.3) Hematocrit 43.1 % (35.0-46.0) Mean Corpuscular Volume 81.0 FL (80.0-100.0) Mean Corpuscular Hemoglobin 26.7 PG (27.0-34.0) Mean Corpuscular Hemoglobin Concent 33.0 % (32.0-36.0) Red Cell Distribution Width 16.7 % (11.6-17.2) Platelet Count 433 TH/MM3 (150-450) Mean Platelet Volume 8.4 FL (7.0-11.0) CBC Comment AUTO DIFF Differential Total Cells Counted 100 Neutrophils % (Manual) 75 % (16-70) Band Neutrophils % 18 % (0-6) Lymphocytes % 5 % (9-44) Monocytes % 2 % (0-8) Neutrophils # (Manual) 33.9 TH/MM3 (1.8-7.7) Differential Comment FINAL DIFF MANUAL Platelet Estimate NORMAL (NORMAL) Platelet Morphology Comment ENLARGED (NORMAL) Red Cell Morphology Comment NORMAL (NORMAL) Albumin 2.0 GM/DL (3.4-5.0) Alkaline Phosphatase 99 U/L (45-117) Aspartate Amino Transf (AST/SGOT) 113 U/L (15-37) Alanine Aminotransferase (ALT/SGPT) 88 U/L (10-53) Total Bilirubin 0.4 MG/DL (0.2-1.0) Lactic Acid Level 1.3 mmol/L (0.4-2.0) Blood Gas Puncture Site ART LINE Blood Gas Patient Temperature 98.6 Blood Gas HCO3 20 mmol/L (22-26) Blood Gas Base Excess -3.8 mmol/L (-2-2) Blood Gas Oxygen Saturation 92 % (90-100) Arterial Blood pH 7.42 (7.380-7.420) Arterial Blood Partial Pressure CO2 31 mmHg (38-42) Arterial Blood Partial Pressure O2 78 mmHg (61-120) Arterial Blood Oxygen Content 17.6 Vol % (12.0-20.0) Arterial Blood Carboxyhemoglobin 0.5 % (0-4) Arterial Blood Methemoglobin 1.6 % (0-2) Blood Gas Hemoglobin 13.6 G/DL (12.0-16.0) Oxygen Delivery Device VENTILATOR Blood Gas Ventilator Setting PRVC25/500/0.9/+5 Blood Gas Inspired Oxygen 55 % Test 11/20/17 04:10 11/20/17 04:50 11/21/17 04:30 White Blood Count 23.7 TH/MM3 (4.0-11.0) 18.9 TH/MM3 (4.0-11.0) Red Blood Count 4.55 MIL/MM3 (4.00-5.30) 4.37 MIL/MM3 (4.00-5.30) Hemoglobin 12.1 GM/DL (11.6-15.3) 11.7 GM/DL (11.6-15.3) Hematocrit 37.7 % (35.0-46.0) 35.7 % (35.0-46.0) Mean Corpuscular Volume 82.8 FL (80.0-100.0) 81.7 FL (80.0-100.0) Mean Corpuscular Hemoglobin 26.6 PG (27.0-34.0) 26.8 PG (27.0-34.0) Mean Corpuscular Hemoglobin Concent 32.2 % (32.0-36.0) 32.8 % (32.0-36.0) Red Cell Distribution Width 17.1 % (11.6-17.2) 17.3 % (11.6-17.2) Platelet Count 343 TH/MM3 (150-450) 281 TH/MM3 (150-450) Mean Platelet Volume 8.8 FL (7.0-11.0) 8.7 FL (7.0-11.0) Neutrophils (%) (Auto) 93.9 % (16.0-70.0) Lymphocytes (%) (Auto) 2.7 % (9.0-44.0) Monocytes (%) (Auto) 3.0 % (0.0-8.0) Eosinophils (%) (Auto) 0.0 % (0.0-4.0) Basophils (%) (Auto) 0.4 % (0.0-2.0) Neutrophils # (Auto) 22.3 TH/MM3 (1.8-7.7) Lymphocytes # (Auto) 0.6 TH/MM3 (1.0-4.8) Monocytes # (Auto) 0.7 TH/MM3 (0-0.9) Eosinophils # (Auto) 0.0 TH/MM3 (0-0.4) Basophils # (Auto) 0.1 TH/MM3 (0-0.2) CBC Comment DIFF FINAL Differential Comment Blood Urea Nitrogen 36 MG/DL (7-18) 36 MG/DL (7-18) Creatinine 1.29 MG/DL (0.50-1.00) 1.19 MG/DL (0.50-1.00) Random Glucose 317 MG/DL (74-106) 294 MG/DL (74-106) Total Protein 5.9 GM/DL (6.4-8.2) Albumin 2.0 GM/DL (3.4-5.0) Calcium Level 7.3 MG/DL (8.5-10.1) 8.1 MG/DL (8.5-10.1) Phosphorus Level 4.1 MG/DL (2.5-4.9) 2.7 MG/DL (2.5-4.9) Magnesium Level 2.0 MG/DL (1.5-2.5) 2.4 MG/DL (1.5-2.5) Alkaline Phosphatase 86 U/L (45-117) Aspartate Amino Transf (AST/SGOT) 43 U/L (15-37) Alanine Aminotransferase (ALT/SGPT) 65 U/L (10-53) Total Bilirubin 0.4 MG/DL (0.2-1.0) Sodium Level 148 MEQ/L (136-145) 153 MEQ/L (136-145) Potassium Level 4.2 MEQ/L (3.5-5.1) 3.4 MEQ/L (3.5-5.1) Chloride Level 117 MEQ/L (98-107) 119 MEQ/L (98-107) Carbon Dioxide Level 16.0 MEQ/L (21.0-32.0) 20.4 MEQ/L (21.0-32.0) Anion Gap 15 MEQ/L (5-15) 14 MEQ/L (5-15) Estimat Glomerular Filtration Rate 44 ML/MIN (>89) 48 ML/MIN (>89) Protein Corrected Calcium 7.9 MG/DL (8.5-10.1) Blood Gas Puncture Site ART LINE Blood Gas Patient Temperature 98.6 Blood Gas HCO3 15 mmol/L (22-26) Blood Gas Base Excess -9.2 mmol/L (-2-2) Blood Gas Oxygen Saturation 94 % (90-100) Arterial Blood pH 7.38 (7.380-7.420) Arterial Blood Partial Pressure CO2 26 mmHg (38-42) Arterial Blood Partial Pressure O2 89 mmHg (61-120) Arterial Blood Oxygen Content 18.2 Vol % (12.0-20.0) Arterial Blood Carboxyhemoglobin 0.6 % (0-4) Arterial Blood Methemoglobin 1.7 % (0-2) Blood Gas Hemoglobin 13.8 G/DL (12.0-16.0) Oxygen Delivery Device VENTILATOR Blood Gas Ventilator Setting 25/500/IT0.9/5PEEP Blood Gas Inspired Oxygen 50 % Result Diagram: 11/21/1742911/21/17429 Imaging Last Impressions Chest X-Ray 11/21/17 06 Signed Impressions: CONCLUSION: Stable ET tube and NG tube with dense consolidation left lung base. Catheter al so overlies inferior vena cava. Head CT 11/19/17 06 Signed Impressions: CONCLUSION: 1. New extensive bilateral subarachnoid hemorrhage and diffuse cerebral edema. 2. Hydrocephalus. 3. Findings were called to Dr. Connelly at 14:[address] 11/17/17 0000 Signed Impressions: CONCLUSION: Unremarkable study. CT Angiography 11/17/17 0000 Signed Impressions: CONCLUSION: 1. Worsening parenchymal changes in the lungs may represent inflammatory simmons e and possibly pneumonia without evidence for PE. The appearance is however non specific. Procedures * 11/17/17- CPR/intubation/right femoral central line and left femoral cooling catheter placed. . Assessment and Plan Disease Oriented Problem List: (1) Lactic acidosis (2) Anoxic encephalopathy (3) Head and neck cancer (4) COPD (chronic obstructive pulmonary disease) (5) Hypoxia (6) Tobacco dependence (7) Cardiac arrest (8) COPD exacerbation (9) PNA (pneumonia) (10) DM (diabetes mellitus) Symptom Scale: (1) Anxiety 0-10 Scale: Unable to quantify Comment: Long history of severe anxiety disorder (2) Encephalopathy 0-10 Scale: Unable to quantify Comment: Likely anoxic encephalopathy, currently sedated (3) Dyspnea 0-10 Scale: Unable to quantify Comment: Remains intubated on mechanical ventilation (4) Pain 0-10 Scale: Unable to quantify Comment: fentanyl and Versed, unlikely patient is having pain at this time. Will monitor. Pertinent Non-Medical Issues Psychosocial: . Has 1 adult son. Mother is still living. 2 brothers and 2 sisters. Spiritual: None. Legal: Patient is not capacitated to make her own healthcare decisions, will not likely regain capacity. No known written advanced directives. , 1 adult son. Mother alive. 2 brother and 2 sisters. according to [place] statutes , healthcare proxy decision making falls to her only son, Emmanuel Boyce - he is considering whether or not he wants to serve in this role. Will speak again 11/18. Ethical issues impacting care: No known concerns at this time. . Important Contacts * Emmanuel Boyce, son/HCP: [phone] * Agustín Lea, brother: [phone] . Prognosis Ms. Boyce is a 52-year-old female with multiple medical problems, who presented after an unwitnessed cardiac arrest. She was seen normal 30 minutes prior to being found down pulseless and cyanotic. Patient remains critically ill in ICU undergoing hypothermia protocol, pupils fixed and dilated, overall prognosis appears poor for meaningful recovery if we do not see any significant neurologic improvement. . Code Status: Full Code Plan * Patient is not capacitated to make her own healthcare decisions, will not regain capacity. No known written advanced directives. , 1 adult son. Mother alive. 2 brother and 2 sisters. according to [place] statutes, healthcare proxy decision making falls to her only son, Emmanuel Boyce -he has indicated he does wish to serve as proxy decision maker. He will also be involving patient's siblings to support him with decision-making. * Alternate code--intubation only * Goals remain aggressive short of resuscitation. Ryan Benitez has indicated that patient would not want to continue artificial measures if not able to make significant neurological improvement. Ryan Benitez has been involving patient brother Agustín in all decision-making. son and brother request to transition to comfort focus and withdrawal artificial measures, as consistent with pt known wishes, probably Friday11/22/17. In the meantime they want no further escalation of treatment no addition of pressors etc. they are waiting to withdrawal until additional family is able to see her. Exhibits B, C placed in chart. * SYMPTOMS: ==Pain: due to cardiac arrest/cpr and tubes, lines. Sedated, no signs of pain , given the extent of brain injury unlikely she is experiencing pain or discomfort == Dyspnea: on mech vent. On sedatives, prev. neuromuscular blockade. Not expected to protect airway for medical extubation == Encephalopathy: fixed and dilated pupils. Repeat CT brain with new subarachnoid hemorrhage, hydrocephalus. No neurosurgical options per neurosurgery. Poor prognosis per neuro. * Palliative care contact information provided * Palliative care will continue to follow during hospital course as condition evolves, to assist patient/decision-maker with understanding of medical conditions, weighing benefits/burdens of treatment options, for clarification of goals of treatment. Additionally will assist with any symptoms of palliative concern . Time Spent Total Floor Time (mins): 25 (chart review, d/w nursing, d/w critical care, d/w family ) Attestation To help prompt me to consider important information that might be impacting today's encounter and assessment, information from prior notes written by myself or my colleagues may have been "brought forward" into today's note. My signature on this note, however, is an attestation that I personally performed the exam, history, and/or decision-making noted today, and, unless otherwise indicated, the interactions with patient, family, and staff as well as the review of records all occurred today. I also attest that the listed assessment and stated plan reflect my best clinical judgment today based on the combination of historical information, prior notes, and today's exam/ interactions. When time spent is documented, it refers only to time spent today by the signer, or if indicated, combined time spent today by collaborating physician/nurse practitioner. Kim Vincent Nov 21, 2017 10:49
[2017-11-21] MEDS: FENTANYL DRIP IV PRN (13:21)
[2017-11-21] MEDS: SODIUM CHLOR 0.9% 1000 ML INJ 1,000 ML IV SCH (13:22)
--- NOTE | 2017-11-21 14:23 | HHI.CCPN ---
Subjective Remarks/Hospital Course 52-year-old unfortunate female with past medical history of head and neck cancer recently treated with radiation awaiting some surgical procedure, was found by family in prone position on the floor cyanotic. She was last seen normal 30 minutes prior to the event. When the EMS arrived no CPR was in progress, the patient was cyanotic and pulseless. They have intubated the patient and after 3 cycles of CPR, epinephrine injections, sodium bicarbonate, she regained spontaneous circulation. No other information is obtainable due to patient's medical condition. Subjective: 11/17: Patient arrives 604, to [facility]. Patient evaluated pupils fixed and dilated , overbreathing the vent currently patient has positive gag reflex. Hypothermic protocol instituted. Currently hemodynamically stable no vasopressors required. 11/18:Rewarming initiated at 1100am. EEG and neurology consult pending. Lactate cleared. This a.m. patient required Levophed infusion to maintain MAP greater than 65. The patient was noted to be hyperglycemic yesterday afternoon requiring initiation of insulin infusion currently at 5 units/hour. 11/19: Patient rewarmed yesterday. Significant myoclonus during the night, patient was placed on propofol infusion. This a.m. EEG pending patient significantly hypotensive currently on norepinephrine ,vasopressin phenylephrine added. CT brain pending. Plan for cerebral blood flow study, patient overbreathing the vent. No change in neuro status. 1500-I was contacted by radiology extensive subarachnoid hemorrhage, with concomitant cerebral edema. Formal report pending. I contacted Dr. Tovar to provide him history and recent radiology report. I do not feel the patient is a surgical candidate. The patient has a very poor prognosis given no brainstem reflexes, and circumstances surrounding her cardiac arrest found down 30 minutes before initiation of CPR. The patient has an alternate CODE STATUS discussed with palliative care team, possible comfort care measures/ withdrawal on Friday, will await neurosurgery and neurology recommendations. Discussed with Dr. Hensley diffuse SAH thought to be secondary to anoxic brain injury. 11/20: Patient now hypertensive vasopressors have been discontinued . 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 Vincent after updating team family on the patient's medical status, no escalation of care no vasopressor support plan for possible comfort care measures/ withdrawal within the next 24 hours. Patient remains encephalopathic. 11/21: Neuro status unchanged map remains in the 50s. No plan for escalation of care . Plan for initiation of comfort care measures tentatively planned for Friday. Objective Vital Signs Date Time Temp Pulse Resp B/P (MAP) Pulse Ox O2 Delivery O2 Flow Rate FiO2 11/21/17 12:00 86 11/21/17 12:00 97.7 25 79/47 (58) 92 82/42 (55) 11/21/17 12:00 50 Intake and Output 11/21/17 11/21/17 11/22/17 08:00 16:00 00:00 Intake Total 100 ml 1810 ml Output Total 850 ml Balance -750 ml 1810 ml Result Diagram: 11/21/17 0430 11/21/17 0430 Imaging Last Impressions Chest X-Ray 11/20/17599 Signed Impressions: CONCLUSION: Interval development left lung base consolidation. Head CT 11/19/17599 Signed Impressions: CONCLUSION: 1. New extensive bilateral subarachnoid hemorrhage and diffuse cerebral edema. 2. Hydrocephalus. 3. Findings were called to Dr. Connelly at 14:[address] 11/17/17 Signed Impressions: CONCLUSION: Unremarkable study. CT Angiography 11/17/17 Signed Impressions: CONCLUSION: 1. Worsening parenchymal changes in the lungs may represent inflammatory simmons e and possibly pneumonia without evidence for PE. The appearance is however non specific. Last Impressions Chest X-Ray 11/19/17599 Signed Impressions: CONCLUSION: Previously seen right middle lobe opacity has resolved and mild ate lectasis may present left lung base. Head CT 11/17/17 Signed Impressions: CONCLUSION: Unremarkable study except for right maxillary sinus chronic sinusi tis. Cervical Spine CT 11/17/17 Signed Impressions: CONCLUSION: Unremarkable study. CT Angiography 11/17/17 Signed Impressions: CONCLUSION: 1. Worsening parenchymal changes in the lungs may represent inflammatory simmons e and possibly pneumonia without evidence for PE. The appearance is however non specific. Last 24 hours Impressions Chest X-Ray 11/17/17 0238 Signed Impressions: CONCLUSION: Possible right middle lobe consolidation. Objective Remarks GENERAL: This is a well-nourished, well-developed obese . Unresponsive and intubated SKIN: Warm and dry. HEAD: Normocephalic. Pupils 6 mm fixed bilaterally. No pupillary reactivity EYES: No scleral icterus. No injection or drainage. NECK: Supple, trachea midline. No JVD or lymphadenopathy. CARDIOVASCULAR: Regular rate and rhythm without murmurs, gallops, or rubs. RESPIRATORY: Breath sounds equal bilaterally. No accessory muscle use. Clear to auscultation bilaterally GASTROINTESTINAL: Abdomen soft, non-tender, nondistended, obese. MUSCULOSKELETAL: No cyanosis, or edema. Dorsalis pedal pulses nonpalpable, biphasic Doppler signals BACK: Nontender without obvious deformity. NEURO EXAM: GCS: 3T, pupils fixed unresponsive 6 mm bilaterally, no cough, corneal, lid or gag reflexes. No motor response in all 4 extremities to pain stimuli. A/P Problem List: (1) Cardiac arrest ICD Code: I46.9 - Cardiac arrest, cause unspecified (2) Tobacco dependence ICD Code: F17.200 - Tobacco dependence Status: Acute (3) Hypoxia ICD Code: R09.02 - Hypoxemia Status: Acute Assessment and Plan Plan by systems: Neurologic: Cerebral edema Subarachnoid hemorrhage Anoxic encephalopathy Anxiety/ Depression H/O head and neck cancer -11/18-we will hypothermia protocol complete -11/17 CT head -negative -11/17 CT cervical spine-no cord compression. [place] collar intact. -F/U EEG -Neurology following -11/19 versed and fentanyl infusions discontinued -Cortisol , TSH WNL -11/19 CT brain. New extensive bilateral subarachnoid hemorrhage and diffuse cerebral edema. Hydrocephalus. No neurosurgical interventions Respiratory: Acute hypoxemic respiratory arrest COPD Tobacco use disorder Probable pneumonia right middle lobe -Maintain O2 sat greater than 92% -Currently on pressure control ventilation, FiO2 60% -Repeat ABG - 11/17 Intubated for airway protection -No weaning until neurologically improve -DuoNeb scheduled and as needed -11/19 chest x-ray right middle lobe opacity clear -IV steroid -Antibiotics see below Cardiovascular: Cardiac arrest Cardiogenic shock -11/17 Postarrest hypothermia protocol -Series of troponins and EKGs to rule out acute coronary syndrome -11/19 2D echo- EF 50-55%. Mildly dilated LV. Mild TR, trace MR -11/19 Phenylephrine and Levophed and norepinephrine discontinued per family request no escalation of care Renal: Maintain temp sensing [place] -- Strict I/Os FEN/GI: -Maintain n.p.o. -NG tube to LIWS -Bowel regimen -Famotidine GI prophylaxis -Zofran for nausea Heme/ID: Persistent leukocytosis -F/U blood urine sputum culture -Continue empiric antibiotic -Monitor CBC Endocrine: Diabetes mellitus -Glucose monitoring per ICU protocol -Sliding-scale insulin low dose regimen -TSH- WNL -- SSI Prophylaxis: GI Prophylaxis Famotidine BID DVT Prophylaxis -- SCDs Lines: Central line right femoral( 11/17), cooling catheter left femoral (11/17), peripheral IVs 2 Dispo: Palliative care following. Tentative plan for initiation of comfort care measures/withdrawal of Family updated on patient's medical condition patient no longer on vasopressors secondary to hypertension after long discussion per palliative care team Ms. Vincent, family requests no escalation of care no reinitiation of vasopressor support if needed. Plan for withdrawal/comfort care measures within the next 24 hours. Level 3 followup Physician Daisy Verdugo MD Nov 21, 2017 14:23
[2017-11-22] VITALS (13 sets, daily range): BP systolic 72–82; BP diastolic 36–51; PULSE 53–91; RESP 25–26; TEMP 99.3–99.6; O2SAT 89–95
[2017-11-22] MEDS: PIPERACIL-TAZO 4.5 GM PREMIX 100 ML IV SCH ×2 (00:08→08:19)
[2017-11-22] MEDS: methylPREDNISolone SOD SUCC 40 MG/1 ML VIAL IV PUSH SCH ×3 (00:08→11:49)
[2017-11-22 03:53] LABS: HEMATOCRIT 35.4 % (35.0-46.0); HEMOGLOBIN 11.2 GM/DL (11.6-15.3); MEAN CELL VOLUME 83.1 FL (80.0-100.0); MEAN CORPUSCULAR HEMOGLOBIN 26.2 PG (27.0-34.0); MEAN CORPUSCULAR HGB CONC 31.6 % (32.0-36.0); MEAN PLATELET VOLUME 8.7 FL (7.0-11.0); PLATELET COUNT 268 TH/MM3 (150-450); RED BLOOD COUNT 4.26 MIL/MM3 (4.00-5.30); WHITE BLOOD COUNT 21.5 TH/MM3 (4.0-11.0)
[2017-11-22] MEDS: CHLORHEXIDINE GLUCONATE 2 % 1 PACK (2 CLOTHS) TOP SCH (04:00)
[2017-11-22 04:13] LABS: BICARBONATE 14.8 MEQ/L (21.0-32.0); CALCIUM 8.4 MG/DL (8.5-10.1); CREATININE 1.59 MG/DL (0.50-1.00); MAGNESIUM 2.5 MG/DL (1.5-2.5); PHOSPHORUS 4.1 MG/DL (2.5-4.9)
--- NOTE | 2017-11-22 04:30 | RADRPT ---
EXAM DATE: 11/22/2017 4:21 AM EDT AGE/SEX: 52 years / Female INDICATIONS: Shortness of breath, possible pulmonary disease. CLINICAL DATA: This is the patient's subsequent encounter. Patient reports that signs and symptoms h ave been present for 1 week and indicates a pain score of Nonresponsive. MEDICAL/SURGICAL HISTORY: Diabetes mellitus type II. Cardiovascular disease. Chronic obstruct elle pulmonary disease. Coronary artery stent. COMPARISON: [facility], CHEST SINGLE AP, 11/21/2017. . FINDINGS: ET tube and NG tube are well placed. There appears to be a central venous catheter over the IVC and i nferior right atrium. The heart size is normal. There is increased density at the left base in the re trocardiac area with silhouetting left hemidiaphragm. There is linear density at the mid right lung l ikely related to fluid or thickening of the minor fissure. The right lung is otherwise clear. CONCLUSION: Left lower lobe consolidation or atelectasis. Some degree of left pleural effusion can be considered. Linear density in the right mid lung likely related to minimal thickening or fluid in the minor fissu re. Electronically signed by: Galindo Yin MD 11/22/2017 4:28 AM EDT
[2017-11-22] MEDS: INSULIN ASPART SUPPLEMENTAL SCALE SQ SCH ×2 (08:00→11:49)
[2017-11-22] MEDS: CHLORHEXIDINE 0.12% (ORAL KIT) 15 ML CUP SCH (08:18)
[2017-11-22] MEDS: DOCUSATE SODIUM 100 MG CAP OG-TUBE SCH (09:00)
[2017-11-22] MEDS: DOCUSATE SODIUM 50 MG/SENNA 8.6 MG TAB PO SCH (09:00)
[2017-11-22] MEDS: TIOTROPIUM BROMIDE 18 MCG INH INH SCH (09:00)
[2017-11-22] MEDS: AZITHROMYCIN INJ 500 MG in SODIUM CHLOR 0.9% 250 ML INJ 250 ML IV SCH (09:29)
[2017-11-22] MEDS: SODIUM CHLORIDE 0.9% FLUSH 10 ML FLUSH IV FLUSH SCH (09:29)
[2017-11-22] MEDS: PANTOPRAZOLE SODIUM 40 MG VIAL IV PUSH SCH (09:30)
[2017-11-22] MEDS: FAMOTIDINE 20 MG/2 ML VIAL IV PUSH SCH (09:31)
--- NOTE | 2017-11-22 13:03 | HHI.CCPN ---
Subjective Remarks/Hospital Course 52-year-old unfortunate female with past medical history of head and neck cancer recently treated with radiation awaiting some surgical procedure, was found by family in prone position on the floor cyanotic. She was last seen normal 30 minutes prior to the event. When the EMS arrived no CPR was in progress, the patient was cyanotic and pulseless. They have intubated the patient and after 3 cycles of CPR, epinephrine injections, sodium bicarbonate, she regained spontaneous circulation. No other information is obtainable due to patient's medical condition. Subjective: 11/17: Patient arrives 604, [place] [facility] [place] Patient evaluated pupils fixed and dilated , overbreathing the vent currently patient has positive gag reflex. Hypothermic protocol instituted. Currently hemodynamically stable no vasopressors required. 11/18:Rewarming initiated at 1100am. EEG and neurology consult pending. Lactate cleared. This a.m. patient required Levophed infusion to maintain MAP greater than 65. The patient was noted to be hyperglycemic yesterday afternoon requiring initiation of insulin infusion currently at 5 units/hour. 11/19: Patient rewarmed yesterday. Significant myoclonus during the night, patient was placed on propofol infusion. This a.m. EEG pending patient significantly hypotensive currently on norepinephrine ,vasopressin phenylephrine added. CT brain pending. Plan for cerebral blood flow study, patient overbreathing the vent. No change in neuro status. 1500-I was contacted by radiology extensive subarachnoid hemorrhage, with concomitant cerebral edema. Formal report pending. I contacted Dr. Tovar to provide him history and recent radiology report. I do not feel the patient is a surgical candidate. The patient has a very poor prognosis given no brainstem reflexes, and circumstances surrounding her cardiac arrest found down 30 minutes before initiation of CPR. The patient has an alternate CODE STATUS discussed with palliative care team, possible comfort care measures/ withdrawal on Friday, will await neurosurgery and neurology recommendations. Discussed with Dr. Hensley diffuse SAH thought to be secondary to anoxic brain injury. 11/20: Patient now hypertensive vasopressors have been discontinued . 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 Vincent after updating team family on the patient's medical status, no escalation of care no vasopressor support plan for possible comfort care measures/ withdrawal within the next 24 hours. Patient remains encephalopathic. 11/21: Neuro status unchanged map remains in the 50s. No plan for escalation of care . Plan for initiation of comfort care measures tentatively planned for Friday. Objective Vital Signs Date Time Temp Pulse Resp B/P (MAP) Pulse Ox O2 Delivery O2 Flow Rate FiO2 11/22/17 12:00 99.6 89 25 82/51 (61) 94 76/38 (51) 11/22/17 12:00 50 Intake and Output 11/22/17 11/22/17 11/23/17 08:00 16:00 00:00 Intake Total 100 ml 345 ml Output Total 200 ml Balance -100 ml 345 ml Result Diagram: 11/22/17 0330 11/22/17 0330 Imaging Last Impressions Chest X-Ray 11/20/17599 Signed Impressions: CONCLUSION: Interval development left lung base consolidation. Head CT 11/19/17599 Signed Impressions: CONCLUSION: 1. New extensive bilateral subarachnoid hemorrhage and diffuse cerebral edema. 2. Hydrocephalus. 3. Findings were called to Dr. Connelly at 14:[address] 11/17/17 Signed Impressions: CONCLUSION: Unremarkable study. CT Angiography 11/17/17 Signed Impressions: CONCLUSION: 1. Worsening parenchymal changes in the lungs may represent inflammatory simmons e and possibly pneumonia without evidence for PE. The appearance is however non specific. Last Impressions Chest X-Ray 11/19/17599 Signed Impressions: CONCLUSION: Previously seen right middle lobe opacity has resolved and mild ate lectasis may present left lung base. Head CT 11/17/17 Signed Impressions: CONCLUSION: Unremarkable study except for right maxillary sinus chronic sinusi tis. Cervical Spine CT 11/17/17 Signed Impressions: CONCLUSION: Unremarkable study. CT Angiography 11/17/17 Signed Impressions: CONCLUSION: 1. Worsening parenchymal changes in the lungs may represent inflammatory simmons e and possibly pneumonia without evidence for PE. The appearance is however non specific. Last 24 hours Impressions Chest X-Ray 11/17/17 0238 Signed Impressions: CONCLUSION: Possible right middle lobe consolidation. Objective Remarks GENERAL: This is a well-nourished, well-developed obese . Unresponsive and intubated SKIN: Warm and dry. HEAD: Normocephalic. Pupils 6 mm fixed bilaterally. No pupillary reactivity EYES: No scleral icterus. No injection or drainage. NECK: Supple, trachea midline. No JVD or lymphadenopathy. CARDIOVASCULAR: Regular rate and rhythm without murmurs, gallops, or rubs. RESPIRATORY: Breath sounds equal bilaterally. No accessory muscle use. Clear to auscultation bilaterally GASTROINTESTINAL: Abdomen soft, non-tender, nondistended, obese. MUSCULOSKELETAL: No cyanosis, or edema. Dorsalis pedal pulses nonpalpable, biphasic Doppler signals BACK: Nontender without obvious deformity. NEURO EXAM: GCS: 3T, pupils fixed unresponsive 6 mm bilaterally, no cough, corneal, lid or gag reflexes. No motor response in all 4 extremities to pain stimuli. A/P Problem List: (1) Cardiac arrest ICD Code: I46.9 - Cardiac arrest, cause unspecified (2) Tobacco dependence ICD Code: F17.200 - Tobacco dependence Status: Acute (3) Hypoxia ICD Code: R09.02 - Hypoxemia Status: Acute Assessment and Plan Plan by systems: Neurologic: Cerebral edema Subarachnoid hemorrhage Anoxic encephalopathy Anxiety/ Depression H/O head and neck cancer -11/18-we will hypothermia protocol complete -11/17 CT head -negative -11/17 CT cervical spine-no cord compression. [place] collar intact. -F/U EEG -Neurology following -11/19 versed and fentanyl infusions discontinued -Cortisol , TSH WNL -11/19 CT brain. New extensive bilateral subarachnoid hemorrhage and diffuse cerebral edema. Hydrocephalus. No neurosurgical interventions Respiratory: Acute hypoxemic respiratory arrest COPD Tobacco use disorder Probable pneumonia right middle lobe -Maintain O2 sat greater than 92% -Currently on pressure control ventilation, FiO2 60% -Repeat ABG - 11/17 Intubated for airway protection -No weaning until neurologically improve -DuoNeb scheduled and as needed -11/19 chest x-ray right middle lobe opacity clear -IV steroid -Antibiotics see below Cardiovascular: Cardiac arrest Cardiogenic shock -11/17 Postarrest hypothermia protocol -Series of troponins and EKGs to rule out acute coronary syndrome -11/19 2D echo- EF 50-55%. Mildly dilated LV. Mild TR, trace MR -11/19 Phenylephrine and Levophed and norepinephrine discontinued per family request no escalation of care Renal: Maintain temp sensing [place] -- Strict I/Os FEN/GI: -Maintain n.p.o. -NG tube to LIWS -Bowel regimen -Famotidine GI prophylaxis -Zofran for nausea Heme/ID: Persistent leukocytosis -F/U blood urine sputum culture -Continue empiric antibiotic -Monitor CBC Endocrine: Diabetes mellitus -Glucose monitoring per ICU protocol -Sliding-scale insulin low dose regimen -TSH- WNL -- SSI Prophylaxis: GI Prophylaxis Famotidine BID DVT Prophylaxis -- SCDs Lines: Central line right femoral( 11/17), cooling catheter left femoral (11/17), peripheral IVs 2 Dispo: Palliative care following. Tentative plan for initiation of comfort care measures/withdrawal of Family updated on patient's medical condition patient no longer on vasopressors secondary to hypertension after long discussion per palliative care team Ms. Vincent, family requests no escalation of care no reinitiation of vasopressor support if needed. Plan for withdrawal/comfort care measures within the next 24 hours. Level 3 followup Daisy Connelly MD Nov 22, 2017 13:03
--- NOTE | 2017-11-22 13:13 | HHI.CCPN ---
Subjective Remarks/Hospital Course 52-year-old unfortunate female with past medical history of head and neck cancer recently treated with radiation awaiting some surgical procedure, was found by family in prone position on the floor cyanotic. She was last seen normal 30 minutes prior to the event. When the EMS arrived no CPR was in progress, the patient was cyanotic and pulseless. They have intubated the patient and after 3 cycles of CPR, epinephrine injections, sodium bicarbonate, she regained spontaneous circulation. No other information is obtainable due to patient's medical condition. Subjective: 11/17: Patient arrives 604, to [facility] [place] Patient evaluated pupils fixed and dilated , overbreathing the vent currently patient has positive gag reflex. Hypothermic protocol instituted. Currently hemodynamically stable no vasopressors required. 11/18:Rewarming initiated at 1100am. EEG and neurology consult pending. Lactate cleared. This a.m. patient required Levophed infusion to maintain MAP greater than 65. The patient was noted to be hyperglycemic yesterday afternoon requiring initiation of insulin infusion currently at 5 units/hour. 11/19: Patient rewarmed yesterday. Significant myoclonus during the night, patient was placed on propofol infusion. This a.m. EEG pending patient significantly hypotensive currently on norepinephrine ,vasopressin phenylephrine added. CT brain pending. Plan for cerebral blood flow study, patient overbreathing the vent. No change in neuro status. 1500-I was contacted by radiology extensive subarachnoid hemorrhage, with concomitant cerebral edema. Formal report pending. I contacted Dr. Tovar to provide him history and recent radiology report. I do not feel the patient is a surgical candidate. The patient has a very poor prognosis given no brainstem reflexes, and circumstances surrounding her cardiac arrest found down 30 minutes before initiation of CPR. The patient has an alternate CODE STATUS discussed with palliative care team, possible comfort care measures/ withdrawal on Friday, will await neurosurgery and neurology recommendations. Discussed with Dr. Hensley diffuse SAH thought to be secondary to anoxic brain injury. 11/20: Patient now hypertensive vasopressors have been discontinued . 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 Vincent after updating team family on the patient's medical status, no escalation of care no vasopressor support plan for possible comfort care measures/ withdrawal within the next 24 hours. Patient remains encephalopathic. 11/21: Neuro status unchanged map remains in the 50s. No plan for escalation of care . Plan for initiation of comfort care measures tentatively planned for Friday. 11/22: Late entry note. Patient seen at 0609 am.No acute events. No change in neuro status. Pt remains currently on no sedation. At 1306, patient's family at bedside with clergy requested. Planned institution of comfort care measures/ ventilator withdrawal at this time. Objective Vital Signs Date Time Temp Pulse Resp B/P (MAP) Pulse Ox O2 Delivery O2 Flow Rate FiO2 11/22/17 12:00 99.6 89 25 82/51 (61) 94 76/38 (51) 11/22/17 12:00 50 Intake and Output 11/22/17 11/22/17 11/23/17 08:00 16:00 00:00 Intake Total 100 ml 345 ml Output Total 200 ml Balance -100 ml 345 ml Result Diagram: 11/22/17 0330 11/22/17 0330 Imaging Last Impressions Chest X-Ray 11/20/17 06 Signed Impressions: CONCLUSION: Interval development left lung base consolidation. Head CT 11/19/17 06 Signed Impressions: CONCLUSION: 1. New extensive bilateral subarachnoid hemorrhage and diffuse cerebral edema. 2. Hydrocephalus. 3. Findings were called to Dr. Connelly at 14:[address] 11/17/17 Signed Impressions: CONCLUSION: Unremarkable study. CT Angiography 11/17/17 Signed Impressions: CONCLUSION: 1. Worsening parenchymal changes in the lungs may represent inflammatory simmons e and possibly pneumonia without evidence for PE. The appearance is however non specific. Last Impressions Chest X-Ray 11/19/17 06 Signed Impressions: CONCLUSION: Previously seen right middle lobe opacity has resolved and mild ate lectasis may present left lung base. Head CT 11/17/17 Signed Impressions: CONCLUSION: Unremarkable study except for right maxillary sinus chronic sinusi tis. Cervical Spine CT 11/17/17 Signed Impressions: CONCLUSION: Unremarkable study. CT Angiography 11/17/17 Signed Impressions: CONCLUSION: 1. Worsening parenchymal changes in the lungs may represent inflammatory simmons e and possibly pneumonia without evidence for PE. The appearance is however non specific. Last 24 hours Impressions Chest X-Ray 11/17/17 0238 Signed Impressions: CONCLUSION: Possible right middle lobe consolidation. Objective Remarks GENERAL: This is a well-nourished, well-developed obese . Unresponsive and intubated SKIN: Warm and dry. HEAD: Normocephalic. Pupils 6 mm fixed bilaterally. No pupillary reactivity EYES: No scleral icterus. No injection or drainage. NECK: Supple, trachea midline. No JVD or lymphadenopathy. CARDIOVASCULAR: Regular rate and rhythm without murmurs, gallops, or rubs. RESPIRATORY: Breath sounds equal bilaterally. No accessory muscle use. Clear to auscultation bilaterally GASTROINTESTINAL: Abdomen soft, non-tender, nondistended, obese. MUSCULOSKELETAL: No cyanosis, or edema. Dorsalis pedal pulses nonpalpable, biphasic Doppler signals BACK: Nontender without obvious deformity. NEURO EXAM: GCS: On no sedation. 3T, pupils fixed unresponsive 6 mm bilaterally, no cough, corneal, lid or gag reflexes. No motor response in all 4 extremities to pain stimuli. A/P Problem List: (1) Cardiac arrest ICD Code: I46.9 - Cardiac arrest, cause unspecified (2) Tobacco dependence ICD Code: F17.200 - Tobacco dependence Status: Acute (3) Hypoxia ICD Code: R09.02 - Hypoxemia Status: Acute Assessment and Plan Plan by systems: Neurologic: Cerebral edema Subarachnoid hemorrhage Anoxic encephalopathy Anxiety/ Depression H/O head and neck cancer -11/18-we will hypothermia protocol complete -11/17 CT head -negative -11/17 CT cervical spine-no cord compression. Wingate collar intact. -F/U EEG -Neurology following -11/19 versed and fentanyl infusions discontinued -Cortisol , TSH WNL -11/19 CT brain. New extensive bilateral subarachnoid hemorrhage and diffuse cerebral edema. Hydrocephalus. No neurosurgical interventions Respiratory: Acute hypoxemic respiratory arrest COPD Tobacco use disorder Probable pneumonia right middle lobe -Maintain O2 sat greater than 92% -Currently on pressure control ventilation, FiO2 60% -Repeat ABG - 11/17 Intubated for airway protection -No weaning until neurologically improve -DuoNeb scheduled and as needed -11/19 chest x-ray right middle lobe opacity clear -Antibiotics see below Cardiovascular: Cardiac arrest Cardiogenic shock -11/17 Postarrest hypothermia protocol -Series of troponins and EKGs to rule out acute coronary syndrome -11/19 2D echo- EF 50-55%. Mildly dilated LV. Mild TR, trace MR Renal: Maintain temp sensing [place] -- Strict I/Os FEN/GI: -Maintain n.p.o. -NG tube to LIWS -Bowel regimen -Famotidine GI prophylaxis -Zofran for nausea Heme/ID: Persistent leukocytosis -F/U blood urine sputum culture -Continue empiric antibiotic -Monitor CBC Endocrine: Diabetes mellitus -Glucose monitoring per ICU protocol -Sliding-scale insulin low dose regimen -TSH- WNL -- SSI Prophylaxis: GI Prophylaxis Famotidine BID DVT Prophylaxis -- SCDs Lines: Central line right femoral( 11/17), cooling catheter left femoral (11/17), peripheral IVs 2 Dispo: Comfort Care measures to be instituted at this time. Family at bedside. All questions answered Level 3 followup Physician Daisy Verdugo MD Nov 22, 2017 13:12
[2017-11-22] MEDS ORDERED: MIDAZOLAM HCL 5 MG/ML VIAL (1 ML) IV PUSH ONE ×2 (13:15→13:30)
[2017-11-22] MEDS ORDERED: HYOSCYAMINE 0.5 MG/ML AMP IV PUSH ONE (13:15)
[2017-11-22] MEDS ORDERED: HYDROmorphone HCL PF 2 MG/ML VIAL IV PUSH ONE ×2 (13:15→13:30)
[2017-11-22] MEDS: FENTANYL DRIP IV PRN (13:18)
[2017-11-22] MEDS ORDERED: BISACODYL 10 MG SUPP RECTAL PRN (13:45)
[2017-11-22] MEDS ORDERED: FUROSEMIDE 20 MG/2 ML VIAL IV PUSH PRN (13:45)
[2017-11-22] MEDS ORDERED: HYOSCYAMINE 0.5 MG/ML AMP IV PUSH PRN (13:45)
[2017-11-22] MEDS ORDERED: ACETAMINOPHEN 650 MG SUPP RECTAL PRN (13:45)
[2017-11-22] MEDS ORDERED: LORazepam 2 MG/ML VIAL IV PUSH PRN ×3 (13:45)
[2017-11-22] MEDS ORDERED: HYDROmorphone HCL PF 2 MG/ML VIAL IV PUSH PRN ×2 (13:45)
--- NOTE | 2017-11-22 14:29 | HHI.DS ---
Summary Note Date of : Nov 22, 2017 Time Of : 1407 Admission Date November 17, 2017 at 03:02 Admitting Diagnosis post cardiac arrest w/ rosc; neck ca; copd Diagnosis at Time of : Brief History 52-year-old unfortunate female with past medical history of head and neck cancer recently treated with radiation awaiting some surgical procedure, was found by family in prone position on the floor cyanotic. She was last seen normal 30 minutes prior to the event. When the EMS arrived no CPR was in progress, the patient was cyanotic and pulseless. They have intubated the patient and after 3 cycles of CPR, epinephrine injections, sodium bicarbonate, she regained spontaneous circulation. No other information is obtainable due to patient's medical condition. CBC/BMP: 11/22/17 0330 11/22/17 0330 Significant Findings Laboratory Tests Test 11/20/17 04:10 11/20/17 04:50 11/21/17 04:30 11/21/17 15:30 White Blood Count 23.7 TH/MM3 (4.0-11.0) 18.9 TH/MM3 (4.0-11.0) Mean Corpuscular Hemoglobin 26.6 PG (27.0-34.0) 26.8 PG (27.0-34.0) Neutrophils (%) (Auto) 93.9 % (16.0-70.0) Lymphocytes (%) (Auto) 2.7 % (9.0-44.0) Neutrophils # (Auto) 22.3 TH/MM3 (1.8-7.7) Lymphocytes # (Auto) 0.6 TH/MM3 (1.0-4.8) Blood Urea Nitrogen 36 MG/DL (7-18) 36 MG/DL (7-18) Creatinine 1.29 MG/DL (0.50-1.00) 1.19 MG/DL (0.50-1.00) Random Glucose 317 MG/DL (74-106) 294 MG/DL (74-106) Total Protein 5.9 GM/DL (6.4-8.2) Albumin 2.0 GM/DL (3.4-5.0) Calcium Level 7.3 MG/DL (8.5-10.1) 8.1 MG/DL (8.5-10.1) Aspartate Amino Transf (AST/SGOT) 43 U/L (15-37) Alanine Aminotransferase (ALT/SGPT) 65 U/L (10-53) Sodium Level 148 MEQ/L (136-145) 153 MEQ/L (136-145) Chloride Level 117 MEQ/L (98-107) 119 MEQ/L (98-107) Carbon Dioxide Level 16.0 MEQ/L (21.0-32.0) 20.4 MEQ/L (21.0-32.0) Estimat Glomerular Filtration Rate 44 ML/MIN (>89) 48 ML/MIN (>89) Protein Corrected Calcium 7.9 MG/DL (8.5-10.1) Blood Gas HCO3 15 mmol/L (22-26) Blood Gas Base Excess -9.2 mmol/L (-2-2) Arterial Blood Partial Pressure CO2 26 mmHg (38-42) Red Cell Distribution Width 17.3 % (11.6-17.2) Potassium Level 3.4 MEQ/L (3.5-5.1) 3.2 MEQ/L (3.5-5.1) Test 11/22/17 02:50 11/22/17 03:30 White Blood Count 21.5 TH/MM3 (4.0-11.0) Hemoglobin 11.2 GM/DL (11.6-15.3) Mean Corpuscular Hemoglobin 26.2 PG (27.0-34.0) Mean Corpuscular Hemoglobin Concent 31.6 % (32.0-36.0) Red Cell Distribution Width 18.0 % (11.6-17.2) Blood Urea Nitrogen 47 MG/DL (7-18) Creatinine 1.59 MG/DL (0.50-1.00) Random Glucose 344 MG/DL (74-106) Calcium Level 8.4 MG/DL (8.5-10.1) Sodium Level 157 MEQ/L (136-145) Chloride Level 126 MEQ/L (98-107) Carbon Dioxide Level 14.8 MEQ/L (21.0-32.0) Anion Gap 16 MEQ/L (5-15) Estimat Glomerular Filtration Rate 34 ML/MIN (>89) Imaging Last Impressions Chest X-Ray 11/20/17 06 Signed Impressions: CONCLUSION: Interval development left lung base consolidation. Head CT 11/19/17 06 Signed Impressions: CONCLUSION: 1. New extensive bilateral subarachnoid hemorrhage and diffuse cerebral edema. 2. Hydrocephalus. 3. Findings were called to Dr. Connelly at 14:[address] 11/17/17 Signed Impressions: CONCLUSION: Unremarkable study. CT Angiography 11/17/17 Signed Impressions: CONCLUSION: 1. Worsening parenchymal changes in the lungs may represent inflammatory simmons e and possibly pneumonia without evidence for PE. The appearance is however non specific. Last Impressions Chest X-Ray 11/19/17 0600 Signed Impressions: CONCLUSION: Previously seen right middle lobe opacity has resolved and mild ate lectasis may present left lung base. Head CT 11/17/17 Signed Impressions: CONCLUSION: Unremarkable study except for right maxillary sinus chronic sinusi tis. Cervical Spine CT 11/17/17 Signed Impressions: CONCLUSION: Unremarkable study. CT Angiography 11/17/17 Signed Impressions: CONCLUSION: 1. Worsening parenchymal changes in the lungs may represent inflammatory simmons e and possibly pneumonia without evidence for PE. The appearance is however non specific. Last 24 hours Impressions Chest X-Ray 11/17/17 0238 Signed Impressions: CONCLUSION: Possible right middle lobe consolidation. Hospital Course 11/17: Patient arrives 604, to [facility] [place] Patient evaluated pupils fixed and dilated , overbreathing the vent currently patient has positive gag reflex. Hypothermic protocol instituted. Currently hemodynamically stable no vasopressors required. 11/18:Rewarming initiated at 1100am. EEG and neurology consult pending. Lactate cleared. This a.m. patient required Levophed infusion to maintain MAP greater than 65. The patient was noted to be hyperglycemic yesterday afternoon requiring initiation of insulin infusion currently at 5 units/hour. 11/19: Patient rewarmed yesterday. Significant myoclonus during the night, patient was placed on propofol infusion. This a.m. EEG pending patient significantly hypotensive currently on norepinephrine ,vasopressin phenylephrine added. CT brain pending. Plan for cerebral blood flow study, patient overbreathing the vent. No change in neuro status. 1500-I was contacted by radiology extensive subarachnoid hemorrhage, with concomitant cerebral edema. Formal report pending. I contacted Dr. Tovar to provide him history and recent radiology report. I do not feel the patient is a surgical candidate. The patient has a very poor prognosis given no brainstem reflexes, and circumstances surrounding her cardiac arrest found down 30 minutes before initiation of CPR. The patient has an alternate CODE STATUS discussed with palliative care team, possible comfort care measures/ withdrawal on Friday, will await neurosurgery and neurology recommendations. Discussed with Dr. Hensley diffuse SAH thought to be secondary to anoxic brain injury. 11/20: Patient now hypertensive vasopressors have been discontinued . 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 Vincent after updating team family on the patient's medical status, no escalation of care no vasopressor support plan for possible comfort care measures/ withdrawal within the next 24 hours. Patient remains encephalopathic. 11/21: Neuro status unchanged map remains in the 50s. No plan for escalation of care . Plan for initiation of comfort care measures tentatively planned for Friday. 11/22: Late entry note. Patient seen at 0609 am.No acute events. No change in neuro status. Pt remains currently on no sedation. At 1306, patient's family at bedside with clergy requested. Planned institution of comfort care measures/ ventilator withdrawal at this time. 11/22: 1407-comfort care measures initiated. With family and clergy at bedside. Patient at 1407. Daisy Connelly MD Nov 22, 2017 14:29
[2017-11-22] MEDS ORDERED: HYDROmorphone HCL PF 2 MG/ML VIAL IV PUSH SCH (16:00)
[2017-11-22] MEDS ORDERED: LORazepam 2 MG/ML VIAL IV PUSH SCH (16:00)
== END 2017-11-22 14:07 | disposition expired | DRG 291 ==
LOC: NEPC 01:55 → NEDA 03:02 → HIMW 06:05
PROVIDERS: ADMIT Internal Medicine Critical Care Medicine; ATTEND Internal Medicine Critical Care Medicine
PROC: 02HV33Z Insertion of Infusion Device into Superior Vena Cava, Percutaneous Approach (ICD-10-PCS; principal; 2017-11-17)
PROC: 5A1955Z Respiratory Ventilation, Greater than 96 Consecutive Hours (ICD-10-PCS; 2017-11-17)
PROC: 5A12012 Performance of Cardiac Output, Single, Manual (ICD-10-PCS; 2017-11-17)
DX: R57.0 Cardiogenic shock (principal); J96.91 Respiratory failure, unspecified with hypoxia; G93.6 Cerebral edema; I60.9 Nontraumatic subarachnoid hemorrhage, unspecified; J18.9 Pneumonia, unspecified organism; G93.41 Metabolic encephalopathy; G93.1 Anoxic brain damage, not elsewhere classified; G91.9 Hydrocephalus, unspecified; J44.0 Chronic obstructive pulmonary disease with (acute) lower respiratory infection; J44.1 Chronic obstructive pulmonary disease with (acute) exacerbation; E87.2 Acidosis; M79.7 Fibromyalgia; M17.0 Bilateral primary osteoarthritis of knee; I10 Essential (primary) hypertension; F41.9 Anxiety disorder, unspecified; F31.9 Bipolar disorder, unspecified; E11.42 Type 2 diabetes mellitus with diabetic polyneuropathy; F17.210 Nicotine dependence, cigarettes, uncomplicated; I25.10 Atherosclerotic heart disease of native coronary artery without angina pectoris; E78.5 Hyperlipidemia, unspecified; D86.9 Sarcoidosis, unspecified; G47.30 Sleep apnea, unspecified; E11.65 Type 2 diabetes mellitus with hyperglycemia; G25.3 Myoclonus; Z51.5 Encounter for palliative care; Z86.711 Personal history of pulmonary embolism; Z92.3 Personal history of irradiation; Z95.5 Presence of coronary angioplasty implant and graft; Z79.4 Long term (current) use of insulin; I25.2 Old myocardial infarction
CPT/HCPCS: 36556; 36600; 36620; 70450; 71045; 71275; 72125; 80048; 80053; 80307; 81001; 82533; 82550; 82552; 82805; 82948; 83605; 83735; 84075; 84100; 84132; 84155; 84443; 84484; 85007; 85025; 85027; 85610; 85730; 86403; 86850; 86900; 86901; 87040; 87070; 87086; 87186; 87205; 87641; 92950; 93005; 93306; 94002; 94003; 94640; 94664; 95819; C9113; J0456; J1170; J1644; J1815; J1817; J1980; J2250; J2370; J2543; J2920; J3010; J3480; J7030; J7040; J7050; Q9967